=== PATIENT | female | born 1995 | race Caucasian/White ===

== ENCOUNTER 2022-07-20 08:03 | Emergency (ER) | payer BC, SELFPAY ==
--- NOTE | 2022-07-20 08:17 | ED.URI ---
HPI - URI/Sore Throat General Chief Complaint: Upper Respiratory Infection Stated Complaint: Sore Throat Time Seen by Provider: 07/20/22 08:22 Source: patient Mode of arrival: ambulatory Limitations: no limitations History of Present Illness HPI Narrative: 27-year-old female who presents to [facility] with complaint sore throat since yesterday some swollen lymph nodes in her neck some headache rare cough and nasal stuffiness. Patient does report son had strep last week so known exposure. Patient denies any body aches chills or sweats or any known fever. Patient has taken DayQuil and NyQuil for her symptoms. Patient has been COVID vaccinated and has had flu shot. MD elicited complaint: cough and sore throat Pertinent past history: other (Strep throat) Onset (ago): day(s) (1) Pain scale (0-10): 5 Able to tolerate fluids by mouth: Yes Treatments prior to arrival: other (DayQuil and NyQuil) Related Data Home Medications Medication Instructions Recorded Confirmed desogestrel-e.estradiol 0.15 tablet 07/20/22 mg-0.02 mg(21)/e.estrad 0.01 mg(5) tablet ([place] (28)) Allergies Allergy/AdvReac Type Severity Reaction Status Date / Time No Known Allergies Allergy Verified 07/20/22 08:24 Review of Systems Review of Systems: CONSTITUTIONAL: Denies malaise, chills, sweats, or fever. EYES: Denies visual changes, redness, or discharge. ENT: Reports rhinorrhea, congestion, sinus pain, no otalgia positive sore throat. CARDIOVASCULAR: Denies chest pain, palpitations, or edema. RESPIRATORY: Reports rare cough.? Denies dyspnea. GASTROINTESTINAL: Denies abdominal pain, nausea, vomiting, diarrhea SKIN: Denies rash or itching. MUSCULOSKELETAL: Denies myalgia. NEUROLOGIC: Reports headache. All systems reviewed & are unremarkable except as noted in HPI and below PMFSH Past Medical History Medical History (Updated 07/20/22 @ 08:34 by Swati Cruz NP) Strep pharyngitis Social History Social History (Updated 07/20/22 @ 08:30 by Swati Cruz NP) Smoking status: Never smoker Alcohol intake: current Alcohol use details: Social Substance use type: does not use Gender identity (if verbalized by the patient): Female Comments At time of signature, agree with nursing past medical, surgical, social and family history. There is no relevant family history pertinent to the presenting complaint Exam Narrative: GENERAL: Well-appearing, well-nourished, and in no acute distress. HEAD: Normocephalic EYES: PERRLA, conjunctivae clear ENT: Nares clear, turbinates edematous and erythematous, clear discharge. Mucous membranes moist. TM pearly ayon with dull light reflex bilaterally; no tragal tenderness. Oropharynx erythematous with white lesions. Tonsils enlarged and without exudate, no drooling, no hoarseness, no trismus, uvula midline. NECK: Supple. lymphadenopathy CHEST: Clear to auscultation, breath sounds equal. No wheezing, rhonchi, rales, or stridor. No respiratory distress, speaks in full sentences. Rare cough SaO2 98% on room air HEART: Regular rate and rhythm. No murmur heard. SKIN: Warm, dry, no rash. NEURO: Alert and oriented x3. PSYCH: Normal mood and affect Course Course Emergency Course: Patient is aware of diagnosis, understands and agrees to treatment plan.? Anticipatory guidance given.? Patient agrees to follow-up as directed and is aware of reasons to seek care at the emergency department. Portions of this record may have been created with voice recognition software Level of Care: Express Care Visit Vital Signs Vital signs: Reviewed MDM - URI/Sore Throat MDM Narrative Medical decision making narrative: Differential diagnosis considered: Lopez virus, strep pharyngitis, allergic rhinitis, upper respiratory tract infection, sinusitis, rhinosinusitis, nasopharyngitis. viral pharyngitis, otitis media, otitis externa, pneumonia, bronchitis, viral cough syndrom
[2022-07-20 08:18] VITALS: BP 142/66; PULSE 85; RESP 16; TEMP 36.7; O2SAT 98
== END 2022-07-20 08:40 | disposition home or self-care (01) ==
PROVIDERS: Emergency Provider Registered Nurse
DX: J02.0 Streptococcal pharyngitis (principal)
CPT/HCPCS: 99213; G0463

== ENCOUNTER 2023-03-27 12:48 | Emergency (ER) | payer BC, SELFPAY ==
[2023-03-27] VITALS (8 sets, daily range): BP systolic 101–134; BP diastolic 67–90; PULSE 62–91; RESP 16–20; TEMP 36.9; O2SAT 99–100
--- NOTE | ~2023-03-27 | XR_ITS ---
EXAMINATION: XR chest 2V DATE: 03/27/2023 13:46 INDICATION: Shortness of breath and palpitations TECHNIQUE: Frontal and lateral views of the chest are obtained COMPARISON: None available FINDINGS: The lungs are free of acute opacities. No pleural effusion or pneumothorax. The cardiomedia stinal silhouette is normal. The visualized bones and soft tissues are unremarkable. IMPRESSION: 1. No acute cardiopulmonary abnormality. Reviewed, dictated and finalized at location A.
--- NOTE | 2023-03-27 12:54 | ECG_ITS ---
Measurements Intervals [place] Rate: 61 P: 70 OK: 175 QRS: 57 QRSD: 78 T: 13 QT: 391 QTc: 397 Interpretive Statements SINUS RHYTHM POSSIBLE RIGHT VENTRICULAR CONDUCTION DELAY [RSR (QR) IN V1/V2] NONSPECIFIC ST AND T-WAVE ABNORMALITY NO PREVIOUS ECG AVAILABLE FOR COMPARISON Electronically Signed On 03-28-2023 11:28:22 CDT by Ameya Machado M.D.
[2023-03-27 13:28] LABS: Basophils Absolute Auto 0.1 K/mm3 (0.0-0.1); Basophils Percent Auto 1.2 % (0.2-1.2); Eosinophils Absolute Auto 0.3 K/mm3 (0-0.3); Eosinophils Percent Auto 4.4 % (0-4.4); Hematocrit 45.4 % (37.0-47.0); Immature Granulocyte Absolute 0.02 K/mm3 (0.00-0.031); Immature Granulocyte Percent A 0.3 % (0-0.5); Lymphocytes Absolute Auto 1.52 K/mm3 (0.9-3.2); Mean Corpuscular Hemoglobin 29.1 pg (26-34); Mean Platelet Volume 11.1 fl (7.4-10.4); Monocytes Absolute Auto 0.5 K/mm3 (0.1-0.6); Monocytes Percent Auto 6.9 % (2.6-8.5); Neutrophils Absolute Auto 4.3 K/mm3 (1.3-6.7); Neutrophils Percent Auto 64.2 % (45.5-73.1); Platelet Count Result 205 k/mm3 (150-375); Red Blood Count 5.16 M/mm3 (4.2-5.4); Red Cell Distribution Width 12.8 % (11.5-14.5); White Blood Count 6.6 K/mm3 (4.5-10.0)
[2023-03-27 13:38] LABS: Alanine Aminotransferase 26 U/L (6-35); Albumin Level 4.9 g/dL (3.5-5.1); Alkaline Phosphatase 45 U/L (38-126); Anion Gap 8 mmol/L (8-16); Aspartate Amino Transferase 30 U/L (14-36); Bilirubin,Total 0.4 mg/dL (0.2-1.3); Blood Urea Nitrogen 17 mg/dL (7-17); Calcium 9.5 mg/dL (8.4-10.2); Carbon Dioxide 29 mmol/L (22-30); Chloride 100 mmol/L (98-107); Estimated CRCL calculation 68 ml/min; Estimated Glomerular Filt Rate > 60; Glucose 98 mg/dL (65-110); Potassium 4.3 mmol/L (3.4-5.0); Sodium 137 mmol/L (137-145)
--- NOTE | 2023-03-27 18:55 | ED.GENADULT ---
HPI - General Adult General Chief complaint: Shortness of Breath/Dyspnea Stated complaint: sob/palpitations Time Seen by Provider: 03/27/23 16:43 History of Present Illness HPI narrative: 27-year-old female present emergency department for evaluation of intermittent dizziness. Patient reports she started taking spironolactone for her acne. Patient reports that she normally has low blood pressure. Patient states since starting the medication she has had intermittent times when she stands up and her heart rate increases to 110 and she has some intermittent lightheaded dizziness. Patient reports that the dizziness was worsened with standing. Related Data Home Medications Medication Instructions Recorded Confirmed desogestrel-e.estradiol 0.15 tablet 07/20/22 mg-0.02 mg(21)/e.estrad 0.01 mg(5) tablet (Viorele (28)) Allergies Allergy/AdvReac Type Severity Reaction Status Date / Time No Known Allergies Allergy Verified 03/27/23 16:34 Review of Systems Review of Systems: All systems reviewed & are unremarkable except as noted in HPI and below PMFSH Past Medical History Medical History (Updated 03/28/23 @ 00:00 by Alejandro Branham) Strep pharyngitis Social History Social History (Updated 07/20/22 @ 08:30 by Swati Cruz NP) Smoking status: Never smoker Alcohol intake: current Alcohol use details: Social Substance use type: does not use Living arrangements: with family Gender identity (if verbalized by the patient): Female Exam Narrative: APPEARANCE: Well appearing, no pain, no distress, well-nourished. HEAD: normocephalic, atraumatic. EYES: PERRLA/EOMI, conjunctivae clear. NOSE: Normal no drainage EARS:TMS clear with good light reflex. THROAT: Pharynx clear, no exudate. NECK: Supple. No adenopathy, no masses. RESPIRATORY: Airway patent, respirations nonlabored. Clear to auscultation bilaterally, no rales, rhonchi, wheezing. CARDIOVASCULAR: Regular rate and rhythm without murmurs rubs or gallops. ABDOMINAL: Soft, nontender, nondistended, normal bowel sounds MUSCULOSKELETAL: Moves all extremities. Strength/ROM intact, No edema, No calf tenderness. NEURO: Alert. Cranial nerves II through XII intact. Grossly intact SKIN: Warm, dry. Normal Color PSYCHIATRIC: Normal affect/mood. Course Course Emergency Course: 27-year-old female presented ED for evaluation of lightheaded dizziness. Patient was mildly orthostatic but declined the IV. Patient was encouraged to drink more water. Patient states she will have close follow-up with her tawer regarding her spironolactone dosing. Patient's chest x-ray showed no acute cardial pulm abnormality. Patient's EKG showed normal sinus rhythm. Patient was comfortable plan with discharge and close follow-up. X-ray showed no acute cardiopulmonary malady. Vital Signs Vital signs: Vital Signs Temperature 98.5 F 03/27/23 12:51 Pulse Rate 79 03/27/23 12:51 Respiratory Rate 20 03/27/23 12:51 Blood Pressure 134/84 03/27/23 12:51 Pulse Oximetry 100 03/27/23 12:51 Oxygen Delivery Room Air 03/27/23 12:51 Temperature 98.5 F 03/27/23 12:51 Pulse Rate 75 03/27/23 18:16 Respiratory Rate 17 03/27/23 18:16 Blood Pressure 111/73 03/27/23 18:16 Pulse Oximetry 99 03/27/23 16:36 Oxygen Delivery Room Air 03/27/23 16:36 Medical Decision Making Differential Diagnosis Differential Diagnosis: Adverse drug reaction, dehydration, vasovagal, orthostatic hypotension Vital Signs Vital Signs: Vital Signs Temperature 98.5 F 03/27/23 12:51 Pulse Rate 79 03/27/23 12:51 Respiratory Rate 20 03/27/23 12:51 Blood Pressure 134/84 03/27/23 12:51 Pulse Oximetry 100 03/27/23 12:51 Oxygen Delivery Room Air 03/27/23 12:51 Temperature 98.5 F 03/27/23 12:51 Pulse Rate 75 03/27/23 18:16 Respiratory Rate 17 03/27/23 18:16 Blood Pressure 111/73 03/27/23 18:16 Pulse Oximetry 99
== END 2023-03-27 19:03 | disposition home or self-care (01) ==
PROVIDERS: Emergency Provider Emergency Medicine
DX: I95.1 Orthostatic hypotension (principal); L70.9 Acne, unspecified; R94.31 Abnormal electrocardiogram [ECG] [EKG]
CPT/HCPCS: 36415; 71046; 80053; 85025; 93005; 99284

== ENCOUNTER 2024-08-02 09:35 | Emergency (ER) | payer BC, SELFPAY ==
[2024-08-02 09:59] VITALS: BP 113/79; PULSE 70; RESP 20; TEMP 37.1; O2SAT 100
--- NOTE | 2024-08-02 10:09 | ED.URI ---
HPI - URI/Sore Throat General Chief Complaint: Upper Respiratory Infection Stated Complaint: Sore Throat Time Seen by Provider: 08/02/24 10:10 Source: patient Mode of arrival: ambulatory Limitations: no limitations History of Present Illness HPI Narrative: 29-year-old female presents with complaint of sore throat, fatigue, low-grade fever for 2 days. Patient approximately 8 weeks . Has seen her OBGYN. No complaints today. , is taking her vitamin. All systems reviewed and negative except as noted above. Related Data Allergies Allergy/AdvReac Type Severity Reaction Status Date / Time No Known Allergies Allergy Verified 08/02/24 10:01 Review of Systems Review of Systems: CONSTITUTIONAL: Denies fever, chills, or sweats. EYES: Denies visual changes, redness, or discharge. ENT: Denies rhinorrhea, congestion . Reports sore throat. Denies otalgia. CARDIOVASCULAR: Denies chest pain, palpitations, or edema. RESPIRATORY: Denies cough or dyspnea. GASTROINTESTINAL: Denies abdominal pain, nausea, vomiting, or diarrhea. GENITOURINARY: Denies dysuria or hematuria. SKIN: Denies rash or itching. MUSCULOSKELETAL: Denies back pain, joint pain, or myalgia. NEUROLOGIC: Denies headache, numbness, or weakness. PSYCHIATRIC: Denies anxiety or depression. All other systems reviewed are negative, except as documented in HPI. [facility] Past Medical History Medical History (Updated 08/02/24 @ 10:14 by Shy Frederick NP) Strep pharyngitis Social History Social History (Updated 07/20/22 @ 08:30 by Swati Cruz NP) Smoking status: Never smoker Alcohol intake: current Alcohol use details: Social Substance use type: does not use Living arrangements: with family Gender identity (if verbalized by the patient): Female Comments At time of signature, agree with nursing past medical, surgical, social and family history. There is no relevant family history pertinent to the presenting complaint. Exam Narrative: GENERAL: This is a well-nourished, well-developed patient, in no apparent distress. HEAD: normocephalic, atraumatic. EYES: PERRL. Sclera clear/white. Vision is grossly intact. EARS: External ears normal, auditory canals clear and without drainage, TMs normal without perforation. Hearing grossly intact. NOSE: External nose normal with no obvious nasal discharge, nares without redness, no rhinorrhea. THROAT: Mucous membranes moist, posterior pharynx erythematous, tonsils 1+ bilaterally without exudates NECK: Neck supple, non-tender without lymphadenopathy, masses or thyromegaly. CARDIOVASCULAR: Regular rate and rhythm without murmurs, gallops, or rubs. RESPIRATORY: Clear to auscultation. Breath sounds equal bilaterally. No wheezes, rales, or rhonchi. SKIN: warm, Dry, intact with no suspicious lesions or rash, good texture and turgor. NEURO: awake, alert, and oriented to person, place and time. There were no obvious focal neurologic abnormalities. EXTREMITIES: No joint tenderness, effusion, or edema noted. Course Course Level of Care: Express Care Visit Vital Signs Vital signs: Vital Signs Temperature 37.1 C 08/02/24 09:59 Pulse Rate 70 08/02/24 09:59 Respiratory Rate 20 08/02/24 09:59 Blood Pressure 113/79 08/02/24 09:59 Pulse Oximetry 100 08/02/24 09:59 Oxygen Delivery Room Air 08/02/24 09:59 Temperature 37.1 C 08/02/24 09:59 Pulse Rate 70 08/02/24 09:59 Respiratory Rate 20 08/02/24 09:59 Blood Pressure 113/79 08/02/24 09:59 Pulse Oximetry 100 08/02/24 09:59 Oxygen Delivery Room Air 08/02/24 09:59 reviewed MDM - URI/Sore Throat MDM Narrative Medical decision making narrative: Patient is aware of diagnosis, understands and agrees to treatment plan. Anticipatory guidance given. Patient agrees to follow-up as directed and is aware of reasons to seek care at the emergency department. Portions of this record may have been created with voice recognition software positive strep. will treat with amoxicillin. Differential Diagnosis Differential diagnosis: Likely upper respiratory infection, viral infection, influenza and pharyngitis Discharge Plan Discharge Clinical Impression: Strep throat Patient Disposition: Home, Self-Care Condition: Stable Instructions: Antibiotic Form, Strep Throat (ED) Additional Instructions: Your strep test was positive. Take antibiotic as prescribed until gone. Change toothbrush after taking antibiotic for 24 hours. take Tylenol every 6-8 hours as needed for pain and fever. Drink at least 64 oz water a day. Follow-up with your primary care physician if symptoms are not improving. Patient Language: [place] Prescriptions: New amoxicillin 500 mg capsule 500 mg PO Q12H 10 Days Qty: 20 0RF Follow-up/Referrals: PHYSICIAN,INFORMATION SERVICES MANAGER [Primary Care Provider] - Time of Disposition: 10:16
[2024-08-02 10:10] LABS: EDSTREPNEGPOS1 Positive (Negative)
--- OUTSIDE RECORDS SUMMARY | 2024-08-09 10:43 | XMS_ITS ---
Author Organization [facility] Address [address] [place] [address] Phone Care Team Providers [employer] Sales Associate Name Role Phone MANJULA LYLES, MELODY Banks Unavailable [phone] Problems Includes: Active, inactive, and resolved Problems No Active Problems Plan of Treatment Findings Encounter Date Ordered Clinical summary pro vided to patient WELL WOMAN - ESTABLISHED PT with NAHUM JAIMES WHNP-BC 05/18/2022 Last Documented On 2 9:18AM ; [facility] Ordered Clinical summary pro vided to patient WELL WOMAN EXAM with NAHUM JAIMES WHNP-BC 04/09/2020 Last Documented On 0 8:24AM ; [facility] Ordered Clinical summary pro vided to patient METAL BUFFER EXAM with NAHUM JAIMES WHNP-BC 10/04/2017 Last Documented On 8 4:01PM ; [facility] Ordered Clinical summary pro vided to patient METAL BUFFER EXAM with NAHUMANITA JAIMES WHNP-BC 09/28/2016 Last Documented On 7 8:27AM ; [facility] Ordered Clinical summary pro vided to patient METAL BUFFER EXAM with NAHUMANITA JAIMES WHNP-BC 09/27/2015 Last Documented On 6 10:46AM ; [facility] Ordered Clinical summary pro vided to patient METAL BUFFER EXAM with NAHUMANITA JAIMES WHNP-BC 09/02/2014 Last Documented On 5 3:27PM ; [facility] Ordered Clinical summary pro vided to patient METAL BUFFER EXAM with NAHUMANITA JAIMES WHNP-BC 07/21/2013 Last Documented On 3 11:22AM ; [facility] Ordered follow-up visit 1 ye ar or as needed NEW METAL BUFFER EXAM with NAHUM JAIMES [facility] 02/14/2011 Last Documented On 1 2:27PM ; [facility] Instructions to patient Instructions for patient : B reast Self Exam discussed Last Documented On 2 8:56AM ; [facility] Gardasil information given a nd series encouraged Series completed! Last Documented On 2 8:57AM ; [facility] Safe sex counseling Last Documented On 2 8:57AM ; [facility] Instructions for patient : K eep the area around the vulva dry. Allow the area to have exposure to air. Avoid irritants such as fabric softeners and perfumed soaps.~ Last Documented On 0 8:11AM ; [facility] Instructions for patient : B reast Self Exam discussed Last Documented On 0 8:06AM ; [facility] Advised d/c scented bath pro ducts Last Documented On 0 8:11AM ; [facility] Gardasil information given a nd series encouraged Series completed! Last Documented On 0 8:11AM ; [facility] Safe sex counseling Last Documented On 0 8:07AM ; [facility] Instructions for patient : B reast Self Exam discussed Last Documented On 8 3:48PM ; [facility] Gardasil information given a nd series encouraged Series completed! Last Documented On 8 3:48PM ; [facility] Safe sex counseling Last Documented On 8 3:48PM ; [facility] Instructions for patient : B reast Self Exam discussed Last Documented On 7 8:11AM ; [facility] Gardasil information given a nd series encouraged Series completed!! Last Documented On 7 8:11AM ; [facility] Safe sex counseling Last Documented On 7 8:11AM ; [facility] Instructions for patient : B reast Self Exam discussed Last Documented On 6 10:32AM ; [facility] Gardasil information given a nd series encouraged Series completed! Last Documented On 6 10:33AM ; [facility] Safe sex counseling Last Documented On 6 10:33AM ; [facility] Instructions for patient : B reast Self Exam discussed Last Documented On 5 3:03PM ; [facility] Gardasil information given a nd series encouraged Only needs one more dose - had first two doses per Dr. Jimena Sage Last Documented On 5 3:27PM ; [facility] Safe sex counseling Last Documented On 5 3:03PM ; [facility] Instructions for patient : B reast Self Exam discussed Last Documented On 3 11:04AM ; [facility] Gardasil information given a nd series encouraged Last Documented On 3 11:05AM ; [facility] Safe sex counseling Last Documented On 3 11:05AM ; [facility] Instructions for patient : B reast Self Exam discussed Last Documented On 1 1:37PM ; [facility] Gardasil information given a nd series encouraged Last Documented On 1 1:38PM ; [facility] Safe sex counseling Last Documented On 1 1:38PM ; [facility] Education and Decision Aids were provided during visit for: Patient Education: Daily fiordaliza cium and vitamin D Last Documented On 2 8:56AM ; [facility] Patient Education: weight be aring exercise Last Documented On 2 8:56AM ; [facility] Patient Education: Daily fiordaliza cium and vitamin D Last Documented On 0 8:06AM ; [facility] Patient Education: weight be aring exercise Last Documented On 0 8:06AM ; [facility] Candidiasis Vulvovaginitis I nformation Sheet Given Last Documented On 0 8:11AM ; [facility] Patient Education: Daily fiordaliza cium and vitamin D Last Documented On 8 3:48PM ; [facility] Patient Education: weight be aring exercise Last Documented On 8 3:48PM ; [facility] Patient Education: Daily fiordaliza cium and vitamin D Last Documented On 7 8:11AM ; [facility] Patient Education: weight be aring exercise Last Documented On 7 8:11AM ; [facility] Patient Education: Daily fiordaliza cium and vitamin D Last Documented On 6 10:32AM ; [facility] Patient Education: weight be aring exercise Last Documented On 6 10:32AM ; [facility] Patient Education: Daily fiordaliza cium and vitamin D Last Documented On 5 3:03PM ; [facility] Patient Education: weight be aring exercise Last Documented On 5 3:03PM ; [facility] control consent review ed and signed Last Documented On 4 4:09PM ; [facility] Patient Education: Daily fiordaliza cium and vitamin D Last Documented On 3 11:04AM ; [facility] Patient Education: weight be aring exercise Last Documented On 3 11:04AM ; [facility] Patient Education: Daily fiordaliza cium and vitamin D Last Documented On 1 1:38PM ; [facility] Patient Education: weight be aring exercise Last Documented On 1 1:38PM ; [facility] Assessments Includes: Assessments for all patient encounters Findings Encounter Date NORMAL FEMALE EXAM WELL WOMAN - ESTABLISHED PT w ith NAHUM JAIMES [facility]- 05/18/2022 Last Documented On 2 9:18AM ; [facility] NORMAL FEMALE EXAM WELL WOMAN EXAM with NAHUM JAIMES [facility] 04/09/2020 Last Documented On 0 8:24AM ; [facility] NORMAL FEMALE EXAM METAL BUFFER EXAM with NAHUM Lynch P-BC 10/04/2017 Last Documented On 8 4:01PM ; [facility] NORMAL FEMALE EXAM METAL BUFFER EXAM with NAHUM Lynch HNP-BC 09/28/2016 Last Documented On 7 8:27AM ; [facility] NORMAL FEMALE EXAM METAL BUFFER EXAM with NAHUM Lynch HNP-BC 09/27/2015 Last Documented On 6 10:46AM ; [facility] NORMAL FEMALE EXAM METAL BUFFER EXAM with NAHUM Lynch HNP-BC 09/02/2014 Last Documented On 5 3:27PM ; [facility] Contraceptive management PROCEDURE OFFICE with Darren JAIMES [facility] 04/16/2014 Last Documented On 4 4:10PM ; [facility] NORMAL FEMALE EXAM METAL BUFFER EXAM with NAHUM JAIMES [facility] 07/21/2013 Last Documented On 3 11:22AM ; [facility] Contraceptive surveillance IMPLANON with NAHUM JAIMES [facility] 04/17/2011 Last Documented On 1 4:18PM ; [facility] Normal routine history and physical NEW METAL BUFFER EXAM with NAHUM JAIMES [facility] 02/14/2011 Last Documented On 1 2:27PM ; [facility] Routine pelvic exam NEW METAL BUFFER EXAM with NAHUM TEJEDA [facility] 02/14/2011 Last Documented On 1 2:27PM ; [facility] Instructions Includes: Instructions for all patient encounters Instructions to patient Instructions for patient : B reast Self Exam discussed Last Documented On 2 8:56AM ; [facility] Gardasil information given a nd series encouraged Series completed! Last Documented On 2 8:57AM ; [facility] Safe sex counseling Last Documented On 2 8:57AM ; [facility] Instructions for patient : K eep the area around the vulva dry. Allow the area to have exposure to air. Avoid irritants such as fabric softeners and perfumed soaps.~ Last Documented On 0 8:11AM ; [facility] Instructions for patient : B reast Self Exam discussed Last Documented On 0 8:06AM ; [facility] Advised d/c scented bath pro ducts Last Documented On 0 8:11AM ; [facility] Gardasil information given a nd series encouraged Series completed! Last Documented On 0 8:11AM ; [facility] Safe sex counseling Last Documented On 0 8:07AM ; [facility] Instructions for patient : B reast Self Exam discussed Last Documented On 8 3:48PM ; [facility] Gardasil information given a nd series encouraged Series completed! Last Documented On 8 3:48PM ; [facility] Safe sex counseling Last Documented On 8 3:48PM ; [facility] Instructions for patient : B reast Self Exam discussed Last Documented On 7 8:11AM ; [facility] Gardasil information given a nd series encouraged Series completed!! Last Documented On 7 8:11AM ; [facility] Safe sex counseling Last Documented On 7 8:11AM ; [facility] Instructions for patient : B reast Self Exam discussed Last Documented On 6 10:32AM ; [facility] Gardasil information given a nd series encouraged Series completed! Last Documented On 6 10:33AM ; [facility] Safe sex counseling Last Documented On 6 10:33AM ; [facility] Instructions for patient : B reast Self Exam discussed Last Documented On 5 3:03PM ; [facility] Gardasil information given a nd series encouraged Only needs one more dose - had first two doses per Dr. Jimena Sage Last Documented On 5 3:27PM ; [facility] Safe sex counseling Last Documented On 5 3:03PM ; [facility] Instructions for patient : B reast Self Exam discussed Last Documented On 3 11:04AM ; [facility] Gardasil information given a nd series encouraged Last Documented On 3 11:05AM ; [facility] Safe sex counseling Last Documented On 3 11:05AM ; [facility] Instructions for patient : B reast Self Exam discussed Last Documented On 1 1:37PM ; [facility] Gardasil information given a nd series encouraged Last Documented On 1 1:38PM ; [facility] Safe sex counseling Last Documented On 1 1:38PM ; [facility] Education and Decision Aids were provided during visit for: Patient Education: Daily fiordaliza cium and vitamin D Last Documented On 2 8:56AM ; [facility] Patient Education: weight be aring exercise Last Documented On 2 8:56AM ; [facility] Patient Education: Daily fiordaliza cium and vitamin D Last Documented On 0 8:06AM ; [facility] Patient Education: weight be aring exercise Last Documented On 0 8:06AM ; [facility] Candidiasis Vulvovaginitis I nformation Sheet Given Last Documented On 0 8:11AM ; [facility] Patient Education: Daily fiordaliza cium and vitamin D Last Documented On 8 3:48PM ; [facility] Patient Education: weight be aring exercise Last Documented On 8 3:48PM ; [facility] Patient Education: Daily fiordaliza cium and vitamin D Last Documented On 7 8:11AM ; [facility] Patient Education: weight be aring exercise Last Documented On 7 8:11AM ; [facility] Patient Education: Daily fiordaliza cium and vitamin D Last Documented On 6 10:32AM ; [facility] Patient Education: weight be aring exercise Last Documented On 6 10:32AM ; [facility] Patient Education: Daily fiordaliza cium and vitamin D Last Documented On 5 3:03PM ; [facility] Patient Education: weight be aring exercise Last Documented On 5 3:03PM ; [facility] control consent review ed and signed Last Documented On 4 4:09PM ; [facility] Patient Education: Daily fiordaliza cium and vitamin D Last Documented On 3 11:04AM ; [facility] Patient Education: weight be aring exercise Last Documented On 3 11:04AM ; [facility] Patient Education: Daily fiordaliza cium and vitamin D Last Documented On 1 1:38PM ; [facility] Patient Education: weight be aring exercise Last Documented On 1 1:38PM ; [facility] Medical Equipment - Implanted Devices Includes: Current and historical Devices No Medical Equipment Recorded Medications Includes: Current and historical Medications Current Medications (continue as prescribed) Azurette 0.15-0.02/0.01 MG ( /) Oral Tablet 05/18/2022 Provider: NAHUM A JAIMES WHNP-B C Diagnosis: One tablet daily Last Documented On 2 9:27AM By NAHUM JAIMES WILBC ; [facility] Past Medications on file Diflucan 150 MG Oral Tablet 04/09/2020 - 05/18/2022 Pr ovider: NAHUM Barriga THEODORE WHNP-BC Diagnosis: as directed - one po x 1 dos e - december rpt. in 3 days if needed Last Documented On 05/18/2022 8:59AM By Ada Zuluaga MA ; [facility] Azurette 0.15-0.02/0.01 MG (21/5) Oral Tablet 04/09/2020 - 05/18/2022 Provider: NAHUM ARMSTRONG-BC Diagnosis: Encounter for contraceptive management, unspecified One tablet daily Last Documented On 05/18/2022 8:58AM By Ada Zuluaga MA ; [facility] Azurette 0.15-0.02/0.01 MG (21/5) Oral Tablet 04/09/2020 - 04/09/2020 Provider: NAHUM ARMSTRONG-BC Diagnosis: Encounter for contraceptive management, unspecified One tablet daily Last Documented On 0 8:16AM By NAHUM ARMSTRONG-MOISES ; [facility] Azurette 0.15-0.02/0.01MG (21/5) Oral Tablet 10/04/2017 - 04/09/2020 Provider: NAHUM ARMSTRONG-BC Diagnosis: Encounter for contraceptive management, unspecified One tablet daily Last Documented On 0 8:14AM By NAHUM MOMIN ; [facility] Azurette 0.15-0.02/0.01MG (21/5) Oral Tablet 09/28/2016 - 10/04/2017 Provider: NAHUM JAIMES WHNP-BC Diagnosis: Encounter for contraceptive management, unspecified One tablet daily Last Documented On 8 3:50PM By NAHUM MOMIN ; [facility] Azurette 0.15-0.02/0.01 MG (21/5) Tablet 09/27/2015 - 09/28/2016 Provider: NAHUM ARMSTRONG-BC Diagnosis: Encounter for contraceptive management, unspecified One tablet daily Last Documented On 7 8:27AM By NAHUM MOMIN ; [facility] Azurette 0.15-0.02/0.01 MG (24/12) Tablet 08/09/2015 - 09/27/2015 Provider: NAHUM MOMIN Diagnosis: Encounter for contraceptive management, unspecified One tablet daily Last Documented On 6 10:42AM By NAHUM MOMIN ; [facility] Azurette 0.15-0.02/0.01 MG (24/12) OR TABS 09/02/2014 - 08/09/2015 Provider: NAHUM MOMIN Diagnosis: Contraceptive Ma ngmt NOS Last Documented On 6 8:41AM By NAHUM MOMIN ; [facility] Azurette 0.15-0.02/0.01 MG (24/12) OR TABS 04/16/2014 - 09/02/2014 Provider: NAHUM MOMIN Diagnosis: Contraceptive Ma ngmt NOS Last Documented On 5 3:25PM By NAHUM MOMIN ; [facility] Azurette 0.15-0.02/0.01 MG (24/12) OR TABS 04/16/2014 - 04/16/2014 Provider: NAHUM MOMIN Diagnosis: Contraceptive Ma ngmt NOS Last Documented On 4 4:09PM By NAHUM MOMIN ; [facility] Implanon 68 MG SC IMPL 04/17/2011 - 04/16/2014 Provide r: Diagnosis: Last Documented On 4 3:44PM By NAHUM JAIMES ERNESTO ; [facility] Medications Administered Includes: Administered Medications in patient's chart Medications Administered Diagnosis Date Pro vider Gardasil IM SUSP 09/14/2014 NAHUM DONG WIL Administered without difficulty. Last Documented On 5 2:42PM By OSMAR CASH LPN ; [facility] Results Includes: Results from 08/09/2023 through 08/09/2024 No Results Recorded For Specified Dates History of Present Illness History of Present Illness not supported for this document type No History of Present Illness Recorded Social History Description Last Updated Tobacco non-user 05/18/2022 Last Documented On 2 9:18AM ; [facility] Alcohol use rarely 04/09/2020 Last Documented On 0 8:24AM ; [facility] Non-smoker 04/09/2020 Last Documented On 0 8:24AM ; [facility] Not using drugs 04/09/2020 Last Documented On 0 8:24AM ; [facility] Sexually active with 1 partners in the l ast year 04/09/2020 Last Documented On 0 8:24AM ; [facility] Social history unchanged 04/09/2020 Last Documented On 0 8:24AM ; [facility] Smoking status : Never smoker 04/09/2020 Last Documented On 0 8:24AM ; [facility] Procedures and Surgical History Surgical History Last Updated Surgical / procedural history wisdom too th removed 10/04/2017 Last Documented On 8 4:01PM ; [facility] Medical History Includes: Medical History in patient's chart Description Last Updated 2 05/18/2022 Last Documented On 2 9:18AM ; [facility] Last pap smear date 201905/18/2022 Last Documented On 2 9:18AM ; [facility] Not using contraception 05/18/2022 Last Documented On 2 9:18AM ; [facility] Para 2 05/18/2022 Last Documented On 2 9:18AM ; [facility] LMP: 05/11/2022 05/18/2022 Last Documented On 2 9:18AM ; [facility] Vaginal delivery 04/09/2020 Last Documented On 0 8:24AM ; [facility] No recent change in medical history 11/2019 Last Documented On 0 8:24AM ; [facility] Sexually active 04/09/2020 Last Documented On 0 8:24AM ; [facility] History of Pap smear done 09/28/201611/2019 Last Documented On 0 8:24AM ; [facility] Result: normal 04/09/2020 Last Documented On 0 8:24AM ; [facility] History of Gardasil 09/27/2015 Last Documented On 6 10:46AM ; [facility] Family History Includes: Family History in patient's chart Description Last Updated Family history unchanged 04/09/2020 Last Documented On 0 8:24AM ; [facility] Family history of diabetes mellitus moth ers side-mggf 09/27/2015 Last Documented On 6 10:46AM ; [facility] Family history of Diabetes 04/17/2011 Last Documented On 1 4:18PM ; [facility] Family medical history of high blood pre ssure 04/17/2011 Last Documented On 1 4:18PM ; [facility] Review of Systems Review of Systems not supported for this document type No Review of Systems Recorded Mental Status No Mental Status Recorded Functional Status No Functional Status Recorded Physical Exam Physical Exam not supported for this document type No Physical Exam Recorded Allergies Includes: Active, inactive, and resolved Allergies No Known Allergies Insurance Includes: Active Insurance Policies Plan Name Member ID Group # Subscriber Relationship Effect el Dates 1 - [facility] [id number] MIKAELA LEONARD Self Clinical Notes Includes: Signed Clinical Notes starting from 08/25/2022 No Clinical Notes Recorded
--- OUTSIDE RECORDS SUMMARY | 2024-08-09 10:43 | XMS_ITS | Clinical Summary ---
Author Organization [facility] Address [address] [place] [address] Phone Care Team Providers Care Outcomes Manager Name Role Phone MANJULA LYLES, MELODY Banks Unavailable [phone] Reason for Visit and Chief Complaint The Chief Complaint is: WWE, she has not been taking any medication, but she states since she has had her last child, her cycles have been normal, but the cramps are awful and headaches, lasting for a couple of days. No new partners. FTVD at [employer] 05-20-21 - female - no complications. Chose [facility] because it was closer to her employer. Did not have post visit d/t + covid at the time itwas due Problems Includes: Problems addressed during this encounter and other active Problems No Active Problems Plan of Treatment - Clinical summary provided to patient - Last Documented On 05/18/2022 9:18AM ; [facility] Start ocp's day 1 of menses and take q day at same time - DO NOT SKIP A DAY! BUM x 1 month. Reviewed risks/benefits/ methods for use/ and possible side effects/ warning signs. - Last Documented On 05/18/2022 9:18AM ; [facility] Instructions to patient Instructions for patient : B reast Self Exam discussed Last Documented On 2 8:56AM ; [facility] Gardasil information given a nd series encouraged Series completed! Last Documented On 2 8:57AM ; [facility] Safe sex counseling Last Documented On 2 8:57AM ; [facility] Education and Decision Aids were provided during visit for: Patient Education: Daily fiordaliza cium and vitamin D Last Documented On 2 8:56AM ; [facility] Patient Education: weight be aring exercise Last Documented On 2 8:56AM ; [facility] Assessments Includes: Assessments from this encounter Findings - NORMAL FEMALE EXAM - Last Documented On 05/18/2022 9:18AM ; [facility] Instructions Includes: Instructions from this encounter Instructions to patient Instructions for patient : B reast Self Exam discussed Last Documented On 2 8:56AM ; [facility] Gardasil information given a nd series encouraged Series completed! Last Documented On 2 8:57AM ; [facility] Safe sex counseling Last Documented On 2 8:57AM ; [facility] Education and Decision Aids were provided during visit for: Patient Education: Daily fiordaliza cium and vitamin D Last Documented On 2 8:56AM ; [facility] Patient Education: weight be aring exercise Last Documented On 2 8:56AM ; [facility] Medical Equipment - Implanted Devices Includes: Current Devices No Medical Equipment Recorded Medications Includes: Medications discussed during this encounter and other current Medications Discontinued / Stopped on this date NAHUM JAIMES WHNP-BC on 04/09/2020 Diflucan 150 MG Oral Tablet Provider: NAHUM LANDANP-BC Diagnosis: Last Documented On 05/18/2022 8:59AM By Ada Zuluaga MA ; [facility] Azurette 0.15-0.02/0.01 MG (24/12) Oral Tablet Provider: NAHUM JAIMES WHNP-BC Diagnosis: Encounter for contraceptive management, unspecified Last Documented On 05/18/2022 8:58AM By Ada Zuluaga MA ; [facility] New / Renewed during this visit NAHUM JAIMES WHNP-BC on 05/18/2022 Azurette 0.15-0.02/0.01 MG (24/12) Oral Tablet Provider: NAHUM Banks 30 day supply: 30 tablet, 11 refills Diagnosis: One tablet daily Pharmacy: [facility] ([facility] - [address] [facility], [id number] - Last Documented On 2 9:27AM [facility] ; [facility] Medications Administered Includes: Administered Medications from this encounter No Administered Medications Recorded Vital Signs Includes: Vital Signs from this encounter Vital Name 05/18/2022 08:57A Blood Pressure Sitting L 110/70 BP Cuff Size Regular Temp-Oral (F) 97.7 Height (in) 63 Weight (lb) 149 Body Mass Index (kg/m2) 26.4 Body Surface Area (m2) 1.7 Last Documented: On 05/18/2022 9:01AM ; [facility] Results Includes: Results discussed during this encounter No Results Recorded For Specified Dates History of Present Illness Includes: History of Present Illness from this encounter ASHIA LEONARD is a 26 year old female. - Allergy list reviewed - Medication list reviewed - Primary Care Provider: None Social History Description Last Updated Tobacco non-user 05/18/2022 Last Documented On 2 9:18AM ; [facility] Alcohol use rarely 04/09/2020 Last Documented On 2 8:56AM ; [facility] Non-smoker 04/09/2020 Last Documented On 2 8:56AM ; [facility] Not using drugs 04/09/2020 Last Documented On 2 8:56AM ; [facility] Sexually active with 1 partners in the l ast year 04/09/2020 Last Documented On 2 8:56AM ; [facility] Social history unchanged 04/09/2020 Last Documented On 2 8:56AM ; [facility] Smoking status : Never smoker 04/09/2020 Last Documented On 2 8:56AM ; [facility] Procedures and Surgical History Includes: Procedures from this encounter Procedures Code Diagnosis Performing Provider Service L ocation Service Date low fat diet Last Documented On 2 8:57AM ; [facility] use of tobacco assessment performed 1000F Last Documented On 2 9:02AM ; [facility] review of medications documented 1160F Last Documented On 2 9:02AM ; [facility] history of cervical Pap smear 2019 66146 Last Documented On 2 9:02AM ; [facility] Chlamydia trachomatis culture was perfor med Last Documented On 2 8:57AM ; [facility] Neisseria gonorrhea culture was performe d Last Documented On 2 8:57AM ; [facility] Cervical Pap Smear performed Q0091 Last Documented On 2 8:57AM ; [facility] Surgical History Last Updated Surgical / procedural history randy too th removed 10/04/2017 Last Documented On 2 8:56AM ; [facility] Medical History Includes: Medical History addressed during this encounter Description Last Updated 2 05/18/2022 Last Documented On 2 9:18AM ; [facility] Last pap smear date 201905/18/2022 Last Documented On 2 9:18AM ; [facility] Not using contraception 05/18/2022 Last Documented On 2 9:18AM ; [facility] Para 2 05/18/2022 Last Documented On 2 9:18AM ; [facility] LMP: 05/11/2022 05/18/2022 Last Documented On 2 9:18AM ; [facility] Contraception: 05/18/2022 Last Documented On 2 9:18AM ; [facility] Vaginal delivery 04/09/2020 Last Documented On 2 8:56AM ; [facility] No recent change in medical history 11/2019 Last Documented On 2 8:56AM ; [facility] Sexually active 04/09/2020 Last Documented On 2 8:56AM ; [facility] History of Pap smear done 09/28/201611/2019 Last Documented On 2 8:56AM ; [facility] Result: normal 04/09/2020 Last Documented On 2 8:56AM ; [facility] History of Gardasil 09/27/2015 Last Documented On 2 8:56AM ; [facility] Family History Includes: Family History addressed during this encounter Description Last Updated Family history unchanged 04/09/2020 Last Documented On 2 8:56AM ; [facility] Family history of diabetes mellitus moth ers side-mggf 09/27/2015 Last Documented On 2 8:56AM ; [facility] Family history of Diabetes 04/17/2011 Last Documented On 2 8:56AM ; [facility] Family medical history of high blood pre ssure 04/17/2011 Last Documented On 2 8:56AM ; [facility] Review of Systems Includes: Review of Systems from this encounter Gastrointestinal: No pelvic pain. Genitourinary: No menorrhagia. No dysmenorrhea and no bleeding between periods. No vaginal discharge. Mental Status Includes: Mental Status from this encounter No Mental Status Recorded Functional Status Includes: Functional Status from this encounter No Functional Status Recorded Physical Exam Includes: Physical Exam from this encounter Allergies Includes: Active Allergies No Known Allergies Encounters Encounter Provider Location Date Check-In Time Check-Out Time Diagnosis WELL WOMAN - ESTABLISHED PT NAHUM JAIMES [facility] 05/18/20 22 8:53AM 9:17AM Normal Female Exam Insurance Includes: Active Insurance Policies Plan Name Member ID Group # Subscriber Relationship Effect el Dates 1 - [facility] [id number] MIKAELA LEONARD Self Clinical Notes Includes: Clinical Notes from this encounter No Clinical Notes Recorded
--- OUTSIDE RECORDS SUMMARY | 2024-08-09 10:43 | XMS_ITS ---
Care Plan - [facility] Created on: August 09, 2024 MIKAELA LEONARD : 1995 Sex: Female Author Organization [facility] Address [address] [place] [address] Phone Care Team Providers Care Outpatient Services Director Name Role Phone MANJULA LYLES, MELODY C Unavailable [phone]
--- OUTSIDE RECORDS SUMMARY | 2024-08-09 10:43 | XMS_ITS | Clinical Summary ---
Author Organization [facility] Address [address] [place] [address] Phone Care Team Providers Care Cutting Supervisor Name Role Phone MELODY FAIR MD Unavailable [phone] Reason for Visit and Chief Complaint NO SHOW Problems Includes: Problems addressed during this encounter and other active Problems No Active Problems Plan of Treatment No Plan of Treatment Recorded Assessments Includes: Assessments from this encounter No Assessments Recorded Medical Equipment - Implanted Devices Includes: Current Devices No Medical Equipment Recorded Medications Includes: Medications discussed during this encounter and other current Medications Current Medications (continue as prescribed) Azurette 0.15-0.02/0.01 MG ( 24/12) Oral Tablet 05/18/2022 Provider: NAHUM Banks Diagnosis: One tablet daily Last Documented On 9:27AM By NAHUM MOMIN ; [facility] Medications Administered Includes: Administered Medications from this encounter No Administered Medications Recorded Results Includes: Results discussed during this encounter No Results Recorded For Specified Dates History of Present Illness Includes: History of Present Illness from this encounter No History of Present Illness Recorded Social History No Social History Recorded - Smoking Status Unknown Medical History Includes: Medical History addressed during this encounter No Medical History Recorded Family History Includes: Family History addressed during this encounter No Family History Recorded Review of Systems Includes: Review of Systems from this encounter No Review of Systems Recorded Mental Status Includes: Mental Status from this encounter No Mental Status Recorded Functional Status Includes: Functional Status from this encounter No Functional Status Recorded Physical Exam Includes: Physical Exam from this encounter No Physical Exam Recorded Allergies Includes: Active Allergies No Known Allergies Encounters Encounter Provider Location Date Check-In Time Check-Out Time Diagnosis NO SHOW NAHUM MOMIN [facility] 04/15/2021 9:47AM 11:59PM Insurance Includes: Active Insurance Policies Plan Name Member ID Group # Subscriber Relationship Effect el Dates 1 - [facility] [id number] MIKAELA LEONARD Self Clinical Notes Includes: Clinical Notes from this encounter No Clinical Notes Recorded
--- OUTSIDE RECORDS SUMMARY | 2024-08-09 10:43 | XMS_ITS | Clinical Summary ---
Author Organization [facility] Address [address] [place] [address] Phone Care Team Providers Care Tobacco Prizer Name Role Phone MELODY FAIR MD Unavailable [phone] Reason for Visit and Chief Complaint * PHONE CALL Problems Includes: Problems addressed during this encounter [...] Last Documented On 2 9:27AM By NAHUM MOMIN ; [facility] Medications Administered Includes: Administered Medications [...] Location Date Check-In Time Check-Out Time Diagnosis * PHONE CALL NAHUM MOMIN [facility] 3 2:55PM 11:59PM Insurance Includes: Active Insurance Policies Plan Name Member ID Group # Subscriber Relationship Effect el Dates 1 - [facility] [id number] MIKAELA LEONARD Self Clinical Notes Includes: Clinical Notes from this encounter No Clinical Notes Recorded
--- OUTSIDE RECORDS SUMMARY | 2024-08-09 10:43 | XMS_ITS | Clinical Summary ---
Author Organization [facility] Address [address] [place] [address] Phone Care Team Providers Care Hydro Sprayer Operator Name Role Phone MANJULA LYLES, MELODY Banks Unavailable [phone] Reason for Visit and Chief Complaint gynecologic annual exam - The Chief Complaint is: Annual-pt thinks she has a yeast infection she started a pill otc and say it seems to be helping. Pt last year had a baby at [place]. Pt is no longer breast feeding and would like to go back on the pill that you prescribed her Problems Includes: Problems addressed during this encounter and other active Problems No Active Problems Plan of Treatment - Clinical summary provided to patient - Last Documented On 04/09/2020 8:24AM ; [facility] Start ocp's day 1 of menses and take q day at same time - DO NOT SKIP A DAY! BUM x 1 month. Reviewed risks/benefits/ methods for use/ and possible side effects/ warning signs. Has been using pop from [facility] but would like to go back to [facility]. - Last Documented On 04/09/2020 8:24AM ; [facility] Instructions to patient Instructions for patient : K eep the area around the vulva dry. Allow the area to have exposure to air. Avoid irritants such as fabric softeners and perfumed soaps.~ Last Documented On 0 8:11AM ; [facility] Instructions for patient : B reast Self Exam discussed Last Documented On 0 8:06AM ; [facility] Advised d/c scented bath pro ducts Last Documented On 0 8:11AM ; [facility] Gardasil information given a nd series encouraged Series completed! Last Documented On 0 8:11AM ; [facility] Safe sex counseling Last Documented On 0 8:07AM ; [facility] Education and Decision Aids were provided during visit for: Patient Education: Daily fiordaliza cium and vitamin D Last Documented On 0 8:06AM ; [facility] Patient Education: weight be aring exercise Last Documented On 0 8:06AM ; [facility] Candidiasis Vulvovaginitis I nformation Sheet Given Last Documented On 0 8:11AM ; [facility] Assessments Includes: Assessments from this encounter Findings - NORMAL FEMALE EXAM [Z01.419 - Encounter for gynecological examination (general) (routine) without abnormal findings] - Last Documented On 04/09/2020 8:24AM ; [facility] Instructions Includes: Instructions from this encounter Instructions to patient Instructions for patient : K eep the area around the vulva dry. Allow the area to have exposure to air. Avoid irritants such as fabric softeners and perfumed soaps.~ Last Documented On 0 8:11AM ; [facility] Instructions for patient : B reast Self Exam discussed Last Documented On 0 8:06AM ; [facility] Advised d/c scented bath pro ducts Last Documented On 0 8:11AM ; [facility] Gardasil information given a nd series encouraged Series completed! Last Documented On 0 8:11AM ; [facility] Safe sex counseling Last Documented On 0 8:07AM ; [facility] Education and Decision Aids were provided during visit for: Patient Education: Daily fiordaliza cium and vitamin D Last Documented On 0 8:06AM ; [facility] Patient Education: weight be aring exercise Last Documented On 0 8:06AM ; [facility] Candidiasis Vulvovaginitis I nformation Sheet Given Last Documented On 0 8:11AM ; [facility] Medical Equipment - Implanted Devices Includes: Current Devices No Medical Equipment Recorded Medications Includes: Medications discussed during this encounter and other current Medications New / Renewed during this visit NAHUM JAIMES ADIS- on 04/09/2020 Diflucan 150 MG Oral Tablet Provider: NAHUM Banks 30 day supply: 2 tablet, 0 refills Diagnosis: as directed - one po x 1 dos e - december rpt. in 3 days if needed Pharmacy: [facility] [address] ([facility], [id number] - Last Documented On 05/18/2022 8:59AM By Ada Zuluaga MA ; [facility] Azurette 0.15-0.02/0.01 MG (215) Oral Tablet Provider: NAHUM MOMIN 90 day supply: 90 tablet, 3 refills Diagnosis: Encounter for contraceptive management, unspecified One tablet daily Pharmacy: [facility] ([facility], [id number] - Last Documented On 05/18/2022 8:58AM By Ada Zuluaga MA ; [facility] Current Medications (continue as prescribed) Azurette 0.15-0.02/0.01 MG ( 24/12) Oral Tablet 05/18/2022 Provider: NAHUM Banks Diagnosis: One tablet daily Last Documented On 9:27AM By NAHUM MOMIN ; [facility] Medications Administered Includes: Administered Medications from this encounter No Administered Medications Recorded Vital Signs Includes: Vital Signs from this encounter Vital Name 04/09/2020 08:06A Blood Pressure Sitting L 100/62 BP Cuff Size Regular Temp-Oral (F) 97.2 Height (in) 63 Weight (lb) 144 Body Mass Index (kg/m2) 25.5 Body Surface Area (m2) 1.7 Last Documented: On 04/09/2020 8:09AM ; [facility] Results Includes: Results discussed during this encounter No Results Recorded For Specified Dates History of Present Illness Includes: History of Present Illness from this encounter HPI MIKAELA BRANCH is a 24 year old female. - Medication list reviewed. Social History Description Last Updated Alcohol use rarely 04/09/2020 Last Documented On 0 8:24AM ; [facility] Non-smoker 04/09/2020 Last Documented On 0 8:24AM ; [facility] Not using drugs 04/09/2020 Last Documented On 0 8:24AM ; [facility] Sexually active with 1 partners in the l ast year 04/09/2020 Last Documented On 0 8:24AM ; [facility] Social history unchanged 04/09/2020 Last Documented On 0 8:24AM ; [facility] Smoking status : Never smoker 04/09/2020 Last Documented On 0 8:24AM ; [facility] Procedures and Surgical History Includes: Procedures from this encounter Procedures Code Diagnosis Performing Provider Service L ocation Service Date low fat diet Last Documented On 0 8:07AM ; [facility] Chlamydia trachomatis culture was perfor med Last Documented On 0 8:07AM ; [facility] Neisseria gonorrhea culture was performe d Last Documented On 0 8:07AM ; [facility] Cervical Pap Smear performed Q0091 Last Documented On 0 8:07AM ; [facility] Surgical History Last Updated Surgical / procedural history wisdom too th removed 10/04/2017 Last Documented On 0 8:05AM ; [facility] Medical History Includes: Medical History addressed during this encounter Description Last Updated Vaginal delivery 04/09/2020 Last Documented On 0 8:24AM ; [facility] No recent change in medical history 11/2019 Last Documented On 0 8:24AM ; [facility] Contraception: azzurette 04/09/2020 Last Documented On 0 8:24AM ; [facility] 1 04/09/2020 Last Documented On 0 8:24AM ; [facility] LMP: 04/08/2020 04/09/2020 Last Documented On 0 8:24AM ; [facility] Para 1 04/09/2020 Last Documented On 0 8:24AM ; [facility] Sexually active 04/09/2020 Last Documented On 0 8:24AM ; [facility] History of Pap smear done 09/28/201611/2019 Last Documented On 0 8:24AM ; [facility] Result: normal 04/09/2020 Last Documented On 0 8:24AM ; [facility] History of Gardasil 09/27/2015 Last Documented On 0 8:05AM ; [facility] Family History Includes: Family History addressed during this encounter Description Last Updated Family history unchanged 04/09/2020 Last Documented On 0 8:24AM ; [facility] Family history of diabetes mellitus moth ers side-mggf 09/27/2015 Last Documented On 0 8:05AM ; [facility] Family history of Diabetes 04/17/2011 Last Documented On 0 8:05AM ; [facility] Family medical history of high blood pre ssure 04/17/2011 Last Documented On 0 8:05AM ; [facility] Review of Systems Includes: Review of Systems [...] Check-In Time Check-Out Time Diagnosis WELL WOMAN EXAM [facility] 04/09/20 20 8:00AM 8:24AM Normal Female Exam Insurance Includes: Active Insurance Policies Plan Name Member ID Group # Subscriber Relationship Effect el Dates 1 - [facility] [id number] MIKAELA LEONARD Self Clinical Notes Includes: Clinical Notes from this encounter No Clinical Notes Recorded
--- OUTSIDE RECORDS SUMMARY | 2024-08-09 10:43 | XMS_ITS | Encounter Summary ---
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 threatened to shut off services in your home? No 01/02/2024 Humiliation, Afraid, Rape, and Kick questionnair e Answer Date Recorded Within the last year, have y ou been afraid of your partner or ex-partner? No 01/02/2024 Within the last year, have y ou been humiliated or emotionally abused in other ways by your partner or ex-partner? No Within the last year, have y ou been kicked, hit, slapped, or otherwise physically hurt by your partner or ex-partner? No 01/02/2024 Within the last year, have y ou been raped or forced to have any kind of sexual activity by your partner or ex-partner? No 01/02/2024 Social Connection and Isolat ion Panel [NHANES] Answer Date Recorded In a typical week, how many times do you talk on the phone with family, friends, or neighbors? More than three times a week 01/02/2024 How often do you get togethe r with friends or relatives? More than three times a week 01/02/2024 How often do you attend chur ch or sabianism services? Never 01/02/2024 Do you belong to any clubs o r organizations such as episcopalian groups, unions, fraternal or athletic groups, or school groups? No 01/02/2024 How often do you attend meet ings of the clubs or organizations you belong to? Never 01/02/2024 Are you , , di vorced, , never , or living with a partner? 01/02/2024 AUDIT-C Answer Date Recorded Q1: How often do you have a drink containing alcohol? Never 07/24/2024 Q2: How many drinks containi ng alcohol do you have on a typical day when you are drinking? Patient does not drink Q3: How often do you have si x or more drinks on one occasion? Never 07/24/2024 Overall Financial Resource Strain (CARDIA) Answe r Date Recorded How hard is it for you to pa y for the very basics like food, housing, medical care, and heating? Not hard at all 01/02/2024 PHQ-2 Answer Date Recorded PHQ-2 Total Score (If total score is 3 or more points, staff should administer the PHQ-9) 0 01/02/2024 [facility] Answer Date Recorded Do you feel stress - tense, restless, nervous, or anxious, or unable to sleep at night because your mind is troubled all the time - these days? Rather much 01/02/2024 Exercise Vital Sign Answer Date Recorde d On average, how many days pe r week do you engage in moderate to strenuous exercise (like a brisk walk)? 3 days 07/24/2024 On average, how many minutes do you engage in exercise at this level? 30 min 07/24/2024 Hunger Vital Sign Answer Date Recorded Within the past 12 months, y ou worried that your food would run out before you got the money to buy more. Never true 01/02/20 24 Within the past 12 months, t he food you bought just didn't last and you didn't have money to get more. Never true 01/02/2024 PRAPARE - Transportation Answer Date Re corded In the past 12 months, has l ack of transportation kept you from medical appointments or from getting medications? No 12/05 In the past 12 months, has l ack of transportation kept you from meetings, work, or from getting things needed for daily living? No 01/02/2024 Housing Stability Vital Sign Answer Sesar e Recorded In the last 12 months, was t here a time when you were not able to pay the mortgage or rent on time? No 01/02/2024 In the past 12 months, how m any times have you moved where you were living? 1 01/02/2024 At any time in the past 12 m [facility], were you homeless or living in a long-term (including now)? No 01/02/2024 Personal Safety Answer Date Recorded Have you ever been in or are you currently in a harmful physical or emotional relationship or is someone making you feel afraid or unsafe? Denies 09/01/2023 Education Answer Date Recorded What is the highest level of school you have completed or the highest degree you have received? Bachelor's degree (e.g., BA, AB, BS) 07/24/2024 Estimated Date of Delivery Comme nts Yes 03/09/2025 Based on Ultraso und, Entered from OB Ultrasound Reporting. 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 [employer] Not on file Not on file Not on file documented as of this encounter Medications at Time of Discharge azelastine (ASTELIN) 137 mcg (0.1 %) nasal spray Administer 1 spray into each nostril 2 (two) times a day Use in each nostril as directed 30 mL 2 01/29/2024 drospirenone-eth inyl estradioL (KASSANDRA FRIEND) 3-0.02 mg per tablet TAKE 1 TABLET BY MOUTH EVERY DAY FOR 90 DAYS 09/28/2023 fluticasone propionate (FLONASE) 50 mcg/actuation nasal spray Administer 2 sprays into each nostril daily 3 each 4 01/02/2024 vit [id number]-[id number]-dh a 27mg iron- 800 mcg-250 mg capsule Take by mouth documented as of this encounter Discharge Disposition Disposition Code Departure Means Destination Discharge to home or self care documented in this encounter Plan of Treatment Scheduled Orders Name Type Priority Associated Diagnoses Order Schedule Pap with reflex to High Risk HPV and Genotyping (Cytology Component) Pathology and Cytology Routine Supervision of other normal , antepartum Once for 1 Occurrences starting 07/24/2024 until 07/24/2024 documented as of this encounter Procedures Procedure Name Priority Date/Time Associated Diagnosis Comments THINPREP PROCESSING (MOLECULAR COMPONENT) Routine 07/24/2024 9:34 AM MENTALLY IMPAIRED TEACHER PAP WITH REFLEX TO HIGH RISK HPV Routine 07/24/2024 9:34 AM MENTALLY IMPAIRED TEACHER documented in this encounter Results * Pap with reflex to High Risk HPV and Genotyping (Cytology Component) (07/24/2024 9:34 AM MENTALLY IMPAIRED TEACHER) Pap test 07/24/2024 9:34 AM MENTALLY IMPAIRED TEACHER 07/24/2024 2:08 PM MENTALLY IMPAIRED TEACHER Narrative 08/05/2024 8:46 AM MENTALLY IMPAIRED TEACHER EPIC results best viewed via link to PDF [facility] [place] [address] Note to Patients: This report may contain a detailed description of human tissue sent by a health care provider to the laboratory for pathologic evaluation. The content of this report is essential for diagnosis and may provide important critical findings. This information may be unfamiliar to patients to review without a medical professional present. It is advised that the patient review this report in the presence of a health care provider who can answer questions and explain the details. CYTOPATHOLOGY REPORT FINAL Patient Name: ??MIKAELA PERSAUDShea Gender: ??F : ??1995 (Age: 29) Address: ??[address] [place] [address] ??[id number] Hospital #: ??[id number] Service: ??UNKNOWN Location: ?? Patient Type: ??[facility] SPECIMEN Taken: ??07/24/2024 Received: ??07/24/2024 Accessioned: ??07/24/2024 Reported: ??08/05/2024 Physician(s): ??Tank Babcock MD ?? FINAL INTERPRETATION SOURCE OF SPECIMEN ?Liquid based Thin Prep pap with Reflex HPV: STATEMENT OF ADEQUACY ?- Satisfactory for evaluation ?- Endocervical cells/transformation zone sample present ? GENERAL CATEGORIZATION: ?- Negative for squamous intraepithelial lesion or malignancy ? lwl/08/05/2024 08:46 DAVE Mora MS(ASCP)GOPI Report Electronically Reviewed and Signed Out By DAVE Mora MS(ASCP)GOPI 08/05/2024 08:46:23 Cervicovaginal Cytology (Pap Test) Disclaimer: The Pap test is a screening test used to detect cervical cancer and its precursors; it is not a diagnostic procedure. False negative and false positive results do occur. Pap test results should be interpreted in the context of pertinent clinical information and biopsy results as indicated. CMS Clinical Laboratory Improvement Amendments (CLIA) mandate that cytologic and histologic results be correlated for laboratory water quality assistant & improvement standards. ??FOR ALL HIGH-GRADE CASES we request submission of follow-up histological material and/or reports that have not been previously provided so that we may fulfill said required standards. ?? Gross Description A. ??Liquid based Thin Prep pap with Reflex HPV: Cervical/vaginal - Screening ThinPrep Clinical Diagnosis and History Last Menstrual Period: 05/30/24 Menstrual History: The patient is a 29 year old female with antepartum normal supervision, screen, no Hx of abnormal. Report Images and scanned documents, if included only viewable in PDF version The performance characteristics of some immunohistochemical stains, in-situ hybridization and fluorescence in-situ hybridization tests and immunophenotyping by flow cytometry cited in this report (if any) were determined by the Surgical Pathology Department at [facility] as part of an ongoing clinical quality manager program and in compliance with federally mandated regulations drawn from the Clinical Laboratory Improvement Act of 1988 (CLIA '88). ??Some of these tests rely on the use of analyte specific reagents and are subject to specific labeling requirements by the US Food and Drug Administration. ??Such diagnostic tests may only be performed in a facility that is certified by the Department of Health and Human Services as a high complexity laboratory under CLIA '88. ??The FDA has determined that such clearance or approval is not necessary. ??This test is used for clinical purposes. ??It should not be regarded as investigational or for research. ??Nevertheless, federal rules concerning the medical use of analyte specific reagents require that the following disclaimer be attached to the report: This test was developed and its performance characteristics determined by the Surgical Pathology Department of [facility]. ??It has not been cleared or approved by the U. S. Food and Drug Administration. Tank Babcock MD LAB CYTOLOGY ORDERABLES F inal Result * ThinPrep processing (Molecular component) (07/24/2024 9:34 AM MENTALLY IMPAIRED TEACHER) ThinPrep processing (Molecular component) Specimen received for processing. [facility] Endocervical 07/24/2024 9:34 AM MENTALLY IMPAIRED TEACHER 07/28/2024 9:10 PM MENTALLY IMPAIRED TEACHER Tank Babcock MD LAB BODY FLUIDS AND STOOL S ORDERABLES Final Result [facility] [place] [address] [facility] documented in this encounter Visit Diagnoses Diagnosis Supervision of other normal , antepartum documented in this encounter Care Teams Duralumin Mechanic Relationship Specialty Start Date End Date Bonilla [place] [id number] PCP - General Family Medicine 01/02/24 documented as of this encounter
--- OUTSIDE RECORDS SUMMARY | 2024-08-09 10:43 | XMS_ITS | Referral Summary ---
Author Organization [facility] Address [address] [place] [id number] Care Team Providers Care Machine Accountant Name Role Phone Bonilla Byrd MD Primary Care Provider [phone] Encounters Date Type Department Care Team Description 07/24/2024 10:04 AM FINANCIAL AGENT - 07/24/2024 11:59 PM FINANCIAL AGENT Hospital Encounter [address] [id number] Supervision of other normal , antepartum Discharge Disposition: Discharge to home or self care 07/24/2024 9:40 AM FINANCIAL AGENT Ancillary Procedure [facility] Obstetrics [facility] Gynecology [address] [place] [address] Floor [address] [place] [phone] 07/24/2024 8:45 AM FINANCIAL AGENT Office Visit [facility] Obstetrics and Gynecology [address] [place] [address] Floor [address] [place] [phone] Supervision of other normal , antepartum (Primary Dx); 7 weeks gestation of 06/06/2024 Telephone [facility] at [address] [place] [address] Zita Penaloza MA 06/05/2024 8:54 AM CDT - 06/05/2024 11:59 PM CDT Hospital Encounter [address] [address] Sore throat Discharge Disposition: Discharge to home or self care 06/05/2024 8:30 AM CDT Office Visit [facility] [place] [address] [place] [address] Shavon Silva, ADIS Sore throat (Primary Dx); Viral URI with cough from Last 3 Months Allergies No known active allergies Medications drospirenone-et hinyl estradioL (RONNA,GIANVI) 3-0.02 mg per tablet TAKE 1 TABLET BY MOUTH EVERY DAY FOR 90 DAYS 4 Active fluticasone propionate (FLONASE) 50 mcg/actuation nasal spray Administer 2 sprays into each nostril daily 3 each 4 4 Active Additional Information Patient not taking.Reported on 07/24/2024 azelastine (ASTELIN) 137 mcg (0.1 %) nasal spray Administer 1 spray into each nostril 2 (two) times a day Use in each nostril as directed 30 mL 2 4 Active Additional Information Patient not taking.Reported on 07/24/2024 vit 24-[id number]-euzxq-d godinez 27mg iron- 800 mcg-250 mg capsule Take by mouth Active Active Problems Problem Noted Date Diagnosed Date Supervision of other normal , antepartu m 07/08/2024 Overview (07/24/2024): [x] Initial BMI: 27.99 [x] Labs: Pending [x] Genetic Screening: cfDNA only [x] Baby ASA: N/A [] 1hr GCT at 24-28wks: [] Tdap (27-36wks): [x] Flu Shot: rcvd [] RSV Vaccine in season (32.0-36.6): [x] COVID vaccine: Vaccinated, declines updated vaccine [] Rhogam (if Rh neg): n/a A+ [] GBS at 36 wks: [] [] control method: [] 39 weeks discussion of IOL vs. Expectant management: [] Mode of delivery: [] For C/S bottle of CHG 4% and hand out provided @ 36wks Teaching: [x] 1st visit [] 28-30 week [] 36 week Assessment & Plan (07/24/2024 9:36 AM FINANCIAL AGENT): - TVUS for dating and viability completed today. SURYA 03/09/2025 based on 7w3d US - labs ordered - Pap NILM 04/2019, no history of abnormal, due today and collected. HPV vaccine series not completed, will offer . - GC/CT/Trich swabs collected - Reviewed criteria for ASA 81mg: Does not meet Criteria - Flu and Covid vaccination recommendations reviewed, received flu shoot, declines updated covid vaccine - Genetic testing options reviewed, desires Panorama, declines Horizon - Anatomy US ordered - First visit education today Estimated Date of Delivery Comme nts Yes 03/09/2025 Based on Ultraso und, Entered from OB Ultrasound Reporting. Resolved Problems Problem Noted Date Diagnosed Date Resolved Date Postnasal drip 01/08/2024 07/08/2024 Assessment & Plan (01/08/2024 3:39 PM CDT): Not well controlled; thick mucus in back of throat, symptoms worse at night, causing issues such as waking up and coughing, pain in the back of the head and frontal sinuses No relief with OTC antihistamine Will start Flonase 2 sprays each nostril 1-2 times daily for symptom relief Tension headache 09/01/2023 07/08/2024 care following vaginal delivery 05/19/2021 07/08/2024 Overview (05/21/2021): # ID: Afebrile. No signs/symptoms of infection. #COVID-19: Negative # Heme: EBL 200 mL. No symptoms acute blood loss anemia. # CV/Pulm: Vital signs stable, within normal limits. # GI/: Tolerating PO. Voiding spontaneously. # Pain: Controlled with above regimen. # Post DVT prophylaxis: The patient has the following MAJOR risk factors none and the following MINOR risk factors BMI 30-39. SCDs ordered for VTE prophylaxis. # MOC: Progestin-only pills # MOF: # COVID Vaccination Status: Previously received # Disposition: Follow up to be scheduled with primary OB. Continue routine care. Supervision of other normal , antepartum 09/14/2020 07/08/2024 Overview (05/16/2021): Prior - no complications -Bilateral Choroid plexus cysts on anatomy- no other structural abnormalities noted. Reassurance given to family. Will repeat scan around 28-30 wks--resolved 02/23/21. -IOL sched 05/19/2021 @ 0800, pt aware , covid testing ordered [x] Labs: @ [facility] Needs a VZV with 3T labs ( was VZV neg last ) [x] Genetic Screening: declines [x] Baby ASA: n/s [x] 1hr GCT at 24-28wks: nml 81 [x] Tdap (27-36wks):02/23/21 Luzma [x] Flu Shot: 05/16/2021 MS [] Rhogam (if Rh neg):n/a, A+ [x] GBS at 36 wks:Positive [x] [x] control method: POP's [x] 39 weeks discussion of IOL vs. Expectant management: 40wk IOL [x] Mode of delivery: [] For C/S bottle of CHG 4% and hand out provided @ 36wks Girl, , peds in [place], [place] Teaching: [x] 1st visit [x] 28-30 week [x] 36 week No leakage of amniotic fluid into vagina 03/10/2019 04/28/2019 Overview (03/10/2019): 03/10/19 [facility] visit: No evidence of SROM. No pooling, negative valslava, negative fern, negative nitrazine, ARUN 17.0 DVP 6.28. Precautions given. Vaginal Delivery 07/23/2018 04/28/2019 Overview (03/17/2019): # ID: Afebrile. No signs/symptoms of infection. VZV non-imm, varivax ordered. Cord avulsion requiring manual extraction. # Heme: EBL 200 mL. No symptoms acute blood loss anemia. # CV/Pulm: Vital signs stable, within normal limits. # GI/: Tolerating PO. Voiding spontaneously. # Pain: Controlled with above regimen. # Post DVT prophylaxis: Patient has the following moderate risk factors: None. Her post prophylaxis plan is SCDs and early ambulation # MOC: Progestin-only pills # MOF: # Disposition: Continue routine care Immunizations Name Administration Dates Next Due Influenza, Quadrivalent, Rosi l Culture-based MDCK, Antibiotic Free, Intramuscular 04/28/2019 Influenza, Quadrivalent, Rosi l Culture-based MDCK, Preservative Free, Antibiotic Free, Intramuscular 05/16/2021 Moderna SARS-CoV-2 Monovalen t Vaccination (12+ YRS) 10/26/2020,09/28/2020 Tdap 02/23/2021,12/31/2018 Varicella 03/16/2019(Deferred: Other - Due to be given to patient on day of discharge to home.) Social History Tobacco Use Types Packs/Day Years Used Date Smoking Tobacco: Never Smokeless Tobacco: Never Tobacco Cessation:Counseling Given: Not Answered Alcohol Use Standard Drinks/Week Comments Yes 0 (1 standard drink = 0.6 oz pur e alcohol) [facility] [employer] Answer Date Recorded In the past 12 months has e [employer], [employer], oil, or water [employer] threatened to shut off services in your [...] week 01/02/2024 How often do you attend [facility] or nondenominational services? Never 01/02/2024 Do you belong to any clubs o r organizations such as mu-ism groups, unions, fraternal or athletic groups, or [...] staff should administer the PHQ-9) 0 01/02/2024 [facility] - Occupational Stress Questionnaire Answer Date [...] time in the past 12 m [facility], were you homeless or living in a senior living (including now)? 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 [employer] Not on file Not on file Not on file Last Filed Vital Signs Vital Sign Reading Time Taken Comments Blood Pressure 111/72 07/24/2024 8:54 AM FINANCIAL AGENT Pulse 66 06/05/2024 8:30 AM CDT Temperature 36.7 ??C (98.1 ??F) 06/05/2024 8:30 AM CD T Respiratory Rate 19 06/05/2024 8:30 AM CDT Oxygen Saturation 98% 06/05/2024 8:30 AM CDT Inhaled Oxygen Concentration - - Weight 71.7 kg (158 lb) 07/24/2024 8:54 AM FINANCIAL AGENT Height 160 cm (5' 3 ) 07/24/2024 8:54 AM FINANCIAL AGENT Body Mass Index 27.99 07/24/2024 8:54 AM FINANCIAL AGENT Plan of Treatment Not on file Procedures Procedure Name Priority Date/Time Associated Diagnosis Comments POCT URINALYSIS DIPSTICK Routine 07/24/2024 10:16 AM FINANCIAL AGENT Supervision of other normal , antepartum URINALYSIS AND REFLEX TO MICROSCOPIC Routine 07/24/2024 10:04 AM FINANCIAL AGENT Supervision of other normal , antepartum SURESWAB(R), CT/NG, T VAGINALIS Routine 07/24/2024 10:04 AM FINANCIAL AGENT Supervision of other normal , antepartum URINE CULTURE Routine 07/24/2024 10:04 AM FINANCIAL AGENT Supervision of other normal , antepartum US OB UNDER 14 WEEKS W ENDOVAGINAL Schedule Routine, Read Routine (OP Routine) 07/24/2024 9:38 AM FINANCIAL AGENT Supervision of other normal , antepartum PAP WITH REFLEX TO HIGH RISK HPV Routine 07/24/2024 9:34 AM FINANCIAL AGENT THINPREP PROCESSING (MOLECULAR COMPONENT) Routine 07/24/2024 9:34 AM FINANCIAL AGENT THROAT CULTURE Routine 06/05/2024 8:54 AM CDT Sore throat POCT RAPID STREP Routine 06/05/2024 8:48 AM CDT Sore throat POC INFLUENZA A/B, COVID-19 ANTIGEN Routine 06/05/2024 8:47 AM CDT Sore throat from Last 3 Months Results * POCT urinalysis dipstick (07/24/2024 10:16 AM FINANCIAL AGENT) Color, Urine, POC Yellow Clarity, ur, POC Clear Clear Glucose, ur, POC Negative Negative MG/DL Bilirubin, ur, POC Negative Negative, Small, Moderate, Large Ketones, ur, POC Negative Negative Specific [place], POC 1.010 1.003 - 1.030 Blood, ur, POC Negative Negative pH, ur, POC 5.0 5.0 - 8.0 Protein, ur, POC Negative Negative Urobilinogen, urine, POC 0.2 0.2 - 1.0 mg/dL Nitrite, ur, POC Negative Negative Leukocytes, ur, POC Negative Negative Lot Number [id number] Urine 07/24/2024 10:1 6 AM FINANCIAL AGENT Tank Babcock MD POINT OF CARE TEST ORDERA BLES Final Result * SURESWAB(R), CT/NG, T VAGINALIS (07/24/2024 10:04 AM FINANCIAL AGENT) C. trachomatis RNA NOT DETECTED NOT DETECTED [facility] N. gonorrhoeae RNA NOT DETECTED NOT DETECTED [facility] Comment [facility] Comment: The analytical performance characteristics of this assay, when used to test SurePath(TM) specimens have been determined by [facility]. The modifications have not been cleared or approved by the FDA. This assay has been validated pursuant to the CLIA regulations and is used for clinical purposes. For additional information, please refer to https://education.[employer]/faq/TYX752 (This link is being provided for information/ educational purposes only.) Trichomonas vaginalis NOT DETECTED NOT DETECTED [facility] Comment: For additional information, please refer to http://[employer]/ faq/Trichomonastma (This link is being provided for informational/ educational purposes only.) Endocervical/vag inal 07/24/2024 10:04 AM FINANCIAL AGENT 07/25/2024 12:26 AM FINANCIAL AGENT Tank Babcock MD LAB BLOOD ORDERABLES Luisa l Result [facility] [address] [phone] * Urinalysis reflex to microscopic (07/24/2024 10:04 AM FINANCIAL AGENT) Color, ur YELLOW YELLOW [facility] Appearance, ur CLEAR CLEAR [facility] Specific gravity 1.008 1.001 - 1.035 [facility] pH, ur 7.5 5.0 - 8.0 [facility] Glucose, ur NEGATIVE NEGATIVE [facility] Bilirubin, ur NEGATIVE NEGATIVE [facility] Ketones, ur NEGATIVE NEGATIVE [facility] Blood, ur NEGATIVE NEGATIVE [facility] Protein, ur, quant NEGATIVE NEGATIVE [facility] Nitrites, ur NEGATIVE NEGATIVE [facility] Leukocyte esterase, ur NEGATIVE NEGATIVE [facility] Urine 07/24/2024 10:0 4 AM FINANCIAL AGENT 07/25/2024 12:26 AM FINANCIAL AGENT Tank Babcock MD LAB URINE ORDERABLES Luisa l Result Performing Organization Address [facility] de Phone Number [employer] [address] [place] [address] * Urine culture Urine, clean voided (07/24/2024 10:04 AM FINANCIAL AGENT) Urine culture [facility] Comment: ??CULTURE, URINE, ROUTINE ?Micro Number: ?[id number] ??Test Status: ? Final ??Specimen Source: ?? Urine, clean catch ??Specimen Quality: ??Adequate ??Result: ?No Growth Urine, clean voided 07/24/2024 10:04 AM FINANCIAL AGENT 07/25/2024 12:26 AM FINANCIAL AGENT Tank Babcock MD LAB MICROBIOLOGY - GENERA L ORDERABLES Final Result Performing Organization Address [facility] de Phone Number [employer] [address] [place] [address] * US Ob Under 14 Weeks W Endovaginal (07/24/2024 9:38 AM FINANCIAL AGENT) Anatomical Region Laterality Modality Abdomen N/A Ultrasound Study GA Study Date Study SURYA Working SURYA (Source) Feta l Weight (Method) 7w3d 07/24/2024 03/09/2025 03/06/2025 ([place] t Menstrual Period) Result Name Value Comments Heart Rate 153 bpm [place] Rump Length 1.22 cm Narrative 07/24/2024 9:40 AM FINANCIAL AGENT TVUS to confirm viability and dating. Single viable intrauterine visualized measuring 7w3d weeks gestation (SURYA 03/09/2025). Uterus and bilateral adnexa without gross abnormalities. Left ovary with corpus luteum cyst. Right ovary not visualized. Final SURYA 03/09/2025 based on 7w3d US due to approximate LMP. us Tank Babcock MD IMG OB US PROCEDURES Luisa l Result * ThinPrep processing (Molecular component) (07/24/2024 9:34 AM FINANCIAL AGENT) ThinPrep processing (Molecular component) Specimen received for processing. [facility] Endocervical 07/24/2024 9:34 AM FINANCIAL AGENT 07/28/2024 9:10 PM FINANCIAL AGENT us Tank Babcock MD LAB BODY FLUIDS AND STOOL S ORDERABLES Final Result [facility] [place] [address] [facility] * Pap with reflex to High Risk HPV and Genotyping (Cytology Component) (07/24/2024 9:34 AM FINANCIAL AGENT) Pap test 07/24/2024 9:34 AM FINANCIAL AGENT 07/24/2024 2:08 PM FINANCIAL AGENT Narrative 08/05/2024 8:46 AM FINANCIAL AGENT EPIC results best viewed via link to PDF [facility] [place] [address] Note to Patients: This report may contain [...] the details. CYTOPATHOLOGY REPORT FINAL Patient Name: ??SILVIA PERSAUD Gender: ??F : ??1995 (Age: 29) Address: ??[address] [place] [address] ??[phone] Hospital #: ??[id number] Service: ??UNKNOWN Location: ?? Patient Type: ??[facility] SPECIMEN Taken: ??07/24/2024 Received: ??07/24/2024 Accessioned: [...] and histologic results be correlated for laboratory ethanol quality leader & improvement standards. ??FOR ALL HIGH-GRADE CASES [...] determined by the Surgical Pathology Department at [facility] as part of an ongoing quality assurance qa lab analyst program and in compliance with federally mandated [...] determined by the Surgical Pathology Department of [facility]. ??It has not been cleared or approved by the U. S. Food and Drug Administration. Tank Babcock MD LAB CYTOLOGY ORDERABLES F inal Result * Throat culture Throat (06/05/2024 8:54 AM CDT) Report Final Report: No growth of pathogens. Comment:Testing performed by : [facility], [address] [place] [address] Throat 06/05/2024 8:54 AM CDT 06/05/2024 6:03 PM CDT Regis Jacques 06/06/2024 1:47 PM CDT Testing performed by [facility] Microbiology Laboratory ([phone]). Shavon Silva NP LAB MICROBIOLOGY - GENERAL ORDER FIDEL Final Result [facility] [address] [place] [address] * POCT rapid strep A (06/05/2024 8:48 AM CDT) Rapid Strep A, POC Negative Negative Swab 06/05/2024 8:48 AM CDT Shavon Silva [employer] POINT OF CARE TEST ORDERABLES Fi nal Result * POC Influenza A/B, COVID-19 antigen (06/05/2024 8:47 AM CDT) Influenza A Ag, POC Negative Negative [facility] Influenza B Ag, POC Negative Negative [facility] COVID-19 Ag POC Presumptive Negative Presumptive Negative, Invalid [facility] Nasal 06/05/2024 8:47 AM CDT Shavon Silva POINT OF CARE TEST ORDERABLES Fi nal Result [facility] [address] [place] [address], [facility] from Last 3 Months Insurance [facility] [employer] [place] [employer] [place] Advance Directives For more information, please contact: [phone] * Full Code (Latest Code Status on File) Date Activated Date Inactivated Comments 05/20/2021 2:14 AM 05/22/2021 1:16 AM * Full Code Date Activated Date Inactivated Comments 05/19/2021 8:52 AM 05/20/2021 2:14 AM Full CPR i n case of cardiopulmonary arrest * Full Code Date Activated Date Inactivated Comments 03/16/2019 12:18 PM 03/19/2019 1:24 AM * Full Code Date Activated Date Inactivated Comments 03/15/2019 10:43 PM 03/16/2019 12:18 PM Full CPR i n case of cardiopulmonary arrest Care Teams Machine Accountant Relationship Specialty Start Date End Date Bonilla Byrd MD [facility] [place] [address] PCP - General Family Medicine 01/02/24
--- OUTSIDE RECORDS SUMMARY | 2024-08-09 10:43 | XMS_ITS | Data Portability ---
Author Organization [facility] [place] Address [address] [place] [place] [address] Assessment Encounter Date Assessment Date Assessment LastModified by Organization Details LastModified Time 05/22/2023 05/22/2023 Annual gynecological exam performed. Patient will come back in a year unless there are new symptoms. Not available 05/22/2023 11:52:22 Plan of Treatment Reminders Order Date Submit Date Provider Last Modified By Organization Details Last Modified Time Details Appointments None recorded. Lab None recorded. Referral None recorded. Procedures None recorded. Surgeries None recorded. Imaging None recorded. Medication Orders Viorele (28) 0.15 mg-0.02 mg (21)/0.01 mg (5) tablet 023 023 [id number], [address], [place], [place], [id number], 12:08:12 Patient TargetsNo targets recorded. Patient InstructionsNo instructions recorded. Reason for Referral None Reported. Procedures Surgical History Date Name Laterality Status Provider Name and Address Organization Details Recorded Time 08/06/2020 Date of Last Pap Smear completed Laura Portillo [facility] 05/22/2023 11:59:45 Imaging Results None recorded. Procedure Notes None recorded. Medical Equipment None Reported. Allergies No known drug allergies Medications Name Sig Start Date Stop Date Status Note LastModified by Organization Details LastModified Time cyclobenzap rine 10 mg tablet TAKE 1 TABLET BY MOUTH 1 HOUR BEFORE BEDTIME EACH NIGHT TO HELP RELAX MUSCLES AND HELP RELIEVE TENSION HEADACHE active Not Available Not Available No t Available ofloxacin 0.3 % eye drops active Not Available Not Available Not Available spironolact one 100 mg tablet TAKE 1 TABLET BY MOUTH EVERY DAY 05/22 completed Not Available Not Available Not Available spironolact one 25 mg tablet TAKE 4 TABLETS BY MOUTH DAILY active Not Available Not Available No t Available butalbital- acetaminoph en-caffeine 50 mg-325 mg-40 mg tablet TAKE 1 TABLET BY MOUTH EVERY 4 HOURS NEEDED FOR HEADACHES active Not Available Not Available No t Available amoxicillin 875 mg tablet TAKE 1 TABLET BY MOUTH EVERY 12 HOURS active Not Available Not Available No t Available cephalexin 500 mg capsule 05/22 completed Not Available Not Available Not Available azelastine 137 mcg (0.1 %) nasal spray USE 1 SPRAY IN EACH NOSTRIL TWICE DAILY DIRECTED active Not Available Not Available No t Available fluticasone propionate 50 mcg/actuati on nasal spray,suspe nsion SHAKE LIQUID AND USE 2 SPRAYS IN EACH NOSTRIL DAILY active Not Available Not Available No t Available cyclobenzap rine 5 mg tablet active Not Available Not Available Not Available drospirenon e 3 mg-ethinyl estradiol 0.02 mg tablet TAKE 1 TABLET BY MOUTH EVERY DAY active Not Available Not Available No t Available Viorele (28) 0.15 mg-0.02 mg (21)/0.01 mg (5) tablet TAKE 1 TABLET BY MOUTH EVERY DAY WITH MEALS active Not Available Not Available No t Available Vitals Date Recorded Body height Body mass index (BMI) Body weight Systolic blood pressure Diastolic blood pressure Provider Name and Address Organization Details Last Updated DateTime 05/22/2023 160.02 cm 26 kg/m2 24666.08 g 114 mm[Hg] 74 mm[Hg] Laura Portillo [facility] 11:58:46 Social History Question Answer Notes LastModified by Organizat ion Details LastModified Time Tobacco Smoking Status Never Smoker Laura Portillo [facility] 05/22/2023 11:54:59 What Is Your Level Of Alcohol Consumption? Occasional Information not available 05/22/2023 In The 14 Days Before Symptom Onset, Have You Had Close Contact With A Laboratory-confirm ed COVID-19 While That Case Was Ill? No Information n ot available 05/22/2023 In The 14 Days Before Symptom Onset, Have You Had Close Contact With A Person Who Is Under Investigation For COVID-19 While That Person Was Ill? No Information not available 05/22/2023 Have You Been To An Area Known To Be High Risk For COVID-19? No Information not available 05/22/2023 Do You Use Any Illicit Or Recreational Drugs? No Information not available 05/22/2023 Sex: Unknown Functional Status None recorded. Mental Status None recorded. Family History Relationship Description Onset Age of this Age Resolved Age Notes LastModified by Organization Details LastModified Time Mother Hypertensive disorder Not available 2022 11:54:39 Medical History Condition Response Allergies (Food, seasonal, environmental ) N Other N Drug/Latex Allergies/Reactions N Blood Transfusion N Breast Cancer N Dermatologic Disorders N Lung Disease N Defects or Inherited Disease N Breast Problem N Gestational Diabetes N Hematologic disorders N Anesthesia Complications N History of STI N Deep Vein Thrombosis N Polycystic ovary syndrome N Anxiety Disorder N Autoimmune disease N Arthritis N Polyps N Infertility N Acid Reflux (GERD) N History of abnormal pap N Cancer N Varicosities N Stroke N Neurologic/Epilepsy N Endometriosis N High Cholesterol N Fibromyalgia N Headaches N Kidney Disease N Heart Problems N Thyroid Problems N Kidney or Bladder Problems N GI Problems N Eating Disorder N Anemia N Art (IVF or FET) N Psychiatric Illness N Ovarian Cancer N Diabetes N Pulmonary (TB, Asthma) N Hepatitis/Liver Disease N No Past Medical History Y Eczema N Urinary Tract Infection N Abuse/Domestic Violence N Asthma N Trauma/Violence N Depression/ depression N Heart Disease N Pre-Eclampsia N Hypertension N Osteoporosis N Thrombophilias N Gynecological History Statement/Question Response Abnormal Pap N Flow Moderate Date of LMP 05/19/2023 On BCP's at Conception? N Was last menstrual period normal Y STIs/STDs N Duration of Flow (days) 5 Current Control Method None Age at First Child 23 Are cycles usually normal Y Frequency of Cycle (Q days) 28 Sexually Active? Y Menses Monthly Y Age of first menstrual cycle 14 Date of Last Pap Smear 08/06/2020 Sexual Problems? N Desired Control Method BCPs LMP Definite Obstetrics History GPAL:G 2 P 2 0 0 2 Type Value Full Term 2 Living 2 Total 2 Past Encounters Encounter ID Performer Location Encounter Start Date Encounter Closed Date Diagnosis/Indication Diagnosis SNOMED-CT Code Diagnosis ICD10 Code [id number] Anna Espinoza [facility] [address] [address] 05/22/2023 11:28:01 05/22/2023 12:12:10 Gynecologic examination 33246016 Z01.419 Contracept ion care management 447338574 Z30.9 Health Concerns Section Related Observation LastModified by Organization Detai ls LastModified Time None Recorded Concern Status LastModified by Organization Details LastModified Time None Recorded Advance Directives Directive None Recorded Payers Encounter Date Sequence Insurance Name Policy Number Policy Crews Covered Member ID Crews Member ID Guarantor Name 05/22/2023 1 [facility]: (PPO) [id number] Silvia Persaud [id number] Silvia Persaud Notes Date Note Type Note Provider Name and Address Organization Details Recorded Time 05/22/2023 text/html Annual GYNReport ed bypatient.History:no gynecologic complaints Menstrual cycle:Normal menses Urinary symptoms:No hematuria; No incontinence Vulva:No genital lesion Vagina:Normal vaginal discharge Breast:No breast pain; No breast lump; No nipple discharge Current Contraception:Satisf ied with current contraception; Oral contraceptives Sexual complaints:No sexual complaints; No pain during intercourse; Normal libido Menopausal Symptoms:No menopausal symptoms; Normal vaginal lubrication Psychological symptoms:No depression; No anxiety; No PMDD Preventive measures:Encourage self breast examination; Encourage regular exercise; Encourage no tobacco use; Encourage regular mammograms starting age 40; Followed with yearly pap smears Anna Espinoza [facility] [address], [place], [address], [facility] 05/22/2023 12:11:59 OBGyn Episode Ob Episode Information Episode Created Date Number of Fetuses Patient Bloodtype Patient rh Status Prepregnancy Weight lbs Domestic Partner Domestic Partner Phone Father Name Administrative Manager Status 05/22/20 23 1 CLOSED Fetus Data First Name Last Name Admitted to NICU Weight (g) Sex Living Outcome Pediatric Complications Fetus ID Race Codes Race Delivery Type 3770.25 [id number] F Full Term [id number] Vaginal Delivery Surya Calculation SURYA Calculation Method Initial Surya Date Initial Exam Date Initial Exam Provider Initial Ultrasound Date Last Menstrual Period Date Ultra Sound Weeks Gestation Conception by IVF Embryo Age at Transfer Date of Transfer 0 Eighteen To Twenty Week Surya Update Ultra Sound Date Fundal Height At Umbil Quickening Date Ultra Sound Latest Weeks Gestation Final Surya Confirmed By Final Surya Confirmed Date Final Surya Date Ultra Sound Latest Days Gestation 0 0 Menstrual History Last Menstrual Date Menses Monthly On Bcp Conception Prior Menses Frequency Hcg Plus Date Menarche Onset Age Delivery Information Delivery Date Delivery Type Labor Anesthesia Weeks Gestation Incision Type Labor Labor Length Hrs Delivered By Post Complications Tubal Sterilization Discharge Date Comments 1 40 Discharge Information Feeding Method Contraceptive Method Maternal HG B and HCT Levels Ob Episode Information Episode Created Date Number of Fetuses Patient Bloodtype Patient rh Status Prepregnancy Weight lbs Domestic Partner Domestic Partner Phone Father Name Administrative Manager Status 05/22/20 23 1 CLOSED Fetus Data First Name Last Name Admitted to NICU Weight (g) Sex Living Outcome Pediatric Complications Fetus ID Race Codes Race Delivery Type 3628.73 6 M Full Term [id number] Vaginal Delivery Surya Calculation SURYA Calculation Method Initial Surya Date Initial Exam Date Initial Exam Provider Initial Ultrasound Date Last Menstrual Period Date Ultra Sound Weeks Gestation Conception by IVF Embryo Age at Transfer Date of Transfer 0 Eighteen To Twenty Week Surya Update Ultra Sound Date Fundal Height At Umbil Quickening Date Ultra Sound Latest Weeks Gestation Final Surya Confirmed By Final Surya Confirmed Date Final Surya Date Ultra Sound Latest Days Gestation 0 0 Menstrual History Last Menstrual Date Menses Monthly On Bcp Conception Prior Menses Frequency Hcg Plus Date Menarche Onset Age Delivery Information Delivery Date Delivery Type Labor Anesthesia Weeks Gestation Incision Type Labor Labor Length Hrs Delivered By Post Complications Tubal Sterilization Discharge Date Comments 9 40 Discharge Information Feeding Method Contraceptive Method Maternal HG B and HCT Levels
--- OUTSIDE RECORDS SUMMARY | 2024-08-09 10:43 | XMS_ITS | Clinical Summary ---
Author Organization [facility] Address [address] [place] [address] Care Team Providers Care Pump Attendant Name Role Phone Bonilla Byrd MD Primary Care Provider [phone] Allergies No known active allergies Medications drospirenone-et hinyl estradioL (KASSANDRA FRIEND) 3-0.02 mg per tablet [...] Information Patient not taking.Reported on 07/24/2024 vit 15-cird-tzjqf-d godinez 27mg iron- 800 mcg-250 mg capsule [...] week Assessment & Plan (07/24/2024 9:36 AM CLERICAL CLERK): - TVUS for dating and viability completed [...] provided @ 36wks Girl, , peds in [place], [place] Teaching: [x] 1st visit [x] 28-30 week [x] 36 week No leakage of amniotic fluid into vagina 03/10/2019 04/28/2019 Overview (03/10/2019): 03/10/19 [facility] visit: No evidence of SROM. No pooling, [...] # MOF: # Disposition: Continue routine care Encounters Date Type Department Care Team Description 07/24/2024 10:04 AM CLERICAL CLERK - 07/24/2024 11:59 PM CLERICAL CLERK Hospital Encounter [facility] [address], [place] [phone] Supervision of other normal , antepartum Discharge Disposition: Discharge to home or self care 07/24/2024 9:40 AM CLERICAL CLERK Ancillary Procedure [facility]s [facility] Gynecology [address] [facility] Outpatient [facility] 7th Floor [address] [place] [phone] 07/24/2024 8:45 AM CLERICAL CLERK Office Visit [facility] Obstetrics and Gynecology [address] [place] [address] 7th Floor [address] [place] [address] [phone] Supervision of other normal , antepartum (Primary Dx); 7 weeks gestation of 06/06/2024 Telephone [facility] [place] [address] [place] [phone] Zita Penaloza MA 06/05/2024 8:54 AM CDT - 06/05/2024 11:59 PM CDT Hospital Encounter [address] [address] Sore throat Discharge Disposition: Discharge to home or self care 06/05/2024 8:30 AM CDT Office Visit [facility] [place] [address] [phone] Shavon Silva NP Sore throat (Primary Dx); Viral URI with cough from Last 3 Months Immunizations Name Administration Dates Next Due Influenza, Quadrivalent, Rosi l Culture-based MDCK, Antibiotic Free, Intramuscular 04/28/2019 Influenza, Quadrivalent, Rosi l Culture-based MDCK, Preservative Free, Antibiotic Free, Intramuscular 05/16/2021 Moderna SARS-CoV-2 Monovalen t Vaccination (12+ YRS) 10/26/2020,09/28/2020 Tdap 02/23/2021,12/31/2018 Varicella 03/16/2019(Deferred: Other - Due to be given to patient on day of discharge to home.) Surgical History Surgery Date Site/Laterality Comments WISDOM TOOTH EXTRACTION Medical History Medical History Date Comments No pertinent past medical history Family History Medical History Relation Name Comments No Known Problems Father Hypertension Mother Diabetes Other Great-Grandfath er Anesthesia problems Neg Hx Bleeding Disorder Neg Hx Breast cancer Neg Hx Clotting disorder Neg Hx Colon cancer Neg Hx Ovarian cancer Neg Hx Pancreatic cancer Neg Hx Uterine cancer Neg Hx Relation Name Status Comments Father Alive Mother Alive Other Social History Tobacco Use Types Packs/Day Years Used Date Smoking Tobacco: Never Smokeless Tobacco: Never Tobacco Cessation:Counseling Given: Not Answered Alcohol Use Standard Drinks/Week Comments Yes 0 (1 standard drink = 0.6 oz pur e alcohol) [facility] Utilities Answer Date Recorded In the past 12 months has e [employer], gas, oil, or water [employer] threatened to shut off services in your [...] often do you attend chur ch or presybeterian services? Never 01/02/2024 Do you belong to any clubs o r organizations such as adventist groups, unions, fraternal or athletic groups, or [...] staff should administer the PHQ-9) 0 01/02/2024 [facility] - Occupational Stress Questionnaire Answer Date Recorded [...] any time in the past 12 m [facility], were you homeless or living in a prison (including now)? 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 [employer] Not on file Not on file Not on file Obstetrics History Para Term AB IAB SAB Ectopic Multiple Livin g Live Births 3 2 2 0 2 2 Date Outcome GA Total Labor Labor/2nd/3rd Weight Sex Type Anes PTL Rody A1 A5 Name Clin 2018 Term 39w 5d 18h 21m 17h 29m/0h 47m/0h 05m 3.64 kg (8 lb 0.4 oz) Vag-S pont Epidur al N Livin g 8 9 RANDAL PERSAUD Ashley Elizab eth, MD Complications:None Delivery Location:[facility] Main C ampus ([facility] 58LD) 2020 Term 40w 1d 14h 42m 14h 15m/0h 20m/0h 07m 3.77 kg (8 lb 5 oz) F Vag-S pont Epidur al N Livin g 8 9 AISHA ,GIRL SILVIA Santoro , Rios Zhao MD Complications:None Delivery Location:[facility] Main C ampus ([facility] 58LD) Current Comments 2020-ES- Wise --40 wemariano keene presents for IOL. Small 2nd degree lac repaired. Summary Episode Dates Number of Fetuses Estimated Date of Delivery 07/08/2024 - Present (08/09/2024) 1 03/09/2025 (set by Nithya Babcock MD on 07/24/2024 based on Ultrasound on 07/24/2024) Dating Summary Based On SURYA GA Diff Last Menstrual Period on 05/30/2024 03/06/2025 +3d Ultrasound on 07/24/2024 03/09/2025 Working GA:7w3d Comment:Entered from OB Ultr asound Reporting. Vitals Pregravid Weight Height TWG (As of 08/09/2024) Pregrav id BMI 160 cm (5' 3 ) Date GA Fund Present FHR Mvmt BP Weight Edema Alb Glu Ket Dil/ Eff/Sta 07/24/2024 7w3d 111/72 71.7 kg (158 lb) 0/0/ Notes Progress Notes - Office Visi t - 07/24/2024 - GA:7w3d 07/24/2024 - 7w3d - Pérez Ventura RN Met with Silvia Persaud today for initial/first trimester visit teaching. Discussed the practice reviewed that group is comprised of 1 male physician, 6 female physicians, and 3 female nurse practitioners. Reviewed safe medications, appropriate diet, exercise/activity, travel, animals and vaccinations. Pt had specific questions that were answered appropriately. Desires cfDNA ICAL CLERK 07/24/2024 - 7w3d - Tank Babcock MD [facility] Initial Obstetrics Progress Note Subjective: Silvia Persaud is a 29 y.o. female at 7w3d weeks gestation (dated by 7w3d US, Estimated Date of Delivery: 03/09/2024) who is an an established patient presenting for an initial obstetrics visit. She is accompanied by her , Franki. This is a planned and desired . This is uncomplicated. She offers no concerns today. 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 Please see appropriate sections for relevant information. Objective: Please see Vitals & Physical Exam in Episode Tab TVUS to confirm viability and dating performed. Please see imaging report for complete details. Exam & TVUS Chaperoned by: Shruthi James Assessment/Plan: Diagnoses and all orders for this visit: Supervision of other normal , antepartum (Primary) Assessment & Plan: - TVUS for dating and viability completed [...] US ordered - First visit education today Orders: - US Ob 14 Weeks Or Over; Future - ABO/Rh; Future - Antibody screen; Future - CBC without differential; Future - HIV 1/2 Antibody plus p24 Antigen Blood; Future - RPR Blood; Future - Hepatitis B Surface Antigen Blood; Future - Hepatitis C antibody Blood; Future - Rubella IgG antibody Blood; Future - Varicella Zoster IgG antibody Blood; Future - SURESWAB(R), CT/NG, T VAGINALIS; Future - Urinalysis reflex to microscopic; Future - Urine culture Urine, clean voided; Future - Pap with reflex to High Risk HPV and Genotyping (Cytology Component); Future - ThinPrep processing (Molecular component); Future - US Ob Under 14 Weeks W Endovaginal 7 weeks gestation of Results will be communicated via InnoPad[employer]. Return to clinic in 5 weeks. Advised to contact office with any questions or concerns or present to [facility] with any emergent issues. ICAL CLERK Last Filed Vital Signs Vital Sign Reading Time Taken Comments Blood Pressure 111/72 07/24/2024 8:54 AM CLERICAL CLERK Pulse 66 06/05/2024 8:30 AM CDT Temperature 36.7 ??C (98.1 ??F) 06/05/2024 8:30 AM CD T Respiratory Rate 19 06/05/2024 8:30 AM CDT Oxygen Saturation 98% 06/05/2024 8:30 AM CDT Inhaled Oxygen Concentration - - Weight 71.7 kg (158 lb) 07/24/2024 8:54 AM CLERICAL CLERK Height 160 cm (5' 3 ) 07/24/2024 8:54 AM CLERICAL CLERK Body Mass Index 27.99 07/24/2024 8:54 AM CLERICAL CLERK Plan of Treatment Health Maintenance Due Date Last Done Comments Hepatitis C Screening 1995 Hepatitis B Screening 2013 Regular Well Visit/Exam 18-64 2013 Varicella Vaccines (2 of 2 - 13+ 2-dose series) 06/25/2019 05/28/2019 Covid-19 Vaccine (3 - 2023-2 5 season) 2024 10/26/2020, 09/28/2020 Influenza Vaccine (#1) 2024 , 05/21/2020, 04/28/2019 Depression Screening 01/01/2025 01/02/2024, 04/28/2019 Cervical Cancer Screening 07/24/2025 07/24/2024 DTaP/Tdap/Td Vaccine (3 - Td or Tdap) 02/23/2031 02/23/2021, 12/31/2018 HPV Vaccines Aged Out No longer eligi ble based on patient's age to complete this topic Pneumococcal vaccine <65 Aged Out No longer eligible based on patient's age to complete this topic Procedures Procedure Name Priority Date/Time Associated Diagnosis Comments POCT URINALYSIS DIPSTICK Routine 07/24/2024 10:16 AM CLERICAL CLERK Supervision of other normal , antepartum URINALYSIS AND REFLEX TO MICROSCOPIC Routine 07/24/2024 10:04 AM CLERICAL CLERK Supervision of other normal , antepartum SURESWAB(R), CT/NG, T VAGINALIS Routine 07/24/2024 10:04 AM CLERICAL CLERK Supervision of other normal , antepartum URINE CULTURE Routine 07/24/2024 10:04 AM CLERICAL CLERK Supervision of other normal , antepartum US OB UNDER 14 WEEKS W ENDOVAGINAL Schedule Routine, Read Routine (OP Routine) 07/24/2024 9:38 AM CLERICAL CLERK Supervision of other normal , antepartum PAP WITH REFLEX TO HIGH RISK HPV Routine 07/24/2024 9:34 AM CLERICAL CLERK THINPREP PROCESSING (MOLECULAR COMPONENT) Routine 07/24/2024 9:34 AM CLERICAL CLERK THROAT CULTURE Routine 06/05/2024 8:54 AM CDT Sore throat POCT RAPID STREP Routine 06/05/2024 8:48 AM CDT Sore throat POC INFLUENZA A/B, COVID-19 ANTIGEN Routine 06/05/2024 8:47 AM CDT Sore throat from Last 3 Months Results * POCT urinalysis dipstick (07/24/2024 10:16 AM CLERICAL CLERK) Color, Urine, POC Yellow Clarity, ur, POC Clear Clear Glucose, ur, POC Negative Negative MG/DL Bilirubin, ur, POC Negative Negative, Small, Moderate, Large Ketones, ur, POC Negative Negative Specific [place], POC 1.010 1.003 - 1.030 Blood, ur, POC Negative Negative pH, ur, POC 5.0 5.0 - 8.0 Protein, ur, POC Negative Negative Urobilinogen, urine, POC 0.2 0.2 - 1.0 mg/dL Nitrite, ur, POC Negative Negative Leukocytes, ur, POC Negative Negative Lot Number [id number] Urine 07/24/2024 10:1 6 AM CLERICAL CLERK Tank Babcock MD POINT OF CARE TEST ORDERA BLES Final Result * SURESWAB(R), CT/NG, T VAGINALIS (07/24/2024 10:04 AM CLERICAL CLERK) C. trachomatis RNA NOT DETECTED NOT DETECTED [facility] N. gonorrhoeae RNA NOT DETECTED NOT DETECTED [facility] Comment [facility] Comment: The analytical performance characteristics of this assay, when used to test SurePath(TM) specimens have been determined by [facility]. The modifications have not been cleared or approved by the FDA. This assay has been validated pursuant to the CLIA regulations and is used for clinical purposes. For additional information, please refer to https://[employer]faq/JUR386 (This link is being provided for information/ educational purposes only.) Trichomonas vaginalis NOT DETECTED NOT DETECTED [facility] Comment: For additional information, please refer to http://[employer] faq/Trichomonastma (This link is being provided for informational/ educational purposes only.) Endocervical/vag inal 07/24/2024 10:04 AM CLERICAL CLERK 07/25/2024 12:26 AM CLERICAL CLERK Tank Babcock MD LAB BLOOD ORDERABLES Luisa l Result [facility] [address] [place] [address] * Urinalysis reflex to microscopic (07/24/2024 10:04 AM CLERICAL CLERK) Color, ur YELLOW YELLOW [facility] Appearance, ur CLEAR CLEAR [facility] Specific gravity 1.008 1.001 - 1.035 [facility] pH, ur 7.5 5.0 - 8.0 [facility] Glucose, ur NEGATIVE NEGATIVE [facility] Bilirubin, ur NEGATIVE NEGATIVE [facility] Ketones, ur NEGATIVE NEGATIVE [facility] Blood, ur NEGATIVE NEGATIVE [facility] Protein, ur, quant NEGATIVE NEGATIVE [facility] Nitrites, ur NEGATIVE NEGATIVE [facility] Leukocyte esterase, ur NEGATIVE NEGATIVE [facility] Urine 07/24/2024 10:0 4 AM CLERICAL CLERK 07/25/2024 12:26 AM CLERICAL CLERK Tank Babcock MD LAB URINE ORDERABLES Luisa l Result Performing Organization Address [facility] Co de Phone Number [employer] [facility] [address] [place] [address] * Urine culture Urine, clean voided (07/24/2024 10:04 AM CLERICAL CLERK) Urine culture [facility] Comment: ??CULTURE, URINE, ROUTINE ?Micro Number: ?[id number] ??Test Status: ? Final ??Specimen Source: ?? Urine, clean catch ??Specimen Quality: ??Adequate ??Result: ?No Growth Urine, clean voided 07/24/2024 10:04 AM CLERICAL CLERK 07/25/2024 12:26 AM CLERICAL CLERK Tank Babcock MD LAB MICROBIOLOGY - GENERA L ORDERABLES Final Result Performing Organization Address [facility] de Phone Number [employer] [address] [place] [address] * US Ob Under 14 Weeks W Endovaginal (07/24/2024 9:38 AM CLERICAL CLERK) Anatomical Region Laterality Modality Abdomen N/A Ultrasound Study GA Study Date Study SURYA Working SURYA (Source) Feta l Weight (Method) 7w3d 07/24/2024 03/09/2025 03/06/2025 (Las t Menstrual Period) Result Name Value Comments Heart Rate 153 bpm [place] Rump Length 1.22 cm Narrative 07/24/2024 9:40 AM CLERICAL CLERK TVUS to confirm viability and dating. Single viable intrauterine visualized measuring 7w3d weeks gestation (SURYA 03/09/2025). Uterus and bilateral adnexa without gross abnormalities. Left ovary with corpus luteum cyst. Right ovary not visualized. Final SURYA 03/09/2025 based on 7w3d US due to approximate LMP. us Tank Babcock MD IMG OB US PROCEDURES Luisa l Result * ThinPrep processing (Molecular component) (07/24/2024 9:34 AM CLERICAL CLERK) ThinPrep processing (Molecular component) Specimen received for processing. [facility] Endocervical 07/24/2024 9:34 AM CLERICAL CLERK 07/28/2024 9:10 PM CLERICAL CLERK us Tank Babcock MD LAB BODY FLUIDS AND STOOL S ORDERABLES Final Result [facility] Department [place] [address] [facility] * Pap with reflex to High Risk HPV and Genotyping (Cytology Component) (07/24/2024 9:34 AM CLERICAL CLERK) Pap test 07/24/2024 9:34 AM CLERICAL CLERK 07/24/2024 2:08 PM CLERICAL CLERK Narrative 08/05/2024 8:46 AM CLERICAL CLERK EPIC results best viewed via link to PDF [facility] [place] [address] Note to Patients: This report may contain [...] Gender: ??F : ??1995 (Age: 29) Address: ??[address] [place] [address] ??[phone] Hospital #: ??[id number] Service: ??UNKNOWN Location: ?? Patient Type: ??[facility] SPECIMEN Taken: ??07/24/2024 Received: ??07/24/2024 Accessioned: ??07/24/2024 [...] and histologic results be correlated for laboratory senior software quality analyst & improvement standards. ??FOR ALL HIGH-GRADE CASES [...] determined by the Surgical Pathology Department at [facility] as part of an ongoing assistant quality manager program and in compliance with [...] determined by the Surgical Pathology Department of [facility]. ??It has not been cleared or approved by the U. S. Food and Drug Administration. Tank Babcock MD LAB CYTOLOGY ORDERABLES F inal Result * Throat culture Throat (06/05/2024 8:54 AM CDT) Report Final Report: No growth of pathogens. Comment:Testing performed by : [facility], [address] [place]., [address] Throat 06/05/2024 8:54 AM CDT 06/05/2024 6:03 PM CDT Narrative [facility]ON - 06/06/2024 1:47 PM CDT Testing performed by [facility] Microbiology Laboratory ([phone]). Shavon Silva NP LAB MICROBIOLOGY - GENERAL ORDER FIDEL Final Result [facility] [address] Department [place] [address] * POCT rapid strep A (06/05/2024 8:48 AM CDT) Rapid Strep A, POC Negative Negative Swab 06/05/2024 8:48 AM CDT Shavon Silva PARAPROFESSIONAL INTERPRETER POINT OF CARE TEST ORDERABLES Fi nal Result * POC Influenza A/B, COVID-19 antigen (06/05/2024 8:47 AM CDT) Influenza A Ag, POC Negative Negative [facility] Influenza B Ag, POC Negative Negative [facility] COVID-19 Ag POC Presumptive Negative Presumptive Negative, Invalid [facility] CC TRAV Nasal 06/05/2024 8:47 AM CDT Shavon Silva POINT OF CARE TEST ORDERABLES Fi nal Result Performing Organization Address City/State/[facility] Co de Phone Number [facility] [address] [place] [address], [place] from Last 3 Months Insurance Hoods MS Hoods [place] [employer] [place] Advance Directives For more information, please contact: [phone] * Full Code (Latest Code Status on [...] n case of cardiopulmonary arrest Care Teams Pump Attendant Relationship Specialty Start Date End Date Bonilla Byrd MD [facility] [place] [address] PCP - General Family Medicine 01/02/24
--- OUTSIDE RECORDS SUMMARY | 2024-08-09 10:43 | XMS_ITS | Clinical Summary ---
Author Organization [facility] Address [address] [place] [address] Phone Care Team Providers Care Personal Lines Sales Rep Name Role Phone MELODY FAIR MD Unavailable [phone] Reason for Visit and Chief Complaint SENIOR BIOINFORMATICS SPECIALIST EXAM Problems Includes: Problems addressed during this encounter [...] Documented On 9:27AM By NAHUM MOMIN ; [facility] Medications Administered Includes: Administered Medications from this [...] Allergies Includes: Active Allergies No Known Allergies Insurance Includes: Active Insurance Policies Plan Name Member ID Group # Subscriber Relationship Effect el Dates 1 - [facility] [id number] MIKAELA LEONARD Self Clinical Notes Includes: Clinical Notes from this encounter No Clinical Notes Recorded
--- OUTSIDE RECORDS SUMMARY | 2024-08-09 10:44 | XMS_ITS | Encounter Summary ---
Author Organization [facility] Address [address] [place] [address] Phone Care Team Providers Care Tile Layer Name Role Phone Bonilla Byrd MD Primary Care Provider [phone] Reason for Visit * Diagnostic Imaging (Routine) - Pending Review Specialty Diagnoses / Procedures Referred By Contac t Referred To Contact Diagnoses Supervision of other normal , antepartum Procedures US Ob Under 14 [place] [address] [place] [address] Phone: tel: fax: [facility] (All Locations) Referral ID Status Reason Start Date Expiration Date V isits Requested Visits Authorized [id number] Pending Review 07/24/2024 08/23/2025 1 1 Encounter Details Date Type Department Care Team (Late st Contact Info) Description 07/24/2024 9:40 AM DOWEL PIN WORKER Ancillary Procedure [facility] Obstetrics and Gynecology [address] [place] [address] Outpatient Health 7th Floor [address] [place] [address] Social History Tobacco Use Types Packs/Day Years Used Date Smoking Tobacco: Never Smokeless Tobacco: Never Alcohol Use Standard Drinks/Week Comments Yes 0 (1 standard drink = 0.6 oz pur e alcohol) [facility] Utilities Answer Date Recorded In the past 12 months has th e electric, gas, oil, or water company threatened to shut off services in your [...] week 01/02/2024 How often do you attend [facility] or yazidism services? Never 01/02/2024 Do you belong to any clubs o r organizations such as mosque groups, unions, fraternal or athletic groups, or [...] staff should administer the PHQ-9) 0 01/02/2024 [facility] - Occupational Stress Questionnaire Answer Date [...] any time in the past 12 m [facility], were you homeless or living in a retirement (including now)? 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 [employer] Not on file Not on file Not on file documented as of this encounter Plan of Treatment Not on file documented as of this encounter Procedures Procedure Name Priority Date/Time Associated Diagnosis Comments US OB UNDER 14 WEEKS W ENDOVAGINAL Schedule Routine, Read Routine (OP Routine) 07/24/2024 9:38 AM DOWEL PIN WORKER Supervision of other normal , antepartum documented in this encounter Results * US Ob Under 14 Weeks W Endovaginal (07/24/2024 9:38 AM DOWEL PIN WORKER) Anatomical Region Laterality Modality Abdomen N/A Ultrasound Study GA Study Date Study SURYA Working SURYA (Source) Feta l Weight (Method) 7w3d 07/24/2024 03/09/2025 03/06/2025 (Las t Menstrual Period) Result Name Value Comments Heart Rate 153 bpm [place] Rump Length 1.22 cm Narrative 07/24/2024 9:40 AM DOWEL PIN WORKER TVUS to confirm viability and dating. Single viable intrauterine visualized measuring 7w3d weeks gestation (SURYA 03/09/2025). Uterus and bilateral adnexa without gross abnormalities. Left ovary with corpus luteum cyst. Right ovary not visualized. Final SURYA 03/09/2025 based on 7w3d US due to approximate LMP. us Tank Ace Babcock MD IMG OB US PROCEDURES Luisa l Result documented in this encounter Visit Diagnoses Not on filedocumented in this encounter Care Teams Tile Layer Relationship Specialty Start Date End [place] [address] PCP - General Family Medicine 01/02/24 documented as of this encounter
--- OUTSIDE RECORDS SUMMARY | 2024-08-09 10:44 | XMS_ITS | Encounter Summary ---
Author Organization [facility] Address [address] [facility] [address] [place] [id number] Care Team Providers Care Group Burner Machine Name Role Phone No, Physician Primary Care Provider [phone] Reason for Visit * Reason Comments Nasal Congestion RCC- Nasal Congestio n, Sinus pressure, and Headaches. Onset three weeks, Vaccinated, No known exp. OTC Off brand waldryl. Encounter Details Date Type Department Care Team ([facility] st Contact Info) Description 09/25/2022 7:30 PM EQUIPMENT OR MACHINERY CLEANER Office Visit [facility] [address] [place] [id number] Tita Alvarez, CAR RECORD CLERK [address] [place] [place] [address] Acute non-recurrent maxillary sinusitis (Primary Dx) Social History Tobacco Use Types Packs/Day Years Used Date Smoking Tobacco: Never Smokeless Tobacco: Never Alcohol Use Standard Drinks/Week Comments Yes 0 (1 standard drink = 0.6 oz pur e alcohol) AUDIT-C Answer Date Recorded Q1: How often do you have a drink containing alc ohol? Never 04/12/2021 Average Number of Drinks Not on file 021 Q3: How often do you have si x or more drinks on one occasion? Never 04/12/2021 Comments Unknown Sex and Gender Information Value Date Recorded Sex Assigned at Not on file Legal Sex Female 2:33 AM EQUIPMENT OR MACHINERY CLEANER Gender Identity Female 01/27/2021 1:35 PM CDT Sexual Orientation Straight 01/27/2021 1: 35 PM CDT documented as of this encounter Last Filed Vital Signs Vital Sign Reading Time Taken Comments Blood Pressure 112/60 09/25/2022 7:05 PM EQUIPMENT OR MACHINERY CLEANER Pulse 82 09/25/2022 7:05 PM EQUIPMENT OR MACHINERY CLEANER Temperature 36.7 ??C (98.1 ??F) 09/25/2022 7:05 PM CS T Respiratory Rate - - Oxygen Saturation 98% 09/25/2022 7:05 PM EQUIPMENT OR MACHINERY CLEANER Inhaled Oxygen Concentration - - Weight 64.9 kg (143 lb) 09/25/2022 7:05 PM EQUIPMENT OR MACHINERY CLEANER Height 157.5 cm (5' 2 ) 09/25/2022 7:05 PM EQUIPMENT OR MACHINERY CLEANER Body Mass Index 26.16 09/25/2022 7:05 PM EQUIPMENT OR MACHINERY CLEANER documented in this encounter Patient Instructions * Patient Instructions* Tita Alvarez NP - 09/25/2022 7:30 PM EQUIPMENT OR MACHINERY CLEANER Discussed Completing any meds prescribed--Keflex for 10 days Discussed OTC decongestants for congestion- Sudafed or Mucinex Nasal Saline in a metal canister first then Flonase Motrin/Tylenol for pain/fever Antihistamines- Zyrtec, Benadryl can be used for runny nose. Discussed hydration-Drink plenty of water & get plenty of rest A humidifier may also help with congestion May try sinus rinses or steam Follow up with your PCP in 3-5 days if you are not getting better PMENT OR MACHINERY CLEANER documented in this encounter Ordered Prescriptions Prescription Sig Dispense Quantity Refills Last Filled Start Date End Date cephalexin (KEFLEX) 500 mg capsuleIndications :Acute non-recurrent maxillary sinusitis Take 1 capsule (500 mg total) by mouth 2 (two) times a day for 10 days 20 capsule 09/25/2022 3 documented in this encounter Progress Notes * Tita Alvarez NP - 09/25/2022 7:30 PM CST Images from the original note were not included. Subjective/Objective Patient ID: Silvia Persaud is a 27 y.o. female. Chief Complaint Nasal Congestion (RCC- Nasal Congestion, Sinus pressure, and Headaches. Onset three weeks, Vaccinated, No known exp. OTC Off brand waldryl. ) The OTC meds tried are not helping. Excess nasal congestion and sinus pressure worse symptoms. Cough non-productive but feels like mucous is there. Review of Systems Constitutional: Negative for fatigue and fever. HENT: Positive for congestion and sinus pressure. Negative for ear discharge, ear pain, rhinorrhea and sore throat. Respiratory: Positive for cough. Negative for chest tightness and shortness of breath. Cardiovascular: Negative for chest pain. Gastrointestinal: Negative for abdominal pain, diarrhea, nausea and vomiting. Skin: Negative for color change. Neurological: Negative for dizziness. Hematological: Negative for adenopathy. Psychiatric/Behavioral: Negative for confusion. Physical Exam Constitutional: General: She is not in acute distress. HENT: Right Ear: Tympanic membrane normal. Left Ear: Tympanic membrane normal. Nose: No congestion or rhinorrhea. Right Sinus: Maxillary sinus tenderness present. No frontal sinus tenderness. Left Sinus: Maxillary sinus tenderness present. No frontal sinus tenderness. Mouth/Throat: Pharynx: No oropharyngeal exudate or posterior oropharyngeal erythema. Eyes: Conjunctiva/sclera: Conjunctivae normal. Cardiovascular: Rate and Rhythm: Regular rhythm. Heart sounds: Normal heart sounds. Pulmonary: Effort: No respiratory distress. Breath sounds: No wheezing, rhonchi or rales. Abdominal: Palpations: Abdomen is soft. Lymphadenopathy: Cervical: Cervical adenopathy (shotty) present. Skin: Findings: No rash. Neurological: Mental Status: She is alert. Psychiatric: Behavior: Behavior normal. Vitals: 09/25/22 1905 BP: 112/60 Pulse: 82 Temp: 36.7 ??C (98.1 ??F) TempSrc: Temporal SpO2: 98% Weight: 64.9 kg (143 lb) Height: 157.5 cm (5' 2 ) Assessment/Plan Discussed Completing any meds prescribed--Keflex for 10 days Discussed OTC decongestants for congestion- Sudafed or Mucinex Nasal Saline in a metal canister first then Flonase Motrin/Tylenol for pain/fever Antihistamines- Zyrtec, Benadryl can be used for runny nose. Discussed hydration-Drink plenty of water & get plenty of rest A humidifier may also help with congestion May try sinus rinses or steam Follow up with your PCP in 3-5 days if you are not getting better Diagnoses and all orders for this visit: Acute non-recurrent maxillary sinusitis (Primary) - cephalexin (KEFLEX) 500 mg capsule; Take 1 capsule (500 mg total) by mouth 2 (two) times a day for 10 days Disposition- Discussed medications dosages, usage & potential side effects. Risks and interactions reviewed with patient. Indications for testing reviewed. Patient has been instructed to follow up w PCP or go to ER for any signs or symptoms that are of concern or worsening. Patient verbalizes understanding. The patient was given the opportunity to ask all questions and to have all questions answered. Patient is in agreement with the plan of care Tita Alvarez NP PMENT OR MACHINERY CLEANER documented in this encounter Plan of Treatment Not on file documented as of this encounter Visit Diagnoses Diagnosis Acute non-recurrent maxillary sinusitis- Primary documented in this encounter Care Teams Group Burner Machine Relationship Specialty Start Date End Date No, Physician PCP - General 05/14/19 01/01/24 documented as of this encounter
--- OUTSIDE RECORDS SUMMARY | 2024-08-09 10:44 | XMS_ITS | Encounter Summary ---
Author Organization [facility] Healthcare Address [address] [place] [address] Care Team Providers Care Bridge Operator Name Role Phone No, Physician Primary Care Provider [phone] Reason for Visit * Reason Comments Headache Encounter Details Date Type Department Care Team ([facility] st Contact Info) Description 09/01/2023 4:05 PM REMEDIATION PROJECT ENGINEER - 09/01/2023 5:47 PM REMEDIATION PROJECT ENGINEER Emergency [facility] Emergency Department [address] [place] [id number] Tension headache (Primary Dx) Discharge Disposition: Discharge to home or self [...] more drinks on one occasion? Never 04/12/2021 Personal Safety Answer Date Recorded Have you ever been in or are you currently in a harmful physical or emotional relationship or is someone making you feel afraid or unsafe? Denies 09/01/2023 Comments Unknown Sex and Gender Information Value Date Recorded Sex Assigned at Not on file Legal Sex Female 2:33 AM REMEDIATION PROJECT ENGINEER Gender Identity Female 01/27/2021 1:35 PM CDT Sexual Orientation Straight 01/27/2021 1: 35 PM CDT documented as of this encounter Last Filed Vital Signs Vital Sign Reading Time Taken Comments Blood Pressure 132/70 09/01/2023 3:20 PM REMEDIATION PROJECT ENGINEER Pulse 81 09/01/2023 3:20 PM REMEDIATION PROJECT ENGINEER Temperature 37.2 ??C (98.9 ??F) 09/01/2023 3:20 PM CS T Respiratory Rate 18 09/01/2023 3:20 PM REMEDIATION PROJECT ENGINEER Oxygen Saturation 100% 09/01/2023 3:20 PM REMEDIATION PROJECT ENGINEER Inhaled Oxygen Concentration - - Weight 68 kg (150 lb) 09/01/2023 3:20 PM REMEDIATION PROJECT ENGINEER Height 160 cm (5' 3 ) 09/01/2023 3:20 PM REMEDIATION PROJECT ENGINEER Body Mass Index 26.57 09/01/2023 3:20 PM REMEDIATION PROJECT ENGINEER documented in this encounter Discharge Instructions * Attachments The following attachments cannot be sent through Care Everywhere. * Headache, Tension (Arabic) documented in this encounter Medications at Time of Discharge butalbital-acetamin ophen-caffeine (ESGIC) 50-325-40 mg per tabletIndications:T ension-Type Headache Take 1 tablet by mouth every 4 (four) hours as needed for headaches Collaborating physician Steven Treadwell MD 15 tablet 4 01/02/20 24 cyclobenzaprine (FLEXERIL) 10 mg tabletIndications:T ension headache Take 1 tablet (10 mg total) by mouth nightly Take 1 hour before bedtime each night to help relax muscles and help relieve tension headache. Collaborating physician Steven Treadwell MD 20 tablet 4 01/02/20 24 norethindrone (MICRONOR) 0.35 mg tabletIndications:P regnancy Contraception Take 1 tablet (0.35 mg total) by mouth daily 28 tablet 12 1 10/29/19 24 ofloxacin (OCUFLOX) 0.3 % ophthalmic solutionIndications :Bacterial conjunctivitis of both eyes instill 1 or 2 drops in affected eye(s) every 2 to 4 hours for 2 days, then 1 to 2 drops 4 times daily on days 3 through 7 10 mL 3 01/02/20 24 documented as of this encounter Ordered Prescriptions Prescription Sig Dispense Quantity Refills Last Filled Start Date End Date cyclobenzaprine (FLEXERIL) 10 mg tabletIndications :Tension headache Take 1 tablet (10 mg total) by mouth nightly Take 1 hour before bedtime each night to help relax muscles and help relieve tension headache. Collaborating physician Steven Treadwell MD 20 tablet 09/01/2023 01/02/20 24 butalbital-acetam inophen-caffeine (ESGIC) 50-325-40 mg per tabletIndications :Tension-Type Headache Take 1 tablet by mouth every 4 (four) hours as needed for headaches Collaborating physician Steven Treadwell MD 15 tablet 09/01/2023 01/02/20 24 documented in this encounter Discharge Disposition Disposition Code Departure Means Destination Comment s Discharge to home or self care documented in this encounter ED Notes * Reggie Mario PA - 09/01/2023 5:44 PM CST HPI Chief Complaint Patient presents with Headache 28-year-old female with no pertinent past medical history presents with chief complaint of headacheand neck pain. Neck pain started initially approximately a week ago. Denies injury. Last night began developing sensitivity to light and a headache that feels like a tight pressure-like band around her head. Denies numbness/tingling, change in vision, or other change in sensorium. Denies nausea. Denies history of headaches. Denies fever or chills. Denies upper or lower respiratory infection symptoms. Patient states they have a working carbon monoxide detector in their home. History provided by: Patient oven unloader used: No Patient History: Patient Active Problem List Diagnosis Date Noted Tension headache 09/01/2023 care following vaginal delivery 05/19/2021 Supervision of other normal , antepartum 09/14/2020 No past medical history on file. Past Surgical History: Procedure Laterality Date WISDOM TOOTH EXTRACTION Family History Problem Relation Age of Onset No Known Problems Father No Known Problems Mother Diabetes Other Great-Grandfather Social History Tobacco Use Smoking status: Never Smokeless tobacco: Never Vaping Use Vaping Use: Never used Substance and Sexual Activity Alcohol use: Yes Drug use: No Sexual activity: Yes Partners: Male control/protection: None Social History Social History Narrative Not on file Review of Systems Review of Systems All other systems reviewed negative. All available allergies, past medical history, past surgical history, social history, and medications reviewed from the medical record, nursing notes, and with patient Physical Exam ED Triage Vitals [09/01/23 1520] Temp Pulse Resp BP SpO2 37.2 ??C (98.9 ??F) 81 18 132/70 100 % Temp src Heart Rate Source Patient Position BP Location FiO2 (%) Temporal -- -- -- -- Height Height Method Weight Weight Method 1.6 m (5' 3 ) Stated 68 kg (150 lb) Stated Physical Exam Vitals and nursing note reviewed. Constitutional: Appearance: Normal appearance. HENT: Head: Normocephalic and atraumatic. Right Ear: Tympanic membrane, ear canal and external ear normal. Left Ear: Tympanic membrane, ear canal and external ear normal. Nose: Nose normal. Mouth/Throat: Mouth: Mucous membranes are moist. Pharynx: Oropharynx is clear. Eyes: General: No scleral icterus. Right eye: No discharge. Left eye: No discharge. Extraocular Movements: Extraocular movements intact. Conjunctiva/sclera: Conjunctivae normal. Pupils: Pupils are equal, round, and reactive to light. Neck: Vascular: No carotid bruit. Cardiovascular: Rate and Rhythm: Normal rate and regular rhythm. Pulses: Normal pulses. Heart sounds: Normal heart sounds. Pulmonary: Effort: Pulmonary effort is normal. Breath sounds: Normal breath sounds. Musculoskeletal: General: Normal range of motion. Cervical back: Normal range of motion and neck supple. No rigidity or tenderness. Lymphadenopathy: Cervical: No cervical adenopathy. Skin: General: Skin is warm and dry. Neurological: General: No focal deficit present. Mental Status: She is alert and oriented to person, place, and time. Cranial Nerves: No cranial nerve deficit. Sensory: No sensory deficit. Motor: No weakness. Coordination: Coordination normal. Gait: Gait normal. Comments: Negative Romberg's test. Psychiatric: Mood and Affect: Mood normal. Behavior: Behavior normal. Thought Content: Thought content normal. Judgment: Judgment normal. Voice recognition software [employer] Direct was used to dictate and transcribe this document. Window Cutter variances may occur. Despite proofreading, typographical errors may occur. MDM Medical Decision Making Differential diagnosis of what is possibly causing patient's headache (things considered in medicaldecision making from history, physical exam, testing, and treatment): Migraine headache, tension headache, cluster headache, exertional headache, acute posttraumatic headache, headache associated with vascular disorders, headache associated with nonvascular intracranial disorder, headache associated with infection, headache associated with metabolic disorder, headache associated with chemical exposure such as carbon monoxide. In consideration of the above differential diagnosis, the following orders were placed while the patient was in the Emergency Department. Orders Placed This Encounter: CT of head without contrast ordered from triage See ED course for pertinent results and imaging interpretation. The patient received the following medications / treatment/s: Medication ordered Problems Addressed: Tension headache: acute illness or injury Amount and/or Complexity of Data Reviewed Radiology: Decision-making details documented in ED Course. Risk Prescription drug management. Risk Details: Discharge plan: Prescriptions for Fioricet and cyclobenzaprine sent to patient's preferred pharmacy. Given contact information to get established with a PCP. Return to the emergency department for worsening signs/symptoms. ED Course as of 09/01/231747 Time: 09/01 1711 Comment: CT head without contrast: IMPRESSION: No acute intracranial findings. By: Reggie Mario PA Time: 09/01 1725 Comment: The patient remained stable throughout their ED stay. My clinical impression was discussedwith the patient/family. Labs and radiology results were reviewed with them. I gave them the opportunity to ask questions, and addressed them as completely as possible given the information availableat present. The therapeutic plan was discussed, advised to take medications as instructed, instructions were given and the importance of primary care follow up was stressed and encouraged. The patient/family voiced understanding of the plan, indications to return, and the need for follow up. By: Reggie Mario PA Final diagnoses: Tension headache Reggie Mario PA 09/01/231746 Reggie Mario PA 09/01/231747 Cosigned by Norberto Ledesma MD at 09/01/2023 6:46 PM REMEDIATION PROJECT ENGINEER DIATION PROJECT ENGINEER DIATION PROJECT ENGINEER DIATION PROJECT ENGINEER * Zoey Wilcox RN - 09/01/2023 3:18 PM CST Pt to the ED with c/o a frontal headache that started this Am. Pt reports sensitivity to light and movement. Denies nausea or vomiting. Denies hx of migraines DIATION PROJECT ENGINEER documented in this encounter Plan of Treatment Not on file documented as of this encounter Procedures Procedure Name Priority Date/Time Associated Diagnosis Comments CT HEAD WO CONTRAST ED 09/01/2023 4 :34 PM REMEDIATION PROJECT ENGINEER documented in this encounter Results * CT Head WO Contrast (09/01/2023 4:34 PM REMEDIATION PROJECT ENGINEER) Anatomical Region Laterality Modality Head and Neck N/A Computed Tomogra phy 09/01/2023 4:49 PM REMEDIATION PROJECT ENGINEER Narrative 09/01/2023 4:57 PM REMEDIATION PROJECT ENGINEER EXAM DESCRIPTION: CT HEAD WO CONTRAST REASON FOR STUDY: Headache, intracranial hemorrhage suspected ?? Pt to the ED with c/o a frontal headache that started this Am. ?? Pt reports sensitivity to light and movement. ?? Denies nausea or vomiting. ?? Denies hx of migraines ??Pt states she has taken tylenol and Excedrin migraine with no relief ?? No surgery ?? No hx of cancer ?? TECHNIQUE: Axial images acquired through the brain without intravenous contrast. ??Images stored on PACS. ?? Automated exposure control was used as a dose optimization technique for this examination. COMPARISON: No prior. FINDINGS: BRAIN: ?? There are no extra-axial fluid collections. ?No evidence of hemorrhage. ??Garber-white matter differentiation is normal. ??Ventricles and sulci demonstrate a normal size and configuration for age. ??No shift of midline structures or of mass effect. ? EXTRA-AXIAL SPACES: ?? No fluid collections. No masses. CALVARIUM: ?? No fracture. SINUSES/MASTOIDS: ?? No fluid or mucosal thickening. ORBITS: ?? No significant abnormality. OTHER: ?? No other significant abnormality. IMPRESSION: No acute intracranial findings. THIS IS AN ELECTRONICALLY VERIFIED FINAL REPORT 09/01/2023 4:57 PM - Electronically signed by ??Jordan GARCIA: JOSE D: ??09/01/2023 4:57 PM T: ??09/01/2023 4:57 PM Report ID: [id number] Reading Location: ??[id number] Procedure Note Jordan Poole MD - 09/01/2023 EXAM DESCRIPTION: CT HEAD WO CONTRAST REASON FOR STUDY: Headache, intracranial hemorrhage suspected Pt to the ED with c/o a frontal headache that started this Am. Ptreports sensitivity to light and movement. Denies nausea or vomiting. Denieshx of migraines Pt states she has taken tylenol and Excedrin migraine with no relief No surgery No hx of cancer TECHNIQUE: Axial images acquired through the brain without intravenous contrast. Images stored on PACS. Automated exposure control was used asa dose optimization technique for this examination. COMPARISON: No prior. FINDINGS: BRAIN: There are no extra-axial fluid collections. No evidence of hemorrhage. Garber-white matter differentiation is normal. Ventricles and sulci demonstrate a normal size and configuration for age. No shift of midline structures or of mass effect. EXTRA-AXIAL SPACES: No fluid collections. No masses. CALVARIUM: No fracture. SINUSES/MASTOIDS: No fluid or mucosal thickening. ORBITS: No significant abnormality. OTHER: No other significant abnormality. IMPRESSION: No acute intracranial findings. THIS IS AN ELECTRONICALLY VERIFIED FINAL REPORT 09/01/2023 4:57 PM - Electronically signed by Jordan GARCIA: JOSE Report ID: [id number] Reading Location: [id number] Norberto Ledesma MD IMG CT PROCEDURES Final Result documented in this encounter Visit Diagnoses Diagnosis Tension headache- Primary Tension headache documented in this encounter Care Teams Bridge Operator Relationship Specialty Start Date End Date No, Physician PCP - General 05/14/19 01/01/24 documented as of this encounter
--- OUTSIDE RECORDS SUMMARY | 2024-08-09 10:44 | XMS_ITS | Encounter Summary ---
Author Organization [facility] Healthcare Address [address] [place] [address] Care Team Providers Care Vba Programmer Name Role Phone Bonilla Byrd MD Primary Care Provider [phone] Encounter Details Date Type Department Care Team (Latest Contact Info) Description 06/05/2024 8:54 AM CDT - 06/05/2024 11:59 PM CDT Hospital Encounter [address] [address] Sore throat Discharge Disposition: Discharge to home or self care Social History Tobacco Use Types Packs/Day Years Used Date Smoking Tobacco: Never Smokeless Tobacco: Never Alcohol Use Standard Drinks/Week Comments Yes 0 (1 standard drink = 0.6 oz pur e alcohol) [facility] Utilities Answer Date Recorded In the past 12 months has e [employer], gas, oil, or water [facility] threatened to shut off services in your [...] often do you attend chur ch or jew services? Never 01/02/2024 Do you belong to any clubs o r organizations such as bahai groups, unions, fraternal or athletic groups, or school groups? No 01/02/2024 How often do you attend meet ings of the clubs or organizations you belong to? Never 01/02/2024 Are you , , di vorced, , never , or living with a partner? 01/02/2024 AUDIT-C Answer Date Recorded Q1: How often do you have a drink containing alc ohol? Monthly or less 01/02/2024 Q2: How many drinks containi ng alcohol do you have on a typical day when you are drinking? 3 or 4 01/02/2024 Q3: How often do you have si x or more drinks on one occasion? Never 01/02/2024 Overall Financial Resource Strain (CARDIA) Answe r Date Recorded How hard is it for you to pa y for the very basics like food, housing, medical care, and heating? Not hard at all 01/02/2024 PHQ-2 Answer Date Recorded PHQ-2 Total Score (If total score is 3 or more points, staff should administer the PHQ-9) 0 01/02/2024 [facility] - Occupational Stress Questionnaire Answer Date [...] to strenuous exercise (like a brisk walk)? 7 days 01/02/2024 On average, how many minutes do you engage in exercise at this level? 20 min 01/02/2024 Hunger Vital Sign Answer Date Recorded Within [...] any time in the past 12 m [facility], were you homeless or living in a custodial (including now)? No 01/02/2024 Personal Safety Answer Date Recorded Have you ever been in or are you currently in a harmful physical or emotional relationship or is someone making you feel afraid or unsafe? 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 Gender Identity Female 01/27/2021 1:35 PM CDT Sexual Orientation Straight 01/27/2021 1: 35 PM CDT documented as of this encounter Medications at Time of Discharge azelastine (ASTELIN) 137 mcg (0.1 %) nasal spray Administer 1 spray into each nostril 2 (two) times a day Use in each nostril as directed 30 mL 2 01/29/2024 drospirenone-eth inyl estradioL (RONNA,KASSANDRA) 3-0.02 mg per tablet TAKE 1 TABLET BY MOUTH EVERY DAY FOR 90 DAYS 09/28/2023 fluticasone propionate (FLONASE) 50 mcg/actuation nasal spray Administer 2 sprays into each nostril daily 3 each 4 01/02/2024 documented as of this encounter Discharge Disposition Disposition Code Departure Means Destination Discharge to home or self care documented in this encounter Miscellaneous Notes * Result Encounter Note - Zita Penaloza MA - 06/05/2024 11:59 PM CDT Spoke with the patient regarding results and recommendations. She has no further questions at this time. documented in this encounter Plan of Treatment Not on file documented as of this encounter Procedures Procedure Name Priority Date/Time Associated Diagnosis Comments THROAT CULTURE Routine 06/05/2024 8:54 AM CDT Sore throat documented in this encounter Results * Throat culture Throat (06/05/2024 8:54 AM CDT) Report Final Report: No growth of pathogens. Comment:Testing performed by : [facility], [address] [place]., [address] Throat 06/05/2024 8:54 AM CDT 06/05/2024 6:03 PM CDT Narrative LAURE DUBON - 06/06/2024 1:47 PM CDT Testing performed by [facility] Microbiology Laboratory ([phone]). Shavon iSlva NP LAB MICROBIOLOGY - GENERAL ORDER FIDEL Final Result [facility] [address] Department of Laboratories [place], [place] [id number] documented in this encounter Visit Diagnoses Diagnosis Sore throat Acute pharyngitis documented in this encounter Care Teams Vba Programmer Relationship Specialty Start Date End Date Bonilla Byrd MD [address] [place], [place] [address] PCP - General Family Medicine 01/02/24 documented as of this encounter
--- OUTSIDE RECORDS SUMMARY | 2024-08-09 10:44 | XMS_ITS | Encounter Summary ---
Author Organization [facility] Healthcare Address [address] [place] [address] Care Team Providers Care Manual Training Teacher Name Role Phone No, Physician Primary Care Provider [phone] Reason for Visit * Reason Onset Date Comments Outgoing Call 05/15/2021 IOL instr uctions Encounter Details Date Type Department Care Team (Late st Contact Info) Description 05/15/[address] [address] Trista Gannon RN Outgoing Call (IOL instructions) Social History Tobacco Use Types Packs/Day Years [...] drinks on one occasion? 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 Patient scheduled for an Induction of Labor on 05/19 @ 0800 . COVID screening: Patient has not tested for COVID. Patient denies S&S, exposure to anyone sick or known covid +. States wears mask, practices social distancing, and handwashing. Has self quarantined as much as possible. Please call us if you have been around anyone sick or who has been COVID positive in the last 14 days. Please wear a mask to the hospital. Day before Induction: L&D is located in the [facility]. Our address is [address] [facility] [place] [place] [address]. You may eat and drink regularly. Arrange for children's program coordinator if needed. Day of IOL: You may have light breakfast the morning of your induction. Take any medicine with a sip of water only if your provider has told you to take it. Turn off of [facility] into Entrance D ([facility] [address]). Parking is located under the [facility]. Please use the Women's & Infants elevator located in the lobby. Come directly to L&D on the 5th floor. Your support person can join you at the scheduled time of your induction. If you have an Advance Directive or a Labor Plan, please bring it with you. Please leave your valuables at home. If you wear contact lens, please bring your case and glasses with you. We recommend you bring everything including the car seat in when you arrive. Additional information for you and your visitor: OB patients are allowed 2 visitors per day. Visitor day is defined as 9 am one day until 9 am the next day Visitors are asked to wear a mask and stay in the patient room unless visiting the cafeteria, coffee shop, chapel, or restroom. Children under age 12 are not allowed to visit. This includes siblings. If a visitor stays over night, they need to return to the lobby in the morning to be re-screened. If a visitor leaves the hospital for any reason, they may not return until tomorrow. Visitors will sign in and out at the nurses station when leaving the floor. We are sorry we do not provide meals for visitors. They can go to our cafeteria or coffee shop, order out and have something delivered to our lobby, or a family member may bring them something to eatand they can pick it up in the lobby. They can no longer leave, drive through somewhere, and return(once again due to COVID). Coffee shop and cafeteria are available for visitor snacks and meals. Post unit is on the 6th floor. Patient will receive only one parking validation during your stay at [facility]. It will be given to you on the day you go home. Multi-use parking passes may be purchased for $20.00 in the cafeteria or giftshop daily from 7 am to 7 pm at discounted verma if your visitor is planning on leaving each night and returning in the morning. Patient verbalizes understanding all instructions. No further questions or needs. [facility] phonenumber [phone] provided for patient for any questions or S&S of illness prior to arrival . documented in this encounter Plan of Treatment Not on file documented as of this encounter Visit Diagnoses Not on filedocumented in this encounter Care Teams Manual Training Teacher Relationship Specialty Start Date End Date No, Physician PCP - General 05/14/19 01/01/24 documented as of this encounter
--- OUTSIDE RECORDS SUMMARY | 2024-08-09 10:44 | XMS_ITS | Encounter Summary ---
Author Organization [facility] Healthcare Address [address] [place] [address] Care Team Providers Care Mortarman Name Role Phone Bonilla Byrd MD Primary Care Provider [phone] Reason for Visit * Reason Comments Sore Throat Patient presents tod ay with complaints of a sore throat, fatigue, body aches and headaches. Sx onset Sunday. No known fevers. OTC allergy medication and Tylenol taken yesterday for relief. Encounter Details Date Type Department Care Team (Late st Contact Info) Description 06/05/2024 8:30 AM CDT Office Visit [facility] [address] [place] [phone] Shavon Silva, ADIS [address] [place] [address] Sore throat (Primary Dx); Viral URI with cough Social History Tobacco Use Types Packs/Day Years Used Date Smoking Tobacco: Never Smokeless Tobacco: Never Alcohol Use Standard Drinks/Week Comments Yes 0 (1 standard drink = 0.6 oz pur e alcohol) [facility] Utilities Answer Date Recorded In the past 12 months has e electric, gas, oil, or water company [...] often do you attend chur ch or yazdanism services? Never 01/02/2024 Do you belong to any clubs o r organizations such as synagogue groups, unions, fraternal or athletic groups, or [...] staff should administer the PHQ-9) 0 01/02/2024 [facility] - Occupational Stress [...] any time in the past 12 m [facility], were you homeless or living in a usp (including now)? No 01/02/2024 Personal Safety Answer Date Recorded Have you ever been in or are you currently in a harmful physical or emotional relationship or is someone making you feel afraid or unsafe? 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 Gender Identity Female 01/27/2021 1:35 PM CDT Sexual Orientation Straight 01/27/2021 1: 35 PM CDT documented as of this encounter Last Filed Vital Signs Vital Sign [place] Time Taken Comments Blood Pressure 98/62 06/05/2024 8:30 AM CDT Pulse 66 06/05/2024 8:30 AM CDT Temperature 36.7 ??C (98.1 ??F) 06/05/2024 8:30 AM CD T Respiratory Rate 19 06/05/2024 8:30 AM CDT Oxygen Saturation 98% 06/05/2024 8:30 AM CDT Inhaled Oxygen Concentration - - Weight 69 kg (152 lb 3.2 oz) 06/05/2024 8:30 AM CDT Height 160 cm (5' 3 ) 06/05/2024 8:30 AM CDT Body Mass Index 26.96 06/05/2024 8:30 AM CDT documented in this encounter Patient Instructions * Patient Instructions* Shavon Silva NP - 06/05/2024 8:30 AM CDT Recommendations and Information The main treatment for respiratory infections of any kind is to rest, eat healthy, and drink plentyof fluids. Cold symptoms will likely last anywhere from 7-10 days with symptoms feeling much worse on days 3-5. Antibiotic medications do not cure a cold nor do antibiotic medications help to shortenthe symptoms of viral illness. The following may help you feel better: Over the counter antihistamine such as loratadine (Claritin) or cetirizine (Zyrtec) to reduce secretions. The D formula includes pseudoephedrine and can be helpful as a decongestant but should not be used if you have a history of high blood pressure. Tessalon if prescribed for cough. Albuterol inhaler if prescribed for shortness of breath, cough, or wheezing. Use you albuterol inhaler or nebulizer every 4 hours for the next 48 hours, then every 4-6 hours as needed. Don't smoke and avoid second hand smoke. Suck on cough drops or hard candies to soothe a dry or sore throat. Cough drops won't stop your cough, but they may make your throat feel better. Over the counter loratadine (Claritin) or cetirizine (Zyrtec) to reduce secretions. Mucinex to thin secretions Breathe moist air from a humidifier, a hot shower, or a sink filled with hot water. The heat and moisture can help keep mucus in your airways moist so you can cough it out easily. Use nonprescription medicine, such as acetaminophen, ibuprofen, or aspirin, to relieve fever and body aches. Don't give aspirin to anyone younger than age 20. Rest more than usual. Drink plenty of fluids so that you do not become dehydrated and to keep mucous thin. Use an yvci-vfi-pstsktj cough medicine such as Delsym or Robitussin. (Cough medicines may not be safe for young children or for people who have certain health problems.) Cough suppressants may help you to stop coughing. Expectorants, such as Mucinex, can help you bring up mucus when you cough. Follow up with primary care physician in 1 week, or sooner if symptoms worsen. If you experience worsening shortness of breath or fever that do not improve with Tylenol/Motrin, go to the Emergency Room. documented in this encounter Progress Notes * Shavon Silva NP - 06/05/2024 8:30 AM CDT Images from the original note were not included. Subjective/Objective Patient ID: Silvia Persaud is a 28 y.o. female. Chief Complaint Sore Throat (Patient presents today with complaints of a sore throat, fatigue, body aches and headaches. Sx onset Sunday. No known fevers. OTC allergy medication and Tylenol taken yesterday for relief. ) Patient presents to convenient care for sore throat, fatigue, body aches, postnasal drip, and headaches x3 days. She denies any known exposure to COVID, flu, or strep. She has been taking OTC Tylenol, Zyrtec, and Flonase for her symptoms. She denies any known fevers, chest pain, shortness of breath, or cough. Sore Throat Review of Systems HENT: Positive for sore throat. All systems reviewed and are negative or non contributory for this patient's presentation today other than as stated in the HPI. Physical Exam Vitals reviewed. Constitutional: General: She is not in acute distress. Appearance: Normal appearance. She is well-developed. She is not ill-appearing. HENT: Head: Normocephalic. Right Ear: Tympanic membrane, ear canal and external ear normal. Left Ear: Tympanic membrane, ear canal and external ear normal. Nose: No congestion or rhinorrhea. Right Sinus: No maxillary sinus tenderness or frontal sinus tenderness. Left Sinus: No maxillary sinus tenderness or frontal sinus tenderness. Mouth/Throat: Lips: [place]. Mouth: Mucous membranes are moist. Pharynx: Oropharynx is clear. Posterior oropharyngeal erythema present. Tonsils: 1+ on the right. 1+ on the left. Eyes: General: Right eye: No discharge. Left eye: No discharge. Conjunctiva/sclera: Conjunctivae normal. Cardiovascular: Rate and Rhythm: Normal rate and regular rhythm. Pulmonary: Effort: Pulmonary effort is normal. No respiratory distress. Breath sounds: Normal breath sounds and air entry. Musculoskeletal: General: Normal range of motion. Cervical back: Neck supple. Lymphadenopathy: Head: Right side of head: No tonsillar adenopathy. Left side of head: No tonsillar adenopathy. Cervical: No cervical adenopathy. Skin: General: Skin is warm and dry. Findings: No rash. Neurological: Mental Status: She is alert and oriented to person, place, and time. Mental status is at baseline. Psychiatric: Attention and Perception: Attention normal. Mood and Affect: Mood normal. Behavior: Behavior normal. Behavior is cooperative. Thought Content: Thought content normal. Judgment: Judgment normal. Vitals: 06/05/24 0830 BP: 98/62 BP Location: Left arm Patient Position: Sitting Pulse: 66 Resp: 19 Temp: 36.7 ??C (98.1 ??F) TempSrc: Temporal SpO2: 98% Weight: 69 kg (152 lb 3.2 oz) Height: 160 cm (5' 3 ) Assessment/Plan --Influenza, COVID, and strep negative in office today --Throat culture ordered --Discussed that symptoms are likely viral --Reviewed OTC medications to help with symptoms --Return to clinic or follow up with PCP if symptoms persist or worsen Diagnoses and all orders for this visit: Sore throat (Primary) - POC Influenza A/B, COVID-19 antigen - POCT rapid strep A - Throat culture Throat; Future Viral URI with cough Recent Results (from the past 4 hour(s)) POC Influenza A/B, COVID-19 antigen Collection Time: 06/05/24 8:47 AM Result Value Ref Range Influenza A Ag, POC Negative Negative Influenza B Ag, POC Negative Negative COVID-19 Ag POC Presumptive Negative Presumptive Negative, Invalid POCT rapid strep A Collection Time: 06/05/24 8:48 AM Result Value Ref Range Rapid Strep A, POC Negative Negative Patient Education: Disposition Treatment plan including expectations, follow up, and return precautions discussed with patient/parent, verbalizes understanding. Medication dosage, use, and potential adverse reactions discussed with patient/parent. Advised to follow up with PCP if symptoms do not resolve as expected or sooner if condition worsens. Signs/symptoms warranting ER evaluation reviewed. Patient and/or guardian was given an opportunity to ask questions, questions answered. Shavon Silva NP documented in this encounter Miscellaneous Notes * Addendum Note - Tamiko Parikh CLT - 06/05/2024 8:30 AM CDTAddended by: TAMIKO PARIKH on: 06/05/2024 02:20 PM Modules accepted: Orders documented in this encounter Plan of Treatment Not on file documented as of this encounter Procedures Procedure Name Priority Date/Time Associated Diagnosis Comments POCT RAPID STREP Routine 06/05/2024 8:48 AM CDT Sore throat POC INFLUENZA A/B, COVID-19 ANTIGEN Routine 06/05/2024 8:47 AM CDT Sore throat documented in this encounter Results * Throat culture Throat (06/05/2024 8:54 AM CDT) Report Final Report: No growth of pathogens. Comment:Testing performed by : [facility], [address] [place]., [address] Throat 06/05/2024 8:54 AM CDT 06/05/2024 6:03 PM CDT Narrative [facility] DUBON - 06/06/2024 1:47 PM CDT Testing performed by [facility] Microbiology Laboratory ([phone]). us Shavon Silva NP LAB MICROBIOLOGY - GENERAL ORDER FIDEL Final Result [facility] [address] Department [place] [address] * POCT rapid strep A (06/05/2024 8:48 AM CDT) Rapid Strep A, POC Negative Negative Swab 06/05/2024 8:48 AM CDT Shavon Silva DYE MIXER POINT OF CARE TEST ORDERABLES Fi nal Result * POC Influenza A/B, COVID-19 antigen (06/05/2024 8:47 AM CDT) Influenza A Ag, POC Negative Negative [facility] Influenza B Ag, POC Negative Negative [facility] COVID-19 Ag POC Presumptive Negative Presumptive Negative, Invalid [facility] TRAV Nasal 06/05/2024 8:47 AM CDT Shavon Silva POINT OF CARE TEST ORDERABLES Fi nal Result [facility] [address] [place] [address] documented in this encounter Visit Diagnoses Diagnosis Sore throat- Primary Acute pharyngitis Viral URI with cough Sore throat Acute pharyngitis documented in this encounter Additional Health Concerns Infection Onset Date Last Indicated Resolved Time COVID: Suspected 06/05/2024 06/05/2024 06/05/2024 8:49 AM CDT documented as of this encounter Care Teams Mortarman Relationship Specialty Start Date End Date Bonilla Byrd MD [address] [place] [address] PCP - General Family Medicine 01/02/24 documented as of this encounter
--- OUTSIDE RECORDS SUMMARY | 2024-08-09 10:44 | XMS_ITS | Encounter Summary ---
Author Organization [facility] Address [address] [place] [address] Phone Care Team Providers Care Fabric Worker Fitter Name Role Phone No, Physician Primary Care Provider [phone] Reason for Visit * Reason Comments Routine Visit Encounter Details Date Type Department Care Team (Late st Contact Info) Description 05/16/2021 4:15 PM CDT Office Visit [facility] Obstetrics and Gynecology [address] [facility] [address] [address] [place] [address] Annita Orosco, ADIS [address] [facility] [address] [place] [address] Encounter for supervision of other normal in third trimester (Primary Dx) Social History Tobacco Use Types [...] on file 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 Gender Identity Female 01/27/2021 1:35 PM CDT Sexual Orientation Straight 01/27/2021 1: 35 PM CDT documented as of this encounter Last Filed Vital Signs Vital Sign [place] Time Taken Comments Blood Pressure 120/77 05/16/2021 4:18 PM CDT Pulse - - Temperature - - Respiratory Rate - - Oxygen Saturation - - Inhaled Oxygen Concentration - - Weight 83.8 kg (184 lb 12.8 oz) 05/16/2021 4:18 PM CDT Height 157.5 cm (5' 2 ) 05/16/2021 4:18 PM CDT Body Mass Index 33.8 05/16/2021 4:18 PM CDT documented in this encounter Progress Notes * Annita Orosco NP - 05/16/2021 4:15 PM CDT DENNY - Denies contractions/lof/bleeding and or contractions. - reports +FM - SVE 4, declined membrane stripping -Has IOL set for 05/19/2021 documented in this encounter Plan of Treatment Not on file documented as of this encounter Visit Diagnoses Diagnosis Encounter for supervision of other normal in third trimester- Primary documented in this encounter Orders Immunization/Injection Count Last Ordered Date First Ordered Date FLU VACCINE MDCK QUAD PF 2Y+ IM - FLUCELVAX 1 05/16/2021 documented in this encounter Care Teams Fabric Worker Fitter Relationship Specialty Start Date End Date No, Physician PCP - General 05/14/19 01/01/24 documented as of this encounter
--- OUTSIDE RECORDS SUMMARY | 2024-08-09 10:44 | XMS_ITS | Encounter Summary ---
Author Organization [facility] Healthcare Address [address] [place] [address] Care Team Providers Care [employer] Name Role Phone No, Physician Primary Care Provider [phone] Encounter Details Date Type Department Care Team (Latest Contact Info) Description 05/19/2021 8:10 AM CDT - 05/21/2021 9:11 PM CDT Hospital Encounter [address] [phone] April Mccord MD [address] [facility] [phone] [place] [address] Katia Arce MD [address] [facility] [phone] [place] [address] Rios Santoro MD [address] [id number] Discharge Disposition: Discharge to home or self care Social History Tobacco Use Types Packs/Day Years Used Date Smoking Tobacco: Never Smokeless Tobacco: Never Alcohol Use Standard Drinks/Week Comments Yes 0 (1 standard drink = 0.6 oz pur e alcohol) AUDIT-C Answer Date Recorded Q1: How often do you have a drink containing alc ohol? Never 04/12/2021 Average Number of Drinks Not on file Q3: How often do you have si x or more drinks on one occasion? 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 Gender Identity Female 01/27/2021 1:35 PM CDT Sexual Orientation Straight 01/27/2021 1: 35 PM CDT documented as of this encounter Last Filed Vital Signs Vital Sign Reading Time Taken Comments Blood Pressure 114/68 05/21/2021 4:33 PM CDT Pulse 75 05/21/2021 4:33 PM CDT Temperature 36.8 ??C (98.2 ??F) 05/21/2021 4:33 PM CD T Respiratory Rate 18 05/21/2021 4:33 PM CDT Oxygen Saturation 99% 05/21/2021 4:33 PM CDT Inhaled Oxygen Concentration - - Weight 83.5 kg (184 lb) 05/19/2021 8:15 AM CDT Height 157.5 cm (5' 2 ) 05/19/2021 8:15 AM CDT Body Mass Index 33.65 05/19/2021 8:15 AM CDT documented in this encounter Discharge Diagnoses Diagnosis 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 - STREPTOCOCCUS B CARRIER STATE COMPLICATING CHILDBIRTH Single live - SINGLE LIVE 40 weeks gestation of - 40 WEEKS GESTATION OF Abnormality in heart rate and rhythm complicating labor and delivery - ABNORMALITY IN HEART RATE AND RHYTHM COMPLICATING LABOR AND DELIVERY Second degree perineal laceration during delivery - SECOND DEGREE PERINEAL LACERATION DURING DELIVERY Second-degree perineal laceration, unspecified as to episode of care in Nausea - NAUSEA Nausea alone Maternal hypotension syndrome, third trimester - MATERNAL HYPOTENSION SYNDROME, THIRD TRIMESTER Contact with and (suspected) exposure to covid-19 - CONTACT WITH AND (SUSPECTED) EXPOSURE TO COVID-19 Family history of diabetes mellitus - FAMILY HISTORY OF DIABETES MELLITUS documented in this encounter Discharge Summaries * Rik Colvin MD - 05/21/2021 7:50 AM CDT Inpatient Discharge Summary BRIEF OVERVIEW Admitting Provider: Katia Arce MD Discharge Provider: Rios Santoro MD Primary Care Physician at Discharge: Liliana, Physician [phone] Admission Date: 05/19/2021 Discharge Date: 05/21/2021 Admission Location: [facility] Problems/Diagnoses: Active Problems: care following vaginal delivery Resolved Problems: No resolved hospital problems. DETAILS OF HOSPITAL STAY Presenting Problem/History of Present Illness: Silvia Persaud is a 25 y.o. female at 40w0d gestation, dated by L=1 who presents for elective induction of labor. She is not having any contractions, leakage of fluid, vaginal bleeding. Reports adequate movement. ?? Her is complicated by: #Resolved Bilateral choroid plexus cyst: Noted on anatomy, resolved on 02/23/21 Hospital Course: Silvia Persaud is a 25 y.o. at 40w1d who presented for induction of labor. Her wasuncomplicated. Her induction was started with misoprostol and a cervical ripening balloon catheter . Epidural was placed for anaesthesia. Delivery was uncomplicated. See delivery record for full details. The patient was transferred to . Her course was uncomplicated. Prior to discharge, her pain was well controlled, she was voiding, passing gas, ambulating, tolerating PO, and meeting all post milestones. #Heme: Estimated blood loss 200mL. No symptoms of acute blood loss anemia. # Pain: Well controlled. # Post DVT prophylaxis: The patient has the following MAJOR risk factors none and the following MINOR risk factors BMI 30-39. SCDs ordered for VTE prophylaxis. # MOC: Progestin-only pills # MOF: # Disposition: Routine post care continued. Follow up to be scheduled with primary OB. Active Issues Requiring Follow-up: None Test Results Pending at Discharge: Operative Procedures Performed: Other Procedures: None Pertinent Test Results: None Discharge Details Physical Exam at Discharge: Discharge Condition: good Pulse: 72 Resp: 18 BP: 118/75 Temp: 36.7 ??C (98.1 ??F) Weight: 184 lb (83.5 kg) Pertinent Exam Findings at Discharge: See progress note from day of discharge Discharge Disposition: Code Status at Discharge: Full Code Discharge Instructions: See AVS Discharge Medications: Current Medications TAKE these medications acetaminophen 500 mg capsule Take 2 capsules (1,000 mg total) by mouth every 6 (six) hours For: fever, pain ibuprofen 600 mg tablet Take 1 tablet (600 mg total) by mouth 4 (four) times a day as needed for pain (pain) Commonly known as: ADVIL,MOTRIN polyethylene glycol 17 gram packet Take 1 packet (17 g total) by mouth daily For: constipation Commonly known as: MIRALAX vit,[id number] tablet tablet Take 1 tablet by mouth daily Commonly known as: Prenatabs Rx Outpatient Follow-Up: Future Appointments Date Time Provider Department Center 07/04/2021 2:15 PM OB TEAM 2 [facility] COMPUTER FORENSIC EXAMINER [facility] OB Cosigned by Avril Chavez MD at 05/21/2021 9:30 AM CDT documented in this encounter Discharge Instructions * Discharge Instructions* Melissa Butler MD - 05/21/2021 4:16 PM CDT Images from the original note were not included. Discharge Instructions - Vaginal Delivery In order to minimize social contact during COVID19 precautions, your visit maybe over the phone. Please remember to wash your hands frequently, do not touch your face, and avoid anyone with feversor cough. Stay at home as much as possible and practice social distancing. COVID19 Precautions: * Wash your hands frequently * Do not touch your face * Avoid anyone with fevers or cough * DO NOT come to clinic or the hospital with mild cold or flu-like symptoms, first call our OB communication center at [phone]. * If you have SEVERE illness including persistent shortness of breath, high fever not responsive totylenol, or nausea and vomiting preventing you from adequately orally hydrating, then call your doctor or go to the ER. Call Your Doctor If: * You have a fever of 100.4 degrees or higher. * You have vaginal bleeding more than your normal menstrual period. * You are passing large blood clots (larger than an egg). * You have a strong foul odor coming from your vagina. * You have burning, pain or difficulty urinating. * You have pain or swelling in your vagina or vulva that gets worse or does not get better. * You have nausea, vomiting or increased abdominal pain. * You have redness or pain in your calves, legs or inner thighs. * You have red, swollen painful breasts. * You have other questions or concerns * You have a headache, difficulty breathing, pain in your upper abdomen, or changes in your vision. * You have decreased urine output. * Your level of consciousness changes. * If you have a blood pressure cuff at home, check your blood pressure once a day and write it down. Call your doctor if your blood pressure is greater than 160 (top number) or 110 (bottom number). Diet: * Follow your regular diet. * Maintain liquid intake of 8 -10 glasses per day. * For constipation - drink prune juice or take stool softener medication ordered by your doctor. Eat foods with fiber (examples - raisins, prunes, washed raw vegetables, whole wheat bread, and bran). Activity: * Do not put anything in your vagina for 6 weeks. NO douching, tampons or sexual intercourse. * Weakness and fatigue are common. * Limit activities and visitors and increase as energy levels return. Rest as often as possible. * No driving while taking narcotics. * If you are not , milk will come in between the 3rd and 4th day . Wear tight support bra and use ice packs to relieve breast discomfort. Care Instructions: * You may shower and shampoo hair as desired. * You may take a tub bath 2 weeks after delivery. * For perineal discomfort sit in warm shallow water for 15-20 minutes. Do this 3-4 times a day. Anystitches you have will dissolve in about 2 weeks. Continue to use elise bottle for the next 5-7 days. Contraception: PROGESTIN-ONLY PILLS: Progestin-only pills are safe to use while . You can start taking the pills at any time. You can get within 2 weeks of giving , though we recommend no sexual intercourse for at least 6 weeks. Swallow the pill at the same time every day. Choose a time and take the pill at that time or within 3 hours after that time. Start the next pack the day after the last pack is finished. Do not take any break or days off between packs. Always have your next pack ready before you finish each pack. If you miss taking a pill during the 3-hour window, take it as soon as you remember, even if that means you will take 2 pills in one day. Use a backup method such as condoms or abstain from sex during the next 48 hours. Changes in your menstrual periods (frequency, length, and bleeding between periods) are common in women taking these pills. Very few medications interact with control pills. Ask your pharmacist or doctor if you have questions about other medications you aretaking. COMBINED ORAL CONTRACEPTION PILLS: You can start taking these pills at 4 weeks after delivery. Do not wait for your first period to start taking the pills. You can get within 2 weeks of giving , though we recommend no sexual intercourse for at least 6 weeks. Swallow the pill at the same time every day. Start the next pack the day after the last pack is finished. Do not take any break or days off between packs. Alwayshave your next pack ready before you finish each pack. If you miss taking a pill, take it as soon as you remember, even if that means you will take 2 pills in one day. If you miss more than 2 pills in a row, call your doctor for instructions. Use a backup method such as condoms or abstain from sex.Very few medications interact with control pills. Ask your pharmacist or doctor if you have questions about other medications you are taking. CONTRACEPTIVE RING: You can start using the contraceptive ring (Nuvaring) at 4 weeks after delivery. Do not wait for your first period to start using the ring. You can get within 2 weeks of giving , thoughwe recommend no sexual intercourse for 6 weeks. Insert the ring into your vagina. Use any position you find comfortable: standing with one leg up, squatting, or lying down. Squeeze the ring and put the edge into the opening of the vagina. If you feel the ring, just slide it farther into your vaginauntil it is comfortable. The exact position is not critical. Leave the ring in place for 3 weeks. You do not need to remove the ring for intercourse. If you do, do not leave it out of the vagina for more than 3 hours. After 3 weeks of use, remove the ring for 7 days. You will have your menstrual period this week. Then, insert a new ring after 7 days, even if you have not finished your menstrual period. You can also use the ring for 4 weeks in a row. Insert a new ring immediately after 4 weeks without any break. You will not have a menstrual period with this method. CONTRACEPTIVE PATCH: You can start using the patch (Ortho Evra) at 4 weeks after delivery. Do not wait for your first period to start using the patch. You can get within 2 weeks of giving , though we recommend no sexual intercourse for at least 6 weeks. Use one patch for 7 days. Apply a new patch once a week on the same day for 3 weeks in a row. During the fourth week, do not wear a patch for 7 days. You will have your menstrual period this week. Then start another cycle of patches. Do not take more than 7 days off between patches, even if you have not finished your menstrual period. You can apply the patch to your buttocks, abdomen, back, or the outside of your upper arm. Do not apply to your breasts. Make sure the skin is clean and dry to help the patch stick well. INJECTABLE CONTRACEPTIVE: You received your first dose of Depo-Provera in the hospital. It works right away to prevent . Get a new Depo-Provera shot every 12 weeks. Call your doctor to make an appointment. Depo-Provera works best if you return on time. It is common to have changes in your menstrual periods with Depo-Provera, such as no periods, frequent bleeding, or unpredictable bleeding. DESIRES IUD: The intrauterine device (IUD) can be placed 4 to 6 weeks after delivery. Make an appointment to have it placed with your doctor. You can get within 2 weeks of giving , though we recommend no sexual intercourse for at least 6 weeks. Consider using a different method of control while you are waiting for your IUD. DESIRES IMPLANT: The contraceptive implant (Nexplanon) can be placed at any time after delivery. Make an appointmentto have it placed with your doctor. You do not need to wait until your 6 week check-up. You can get within 2 weeks of giving , though we recommend no sexual intercourse for at least 6 weeks. Consider using a different method of control while you are waiting for your Nexplanon. IMPLANT PLACED IN-HOSPITAL: Your contraceptive implant (Nexplanon) was placed while you were in the hospital. It works right away to prevent . Nexplanon is designed to last 3 years. It is common to have changes in yourmenstrual periods with Nexplanon, such as no periods, frequent bleeding, or unpredictable bleeding. IUD PLACED IN-HOSPITAL: Your intrauterine device (IUD) was placed while you were in the hospital. It works right away to prevent . Your IUD is designed to last years. An IUD placed afterpregnancy is more likely to fall out on its own. Your doctor will check that it is in place at your6 week visit. If you see the IUD fall out, or have unexpected heavy bleeding and cramping, call your doctor. Use a backup method like condoms or abstain from sex if this happens. LACTATIONAL AMENORRHEA can be an effective method to prevent if ALL of the following are true: 1) you are on demand, with at least 80% of feeds at the breast (not pumped breast milk orformula), 2) you have not gotten your first menstrual period after delivery, and 3) your baby is less than 6 months old. Ask your doctor about other methods of control if any of those things are no longer true. DESIRES CONDOMS / DECLINES CONTRACEPTION: You can get within 2 weeks of giving , though we recommend no sexual intercourse for at least 6 weeks. Condoms can be an effective method of control. However, other methods of control are better at preventing . Use a new condom every time you have sex. If you do not use a condom, or the condom breaks, you can use emergency contraceptive pills (Plan B) to preventpregnancy. You can get them at a pharmacy without a prescription. You can also get a prescription by calling your doctor. Emergency contraception works best if used right away. However, you can stilluse it within 5 days after unprotected sex. POST BILATERAL TUBAL LIGATION / STERILIZATION: Your tubal ligation procedure was performed while you were in the hospital. It works right away to prevent . Feeding: : Follow unrestricted . Feed your baby based on baby's hunger cues (or atleast 8-12 feedings per 24 hours). Do NOT supplement unless instructed by Home Performance Consultant. Call your Home Performance Consultant if your baby has poor eating habits (examples: feedings decrease, no feedings in 6 hours, or spits up more than ?? of their feeding for 2 consecutive feedings). Once your baby is 5-6 days old, you should expect at least 5 wet diapers and 3 soiled diapers per day. Formula Feeding: Feed your baby based on baby's hunger cues. Your baby will eat about every three to four hours during the day. Babies usually eat on demand (when they wake up at night). Your baby will take1-3 ounces at each feeding, and this will increase as the baby grows. Formula contains all the water and nutrition your baby needs. Do NOT supplement (water, juice, cereal) unless instructed byPediatrician. Call your Home Performance Consultant if your baby has poor eating habits (examples: feedings decrease, no feedings in 6 hours, or spits up more than ?? of their feeding for 2 consecutive feedings). Once your baby is 5-6 days old you should expect at least 5 wet diapers and 3 soiled diapers per day. Outpatient Follow Up: Every patient needs a visit. We are currently scheduling some in person and some telemedicine visits for your visits. We are trying to keep you safe and minimize social contact due to COVID19 precautions. If you do not hear from your primary OB to set up your telephone or in person visit, please call your primary OB to set up a telephone or in person visit. A member of our team will reach out by phone to check in with you in the next 2-6 weeks.If you do not hear from our office please call your primary provider to set up either an in person or phone appointment.Thank you for understanding and remember to wash your hands and avoid anyone with fevers or cough. Stay at home as much as possible and practice social distancing. If you yourselfdevelop fever >100.4F, a new cough, or shortness of breath please call our centralized OB communication center at [phone]. Do not come to the hospital or clinic until you speak with a provider. {Blank multiple:[id number]:: Blood Pressure Monitoring: If you are enrolled in home blood pressure monitoring please text your blood pressures when prompted upon hospital discharge.How to use a home bloodpressure monitor: Be still. Don't smoke, drink caffeinated beverages or exercise within 30 minutes before measuring your blood pressure. Sit for at least 5 minutes before taking your blood pressure.Sit correctly. Sit with your back straight and supported (on a dining chair, rather than a sofa). Your feet should be flat on the floor and your legs should not be crossed. Your arm should be supportedon a flat surface (such as a table) with the upper arm at heart level. Make sure the middle of the cuff is placed directly above the bend of the elbow. Check your monitor's instructions for an illustration or have your healthcare provider show you how. *If at ANY time you have symptoms of chest pain, shortness of breath, vision changes, numbness/weakness, difficulty speaking, headache, or if something just doesn't feel right, call our OB communication center at [phone]. , } High blood pressure problems during & after Preeclampsia or induced hypertension is a high blood pressure disease that can happen in and shortly after delivery (up to 6 weeks after having your baby). Most women will developblood pressure problems towards the end of their , but others will have it for the first time after their delivery. High blood pressure can be dangerous and needs to be monitored closely. Blood pressures can get so high that it can put you at risk for brain injury, stroke, and seizures. Preeclampsia can also hurt your kidneys and liver or cause buildup of fluid in your lungs. If it is very severe and not treatedpreeclampsia can cause . Preeclampsia affects 8-10 out of 100 women and although we don???t know exactly what causes it we do know that some women are at higher risk: - First - If you are under 18 years old or over 40 years old - If you have diabetes, kidney problems, or Lupus - If you are obese - If you have had preeclampsia before - If you had high blood pressure before - If you are with twins or triplets The best way to treat preeclampsia is to have the baby and most of the time your blood pressure will return to normal after delivery, but some people still have high blood pressure after the baby is born. Some people need medication when leaving the hospital to help keep you blood pressure in a normal range. You may only need to take medication for a short time after the baby is born others need it for longer periods of time. It is very important that you get this prescription filled and take the medicine as instructed in order to help control your blood pressure. If you have preeclampsia or another hypertensive disorder of after you go home from the hospital, you should call the doctor if you experience: remote computer terminal operator risks of preeclampsia If you had preeclampsia or high blood pressure in you have a higher chance of having highblood pressure sometime later in life. It can also increase your chance of heart disease, heart attack, or stroke in future . May women who get preeclampsia will not have it again in the future but women with preeclampsia have a higher chance of getting it again compared to women who did not have it. If you had a baby before 34 weeks because of preeclampsia, you have the highest chance of getting it again. It is very important you see a primary care doctor for regular checkups to have your blood pressurechecked. Discharge Medications: Take the following medications. Your medication list ASK your doctor about these medications vit,imng13-holr-wixax tablet tablet Take 1 tablet by mouth daily Commonly known as: Prenatabs Rx documented in this encounter Medications at Time of Discharge ibuprofen (ADVIL,MOTRIN) 600 mg tablet Take 1 tablet (600 mg total) by mouth 4 (four) times a day as needed for pain (pain) 30 tablet 05/21/2021 2 acetaminophen 500 mg capsuleIndications: Fever,Pain Take 2 capsules (1,000 mg total) by mouth every 6 (six) hours 30 tablet 05/21/2021 3 norethindrone (MICRONOR) 0.35 mg tabletIndications:P regnancy Contraception Take 1 tablet (0.35 mg total) by mouth daily 28 tablet 12 05/21/2021 4 polyethylene glycol (MIRALAX) 17 gram packetIndications:c onstipation Take 1 packet (17 g total) by mouth daily 30 packet 05/21/2021 3 vit,apvm60-gblw-nol ic (PRENATABS RX) 29 mg iron- 1 mg tablet Take 1 tablet by mouth daily 90 tablet 3 02/10/2019 3 documented as of this encounter Ordered Prescriptions Prescription Sig Dispense Quantity Refills Last Filled Start Date End Date norethindrone (MICRONOR) 0.35 mg tabletIndications:P regnancy Contraception Take 1 tablet (0.35 mg total) by mouth daily 28 tablet 12 05/21/2021 4 polyethylene glycol (MIRALAX) 17 gram packetIndications:c onstipation Take 1 packet (17 g total) by mouth daily 30 packet 05/21/2021 3 ibuprofen (ADVIL,MOTRIN) 600 mg tablet Take 1 tablet (600 mg total) by mouth 4 (four) times a day as needed for pain (pain) 30 tablet 05/21/2021 2 acetaminophen 500 mg capsuleIndications: Fever,Pain Take 2 capsules (1,000 mg total) by mouth every 6 (six) hours 30 tablet 05/21/2021 3 documented in this encounter Discharge Disposition Disposition Code Departure Means Destination Discharge to home or self care documented in this encounter Progress Notes * Rik Colvin MD - 05/21/2021 5:33 AM CDT Post Progress Note Delivery Date/Time: 05/20/2021 at 1:35 AM Delivery method: Vaginal, Spontaneous [250] Obstetrical/Medical Problems: Medical Conditions Diagnosis ??? Supervision of other normal , antepartum ??? care following vaginal delivery Subjective Flatus: Yes Pain: Well controlled, c/o mild cramps intermittently that have spaced out since passing quarter-sized clot last night. Diet: Tolerating regular diet. Ambulating independently Voiding spontaneously Lochia less than menses Scheduled Medications acetaminophen, 1,000 mg, oral, Q6H docusate sodium, 100 mg, oral, BID ibuprofen, 600 mg, oral, Q6H viatmin, 1 tablet, oral, Daily polyethylene glycol, 17 g, oral, Daily PRN Medications benzocaine-menthoL ??? hydrocortisone ??? simethicone Vitals: Temp: [36.7 ??C (98.1 ??F)-36.9 ??C (98.4 ??F)] 36.7 ??C (98.1 ??F) Pulse: [69-91] 72 BP: (112-123)/(72-75) 118/75 Resp: [18] 18 SpO2: [96 %-98 %] 96 % No intake or output data in the 24 hours ending 05/21/21 0534 Physical Exam General: No acute distress. Cardiovascular: Regular rate and rhythm. Lungs: Non-labored. Clear to auscultation bilaterally. Abdomen: Soft, non-distended, non-tender to palpation. Fundus below umbilicus. Extremities: Warm and well-perfused. Neuro: Globally intact Recent Labs Lab Units 05/19/21 0900 WBC K/cumm 9.8 HEMOGLOBIN g/dL 13.0 HEMATOCRIT % 38.7 PLATELETS K/cumm 162 Assessment and Plan 25 y.o. PPD#1 s/p Problem Care Following Vaginal Delivery # ID: Afebrile. No signs/symptoms of infection. [...] scheduled with primary OB. Continue routine care. Rik Colvin MD 05/21/21 Agree with the above documentation. Consider discharge today. POPs on discharge. Hina Rodriguez MD, PGY-4 Cosigned by Avril Chavez MD at 05/21/2021 9:30 AM CDT Associated attestation - Avril Chavez MD - 05/21/2021 9:30 AM CDT I have seen and examined the patient on 05/21/21. I agree with the findings and plan of care as documented in the resident's/fellow's note. Would like to go home today, plans POPs. * Shantal Stewart MD - 05/20/2021 12:55 AM CDT FHR 105/mod nitin/+ accels/no decels Ctx Q3-5 minutes with IUPC in place SVE 9.5/95/0 Thin rim palpated anteriorly and on maternal right head palpates somewhat asynclitic Reposition to maternal right side Recheck in [address] Santoro updated. Shantal Stewart MD, MPHS PGY-4, Obstetrics & Gynecology * Rik Colvin MD - 05/19/2021 9:34 PM CDT Labor Update Note S: Patient s/p epidural and Comfortable O: BP 102/58 Pulse 64 Temp 36.7 ??C (98.1 ??F) (Oral) Resp 16 Ht 157.5 cm (5' 2 ) Wt 184 lb (83.5 kg) LMP 08/12/2020 (Exact Date) SpO2 95% BMI 33.65 kg/m?? SVE: /-3 Monitoring: Baseline: 135 bpm, Variability: Moderate, Accelerations: Present and Decelerations: None Uterine Activity: Contractions present, q2-4 minutes A/P: 25 y.o. at 40w0d Category 1 tracing Vitals Reviewed and normal - AROM@2130, will small volume of clear fluid - Continue OT, presently at 6 uM/min Rik Colvin MD * Naveen Woods MD - 05/19/2021 6:46 PM CDT Labor Progress Note 25 y.o. at 40w0d by L=1 who was admitted for elective IOL. Comfortable and s/p epidural. Not feeling any contractions. BP 99/62 Pulse 67 Temp 37 ??C (98.6 ??F) (Oral) Resp 18 Ht 157.5 cm (5' 2 ) Wt 184 lb (83.5 kg) LMP 08/12/2020 (Exact Date) SpO2 97% BMI 33.65 kg/m?? Pulse: [62-94] Resp: [16-18] BP: (98-112)/(52-62) Monitoring: Baseline: 130 bpm, Variability: Moderate, Accelerations: Present and Decelerations: None Uterine Activity: Contractions present, q2-3 minutes Physical Exam General: NAD, mood appropriate Cardiovascular: Regular rate and rhythm Pulmonary: non-labored Abdomen: Gravid, non-tender Extremities: Warm and well perfused. Cervix: 3 /50 /Ballotable Assessment and Plan 25 y.o. at 40w0d Problem Encounter for Induction of Labor 1. Elective Induction of Labor: Zheng balloon in vagina on last check - SVE as above. head still ballotable, not yet safe for AROM. Will plan to continue pitocin titrated per protocol. AROM when able. 2. FWB: Continuous monitoring. tracing category I #Resolved Bilateral choroid plexus cyst: Noted on anatomy, resolved on 02/23/21 3. ID: HIV negative. GBS positive, will start PCN. Membrane Status: intact. 4. Indications for UDS: none. Verbal consent obtained for UDS: Not indicated 5. MOF: Plans to breastfeed. 6. MOC: Plans to use POPs for contraception. 7. Pain management: Desires epidural to be placed prior to CC placement.. 8. Post DVT prophylaxis: The patient has the following MAJOR risk factors none and the following MINOR risk factors BMI 30-39. SCDs will be ordered for VTE prophylaxis . 9. COVID Vaccine Status: Previously received 10. COVID Test Status: Test sent on admission Naveen Woods MD 216:52 PM * Naveen Woods MD - 05/19/2021 3:33 PM CDT Mechanical Cervical Ripening Device Insertion Note A Zheng Balloon was placed and filled with 60 cc of fluid in the uterine balloon and placed on tension at 1530. Procedure was done in dorsal lithotomy position with speculum and ringed forceps. Pt tolerated well without complications. Will plan to start pitocin now that miso has been in place for >4 hrs. Category I tracing. D/w Dr. Claude Woods MD * Naveen Woods MD - 05/19/2021 11:02 AM CDT R1 Update Note: Pt s/p epidural. Attempted to place CC, but pt did not tolerate well and became very nauseous with placement. Nausea resolved with zofran and position changes. Miso was placed. CC not placed due to pt intolerance. Will re-attempt shortly pending pt preference. documented in this encounter H&P Notes * Naveen Woods MD - 05/19/2021 9:04 AM CDT Obstetrics H&P Chief Complaint: Elective IOL Estimated Date of Delivery: 05/19/21 Provider: [facility] O[facility] HPI: Silvia Persaud is a 25 y.o. female at 40w0d gestation, dated by L=1 who presents for elective induction of labor. She is not having any contractions, leakage of fluid, vaginal bleeding. Reports adequate movement. 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 History of Abnormal Pap: None STD History: none No past medical history on file. Chronic hypertension: No Diabetes: No Asthma: No Past Surgical History: Procedure Laterality Date ??? WISDOM TOOTH EXTRACTION Social History Socioeconomic History ??? Marital status: Spouse name: Franki Persaud ??? Number of children: 1 ??? Years of education: Not on file ??? Highest education level: Not on file Tobacco Use ??? Smoking status: Never Smoker ??? Smokeless tobacco: Never Used Substance and Sexual Activity ??? Alcohol use: Yes ??? Drug use: No ??? Sexual activity: Yes Partners: Male control/protection: None Support System: Supported by partner and family Safe at home: Yes family history includes Diabetes in an other family member; No Known Problems in her father and mother. Family history of bleeding or clotting disorders: No Family history of defects, genetic disorders, or developmental delay: No No Known Allergies HOME MEDICATIONS : [id number] (PRENATABS RX) 29 mg iron- 1 mg tablet Review of Sys: Negative except per HPI Vitals: Temp: [37 ??C (98.6 ??F)] 37 ??C (98.6 ??F) Pulse: [96] 96 Resp: [17] 17 BP: (127)/(74) 127/74 Physical Exam: General: NAD, mood appropriate Cardiovascular: Regular rate and rhythm Pulmonary: Clear to ausculation bilaterally Abdomen: Gravid, non-tender Extremities: Warm and well perfused Speculum Exam: deferred Cervix: 0.5 / 25 / high Monitoring: Baseline: 130 bpm, Variability: Moderate, Accelerations: Present and Decelerations: None Uterine Activity: Irregular contractions Interpretation: Reactive Ultrasound: Vertex presentation Posterior placenta Previa: No Estimated Weight: 3000g by Saad Labs: Lab Results Component Value Date ABORH A Positive 03/15/2019 IDCOOMB Negative 03/15/2019 SCRINDANTIGL negative 10/23/2020 [id number] Nonreactive 02/19/2019 [id number] NON-REACTIVE 05/02/2021 [id number] Negative 05/02/2021 LABRPR NON-REACTIVE 02/02/2021 RUBELIGG 5.38 10/23/2020 HEPBSAG NON-REACTIVE 10/23/2020 VZVIGG Negative 08/07/2018 Rh pos/Ab neg/HIV neg/Rub immune/RPR NR/HepB neg/HepC neg/VZV neg/GC/CT neg GBS pos Assessment and Plan Silvia Persaud is a 25 y.o. female at 40w0d who is being admitted for elective IOL Problem Encounter for Induction of Labor 1. Elective Induction of Labor: Admit to L&D. Consents signed and placed in chart. Send CBC/T&S. Induction of labor with CC/M. Will check CC in 4 hours once miso up. Consider starting pitocinand AROM once CC out. 2. FWB: Continuous monitoring. tracing category I #Resolved Bilateral choroid plexus cyst: Noted on anatomy, resolved on 02/23/21 3. ID: HIV negative. GBS positive, will start PCN. Membrane Status: intact. 4. Indications for UDS: none. Verbal consent obtained for UDS: Not indicated 5. MOF: Plans to breastfeed. 6. MOC: Plans to use POPs for contraception. 7. Pain management: Desires epidural to be placed prior to CC placement.. 8. Post DVT prophylaxis: The patient has the following MAJOR risk factors none and the following MINOR risk factors BMI 30-39. SCDs will be ordered for VTE prophylaxis . 9. COVID Vaccine Status: Previously received 10. COVID Test Status: Test sent on admission Plan discussed with Dr. Arce. Naveen Woods MD 05/19/21 Cosigned by Katia Arce MD at 05/19/2021 10:16 AM CDT Associated attestation - Katia Arce MD - 05/19/2021 10:16 AM CDT The resident/fellow saw and examined the patient, we discussed their findings, and I am in agreement with the plan based on the discussion with the resident/fellow. I did not personally examine the patient. documented in this encounter Miscellaneous Notes * Plan of Care - Dari Lyn RN - 05/21/2021 9:07 AM CDT Problem: Activity: Goal: Will verbalize the importance of balancing activity with adequate rest periods Outcome: Adequate for Discharge Problem: Lack of Knowledge: Goal: Will have increased knowledge of Care Outcome: Adequate for Discharge Problem: Coping: Goal: Ability to cope will improve Outcome: Adequate for Discharge Goal: Ability to identify and utilize available resources and services will improve Outcome: Adequate for Discharge Problem: Life Cycle: Goal: Risk for hemorrhage will decrease Outcome: Adequate for Discharge Goal: Chance of risk for complications during the period will decrease Outcome: Adequate for Discharge Problem: Nutritional: Goal: Dietary intake will improve Outcome: Adequate for Discharge Goal: Mother's verbalization of comfort with process will improve Outcome: Adequate for Discharge Problem: Role Relationship: Goal: Ability to interact appropriately with will improve Outcome: Adequate for Discharge Problem: Sensory: Goal: General experience of comfort will improve Outcome: Adequate for Discharge Goals: Clinical Goals for the Shift: VSS, Pain control, Bonding with baby Summary: patient progressing towards goals. * Plan of Care - Génesis Rivera RN - 05/20/2021 11:08 PM CDT Goals: Clinical Goals for the Shift: Pain will be well controlled Summary: Problem: Activity: Goal: Will verbalize the importance of balancing activity with adequate rest periods Outcome: Progressing Problem: Lack of Knowledge: Goal: Will have increased knowledge of Care Outcome: Progressing Problem: Coping: Goal: Ability to cope will improve Outcome: Progressing Goal: Ability to identify and utilize available resources and services will improve Outcome: Progressing Problem: Life Cycle: Goal: Risk for hemorrhage will decrease Outcome: Progressing Goal: Chance of risk for complications during the period will decrease Outcome: Progressing Problem: Nutritional: Goal: Dietary intake will improve Outcome: Progressing Goal: Mother's verbalization of comfort with process will improve Outcome: Progressing Problem: Role Relationship: Goal: Ability to interact appropriately with will improve Outcome: Progressing Problem: Sensory: Goal: General experience of comfort will improve Outcome: Progressing * Plan of Care - Dari Lyn RN - 05/20/2021 10:19 AM CDT Problem: Activity: Goal: Will verbalize the importance of balancing activity with adequate rest periods Outcome: Progressing Problem: Lack of Knowledge: Goal: Will have increased knowledge of Care Outcome: Progressing Problem: Coping: Goal: Ability to cope will improve Outcome: Progressing Goal: Ability to identify and utilize available resources and services will improve Outcome: Progressing Problem: Life Cycle: Goal: Risk for hemorrhage will decrease Outcome: Progressing Goal: Chance of risk for complications during the period will decrease Outcome: Progressing Problem: Nutritional: Goal: Dietary intake will improve Outcome: Progressing Goal: Mother's verbalization of comfort with process will improve Outcome: Progressing Problem: Role Relationship: Goal: Ability to interact appropriately with will improve Outcome: Progressing Problem: Sensory: Goal: General experience of comfort will improve Outcome: Progressing Goals: Clinical Goals for the Shift: Pain control, VSS, Bonding with baby Summary: Patient progressing towards goals. * Note - Ann Marie Espinoza RN - 05/20/2021 10:01 AM CDT Discussed hunger cues, cluster feedings and normal behavior. Mother shown correct positioning and latch. Infant awake, opens wide with a sustain suck noted. At first had pacifier; discussed with mother to avoid artificial nipples for first 3-4 weeks to avoid nipple confusion, low milk supply and wait to is established. Mother shown hand expression and infant was givendrops of colostrum during attempt at . Encouraged mother to attempt every 2-3 hours and watch for hunger cues * Hospital Course - Kirill Riggs B.A. - 05/20/2021 6:57 AM CDT Silvia Persaud is a 25 y.o. at 40w1d who presented for induction of labor. Her wasuncomplicated. Her induction was started with misoprostol and a cervical ripening balloon catheter . Epidural was placed for anaesthesia. Delivery was uncomplicated. See delivery record for full details. The patient was transferred to . Her course was uncomplicated. Prior to discharge, her pain was well controlled, she was voiding, passing gas, ambulating, tolerating PO, and meeting all post milestones. #Heme: Estimated blood loss 200mL. No symptoms of acute blood loss anemia. # Pain: Well controlled. # Post DVT prophylaxis: The patient has the following MAJOR risk factors none and the following MINOR risk factors BMI 30-39. SCDs ordered for VTE prophylaxis. # MOC: Progestin-only pills # MOF: # Disposition: Routine post care continued. Follow up to be scheduled with primary OB. * L&D Delivery Note - Rik Colvin MD - 05/20/2021 2:[address] [facility] Vaginal Delivery Note Patient's Name: Silvia Persaud : 1995 Attending: Rios Santoro Assisting: Rik Colvin MD Clinic: [facility] OBGYN Primary Diagnosis: Intrauterine at 40w1d, delivered Obstetrical Medical Risk Factors: Medical Conditions Diagnosis ??? Supervision of other normal , antepartum ??? care following vaginal delivery Delivery method: Vaginal, Spontaneous [250] Anesthesia: Epidural [254] Membranes: Artificial rupture, clear fluid. Time ruptured prior to delivery: 4h 00m Antibiotics: none Infant Delivery Date: 05/20/2021 Infant Delivery Time: 1:35 AM Placenta Delivery Date & Time: 05/20/2021 1:42 AM Cord: 3 vessels [3] Delayed cord clamping: Yes, 60 seconds. Episiotomy: No Laceration: second degree EBL: 200 mL Infant: living No weight on file. female APGARs: 8 / 9 Disposition: Nursery Labor Summary: Silvia Persaud is a 25 y.o. female at 40w1d weeks gestation, dated by L=1 with Estimated Date of Delivery: 05/19/21. Her was uncomplicated. Vertex presentation and GBS positive confirmed on admission. She presented for induction of labor. Her induction was started with misoprostol and a cervical ripening balloon catheter. Epidural was placed for anesthesia. Patient progressed to complete and delivered a viable female infant. The cord was clamped and cut and the baby was handed to mother for skin to skin. The third stage was actively managed with external uterine massage, gentle cord traction and pitocin. The placenta was delivered spontaneously and intact. A 2nd degree laceration was repaired in the usual fashion. Excellent hemostasis was noted. All counts were correct before and after the delivery. Additional Procedures Performed: None Description of Additional Procedure Performed: N/A Complications: None Description of Complications: N/A Dr. Rios Santoro was present for the delivery. Rik Colvin MD 05/20/21 Cosigned by Rios Santoro MD at 05/20/2021 2:10 AM CDT Associated attestation - Rios Santoro MD - 05/20/2021 2:10 AM CDT I was present for the entire procedure. of baby girl named Billie. * Significant Event - Rik Colvin MD - 05/19/2021 11:09 PM CDT DECEL NOTE To room for decel. FHTs down to 80s. Team decel called. Pt repositioned to hands and knees without improvement. SVE 5.5/75/-2. OT paused and IUPC placed. Terbutaline given at 2300. FHT improved to 110s. Decel lasted intermittently for [address] Santoro updated. Plan: - 1L LR bolus started mild hypotension (90s/70s, close to baseline prior to epidural placement) - Pause OT, recurrent late decelerations likely due to tachysystole following AROM - Repeat SVE in 1 hour, anticipating quick cervical change Rik Colvin MD * Plan of Care - Bambi Pepper RN - 05/19/2021 7:26 PM CDT Problem: Lack of Knowledge: Goal: Knowledge of disease or condition and prescribed therapeutic regimen will improve Outcome: Progressing Problem: Coping: Goal: Level of anxiety will decrease Outcome: Progressing Problem: Life Cycle: Goal: Will achieve delivery and avoid or minimize maternal and complications Outcome: Progressing Problem: Sensory: Goal: Pain level will decrease Outcome: Progressing Problem: Lack of Knowledge: Goal: Verbalization of understanding the information provided will improve Outcome: Progressing Problem: Coping: Goal: Ability to identify appropriate support needs for the childbearing process will improve Outcome: Progressing Goal: Ability to verbilize concerns and feelings about labor and delivery improve Outcome: Progressing Problem: Life Cycle: Goal: Ability to maintain clinical measurements within normal limits will improve Outcome: Progressing Goal: Ability to make normal progression through stages of labor will improve Outcome: Progressing Goal: Ability to effectively push during vaginal delivery will improve Outcome: Progressing Problem: Role Relationship: Goal: Ability to demonstrate positive interaction with the child will improve Outcome: Progressing Problem: Safety: Goal: Chance of risk for complications during labor and delivery will decrease Outcome: Progressing Problem: Sensory: Goal: Relief or control of pain from uterine contractions will improve Outcome: Progressing Goals: Clinical Goals for the Shift: adequate pain control, VSS, healthy delivery baby girl * Plan of Care - Clem Clemente RN - 05/19/2021 8:16 AM CDT Goals: Summary: documented in this encounter Plan of Treatment Not on file documented as of this encounter Procedures Procedure Name Priority Date/Time Associated Diagnosis Comments RPR STAT 05/19/2021 9:00 AM CDT CBC WITHOUT DIFFERENTIAL STAT 05/19/2021 9:00 AM CDT TYPE AND SCREEN STAT 05/19/2021 9:00 AM CDT GROUP B STREPTOCOCCUS CULTURE Routine 04/25/2021 documented in this encounter Results * RPR (05/19/2021 9:00 AM CDT) Pathologist [facility] RPR Nonreactive Nonreactive [facility] Blood 05/19/2021 9:00 AM CDT 05/19/2021 9:21 AM CDT April Mccord MD LAB MICROBIOLOGY - [facility] ORDERABLES Final Result [facility] [place] [address] * (ABNORMAL) CBC without differential (05/19/2021 9:00 AM CDT) [facility] WBC 9.8 3.8 - 9.9 K/cumm [facility] Hgb 13.0 11.9 - 15.5 g/dL [facility] Hct 38.7 35.6 - 45.5 % [facility] Plt 162 150 - 400 K/cumm [facility] MPV 12.8(H) 9.1 - 12.3 fL [facility] RBC 4.49 3.90 - 5.20 M/cumm [facility] MCV 86.2 81.3 - 96.4 fL [facility] MCH 29.0 27.1 - 33.3 pg [facility] MCHC 33.6 32.3 - 35.7 g/dL [facility] RDW CV 12.8 11.1 - 14.9 % [facility] RDW SD 39.9 35.7 - 48.1 fL [facility] NRBC abs 0.00 0.00 - 0.01 K/cumm [facility] Blood 05/19/2021 9:00 AM CDT 05/19/2021 9:21 AM CDT April Mccord MD LAB BLOOD ORDERABLES Final Result Performing Organization Address City/[facility] [place] [address] * Type and screen (05/19/2021 9:00 AM CDT) ABO Rh A Positive [facility] Elisa, indirect Negative [facility] Blood 05/19/2021 9:00 AM CDT 05/19/2021 9:22 AM CDT Narrative [facility] - 05/19/2021 10:11 AM CDT Has the patient had Daratumumab or Isatuximab in the past 6 months?->Unknown April Mccord MD LAB BLOOD BANK TEST ORDERABLES Final Result Performing Organization Address [facility] [place] [address] * Group B streptococcal culture (04/25/2021) SCRIBED Group B Strep pos Shantal Stewart MD LAB MICROBIOLOGY - GENERAL ORDER FIDEL Final Result documented in this encounter Visit Diagnoses Diagnosis care following vaginal delivery documented in this encounter Administered Medications Inactive Administered Medications - up to 3 most recent administrations Medication Order MAR Action Action Date Dose Rate Site acetaminophen (TYLENOL) tablet 1,000 mg 1,000 mg, oral, Every 6 hours, First dose on Sun05/20/21 at 0245, Alternate administration with ibuprofen so that patient receives one or the other every 3 hours, Indications: Fever, PainIndications:Fever,Pain Given 05/21/2021 2:08 PM CDT 1,000 mg Given 05/21/2021 8:05 AM CDT 1,000 mg Given 05/21/2021 2:38 AM CDT 1,000 mg benzocaine-menthoL (DERMOPLAST) 20-0.5 % topical spray 1 spray 1 spray, topical, As needed, other, perianal area for pain, Starting on Sun05/20/21 at 0214, Up to 6 times a day., Apply to affected area: perineum, Indications: Minor Skin Wound PainIndications:Minor Skin Wound Pain Given 05/20/2021 8:47 PM CDT 1 spray dextrose 5% and Lactated Ringer's infusion 125 mL/hr, intravenous, Continuous, Starting on Mayuri 05/19/21 at 0930, L&D Pre-Delivery New Bag 05/19/2021 7:12 PM CDT 125 mL/hr 125 mL/hr New Bag 05/19/2021 10:58 AM CDT 125 mL/hr 125 mL/hr docusate sodium (COLACE) capsule 100 mg 100 mg, oral, 2 times daily, First dose on Sun05/20/21 at 0245, Hold if diarrhea., Indications: constipation, Stool SoftenerIndications:constipation,Stool Softener Given 05/21/2021 8:05 AM CDT 100 mg Given 05/20/2021 8:46 PM CDT 100 mg Given 05/20/2021 8:47 AM CDT 100 mg fentaNYL-bupivacaine preservative free in 0.9% sodium chloride 2 mcg/mL- 0.1 % cassette (premix) Continuous Rate: 10 mL/hr, Patient Bolus Dose: 8 mL, Lockout Interval: 15 Minutes, epidural, Continuous, Starting on Mayuri 05/19/21 at 1115, Until Sun05/20/21 at 0214, 100 mL, Indications: Pain, Stop epidural infusion after placental delivery and any indicated repair is complete., RoutineIndications:Pain New Syringe/Cartridge 05/20/2021 1:30 AM CDT 100 mL New Syringe/Cartridge 05/19/2021 6:32 PM CDT 100 mL New Bag 05/19/2021 10:14 AM CDT 10 mL/hr 10 mL/hr ibuprofen (ADVIL,MOTRIN) tablet 600 mg 600 mg, oral, Every 6 hours, First dose on Sun05/20/21 at 0245, Alternate administration with tylenol so that patient receives one or the other every 3 hours., Indications: CrampsIndications:Cramps Given 05/21/2021 2:08 PM CDT 600 mg Given 05/21/2021 8:05 AM CDT 600 mg Given 05/21/2021 2:39 AM CDT 600 mg Lactated Ringer's (LR) bolus 1,000 mL 1,000 mL, intravenous, Once, On Mayuri 05/19/21 at 1115, For 1 dose, 15 to 30 minutes before epidural placement. New Bag 05/19/2021 10:53 PM CDT 1,000 mL New Bag 05/19/2021 10:00 AM CDT 1,000 mL Lactated Ringer's (LR) bolus 500 mL 500 mL, intravenous, 3 times daily PRN, for nonreassuring heart rate, variable decelerations, or late deceleration., Starting on Mayuri 05/19/21 at 0852, For 1 dose, L&D Pre-Delivery New Bag 05/20/2021 12:12 AM CDT 500 mL Lactated Ringer's (LR) infusion - ADS Override Pull Starting on Mayuri 05/19/21 at 2252, For 1 dose, Created by dedrick override miSOPROStol (CYTOTEC) split tablet 25 mcg 25 mcg, vaginal, Once, On Mayuri 05/19/21 at 1115, For 1 dose Given 05/19/2021 10:57 AM CDT 25 mcg ondansetron (ZOFRAN) injection 4 mg 4 mg, intravenous, Administer over 2 Minutes, Every 6 hours PRN, nausea, vomiting, if not tolerating PO, Starting on Mayuri 05/19/21 at 0852, L&D Pre-Delivery, Indications: Nausea and VomitingIndications:Nausea and Vomiting Given 05/19/2021 10:56 AM CDT 4 mg oxytocin 30 unit/500 mL (0.06 unit/mL) in sodium chloride 0.9% (premix) solution 95-334 milliunits/min (95-334 mL/hr), 0.06 units/mL, intravenous, Continuous, Starting on Sun05/20/21 at 0245, Until Sun05/20/21 at 0535, Indications: Hemorrhage Prevention, 334 shelly-units/minutes for 30 minutes then decrease infusion to 95 shelly-units/min for 3.5 hours., RoutineIndications:Postpar christiano Hemorrhage Prevention Rate/Dose Change 05/20/2021 2:06 AM CDT 95 milliunits/min 95 mL/hr New Bag 05/20/2021 1:36 AM CDT 334 milliunits/min 334 m L/hr oxytocin 30 unit/500 mL (0.06 unit/mL) in sodium chloride 0.9% (premix) solution 0.5-40 milliunits/min (0.5-40 mL/hr), 0.06 units/mL, intravenous, Titrated, Starting on Mayuri 05/19/21 at 1615, Until Sun05/20/21 at 0214, Indications: Induction of Labor, Start at 2 shelly-units/min and increase by 2 shelly-units/minutes every 30 minutes until contraction frequency is every 2-3 minutes. - - 20 milliunits/minutes maximum - All other patients 40 milliunits/minute maximum Discontinue for distress or uterine hyperstimulation., RoutineIndications:Inducti on of Labor Rate/Dose Change 05/19/2021 10:45 PM CDT 4 milliunits/min 4 mL/hr Rate/Dose Change 05/19/2021 5:52 PM CDT 6 milliunits/min 6 mL/hr Rate/Dose Change 05/19/2021 5:00 PM CDT 4 milliunits/min 4 mL/hr penicillin G potassium 3 million units/50 mL in dextrose (premix) 3 Million Units 3 Million Units, intravenous, Administer over 30 Minutes, Every 4 hours, First dose on Mayuri 05/19/21 at 1400, L&D Pre-Delivery, Until delivery, Indications: Prevention of Group B Streptococcal InfectionIndications:Prevention of Group B Streptococcal Infection New Bag 05/19/2021 10:00 PM CDT 3 Million Units New Bag 05/19/2021 6:35 PM CDT 3 Million Units New Bag 05/19/2021 2:00 PM CDT 3 Million Units penicillin G potassium 5 million units/50 mL in sterile water (premix) 5 Million Units 5 Million Units, intravenous, Administer over 30 Minutes, Once, On Mayuri 05/19/21 at 0930, For 1 dose, L&D Pre-Delivery, Indications: Prevention of Group B Streptococcal InfectionIndications:Prevention of Group B Streptococcal Infection New Bag 05/19/2021 10:00 AM CDT 5 Million Units PNV with xtmrcth-hloi-PM tablet 1 tablet 1 tablet, oral, Daily, First dose on Sun05/20/21 at 0900, Begin when normal bowel activity resumes., Indications: Vitamin Deficiency PreventionIndications:Vitamin Deficiency Prevention Given 05/21/2021 8:05 AM CDT 1 tablet Given 05/20/2021 8:47 AM CDT 1 tablet polyethylene glycol (MIRALAX) packet 17 g 17 g, oral, Daily, First dose on Sun05/20/21 at 0900, Hold if diarrhea., Indications: constipationIndications:constipation Given 05/21/2021 8:05 AM CDT 17 g Given 05/20/2021 8:47 AM CDT 17 g terbutaline (BRETHINE) injection 0.125 mg 0.125 mg, intravenous, Once as needed, distress and uterine tachysystole, Starting on Mayuri 05/19/21 at 0852, For 1 dose, L&D Pre-Delivery, Notify physician immediately if administration is required., Indications: distress and uterine tachysystoleIndications: distress and uterine tachysystole Given 05/19/2021 11:00 PM CDT 0.125 mg documented in this encounter Active and Recently Administered Medications Times are shown in CDT. Scheduled Medication Order 05/19/2021 05/20/2021 05/21/2021 acetaminophen (TYLENOL) tablet 1,000 mg 1,000 mg, oral, Every 6 hours, First dose on Sun05/20/21 at 0245, Alternate administration with ibuprofen so that patient receives one or the other every 3 hours, Indications: Fever, Pain 0313 (Given - Provider: Bambi Pepper RN)0847 (Given - Provider: Dari Lyn, IRVIN)1446 (Given - Provider: Dari Lyn, IRVIN)2047 (Given - Provider: Génesis Rivera, IRVIN) 0238 (Given - Provider: Génesis Rivera, IRVIN)0805 (Given - Provider: Dari Lyn, IRVIN)1408 (Given - Provider: Dari Lyn RN)2045 (Due) docusate sodium (COLACE) capsule 100 mg 100 mg, oral, 2 times daily, First dose on Sun05/20/21 at 0245, Hold if diarrhea., Indications: constipation, Stool Softener 0242 (Not Given - Provider: Bambi Pepper RN - Reason: Patient/family refused)0847 (Given - Provider: Dari Lyn RN)2046 (Given - Provider: Génesis Rivera RN) 0805 (Given - Provider: Dari Lyn RN)2100 (Due) ibuprofen (ADVIL,MOTRIN) tablet 600 mg 600 mg, oral, Every 6 hours, First dose on Sun05/20/21 at 0245, Alternate administration with tylenol so that patient receives one or the other every 3 hours., Indications: Cramps 0313 (Given - Provider: Bambi Pepper RN)0847 (Given - Provider: Dari Lyn RN)1446 (Given - Provider: Dari Lyn RN)2046 (Given - Provider: Génesis Rivera RN) 0239 (Given - Provider: Génesis Rivera RN)0805 (Given - Provider: Dari Lyn RN)1408 (Given - Provider: Dari Lyn RN)2045 (Due) Lactated Ringer's (LR) bolus 1,000 mL (COMPLETED) 1,000 mL, intravenous, Once, On Mayuri 05/19/21 at 1115, For 1 dose, 15 to 30 minutes before epidural placement. 1000 (New Bag - Provider: Clem Clemente RN)2253 (New Bag - Provider: Nilsa Mayer RN - Comment: saba Stewart MD for decel) miSOPROStol (CYTOTEC) split tablet 25 mcg (COMPLETED) 25 mcg, vaginal, Once, On Mayuri 05/19/21 at 1115, For 1 dose 1057 (Given - Provider: Clem Clemente RN) penicillin G potassium 3 million units/50 mL in dextrose (premix) 3 Million Units (CANCELED)(Linked Group 1) 3 Million Units, intravenous, Administer over 30 Minutes, Every 4 hours, First dose on Mayuri 05/19/21 at 1400, L&D Pre-Delivery, Until delivery, Indications: Prevention of Group B Streptococcal Infection 1400 (New Bag - Provider: Clem Clemente RN)1835 (New Bag - Provider: Lashay Ortega RN)2200 (New Bag - Provider: Bambi Pepper, RN) 0219 (Not Given - Provider: Bambi Pepper, RN - Reason: Order parameters not met) penicillin G potassium 5 million units/50 mL in sterile water (premix) 5 Million Units (COMPLETED)(Linked Group 1) 5 Million Units, intravenous, Administer over 30 Minutes, Once, On Mayuri 05/19/21 at 0930, For 1 dose, L&D Pre-Delivery, Indications: Prevention of Group B Streptococcal Infection 1000 (New Bag - Provider: Clem Clemente RN) PNV with gxvnyln-pxpg-RO tablet 1 tablet 1 tablet, oral, Daily, First dose on Sun05/20/21 at 0900, Begin when normal bowel activity resumes., Indications: Vitamin Deficiency Prevention 0847 (Given - Provider: Dari Lyn RN) 0805 (Given - Provider: Dari Lyn, IRVIN) polyethylene glycol (MIRALAX) packet 17 g 17 g, oral, Daily, First dose on Sun05/20/21 at 0900, Hold if diarrhea., Indications: constipation 0847 (Given - Provider: Dari Lyn, IRVIN) 0805 (Given - Provider: Dari Lyn, RN) Continuous Medication Order 05/19/2021 05/20/2021 05/21/2021 dextrose 5% and Lactated Ringer's infusion (CANCELED) 125 mL/hr, intravenous, Continuous, Starting on Mayuri 05/19/21 at 0930, L&D Pre-Delivery 1058 (New Bag - Provider: Clem Clemente RN)1912 (New Bag - Provider: Bambi Pepper, IRVIN) fentaNYL-bupivacaine preservative free in 0.9% sodium chloride 2 mcg/mL- 0.1 % cassette (premix) (CANCELED) Continuous Rate: 10 mL/hr, Patient Bolus Dose: 8 mL, Lockout Interval: 15 Minutes, epidural, Continuous, Starting on Mayuri 05/19/21 at 1115, Until Sun05/20/21 at 0214, 100 mL, Indications: Pain, Stop epidural infusion after placental delivery and any indicated repair is complete., Routine 1012 (Given - Provider: Laverne Lageurre MD)1014 (New Bag - Provider: Laverne Laguerre MD)1832 (New Syringe/Cartridge - Provider: Lashay Ortega RN) 0130 (New Syringe/Cartridge - Provider: Bambi Pepper RN)0132 (Stopped (Dual Sign) - Provider: Rosi Martínez RN) oxytocin 30 unit/500 mL (0.06 unit/mL) in sodium chloride 0.9% (premix) solution () 95-334 milliunits/min (95-334 mL/hr), 0.06 units/mL, intravenous, Continuous, Starting on Sun05/20/21 at 0245, Until Sun05/20/21 at 0535, Indications: Hemorrhage Prevention, 334 shelly-units/minutes for 30 minutes then decrease infusion to 95 shelly-units/min for 3.5 hours., Routine 0136 (New Bag - Provider: Bambi Pepper RN)0206 (Rate/Dose Change - Provider: Bambi Pepper RN) oxytocin 30 unit/500 mL (0.06 unit/mL) in sodium chloride 0.9% (premix) solution (CANCELED) 0.5-40 milliunits/min (0.5-40 mL/hr), 0.06 units/mL, intravenous, Titrated, Starting on Mayuri 05/19/21 at 1615, Until Sun05/20/21 at 0214, Indications: Induction of Labor, Start at 2 shelly-units/min and increase by 2 shelly-units/minutes every 30 minutes until contraction frequency is every 2-3 minutes. - - 20 milliunits/minutes maximum - All other patients 40 milliunits/minute maximum Discontinue for distress or uterine hyperstimulation., Routine 1542 (New Bag - Provider: Lashay Ortega RN - Comment: witnessed by IRVIN Samano)1551 (Not Given - Provider: Lashay Abbie Lenhard, RN - Reason: Other - Comment: Already scanned and infusing)1700 (Rate/Dose Change - Provider: Lashay Ortega RN)1752 (Rate/Dose Change - Provider: Lashay Ortega RN)2245 (Rate/Dose Change - Provider: Nilsa Mayer, IRVIN - Comment: Saba Colvin MD for intolerance)2250 (Stopped - Provider: Nilsa Mayer, IRVIN - Comment: Saba Stewart MD for intolerance) PRN Medication Order 05/19/2021 05/20/2021 05/21/2021 benzocaine-menthoL (DERMOPLAST) 20-0.5 % topical spray 1 spray 1 spray, topical, As needed, other, perianal area for pain, Starting on Sun05/20/21 at 0214, Up to 6 times a day., Apply to affected area: perineum, Indications: Minor Skin Wound Pain 2046 (Given - Provider: Génesis Rivera RN) hydrocortisone (ANUSOL-HC) 2.5 % rectal cream rectal, 3 times daily PRN, hemorrhoids, Starting on Sun05/20/21 at 0214, Indications: Hemorrhoids Lactated Ringer's (LR) bolus 500 mL (COMPLETED) 500 mL, intravenous, 3 times daily PRN, for nonreassuring heart rate, variable decelerations, or late deceleration., Starting on Mayuri 05/19/21 at 0852, For 1 dose, L&D Pre-Delivery 0012 (New Bag - Provider: Bambi Pepper RN) ondansetron (ZOFRAN) injection 4 mg (CANCELED)(Linked Group 2) 4 mg, intravenous, Administer over 2 Minutes, Every 6 hours PRN, nausea, vomiting, if not tolerating PO, Starting on Mayuri 05/19/21 at 0852, L&D Pre-Delivery, Indications: Nausea and Vomiting 1056 (Given - Provider: Clem Clemente, IRVIN) simethicone (MYLICON) chewable tablet 80 mg 80 mg, oral, 4 times daily PRN (after meals, bedtime), flatulence, Starting on Sun05/20/21 at 0214, Indications: Flatulence terbutaline (BRETHINE) injection 0.125 mg (COMPLETED)(Linked Group 3) 0.125 mg, intravenous, Once as needed, distress and uterine tachysystole, Starting on Mayuri 05/19/21 at 0852, For 1 dose, L&D Pre-Delivery, Notify physician immediately if administration is required., Indications: distress and uterine tachysystole 2300 (Given - Provider: Nilsa Mayer RN) 0031 (Not Given - Provider: Bambi Pepper RN - Reason: Order parameters not met) Linked Groups Order Group 1: penicillin G potassium 5 million units/50 mL in sterile water (premix) 5 Million Units (COMPLETED)Jump to med 5 Million Units, intravenous, Administer over 30 Minutes, Once, On Mayuri 05/19/21 at 0930, For 1 dose, L&D Pre-Delivery, Indications: Prevention of Group B Streptococcal Infection Followed by penicillin G potassium 3 million units/50 mL in dextrose (premix) 3 Million Units (CANCELED)Jump to med 3 Million Units, intravenous, Administer over 30 Minutes, Every 4 hours, First dose on Mayuri 05/19/21 at 1400, L&D Pre-Delivery, Until delivery, Indications: Prevention of Group B Streptococcal Infection Group 2: ondansetron ODT (ZOFRAN-ODT) disintegrating tablet 4 mg (CANCELED) 4 mg, oral, Every 6 hours PRN, nausea, vomiting, Starting on Mayuri 05/19/21 at 0852, L&D Pre-Delivery, Indications: Nausea and Vomiting Or ondansetron (ZOFRAN) injection 4 mg (CANCELED)Jump to med 4 mg, intravenous, Administer over 2 Minutes, Every 6 hours PRN, nausea, vomiting, if not tolerating PO, Starting on Mayuri 05/19/21 at 0852, L&D Pre-Delivery, Indications: Nausea and Vomiting Group 3: terbutaline (BRETHINE) injection 0.125 mg (COMPLETED)Jump to med 0.125 mg, intravenous, Once as needed, distress and uterine tachysystole, Starting on Mayuri 05/19/21 at 0852, For 1 dose, L&D Pre-Delivery, Notify physician immediately if administration is required., Indications: distress and uterine tachysystole Or terbutaline (BRETHINE) injection 0.25 mg (COMPLETED) 0.25 mg, subcutaneous, Once as needed, distress and uterine tachysystole if no IV access, Starting on Mayuri 05/19/21 at 0852, For 1 dose, L&D Pre-Delivery, Notify physician immediately if administration is required., Indications: distress and uterine tachysystole documented in this encounter Orders Medications Ordered That Roland ht Not Have Been Administered Count Last Ordered Date First Ordered Date hydrocortisone (ANUSOL-HC) 2 .5 % rectal cream 1 05/20/2021 simethicone (MYLICON) chewab le tablet 80 mg 1 05/20/2021 carboprost (HEMABATE) injection 250 mcg 1 1 diphenhydrAMINE (BENADRYL) injection 25 mg 1 05/19/2021 lidocaine PF (XYLOCAINE) 10 mg/mL (1 %) preservative free injection 100 mg 1 05/19/2021 loperamide (IMODIUM) capsule 2 mg 1 methylergonovine (METHERGINE ) injection 0.2 mg 1 05/19/2021 miSOPROStoL (CYTOTEC) tablet 800 mcg 1 05/06 nalbuphine (NUBAIN) injection 5 mg 1 2020 naloxone (NARCAN) 0.4 mg/mL injection 0.04-0.4 mg 1 05/19/2021 ondansetron ODT (ZOFRAN-ODT) disintegrating tablet 4 mg 1 05/19/2021 oxytocin (PITOCIN) injection 10 Units 1 sodium chloride 0.9% flush 0.5-20 mL 4 05/06 terbutaline (BRETHINE) injection 0.25 mg 1 05/19/2021 tranexamic acid (CYKLOKAPRON ) 1,000 mg/100 mL (10 mg/mL) in sodium chloride (premix) 1,000 mg 1 05/19/2021 Transfer Count Last Ordered Date First Orde red Date TRANSFER PATIENT 1 05/20/2021 CORE MEASURES Count Last Ordered Date First Ord ered Date REASON FOR NO VTE PROPHYLAXI S - HOSPITAL ADMISSION - MEDICATIONS 2 05/20/2021 05/19/2021 documented in this encounter Care Teams [employer] Relationship Specialty Start Date End Date No, Physician PCP - General 05/14/19 01/01/24 documented as of this encounter
--- OUTSIDE RECORDS SUMMARY | 2024-08-09 10:44 | XMS_ITS | Encounter Summary ---
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 Role Phone No, Physician Primary Care Provider [phone] Reason for Visit * Reason Comments Ear Problem Lymph node swollen o n left side Onset 10/19, lot of jaw pain for several months Encounter Details Date Type Department Care Team ([facility] Contact Info) Description 10/29/2023 5:30 PM CDT Office Visit [facility] [place] [address] [place] [id number] Shavon Silva NP [address] [facility] [place] [address] Jaw pain (Primary Dx); Jaw swelling Social History Tobacco Use Types Packs/Day Years [...] on file 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 Gender Identity Female 01/27/2021 1:35 PM CDT Sexual Orientation Straight 01/27/2021 1: 35 PM CDT documented as of this encounter Last Filed Vital Signs Vital Sign Reading Time Taken Comments Blood Pressure 100/64 10/29/2023 5:22 PM CDT Pulse 66 10/29/2023 5:22 PM CDT Temperature 36.8 ??C (98.2 ??F) 10/29/2023 5:22 PM CD T Respiratory Rate 17 10/29/2023 5:22 PM CDT Oxygen Saturation 98% 10/29/2023 5:22 PM CDT Inhaled Oxygen Concentration - - Weight 68 kg (150 lb) 10/29/2023 5:22 PM CDT Height 160 cm (5' 3 ) 10/29/2023 5:22 PM CDT Body Mass Index 26.57 10/29/2023 5:22 PM CDT documented in this encounter Patient Instructions * Patient Instructions* Shavon Silva NP - 10/29/2023 5:30 PM CDT Watch lymph node-- do not touch it. Follow up with PCP if not improving in 1 month Jaw pain--- follow up with your dentist Tylenol and motrin as needed for pain * Attachments The following attachments cannot be sent through Care Everywhere. * Temporomandibular Disorder (General Information) (Pashto) documented in this encounter Ordered Prescriptions Prescription Sig Dispense Quantity Refills Last Filled Start Date End Date cyclobenzaprine (FLEXERIL) 5 mg tabletIndications: Jaw pain Take 1 tablet (5 mg total) by mouth 3 (three) times a day as needed for muscle spasms 30 tablet 10/29/2023 01/02/2024 documented in this encounter Progress Notes * Shavon Silva NP - 10/29/2023 5:30 PM CDT Images from the original note were not included. Subjective/Objective Patient ID: Silvia Persaud is a 28 y.o. female. Chief Complaint Ear Problem (Lymph node swollen on left side Onset 10/19, lot of jaw pain for several months ) Patient presents to convenient care for swollen lymph node by left ear x9 days. The lymph node is painless. She states that today lymph node appears smaller. Patient states that prior to lymph node developing, she felt a pop on left side of face. Patient denies any ear pain. Patient states that shehas a history of jaw pain and headaches. She states that over the past week her jaw has been hurting and feels tight. She does not grind her teeth but does note that she clenches teeth often. She hasnot taken any OTC medications for her symptoms. She denies any fevers or chills. Review of Systems All systems reviewed and are negative or non contributory for this patient's presentation today other than as stated in the HPI. Physical Exam Vitals reviewed. Constitutional: General: She is not in acute distress. Appearance: Normal appearance. She is well-developed. She is not ill-appearing. HENT: Head: Normocephalic. Jaw: Tenderness and pain on movement present. Right Ear: Tympanic membrane, ear canal and external ear normal. Left Ear: Tympanic membrane, ear canal and external ear normal. Nose: No congestion or rhinorrhea. Right Sinus: No maxillary sinus tenderness or frontal sinus tenderness. Left Sinus: No maxillary sinus tenderness or frontal sinus tenderness. Mouth/Throat: Lips: [place]. Mouth: Mucous membranes are moist. Pharynx: Oropharynx is clear. Eyes: General: Right eye: No discharge. Left eye: No discharge. Conjunctiva/sclera: Conjunctivae normal. Cardiovascular: Rate and Rhythm: Normal rate and regular rhythm. Pulmonary: Effort: Pulmonary effort is normal. No respiratory distress. Breath sounds: Normal breath sounds and air entry. Musculoskeletal: General: Normal range of motion. Cervical back: Neck supple. Lymphadenopathy: Cervical: No cervical adenopathy. Skin: General: Skin is warm and dry. Findings: No rash. Neurological: Mental Status: She is alert and oriented to person, place, and time. Mental status is at baseline. Psychiatric: Attention and Perception: Attention normal. Mood and Affect: Mood normal. Behavior: Behavior normal. Behavior is cooperative. Thought Content: Thought content normal. Judgment: Judgment normal. Vitals: 10/29/23 1722 BP: 100/64 BP Location: Left arm Patient Position: Sitting Pulse: 66 Resp: 17 Temp: 36.8 ??C (98.2 ??F) TempSrc: Oral SpO2: 98% Weight: 68 kg (150 lb) Height: 160 cm (5' 3 ) Assessment/Plan Discussed with patient that pain/swelling likely due to TMJ Flexeril as needed Tylenol/Motrin as needed for pain Advised patient to contact dentist regarding TMJ Patient is scheduled to see PCP on 12/26/2023. Advised patient to contact PCP office or sooner availability if symptoms are not improving within 4 weeks or sooner if symptoms worsen Go to the ER if you develop severe swelling, pain, or fevers that do not improve with antipyretics Diagnoses and all orders for this visit: Jaw pain (Primary) - cyclobenzaprine (FLEXERIL) 5 mg tablet; Take 1 tablet (5 mg total) by mouth 3 (three) times a dayas needed for muscle spasms Jaw swelling No results found for this or any previous visit (from the past 4 hour(s)). Patient Education: Disposition Treatment plan including expectations, [...] Shavon Silva NP documented in this encounter Plan of Treatment Not on file documented as of this encounter Visit Diagnoses Diagnosis Jaw pain- Primary Jaw swelling Unspecified temporomandibular joint disorders documented in this encounter Discontinued Medications Medication Sig Discontinue Reason Start Date End Da te norethindrone (MICRONOR) 0.35 mg tabletIndications:Pregnanc y Contraception Take 1 tablet (0.35 mg total) by mouth daily 05/21/2021 10/29/2023 documented as of this encounter Historical Medications * This list may reflect changes made after this encounter. drospirenone-ethi nyl estradioL (RONNA,GIANVI) 3-0.02 mg per tablet TAKE 1 TABLET BY MOUTH EVERY DAY FOR 90 DAYS 09/28/2023 spironolactone (ALDACTONE) 25 mg tablet Take 4 tablets (100 mg total) by mouth daily 09/29/2023 01/02/2024 added in this encounter Care Teams Artificial Pearl Maker Relationship Specialty Start Date End Date No, Physician PCP - General 05/14/19 01/01/24 documented as of this encounter
--- OUTSIDE RECORDS SUMMARY | 2024-08-09 10:44 | XMS_ITS | Encounter Summary ---
Author Organization [facility] Healthcare Address [address] [place] [address] Care Team Providers Care Staffing Assistant Name Role Phone No, Physician Primary Care Provider [phone] Encounter Details Date Type Department Care Team (Late st Contact Info) Description 05/19/2021 10:02 AM CDT Anesthesia Event [address] [address] Steven Coronel MD [address] [place] [address] Laverne Laguerre MD [address] [place] [address] Anesthesia Record Procedure Summary Procedure Name Responsible Anesthesiologist Anesthesia Start Time Anesthesia Stop Time Labor Analgesia Steven Coronel MD 05/19/21 1002 05/06 12/24 0135 Events Date Time Event Comment 05/19/2021 1002 An Start 1002 Time out - Regional 1002 Face Time 1002 An Block Induction The patie nt was reevaluated immediately before moderate or deep sedation and before anesthesia induction. 1012 Epidural Placed 05/20/2021 0135 An Stop Meds Name Total epinePHRINE 1:200,000-lidocaine 1.5 % 3 mL fentaNYL-bupivacaine preserv ative free in 0.9% sodium chloride 2 mcg/mL- 0.1 % cassette (premix) 163.5 mL bupivacaine (MARCAINE) 10 mL in sodium c hloride 0.9% 20 mL epidural 10 mL * Agents No agents on file. * Blood No blood administrations on file. Lines, Drains, and Airways Type Details Placement Removal Peripheral IV Placement Date: 05/19/21; Placement Time: 0830; Catheter Size: 20 G; Orientation: Right, Posterior; Location: Forearm; Site Prep: Chlorhexidine; Technique: Anatomical landmarks; Inserted by: Bryn BRYAN; Insertion Attempts: 1; Removal Date: 05/20/21; Removal Time: 1451; Removal Reason: Per order 05/19/21 0830 by Clem Arndt RN 05/20/21 1451 by Dari Lyn RN Epidural Placement Date: 05/19/21; Placement Time: 1041 (created via procedure documentation); 05/20/21; 0400 05/19/21 1041 by Laverne Laguerre MD 05/20/21 0400 by Bambi Cole RN Urethral Catheter Placement Date: 05/19/21; Placement Time: 1304; Inserted by: Bryn BRYAN; Type: Non-latex; Balloon Size: 10 mL; Urine Returned: Yes; Removal Date: 05/20/21; Removal Time: 0116; Removal Reason: Per protocol 05/19/21 1304 by Clem Arndt RN 05/20/21 0116 by Bambi Cole RN Intrauterine Pressure Catheter Placement Date: 05/19/21; Placement Time: 2255; Inserted by: MD Marii; Removal Date: 05/20/21; Removal Time: 0130; Removal Reason: Per protocol 05/19/21 2255 by Bambi Cole RN 05/20/21 0130 by Bambi Cole RN documented in this encounter Social History Tobacco Use Types Packs/Day Years [...] on file 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 Last vitals BP 123/74 Pulse 86 Temp 36.6 ??C (97.9 ??F) (Oral) Resp 18 SpO2 97% Anesthesia Post Evaluation Patient location during evaluation: floor Patient participation: complete - patient participated Level of consciousness: fully awake Pain management: adequate Airway patency: adequate Cardiovascular status: acceptable and hemodynamically stable Respiratory status: acceptable Hydration status: acceptable Pt is: normothermic Nausea/Vomiting status: none Comments: Patient denies headache, fevers, chills, rigors, nausea/vomiting, tingling/weakness/numbness, excessive pain/edema/drainage/erythema at needle puncture site. Patient taking PO, ambulating, urinating without Zheng catheter. Puncture site examined - no appreciable induration, erythema, swelling, drainage. Patient counseled on signs/symptoms of epidural abscess/hematoma and post dural puncture headache. Patient advised to seek immediate medical attention should she appreciate any of these. Patient voices understanding. No complications documented. Cosigned by Tin Aguillon MD at 05/21/2021 7:19 PM CDT * Anesthesia Procedure Notes - Laverne Laguerre MD - 05/19/2021 10:41 AM CDTAssociated Order(s): Epidural Block Epidural Block Patient location: L&D Reason for block: labor analgesia Staff: Supervising provider: Chris Katz MD Placed by: Resident: Laverne Laguerre MD Procedure prep: Preprocedure checklist: patient identified, procedure contraindications assessed, procedure consentobtained, surgical consent, IV checked, risks, benefits and alternatives discussed, monitors and equipment checked and timeout performed Patient Position: sitting Procedure performed while patient: awake Monitoring: ECG, blood pressure and oximetry Prep solution: chlorhexadine/alcohol PPE: sterile gloves, sterile drape and provider hat/mask Skin infiltrated with lidocaine 1%: yes Epidural: Approach: midline Imaging guidance used: no Location: L4-5 Number of attempts:1 Epidural needle: Injection technique: CASSIUS saline Needle type: Tuohy Needle gauge: 17 G Needle length: 9 cm Loss of resistance: 5 cm Catheter: Catheter type: multi-orifice. Catheter at skin depth: 10 cm Negative aspiration of blood: no Negative aspiration of CSF: no Test dose: negative Assessment: Sensory level - left: full eval pending Sensory level - right: full eval pending Events: patient tolerated procedure well with no complications * Anesthesia Preprocedure Evaluation - Chris Katz MD - 05/19/2021 9:45 AM CDT Images from the original note were not included. Anesthesia Evaluation Silvia Persaud is a 25 y.o. female * No procedures listed * * No Diagnosis Codes entered * HISTORY HPI David Persaud is a 25 y.o. female at 40 wks presenting for IOL Past Medical History Neurological Pertinent negatives: seizures and CVA/stroke Cardiovascular Pertinent negatives: hypertension ; AR ; arrhythmia and negative for CHF Respiratory Pertinent negatives: COPD; asthma and non-smoker Gastrointestinal Pertinent negatives: GERD Renal / Renal/ system: negative Musculoskeletal/Pain Musculoskeletal/Pain system: negative Endocrine / Other Endocrine/Other system: negative Review of Systems Pertinent negatives: SOB; heartburn and chipped/loose teeth Patient Active Problem List Diagnosis ??? Supervision of other normal , antepartum ??? Encounter for induction of labor No past medical history on file. Past Surgical History: Procedure Laterality Date ??? WISDOM TOOTH EXTRACTION OB History 2 Para 1 Term 1 AB Living 1 SAB TAB Ectopic Multiple 0 Live Births 1 No Known Allergies Taking? Last Dose Start Date End Date Provider vit,[id number] (PRENATABS RX) 29 mg iron- 1 mg tablet 02/10/19 -- Kenna Baxter MD Take 1 tablet by mouth daily Current Facility-Administered Medications: ??? carboprost (HEMABATE) injection 250 mcg, 250 mcg, intramuscular, Once PRN ??? dextrose 5% and Lactated Ringer's infusion, 125 mL/hr, intravenous, Continuous ??? Lactated Ringer's (LR) bolus 500 mL, 500 mL, intravenous, TID PRN ??? lidocaine PF (XYLOCAINE) 10 mg/mL (1 %) preservative free injection 100 mg, 10 mL, infiltration, Once PRN ??? loperamide (IMODIUM) capsule 2 mg, 2 mg, oral, Once PRN ??? methylergonovine (METHERGINE) injection 0.2 mg, 0.2 mg, intramuscular, Once PRN ??? miSOPROStoL (CYTOTEC) tablet 800 mcg, 800 mcg, rectal, Once PRN ??? ondansetron ODT (ZOFRAN-ODT) disintegrating tablet 4 mg, 4 mg, oral, Q6H PRN OR ondansetron(ZOFRAN) injection 4 mg, 4 mg, intravenous, Q6H PRN ??? oxytocin (PITOCIN) injection 10 Units, 10 Units, intramuscular, Once PRN ??? penicillin G potassium 5 million units/50 mL in sterile water (premix) 5 Million Units, 5 Million Units, intravenous, Once FOLLOWED BY penicillin G potassium 3 million units/50 mL in dextrose(premix) 3 Million Units, 3 Million Units, intravenous, Q4H ??? sodium chloride 0.9% flush 0.5-20 mL, 0.5-20 mL, intra-catheter, Q8H PAM ??? sodium chloride 0.9% flush 0.5-20 mL, 0.5-20 mL, intra-catheter, PRN ??? terbutaline (BRETHINE) injection 0.125 mg, 0.125 mg, intravenous, Once PRN OR terbutaline (BRETHINE) injection 0.25 mg, 0.25 mg, subcutaneous, Once PRN ??? tranexamic acid (CYKLOKAPRON) 1,000 mg/100 mL (10 mg/mL) in sodium chloride (premix) 1,000 mg, 1,000 mg, intravenous, Once PRN Social History Tobacco Use Smoking Status Never Smoker Smokeless Tobacco Never Used Substance and Sexual Activity Alcohol Use Yes Substance and Sexual Activity Drug Use No Family History Problem Relation Age of Onset ??? No Known Problems Father ??? No Known Problems Mother ??? Diabetes Other Great-Grandfather Vitals: 05/19/21 0831 BP: 127/74 Pulse: 96 Resp: 17 Temp: 37 ??C (98.6 ??F) PT: No results found for requested labs within last 720 hours. INR: No results found for requested labs within last 720 hours. APTT: No results found for requested labs within last 720 hours. Hgb A1C: No results found for requested labs within last 720 hours. CBC RBC: 05/19/2021: 4.49 M/cumm RDW: 05/02/2021: 12.3 % MCHC: 05/19/2021: 33.6 g/dL MCH: 05/19/2021: 29.0 pg MCV: 05/19/2021: 86.2 fL Hct: 05/19/2021: 38.7 % Hgb: 05/19/2021: 13.0 g/dL WBC: 05/19/2021: 9.8 K/cumm MPV: 05/19/2021: 12.8 fL (H) Platelets: 05/19/2021: 162 K/cumm RDW CV: 05/19/2021: 12.8 % RDW Sd: 05/19/2021: 39.9 fL BMP Glucose: No results found for requested labs within last 720 hours. Calcium: No results found for requested labs within last 720 hours. Sodium: No results found for requested labs within last 720 hours. Potassium: No results found for requested labs within last 720 hours. CO2: No results found for requested labs within last 720 hours. Chloride: No results found for requested labs within last 720 hours. BUN: No results found for requested labs within last 720 hours. Creatinine: No results found for requested labs within last 720 hours. DOS Physical Exam Medical history, medications, and allergies reviewed. Attestation: This PAT evaluation Airway Exam: Mallampati: II Cervical ROM: FROM Cardiovascular Exam: Rate: regular Rhythm: regular Pulmonary Exam: LCTA, bilat EENT Exam: trachea midline Skin Exam: Skin is warm. Anesthesia Plan ASA 2 My patient is approved for the Anesthesia Controlled Medication protocol when under care of a PROTOTYPE SEWER Planned anesthesia: Epidural Informed Consent: Discussed plan with resident. Anesthesia plan and risks discussed with patient. Plan and Consent Comments: Discussed risks, benefits, alternatives to neuraxial anesthesia, including but not limited to PDPH,risk of prolonged or permanent numbness/weakness/paralysis, nausea, aspiration, bleeding, infection, possible need to convert to GETA. Pt voiced understanding and acceptance of risks. Consent and Attending signature: I and/or my designee have discussed the anesthesia plan, benefits, possible alternatives, parental presence at time of induction (if indicated), and clinically relevant risks that may include dental injury, unintentional awareness, and/or other complications. The patient and/or parent/legal guardian understand, and agree to proceed. All questions answered. documented in this encounter Plan of Treatment Not on file documented as of this encounter Procedures Procedure Name Priority Date/Time Associated Diagnosis Comments ANESTHESIA EPIDURAL BLOCK Routine 05/19/2021 10:41 AM CDT documented in this encounter Results * Epidural Block (05/19/2021 10:41 AM CDT) Narrative Laverne Laguerre MD - 05/19/2021 10:41 AM CDT Laverne Laguerre MD ? 05/19/2021 10:41 AM Epidural Block Patient location: L&D Reason for block: labor analgesia Staff: Supervising provider: Chris Katz MD Placed by: Resident: Laverne Laguerre MD Procedure prep: Preprocedure checklist: patient identified, procedure contraindications assessed, procedure consent obtained, surgical consent, IV checked, risks, benefits and alternatives discussed, monitors and equipment checked and timeout performed Patient Position: sitting Procedure performed while patient: awake Monitoring: ECG, blood pressure and oximetry Prep solution: chlorhexadine/alcohol PPE: sterile gloves, sterile drape and provider hat/mask Skin infiltrated with lidocaine 1%: yes Epidural: Approach: midline Imaging guidance used: no Location: L4-5 Number of attempts:1 Epidural needle: Injection technique: CASSIUS saline Needle type: Tuohy Needle gauge: 17 G Needle length: 9 cm Loss of resistance: 5 cm Catheter: Catheter type: multi-orifice. Catheter at skin depth: 10 cm Negative aspiration of blood: no Negative aspiration of CSF: no Test dose: negative Assessment: Sensory level - left: full eval pending Sensory level - right: full eval pending Events: patient tolerated procedure well with no complications Chris Katz MD ANESTHESIA ORDERABLES Final Res ult documented in this encounter Visit Diagnoses Not on filedocumented in this encounter Administered Medications Inactive Administered Medications - up to 3 most recent administrations Medication Order MAR Action Action Date Dose Rate Site bupivacaine (MARCAINE) 10 mL in sodium chloride 0.9% 20 mL epidural epidural, Continuous PRN, Starting on Mayuri 05/19/21 at 2025, Anesthesia Intra-op New Bag 05/19/2021 8:25 PM CDT 10 mL fentaNYL-bupivacaine preservative free in 0.9% sodium chloride [...] 10:14 AM CDT 10 mL/hr 10 mL/hr lidocaine-EPINEPHrine (XYLOCAINE with EPI) 1.5 %-1:200,000 preservative free injection epidural, As needed, Starting on Mayuri 05/19/21 at 1012, Anesthesia Intra-op, Indications: Administration of Local AnesthesiaIndications:Administration of Local Anesthesia Given 05/19/2021 10:12 AM CDT 3 mL documented in this encounter Care Teams Staffing Assistant Relationship Specialty Start Date End Date No, Physician PCP - General 05/14/19 01/01/24 documented as of this encounter
--- OUTSIDE RECORDS SUMMARY | 2024-08-09 10:44 | XMS_ITS | Encounter Summary ---
Author Organization [facility] Address [address] [place] [address] Care Team Providers Care Recycling Collections Driver Name Role Phone No, Physician Primary Care Provider [phone] Encounter Details Date Type Department Care Team (Late st Contact Info) Description 05/14/2021 Orders Only [facility] Testing Site - [facility]. 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 Date of Px/chemo/treatment/placement/transfer 05/19/2021 ?? Testing site patient will be sent to: [place], [place] ?? Date testing requested: 05/15/2021 ?? Testing: COVID-19 RNA ?? Is this the first COVID-19 test for this patient? Unknown ?? Does the patient currently work in a healthcare facility with direct patient contact? Unknown ?? Is the patient a resident of a congregate care or living setting? No ?? Is the patient ? Yes ?? Please select the performing region: [facility] documented in this encounter Plan of Treatment Not on file documented as of this encounter Results * COVID-19 Coronavirus RNA Nasopharyngeal (05/16/2021 12:40 PM CDT) COVID-19 RNA Not Detected [facility] ([place]) Comment: Interpretive Data Synonyms for this test include: PCR and NAAT . ??Testing performed by the [facility] Molecular Infectious Disease Laboratory. The 2019-Novel Coronavirus Assay (COVID-19) Real Time RT-PCR assay is for in vitro diagnostic use under FDA emergency use authorization only. A negative RT-PCR result does not preclude infection with COVID-19 and should not be used as the sole basis for treatment or other patient management decisions. ??Additional sample types have been validated according to CLIA regulations. ?? Current Interpretive Data was last revised on September 09, 2020. Testing performed by: [facility], [address] [place]., [address] First COVID-19 test? Unknown [facility] ([place]) Comment:Testing performed by : [facility], [address] [place] [address], [place]., [address] Employeed in healthcare? Unknown [facility] ([place]) Comment:Testing performed by : [facility], [address] [place]., [address] status? Yes [facility] ([place]) Comment:Testing performed by : [facility], [address] [place]., [address] Group care resident? No [facility] ([place]) Comment:Testing performed by : [facility], [address] [facility], [address] Hospitalized? No [facility] ([place]) Comment:Testing performed by : [facility], [address] [facility], [address] Is patient in ICU? No [facility] ([place]) Comment:Testing performed by : [facility], [address] [facility], [address] Symptomatic as defined by CDC? No [facility] ([place]) Comment:Testing performed by : [facility], [address] [facility], [address] Nasopharyngeal 05/16/2021 12 :40 PM CDT 05/16/2021 7:16 PM CDT Narrative [facility] ([place]) - 05/17/2021 3:09 AM CDT What is the reason for testing?->Screening prior to scheduled procedure or surgery (batch) Katia Arce MD LAB MICROBIOLOGY - [facility] ORDERABLES Final Result [facility] ([place]) [address] [facility] Department [place] [address] documented in this encounter Visit Diagnoses Diagnosis Pre-procedure lab exam- Primary Pre-procedural laboratory examination Pre-procedure lab exam Pre-procedural laboratory examination documented in this encounter Care Teams Recycling Collections Driver Relationship Specialty Start Date End Date No, Physician PCP - General 05/14/19 01/01/24 documented as of this encounter
--- OUTSIDE RECORDS SUMMARY | 2024-08-09 10:44 | XMS_ITS | Encounter Summary ---
Author Organization [facility] Healthcare Address [address] [place] [address] Care Team Providers Care Tank Cleaner Name Role Phone Bonilla Byrd MD Primary Care Provider [phone] Encounter Details Date Type Department Care Team ([facility] st Contact Info) Description 06/06/2024 Telephone [facility] [place] [address] [place] [address] Zita Penaloza MA Social History Tobacco Use Types Packs/Day Years Used Date Smoking Tobacco: Never Smokeless Tobacco: Never Alcohol Use Standard Drinks/Week Comments Yes 0 (1 standard drink = 0.6 oz pur e alcohol) [facility] Utilities Answer Date Recorded In the past 12 months has [facility] [employer], gas, oil, or water [employer] threatened to shut off services in your [...] often do you attend chur ch or baptist services? Never 01/02/2024 Do you belong to any clubs o r organizations such as scientology groups, unions, fraternal or athletic groups, or [...] staff should administer the PHQ-9) 0 [facility]2024 [facility] Occupational Stress Questionnaire Answer Date [...] in the past 12 m [facility], were you homeless or living in a alf (including now)? No 01/02/2024 Personal Safety Answer Date Recorded Have you ever been in or are you currently in a harmful physical or emotional relationship or is someone making you feel afraid or unsafe? 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 She has no further questions at this time. * Telephone Encounter - Zita Penaloza MA - 06/06/2024 3:25 PM CDT ----- Message from Shavon Silva NP sent at 06/06/2024 2:12 PM CDT ----- Please call patient and let her know that throat culture was negative for infection documented in this encounter Plan of Treatment Not on file documented as of this encounter Visit Diagnoses Not on filedocumented in this encounter Care Teams Tank Cleaner Relationship Specialty Start Date End [place] [address] PCP - General Family Medicine 01/02/24 documented as of this encounter
--- OUTSIDE RECORDS SUMMARY | 2024-08-09 10:44 | XMS_ITS | Encounter Summary ---
Author Organization [facility] Healthcare Address [address] [place] [id number] Care Team Providers Care Belly Roller Name Role Phone Bonilla Byrd MD Primary Care Provider [phone] Encounter Details Date Type Department Care Team (Late st Contact Info) Description 01/02/2024 Documentation [facility] Warm Hand Off Program [address] [place], [place] [phone] Meeta Finney LCSW Social History Tobacco Use Types Packs/Day Years Used Date Smoking Tobacco: Never Smokeless Tobacco: Never Alcohol Use Standard Drinks/Week Comments Yes 0 (1 standard drink = 0.6 oz pur e alcohol) [facility] Utilities Answer Date Recorded In the past 12 months has [email or web address], gas, oil, or water [employer] threatened to shut off services in your [...] 01/02/2024 How often do you attend chur or advent services? Never 01/02/2024 Do you belong to any clubs o r organizations such as cheondoism groups, unions, fraternal or athletic groups, or [...] staff should administer the PHQ-9) 0 01/02/2024 [facility] ional [facility] - [...] any time in the past 12 m [facility], were you homeless or living in a care home (including now)? No 01/02/2024 Personal Safety Answer Date Recorded Have you ever been in or are you currently in a harmful physical or emotional relationship or is someone making you feel afraid or unsafe? 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 Byrd. SW explained the SBIRT program to Pt and asked if she would mind if I did an assessment/screening to determine any mental health concerns or substance use disorders. Screening What screening methods were used? Pt agreed to the screening and this SW proceeded to engage the PHQ-2/9, MH AUDIT, and DAST-10. What were the results of the screening methods? Pt scored a 0 on PHQ2/9. PHQ 9 Scoring Scale 0-4 = None-Minimal 5-9 = Mild (watchful waiting; repeat PHQ 9 at follow-up) 10-14 = Moderate (Treatment plan, consider counseling, follow-up and/or pharmacotherapy) 15-19 = Moderately Severe (Active treatment with pharmacotherapy and/or psychotherapy) 20-27 = Severe (Immediate initiation of pharmacotherapy and, if severe impairment or poor response to therapy, expedited referral to a mental health specialist for psychotherapy and/or collaborative management) *From Carissa Darling, Laura RL, Psychiatric Annals 2002; 32:509-521 Pt scored a 2 on the AUDIT AUDIT Scoring Scale A score of 8 or more is associated with harmful or hazardous drinking, a score of 13 or more in women, and 15 or more in men, is likely to indicate alcohol dependence. Pt score on DAST-10 was 1, indicating low level drug use. Pt reported she might occasionally use marijuana (vape) to be social. Pt was offered career technical counselor on the dangers of smoking anything, plus the effects marijuana can have on one's physical and emotional health. Pt denied any problems r/t her marijuana use. DAST Scoring Scale Scoring: Score 1 point for each question answered ???Yes,?? except for question 3 for which a ???No?? receives 1 point. Score Degree of Problems Related to Drug Abuse Suggested Action 0 No problems reported None at this time 1-2 Low level Monitor, re-assess at a later date 3-5 Moderate level Further investigation 6-8 Substantial level Intensive assessment 9-10 Severe level Intensive assessment Brief Intervention What was discussed with the patient? What stage of change are they in? What are some barriers to treatment? Pt presents to [facility] to establish care with Dr. Byrd. Pt was neat and clean, personable, and cooperative. Pt's affect and behavior were appropriate. Pt denied any hx. Of abuse, trauma, or neglect. Ptdenied any SI/HI/self-harm. Pt noted that she is and has children. 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 Pt continuedthat she enjoys hobbies such as exercise, gardening, shopping and activities w/ her family. Pt confirmed that she has a good support system and people that she feels comfortable talking with if she feels down. Pt appears to be managing her mental health well. Barriers to change include - none identified at this time. Referral to Treatment What are the next steps? What is the treatment plan? When is their appointment? What resources were given? Pt's alcohol use does not seem to be problematic, nor does Pt's marijuana use. SW reminded Pt that alcoholism/addiction is a progressive disease, as well as the impact alcohol and marijuana can have on one's physical and emotional health. Additionally, SW reminded Pt of high-risk behaviors, including but not limited to driving under the influence of alcohol or other drugs. Pt acknowledge understanding. Based on the scores of Pt's screenings, she is a candidate for the SBIRT program. SW engaged Pt in brief intervention as scoring dictated and Pt appeared responsive acknowledging the information offered. Pt was encouraged to reach out to this SW or another health care provider if she ever wanted orneeded to talk through any difficult feelings. Pt was given SW business card and she agreed to understand. SW completed the screening tools, BI and BI-DC GPRA. SW will scan to [facility] and [facility]. Social Determinants of Health Tobacco Use: Smoking Tobacco Use: NO Smokeless Tobacco Use: NO Passive Exposure: Not on file E-cig/vape: NO Alcohol Use: yes Drug Use: low level Financial Resource Strain: How hard is it for you to meet your basic needs: food, housing, medical,utilities Difficulty of Paying Living Expenses: Never Food Insecurity: In the last 12 months have you had worry that you would run out of food b/f you had enough money to buy more? Never In the last 12 months have you bought just enough food to last but ran out b/f you had the funds tobuy more? Never Transportation Needs: Unmet Transportation Needs in the last 12 months Lack of Transportation (Medical): NO Lack of Transportation (Non-Medical): NO Physical Activity: moderate Stress: moderate Social Connections: In a typical week how often to do you talk on the phone w/ family, friends, neighbors? daily How often do you get together w/ family, friends, neighbors? daily How often do you attend cheondoism services? never Do you belong to any groups, organization, fraternities, or clubs? NO How often do you attend meetings of these organizations/groups? never Are you , , , , never , or living w/a life partner? Intimate Partner Violence: No Depression: Not at risk PHQ-2 Score: 0 Housing Stability: in the last 12 months was there a time when you were not able to pay your rent or mortgage? Never In the past 12 months have you had to sleep outdoors in a care home or otherwise NOT had a safe pl[place]o sleep/care home? Never documented in this encounter Plan of Treatment Not on file documented as of this encounter Visit Diagnoses Not on filedocumented in this encounter Care Teams Belly Roller Relationship Specialty Start Date End [place] [id number] PCP - General Family Medicine 01/02/24 documented as of this encounter
--- OUTSIDE RECORDS SUMMARY | 2024-08-09 10:44 | XMS_ITS | Encounter Summary ---
Author Organization [facility] Healthcare Address [address] [place] [address] Care Team Providers Care Technical Editor Name Role Phone Bonilla Byrd MD Primary Care Provider [phone] Reason for Visit * Reason Comments New Patient Establish Care Encounter Details Date Type Department Care Team ([facility] st Contact Info) Description 01/02/2024 10:30 AM CDT Office Visit [facility] [address] [place] [address] Bonilla Byrd MD [address] [place] [address] Postnasal drip (Primary Dx); Need for hepatitis B screening test; Encounter for hepatitis C screening test for low risk patient; Lipid screening Social History Tobacco Use Types Packs/Day Years Used Date Smoking Tobacco: Never Smokeless Tobacco: Never Alcohol Use Standard Drinks/Week Comments Yes 0 (1 standard drink = 0.6 oz pur e alcohol) [facility] Utilities Answer Date Recorded In the past 12 months has [employer], gas, oil, or water [email or web address] threatened to shut off services in your [...] often do you attend chur ch or latter day services? Never 01/02/2024 Do you belong to any clubs o r organizations such as mandaeism groups, unions, fraternal or athletic groups, or [...] staff should administer the PHQ-9) 0 01/02/2024 [facility] Occupat ional Health - Occupational Stress [...] any time in the past 12 m [facility], were you homeless or living in a residential (including now)? No 01/02/2024 Personal Safety Answer Date Recorded Have you ever been in or are you currently in a harmful physical or emotional relationship or is someone making you feel afraid or unsafe? 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 Gender Identity Female 01/27/2021 1:35 PM CDT Sexual Orientation Straight 01/27/2021 1: 35 PM CDT documented as of this encounter Last Filed Vital Signs Vital Sign Reading Time Taken Comments Blood Pressure 112/70 01/02/2024 10:26 AM CDT Pulse 75 01/02/2024 10:26 AM CDT Temperature 36.8 ??C (98.2 ??F) 01/02/2024 10:26 AM C DT Respiratory Rate 18 01/02/2024 10:26 AM CDT Oxygen Saturation 98% 01/02/2024 10:26 AM CDT Inhaled Oxygen Concentration - - Weight 68.9 kg (152 lb) 01/02/2024 10:26 AM CDT Height 160 cm (5' 3 ) 01/02/2024 10:26 AM CDT Body Mass Index 26.93 01/02/2024 10:26 AM CDT documented in this encounter Ordered Prescriptions Prescription Sig Dispense Quantity Refills Last Filled Start Date End Date fluticasone propionate (FLONASE) 50 mcg/actuation nasal spray Administer 2 sprays into each nostril daily 3 each 4 01/02/2024 documented in this encounter Progress Notes * Bonilal Byrd MD - 01/02/2024 10:30 AM CDT Images from the original note were not included. Subjective/Objective Patient ID: Silvia Persaud is a 28 y.o. female. Chief Complaint Chief Complaint Patient presents with New Patient Establish Care Diagnoses and all orders for this visit: Postnasal drip (Primary) Assessment & Plan: Not well controlled; thick mucus in back of throat, symptoms worse at night, causing issues such aswaking up and coughing, pain in the back of the head and frontal sinuses No relief with OTC antihistamine Will start Flonase 2 sprays each nostril 1-2 times daily for symptom relief Need for hepatitis B screening test - Hepatitis B Surface Antigen Blood; Future - Hepatitis B core antibody, total Blood; Future - Hepatitis B surface antibody (immune status) Blood; Future Encounter for hepatitis C screening test for low risk patient - Hepatitis C antibody Blood; Future Lipid screening - Lipid panel; Future - CBC with auto differential; Future - Comprehensive metabolic panel; Future Other orders - fluticasone propionate (FLONASE) 50 mcg/actuation nasal spray; Administer 2 sprays into each nostril daily Return in about 2 months (around 03/03/2024). HPI HPI Patient is a 28 year old female, presenting for management of chronic medical conditions. Has been having new post-nasal drip,l thick mucous into back of throat -causing issues, worse at night -has been having sinus issues over the past 6 months -worse in back of head and frontal sinuses -has been taking zyrtec daily with no relief Enlarged Lymph Node -has resolved, since urgent care Diet: General diet; eats everything, meats, vegetables, fruits grain Exercis: -daily exercise BP 112/70 (BP Location: Left arm, Patient Position: Sitting) Pulse 75 Temp 36.8 ??C (98.2 ??F) (Oral) Resp 18 Ht 160 cm (5' 3 ) Wt 68.9 kg (152 lb) SpO2 98% BMI 26.93 kg/m?? Current Outpatient Medications Medication Sig Dispense Refill drospirenone-ethinyl estradioL (RONNA,GIANVI) 3-0.02 mg per tablet TAKE 1 TABLET BY MOUTH EVERY DAY FOR 90 DAYS fluticasone propionate (FLONASE) 50 mcg/actuation nasal spray Administer 2 sprays into each nostrildaily 3 each 4 No current facility-administered medications for this visit. Allergies as of 01/02/2024 (No Known Allergies) Review of Systems Constitutional: Negative for activity change, appetite change, chills, fatigue, fever and unexpected weight change. HENT: Positive for congestion, postnasal drip, sinus pressure and sinus pain. Negative for hearing loss, rhinorrhea and sore throat. Eyes: Negative for visual disturbance. Respiratory: Negative for cough, chest tightness, shortness of breath and wheezing. Cardiovascular: Negative for chest pain. Gastrointestinal: Negative for abdominal pain, constipation, diarrhea, nausea and vomiting. Endocrine: Negative for cold intolerance, heat intolerance, polydipsia and polyuria. Genitourinary: Negative for difficulty urinating, dysuria, frequency and menstrual problem. Musculoskeletal: Negative for myalgias. Allergic/Immunologic: Positive for environmental allergies. Neurological: Positive for headaches. Negative for dizziness, weakness and numbness. Psychiatric/Behavioral: Negative for agitation, dysphoric mood, sleep disturbance and suicidal ideas. The patient is nervous/anxious. Breast: Negative for tenderness and lump(s). Physical Exam Vitals reviewed. Constitutional: Appearance: Normal appearance. HENT: Head: Normocephalic and atraumatic. Cardiovascular: Rate and Rhythm: Normal rate and regular rhythm. Pulses: Normal pulses. Heart sounds: Normal heart sounds. Pulmonary: Effort: Pulmonary effort is normal. Breath sounds: No wheezing, rhonchi or rales. Abdominal: General: Abdomen is flat. Palpations: Abdomen is soft. Musculoskeletal: General: No swelling or signs of injury. Normal range of motion. Skin: General: Skin is warm and dry. Neurological: General: No focal deficit present. Mental Status: She is alert and oriented to person, place, and time. Psychiatric: Mood and Affect: Mood normal. Behavior: Behavior normal. Thought Content: Thought content normal. Procedures Bonilla Byrd MD documented in this encounter Miscellaneous Notes * Assessment & Plan Note - Bonilla Byrd MD - 01/08/2024 3:39 PM CDT Associated Problem(s): Postnasal drip (Resolved 07/08/2024) Not well controlled; thick mucus in back of throat, symptoms worse at night, causing issues such aswaking up and coughing, pain in the back of the head and frontal sinuses No relief with OTC antihistamine Will start Flonase 2 sprays each nostril 1-2 times daily for symptom relief documented in this encounter Plan of Treatment Scheduled Orders Name Type Priority Associated Diagnoses Orde r Schedule Hepatitis B core antibody, total Blood Microbiology Routine Need for hepatitis B screening test Expected: 01/02/2024, Expires: 12/31/2024 Hepatitis B surface antibody (immune status) Blood Microbiology Routine Need for hepatitis B screening test Expected: 01/02/2024, Expires: 12/31/2024 Lipid panel Lab Routine Lipid screening Expected: 01/02/2024, Expires: 12/31/2024 CBC with auto differential Lab Routine Lipid screening Expected: 01/02/2024, Expires: 12/31/2024 Comprehensive metabolic panel Lab Routine Lipid screening Expected: 01/02/2024, Expires: 12/31/2024 documented as of this encounter Visit Diagnoses Diagnosis Postnasal drip- Primary Need for hepatitis B screening test Encounter for hepatitis C screening test for low risk patient Lipid screening Screening for lipoid disorders documented in this encounter Discontinued Medications Medication Sig Discontinue Reason Start Date End Da te butalbital-acetaminophe n-caffeine (ESGIC) 50-325-40 mg per tabletIndications:Tensi on-Type Headache Take 1 tablet by mouth every 4 (four) hours as needed for headaches Collaborating physician Steven Treadwell MD 09/01/2023 01/02/2024 cyclobenzaprine (FLEXERIL) 10 mg tabletIndications:Tensi on headache Take 1 tablet (10 mg total) by mouth nightly Take 1 hour before bedtime each night to help relax muscles and help relieve tension headache. Collaborating physician Steven Treadwell MD 09/01/2023 01/02/2024 cyclobenzaprine (FLEXERIL) 5 mg tabletIndications:Jaw pain Take 1 tablet (5 mg total) by mouth 3 (three) times a day as needed for muscle spasms 10/29/2023 01/02/2024 ofloxacin (OCUFLOX) 0.3 % ophthalmic solutionIndications:Emily terial conjunctivitis of both eyes instill 1 or 2 drops in affected eye(s) every 2 to 4 hours for 2 days, then 1 to 2 drops 4 times daily on days 3 through 7 05/27/2023 01/02/2024 spironolactone (ALDACTONE) 25 mg tablet Take 4 tablets (100 mg total) by mouth daily 09/29/2023 01/02/2024 documented as of this encounter Care Teams Technical Editor Relationship Specialty Start Date End [place] [id number] PCP - General Family Medicine 01/02/24 documented as of this encounter
--- OUTSIDE RECORDS SUMMARY | 2024-08-09 10:44 | XMS_ITS | Encounter Summary ---
Author Organization [facility] Address [address] [place] [address] Phone Care Team Providers Care Material Flow Engineer Name Role Phone Bonilla Byrd MD Primary Care Provider [phone] Reason for Referral * Diagnostic Imaging (Routine) - Pending Review Specialty Diagnoses / Procedures Referred By Contac t Referred To Contact Diagnoses Supervision of other normal , antepartum Procedures US Ob Under 14 [place] [address] [place] [id number] Phone: tel: fax: [facility] (All Locations) Referral ID Status Reason Start Date Expiration Date V isits Requested Visits Authorized [id number] Pending Review 07/24/2024 08/23/2025 1 1 DEVELOPER * Diagnostic Imaging (Routine) - Pending Review Specialty Diagnoses / Procedures Referred By Contac t Referred To Contact Diagnoses Supervision of other normal , antepartum Procedures US Ob 14 Weeks Or Over Tank Babcock MD [address] [address] Phone: tel: fax: [facility] (All Locations) Referral ID Status Reason Start Date Expiration Date V isits Requested Visits Authorized [id number] Pending Review 07/24/2024 08/23/2025 1 1 DEVELOPER Reason for Visit * Reason Comments Initial Visit Encounter Details Date Type Department Care Team (Late st Contact Info) Description 07/24/2024 8:45 AM RISK DEVELOPER Office Visit [facility] Obstetrics and Gynecology [address] [facility] 7th [address] [place] [address] Supervision of other normal , antepartum (Primary Dx); 7 weeks gestation of Social History Tobacco Use Types Packs/Day Years Used Date Smoking Tobacco: Never Smokeless Tobacco: Never Tobacco Cessation:Counseling Given: Not Answered Alcohol Use Standard Drinks/Week Comments Yes 0 (1 standard drink = 0.6 oz pur e alcohol) [facility] Utilities Answer Date Recorded In the past 12 months has e [employer], gas, oil, or water [email or web address] threatened to shut off services in your [...] often do you attend chur ch or sabianist services? Never 01/02/2024 Do you belong to any clubs o r organizations such as shinto groups, unions, fraternal or athletic groups, or [...] staff should administer the PHQ-9) 0 01/02/2024 [facility] - Occupational [...] any time in the past 12 m [facility], were you homeless or living in a intermediate (including now)? 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 [employer] Not on file Not on file Not on file documented as of this encounter Last Filed Vital Signs Vital Sign Reading Time Taken Comments Blood Pressure 111/72 07/24/2024 8:54 AM RISK DEVELOPER Pulse - - Temperature - - Respiratory Rate - - Oxygen Saturation - - Inhaled Oxygen Concentration - - Weight 71.7 kg (158 lb) 07/24/2024 8:54 AM RISK DEVELOPER Height 160 cm (5' 3 ) 07/24/2024 8:54 AM RISK DEVELOPER Body Mass Index 27.99 07/24/2024 8:54 AM RISK DEVELOPER documented in this encounter Progress Notes * Tank Babcock MD - 07/24/2024 8:45 AM CST [employer] Initial Obstetrics Progress Note Subjective: Silvia Persaud is a 29 y.o. female at 7w3d weeks gestation (dated by 7w3d US, Estimated Dateof Delivery: 03/09/2024) who is an an established patient presenting for an initial obstetrics visit.She is accompanied by her , Franki. This is a planned and desired . This isuncomplicated. She offers no concerns today. I have reviewed and updated: OB history, Quality Control Director history, problem list, past medical history, past surgical history, family history, social history, current medications, allergies, review of systems. Please see appropriate sections for relevant information. Objective: Please see Vitals & Physical Exam in Episode Tab TVUS to confirm viability and dating performed. Please see imaging report for complete details. Exam & TVUS Chaperoned by: Randal James Assessment/Plan: Diagnoses and all orders for [...] gestation of Results will be communicated via [employer]. Return to clinic in 5 weeks. Advised to contact office with any questions or concerns or present toWAC with any emergent issues. DEVELOPER * Pérez Ventura RN - 07/24/2024 8:45 AM CST Met with Silvia Persaud today for initial/first trimester visit teaching. Discussed the practice reviewed that group is comprised of 1 male physician, 6 female physicians, and 3 female nurse practitioners. Reviewed safe medications, appropriate diet, exercise/activity, travel, animals and vaccinations. Pt had specific questions that were answered appropriately. Desires cfDNA DEVELOPER documented in this encounter Miscellaneous Notes * Assessment & Plan Note - Tank Babcock MD - 07/24/2024 9:34 AM RISK DEVELOPER Associated Problem(s): Supervision of other normal , antepartum - TVUS for dating and viability completed [...] US ordered - First visit education today DEVELOPER DEVELOPER * Addendum Note - Randal James CMA - 07/24/2024 8:45 AM CSTAddended by: RANDAL JAMES on: 07/24/2024 10:17 AM Modules accepted: Orders DEVELOPER documented in this encounter Plan of Treatment Scheduled Orders Name Type Priority Associated Diagnoses Order Schedule US Ob 14 Weeks Or Over Imaging Schedule Routine, Read Routine (OP Routine) Supervision of other normal , antepartum Expected: 10/16/2024 (Approximate), Expires: 07/24/2025 ABO/Rh Lab Routine Supervision of other normal , antepartum Expected: 07/27/2024, Expires: 07/24/2025 Antibody screen Lab Routine Supervision of other normal , antepartum Expected: 07/24/2024, Expires: 07/24/2025 CBC without differential Lab Routine Supervision of other normal , antepartum Expected: 07/24/2024 (Approximate), Expires: 07/24/2025 HIV 1/2 Antibody plus p24 Antigen Blood Microbiology Routine Supervision of other normal , antepartum Expected: 07/24/2024, Expires: 07/24/2025 RPR Blood Microbiology Routine Supervision of other normal , antepartum Expected: 07/24/2024, Expires: 07/24/2025 Hepatitis B Surface Antigen Blood Microbiology Routine Supervision of other normal , antepartum Expected: 07/24/2024 (Approximate), Expires: 07/24/2025 Hepatitis C antibody Blood Microbiology Routine Supervision of other normal , antepartum Expected: 07/24/2024, Expires: 07/24/2025 Rubella IgG antibody Blood Microbiology Routine Supervision of other normal , antepartum Expected: 07/24/2024 (Approximate), Expires: 07/24/2025 Varicella Zoster IgG antibody Blood Microbiology Routine Supervision of other normal , antepartum Expected: 07/24/2024 (Approximate), Expires: 07/24/2025 Pap with reflex to High Risk HPV and Genotyping (Cytology Component) Pathology and Cytology Routine Supervision of other normal , antepartum Expected: 07/24/2024, Expires: 07/24/2025 documented as of this encounter Procedures Procedure Name Priority Date/Time Associated Diagnosis Comments POCT URINALYSIS DIPSTICK Routine 07/24/2024 10:16 AM RISK DEVELOPER Supervision of other normal , antepartum SURESWAB(R), CT/NG, T VAGINALIS Routine 07/24/2024 10:04 AM RISK DEVELOPER Supervision of other normal , antepartum URINALYSIS AND REFLEX TO MICROSCOPIC Routine 07/24/2024 10:04 AM RISK DEVELOPER Supervision of other normal , antepartum URINE CULTURE Routine 07/24/2024 10:04 AM RISK DEVELOPER Supervision of other normal , antepartum US OB UNDER 14 WEEKS W ENDOVAGINAL Schedule Routine, Read Routine (OP Routine) 07/24/2024 9:38 AM RISK DEVELOPER Supervision of other normal , antepartum documented in this encounter Results * POCT urinalysis dipstick (07/24/2024 10:16 AM RISK DEVELOPER) Color, Urine, POC Yellow Clarity, ur, POC Clear Clear Glucose, ur, POC Negative Negative MG/DL Bilirubin, ur, POC Negative Negative, Small, Moderate, Large Ketones, ur, POC Negative Negative Specific [place], POC 1.010 1.003 - 1.030 Blood, ur, POC Negative Negative pH, ur, POC 5.0 5.0 - 8.0 Protein, ur, POC Negative Negative Urobilinogen, urine, POC 0.2 0.2 - 1.0 mg/dL Nitrite, ur, POC Negative Negative Leukocytes, ur, POC Negative Negative Lot Number [id number] Urine 07/24/2024 10:1 6 AM RISK DEVELOPER us Tank Babcock MD POINT OF CARE TEST ORDERA BLES Final Result * Urine culture Urine, clean voided (07/24/2024 10:04 AM RISK DEVELOPER) [facility]rine culture [facility] Comment: ??CULTURE, URINE, ROUTINE ?Micro Number: ?[id number] ??Test Status: ? Final ??Specimen Source: ?? Urine, clean catch ??Specimen Quality: ??Adequate ??Result: ?No Growth Urine, clean voided 07/24/2024 10:04 AM RISK DEVELOPER 07/25/2024 12:26 AM RISK DEVELOPER us Tank Babcock MD LAB MICROBIOLOGY - GENERA L ORDERABLES Final Result [facility] [address] [place] [address] * Urinalysis reflex to microscopic (07/24/2024 10:04 AM RISK DEVELOPER) Color, ur YELLOW YELLOW [facility] Appearance, ur CLEAR CLEAR [facility] Specific gravity 1.008 1.001 - 1.035 [facility] pH, ur 7.5 5.0 - 8.0 [facility] [...] t Michael Urine 07/24/2024 10:0 4 AM RISK DEVELOPER 07/25/2024 12:26 AM RISK DEVELOPER Tank Babcock MD LAB URINE ORDERABLES Luisa buchanan Result [facility] [address] [place] [address] * SURESWAB(R), CT/NG, T VAGINALIS (07/24/2024 10:04 AM RISK DEVELOPER) C. trachomatis RNA NOT DETECTED NOT DETECTED [facility] N. gonorrhoeae RNA NOT DETECTED NOT DETECTED [facility] Comment [facility] Comment: The analytical performance characteristics of this assay, when used to test SurePath(TM) specimens have been determined by [facility]. The modifications have not been cleared or approved by the FDA. This assay has been validated pursuant to the CLIA regulations and is used for clinical purposes. For additional information, please refer to https://education.[employer]/faq/JEH821 (This link is being provided for information/ educational purposes only.) Trichomonas vaginalis NOT DETECTED NOT DETECTED [facility] Comment: For additional information, please refer to http://education.[employer]/ faq/Trichomonastma (This link is being provided for informational/ educational purposes only.) Endocervical/vag inal 07/24/2024 10:04 AM RISK DEVELOPER 07/25/2024 12:26 AM RISK DEVELOPER us Tank Babcock MD LAB BLOOD ORDERABLES Luisa l Result [facility] [address] [address] * US Ob Under 14 Weeks W Endovaginal (07/24/2024 9:38 AM RISK DEVELOPER) Anatomical Region Laterality Modality Abdomen N/A Ultrasound Study GA Study Date Study SURYA Working SURYA (Source) Feta l Weight (Method) 7w3d 07/24/2024 03/09/2025 03/06/2025 (Las t Menstrual Period) Result Name Value Comments Heart Rate 153 bpm [place] Rump Length 1.22 cm Narrative 07/24/2024 9:40 AM RISK DEVELOPER TVUS to confirm viability and dating. Single [...] Diagnoses Diagnosis Supervision of other normal , antepartum- Primary 7 weeks gestation of documented in this encounter Historical Medications * This list may reflect changes made after this encounter. vit [id number] 27mg iron- 800 mcg-250 mg capsule Take by mouth added in this encounter Care Teams Material Flow Engineer Relationship Specialty Start Date End [place] [address] PCP - General Family Medicine 01/02/24 documented as of this encounter
--- OUTSIDE RECORDS SUMMARY | 2024-08-09 10:44 | XMS_ITS | Encounter Summary ---
Author Organization [facility] Address [address] [place] [address] Care Team Providers Care Sap Payroll Consultant Name Role Phone No, Physician Primary Care Provider [phone] Reason for Visit * Reason Comments [facility] Patient presents tod ay with eye drainage, itchy and painful eyes. Sx onset 05/25 Encounter Details Date Type Department Care Team (Late st Contact Info) Description 05/27/2023 2:30 PM CDT Office Visit [facility] [place] [address] [place] [id number] Minerva Rhoades, CLINICAL ASSOC [address] [facility] [address] [place] [address] Bacterial conjunctivitis of both eyes (Primary Dx) Social History Tobacco Use Types [...] on file Legal Sex Female 2:33 AM HOURLY ASSOCIATE Gender Identity Female 01/27/2021 1:35 PM CDT Sexual Orientation Straight 01/27/2021 1: 35 PM CDT documented as of this encounter Last Filed Vital Signs Vital Sign Reading Time Taken Comments Blood Pressure 106/66 05/27/2023 2:32 PM CDT Pulse 60 05/27/2023 2:32 PM CDT Temperature 36.6 ??C (97.8 ??F) 05/27/2023 2:32 PM CD T Respiratory Rate 16 05/27/2023 2:32 PM CDT Oxygen Saturation 98% 05/27/2023 2:32 PM CDT Inhaled Oxygen Concentration - - Weight 68.5 kg (151 lb) 05/27/2023 2:32 PM CDT Height 160 cm (5' 3 ) 05/27/2023 2:32 PM CDT Body Mass Index 26.75 05/27/2023 2:32 PM CDT documented in this encounter Patient Instructions * Patient Instructions* Minerva Rhoades, CLINICAL ASSOC - 05/27/2023 2:30 PM CDT If you have no improvement or worsening of your symptoms, please follow up with your Primary Care Provider, [facility] and or Emergency Room. I strive to provide you with EXCELLENT service. You may receive a survey after your visit today. If you cannot rate your experience as EXCELLENT, please let us know how we can improve and better meet your needs. Thank you for choosing [facility]! It was my pleasure to see you today, I hope you feel better soon! Minerva Rhoades CYTOLOGY LABORATORY MANAGER Conjunctivitis ([facility]) Conjunctivitis is inflammation (irritation) to the eye conjunctiva (clear membrane covering the white part of the eye). This causes the white of the eye to appear red or pink, which is why it is called ???pink eye.?? It can be caused by viruses, bacteria, allergies, injuries, chemicals or other eye diseases. Most ???pink eye?? (viral and bacterial) is contagious. It might affect the other eye and spread to other people. Everyone in the household should wash their hands often and not touch their eyes. After touching a ???pink eye,?? always wash your hands. Your provider will discuss isolation timeframe. Transmission of Conjunctivitis: They usually spread from an infected person to others through Close personal contact, such as touching or shaking hands The air by coughing and sneezing Touching an object or surface with germs on it, then touching your eyes before washing your hands Home Recommendations: 1. Gently clean any mucus from the eye with a soft, wet cloth. 2. Everyone in the house should frequently wash their hands often with soap and water or hand director online marketing and avoid sharing towels, blankets, etc. 3. Do not use contact lenses unless the eye doctor has approved this. Medication Recommendations: If antibiotics are prescribed (determine to be bacterial based on exam/symptoms), take as prescribed for 7 days If allergic, otc allergy eye drops may provide relief of symptoms Call your doctor or return to the emergency department if worse or: 1. Eye pain is not better or getting worse. 2. Vision is blurry. 3. Infection is not improved in 2 days. 4. Eyelid or face becomes red or swollen. 5. Fever occurs. * Attachments The following attachments cannot be sent through Care Everywhere. * Conjunctivitis (AfterCare(R) Instructions(ER/ED)) (Austrian) documented in this encounter Ordered Prescriptions Prescription Sig Dispense Quantity Refills Last Filled Start Date End Date ofloxacin (OCUFLOX) 0.3 % ophthalmic solutionIndications: Bacterial conjunctivitis of both eyes instill 1 or 2 drops in affected eye(s) every 2 to 4 hours for 2 days, then 1 to 2 drops 4 times daily on days 3 through 7 10 mL 05/27/2023 4 documented in this encounter Progress Notes * Minerva Rhoades NP - 05/27/2023 2:30 PM CDT Images from the original note were not included. Subjective/Objective Patient ID: Silvia Persaud is a 27 y.o. female. Chief Complaint [facility] (Patient presents today with eye drainage, itchy and painful eyes. Sx onset 05/25) 27 year old female patient presents today with complaints of bilateral eye pain/itchy sensation x 2days. Patient denies any falls or trauma. Denies any changes in her vision. Reports initially was left eye involved now has transferred to the right. Purulent discharge from both. Patient does wear co ntacts. Review of Systems All other systems reviewed and are negative. Physical Exam Vitals reviewed. Constitutional: Appearance: Normal appearance. She is normal weight. HENT: Head: Normocephalic. Right Ear: External ear normal. Left Ear: External ear normal. Nose: Nose normal. Mouth/Throat: Mouth: Mucous membranes are moist. Eyes: General: Lids are normal. Lids are everted, no foreign bodies appreciated. Vision grossly intact. Gaze aligned appropriately. Extraocular Movements: Extraocular movements intact. Conjunctiva/sclera: Right eye: Exudate present. No hemorrhage. Left eye: Left conjunctiva is injected. Exudate present. No hemorrhage. Cardiovascular: Rate and Rhythm: Normal rate. Pulses: Normal pulses. Pulmonary: Effort: Pulmonary effort is normal. Musculoskeletal: General: Normal range of motion. Cervical back: Normal range of motion. Skin: General: Skin is warm and dry. Capillary Refill: Capillary refill takes less than 2 seconds. Neurological: General: No focal deficit present. Mental Status: She is alert and oriented to person, place, and time. Mental status is at baseline. Psychiatric: Mood and Affect: Mood normal. Behavior: Behavior normal. Thought Content: Thought content normal. Judgment: Judgment normal. There were no vitals filed for this visit. No results found. No past medical history on file. Current Outpatient Medications: acetaminophen 500 mg capsule, Take 2 capsules (1,000 mg total) by mouth every 6 (six) hours (Patient not taking: Reported on 09/25/2022), Disp: 30 tablet, Rfl: 0 norethindrone (MICRONOR) 0.35 mg tablet, Take 1 tablet (0.35 mg total) by mouth daily, Disp: 28 tablet, Rfl: 12 polyethylene glycol (MIRALAX) 17 gram packet, Take 1 packet (17 g total) by mouth daily (Patient not taking: Reported on 09/25/2022), Disp: 30 packet, Rfl: 0 vit,ncji57-jydu-arezi (PRENATABS RX) 29 mg iron- 1 mg tablet, Take 1 tablet by mouth daily(Patient not taking: Reported on 09/25/2022), Disp: 90 tablet, Rfl: 3 No Known Allergies Social History Tobacco Use Smoking status: Never Smokeless tobacco: Never Substance and Sexual Activity Drug use: No Sexual activity: Yes Partners: Male control/protection: None Alcohol Use: Not At Risk (04/12/2021) AUDIT-C Frequency of Alcohol Consumption: Never Average Number of Drinks: Not on file Frequency of Binge Drinking: Never Past Surgical History: Procedure Laterality Date WISDOM TOOTH EXTRACTION Procedures Assessment/Plan No results found for this or any previous visit (from the past 4 hour(s)). There are no diagnoses linked to this encounter. Patient Education: Conjunctivitis ([facility]) Conjunctivitis is inflammation (irritation) to the eye conjunctiva (clear membrane covering the white part of the eye). This causes the white of the eye to appear red or pink, which is why it is called ???pink eye.?? It can be caused by viruses, bacteria, allergies, injuries, chemicals or other eye diseases. Most ???pink eye?? (viral and bacterial) is contagious. It might affect the other eye and spread to other people. Everyone in the household should wash their hands often and not touch their eyes. After touching a ???pink eye,?? always wash your hands. Your provider will discuss isolation timeframe. Transmission of Conjunctivitis: They usually spread from an infected person to others through Close personal contact, such as touching or shaking hands The air by coughing and sneezing Touching an object or surface with germs on it, then touching your eyes before washing your hands Home Recommendations: 1. Gently clean any mucus from the eye with a soft, wet cloth. 2. Everyone in the house should frequently wash their hands often with soap and water or hand director online marketing and avoid sharing towels, blankets, etc. 3. Do not use contact lenses unless the eye doctor has approved this. Medication Recommendations: If antibiotics are prescribed (determine to be bacterial based on exam/symptoms), take as prescribed for 7 days If allergic, otc allergy eye drops may provide relief of symptoms Call your doctor or return to the emergency department if worse or: 1. Eye pain is not better or getting worse. 2. Vision is blurry. 3. Infection is not improved in 2 days. 4. Eyelid or face becomes red or swollen. 5. Fever occurs. Disposition Treatment plan including expectations, follow up, and return precautions discussed with patient/parent, verbalizes understanding. Medication dosage, use, and potential adverse reactions discussed with patient/parent. Advised to follow up with PCP if symptoms do not resolve as expected or sooner if condition worsens. Signs/symptoms warranting ER evaluation reviewed. Patient and/or guardian was given an opportunity to ask questions, questions answered. Minerva Rhoades NP documented in this encounter Plan of Treatment Not on file documented as of this encounter Visit Diagnoses Diagnosis Bacterial conjunctivitis of both eyes- Primary documented in this encounter Discontinued Medications Medication Sig Discontinue Reason Start Date End Da te acetaminophen 500 mg capsuleIndications:Feve r,Pain Take 2 capsules (1,000 mg total) by mouth every 6 (six) hours 05/21/2021 05/27/2023 polyethylene glycol (MIRALAX) 17 gram packetIndications:const ipation Take 1 packet (17 g total) by mouth daily 05/21/2021 05/27/2023 vit,rgux79-kvbn-sgndx (PRENATABS RX) 29 mg iron- 1 mg tablet Take 1 tablet by mouth daily 02/10/2019 05/27/2023 documented as of this encounter Care Teams Sap Payroll Consultant Relationship Specialty Start Date End Date No, Physician PCP - General 05/14/19 01/01/24 documented as of this encounter
--- OUTSIDE RECORDS SUMMARY | 2024-08-09 10:44 | XMS_ITS | Encounter Summary ---
Author Organization [facility] Healthcare Address [address] [place] [address] Care Team Providers Care Customer Support Associate Name Role Phone Bonilla Byrd MD Primary Care Provider [phone] Reason for Visit * Reason Onset Date Comments Medical Question/Miscellaneous 01/29/2024 Encounter Details Date Type Department Care Team ([facility] st Contact Info) Description 01/29/2024 Telephone [facility] [address] [facility] [place] [address] Bonilla Byrd MD [address] [place] [address] Medical Question/Miscellaneous Social History Tobacco Use Types Packs/Day Years Used Date Smoking Tobacco: Never Smokeless Tobacco: Never Alcohol Use Standard Drinks/Week Comments Yes 0 (1 standard drink = 0.6 oz pur e alcohol) [facility] Utilities Answer Date Recorded In the past 12 months has [facility] gas, oil, or water [employer] threatened to shut off services in your [...] often do you attend chur ch or taoism services? 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 Patient stated has been using mucinex and sinus rinse for about two weeks and while on it would clear up then come back. Patient stated will try the nasal spray and see how that goes. Patient will keep us up to date. * Telephone Encounter - Janice Tejeda CMA - 01/29/2024 2:50 PM CDT Called patient and patient was seen about 4 weeks ago for new patient appointment and was having post nasal drip and was prescribed Flonase and been taking Zyrtec. Patient states that getting hard toswallow sometimes, and when try to clear throat nothing comes out and its seems very sticky of what's going down throat. Patient has increase water and staying away from dairy. Patient was wondering provider would have another ideas or would send something in it. Patient uses [facility] [place] [place]. Byrd please advise, Thank you * Telephone Encounter - Cyndee Ayers - 01/29/2024 10:02 AM CDT Medical Question/Miscellaneous Caller???s Concern: Patient is calling to notify PCP that she is still having post nasal drip and now she is having a hard time swallowing her saliva. Patient did not want to schedule an appointment and would rather speak with a nurse for next steps. Does message need to be routed? Yes-Action Needed documented in this encounter Plan of Treatment Not on file documented as of this encounter Visit Diagnoses Not on filedocumented in this encounter Care Teams Customer Support Associate Relationship Specialty Start Date End Date [place] [address] PCP - General Family Medicine 01/02/24 documented as of this encounter
--- OUTSIDE RECORDS SUMMARY | 2024-08-09 10:44 | XMS_ITS | Encounter Summary ---
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 Gender Identity Female 01/27/2021 1:35 PM CDT Sexual Orientation Straight 01/27/2021 1: 35 PM CDT documented as of this encounter Discharge Disposition Disposition Code Departure Means Destination Discharge to home or self care documented in this encounter Plan of Treatment Not on file documented as of this encounter Procedures Procedure Name Priority Date/Time Associated Diagnosis Comments COVID-19 CORONAVIRUS RNA Routine 05/16/2021 12:40 PM CDT Pre-procedure lab exam documented in this encounter Results * COVID-19 Coronavirus RNA Nasopharyngeal (05/16/2021 12:40 PM CDT) COVID-19 RNA Not Detected [facility] ([place]) Comment: Interpretive Data Synonyms for this test include: PCR and NAAT . ??Testing performed by the [facility] Molecular Infectious Disease Laboratory. The 2018-Novel Coronavirus Assay (COVID-19) Real Time RT-PCR assay [...] on September 09, 2020. Testing performed by: [address] [address] First COVID-19 test? Unknown [facility] ([place]) Comment:Testing performed by : [address], [address] Employeed in healthcare? Unknown [facility] ([place]) Comment:Testing performed by : [address], [address] status? Yes [facility] ([place]) Comment:Testing performed by : [address], [address] Group care resident? No [facility] ([place]) Comment:Testing performed by : [address] [address] Hospitalized? No [facility] ([place]) Comment:Testing performed by : [address], [address] Is patient in ICU? No [facility] ([place]) Comment:Testing performed by : [address], [address] Symptomatic as defined by CDC? No [facility] ([place]) Comment:Testing performed by : [facility], [address] [facility], [place]., [address] Nasopharyngeal 05/16/2021 12 :40 PM CDT 05/16/2021 7:16 PM CDT Narrative [facility] ([place]) - 05/17/2021 3:09 AM CDT What is the reason for testing?->Screening prior to scheduled procedure or surgery (batch) us Katia Arce MD LAB MICROBIOLOGY - [facility] ORDERABLES Final Result [facility] ([place]) [address] [facility] Department [place] [address] documented in this encounter Visit Diagnoses Diagnosis Pre-procedure lab exam Pre-procedural laboratory examination documented in this encounter Care Teams Dry Cans Back Tender Relationship Specialty Start Date End Date No, Physician PCP - General 05/14/19 01/01/24 documented as of this encounter
--- OUTSIDE RECORDS SUMMARY | 2024-08-09 10:45 | XMS_ITS | Encounter Summary ---
Author Organization [facility] Address [address] [place] [address] Phone Care Team Providers Care Secret Code Expert Name Role Phone No, Physician Primary Care Provider [phone] Reason for Visit * Reason Comments Routine Visit Encounter Details Date Type Department Care Team (Late st Contact Info) Description 03/23/2021 4:45 PM CDT Office Visit [facility] Obstetrics and Gynecology [address] [facility] Outpatient Health 7th Floor [address] [place] [address] Katia Arce MD [address] [facility] [phone] [place] [address] Supervision of other normal , antepartum (Primary Dx) Social History Tobacco Use Types Packs/Day Years Used Date Smoking Tobacco: Never Smokeless Tobacco: Never Alcohol Use Standard Drinks/Week Comments Yes 0 (1 standard drink = 0.6 oz pur e alcohol) AUDIT-C Answer Date Recorded Q1: How often do you have a drink containing alc ohol? Never 12/09/2020 Q2: How many drinks containi ng alcohol do you have on a typical day when you are drinking? 1 or 2 12/09/2020 Q3: How often do you have six or more drinks on one occasion? 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 Ok for daily Excedrin use since symptoms resolve with treatment. Will pay attention to hydration. Reviewed warning signs with headache. documented in this encounter Plan of Treatment Not on file documented as of this encounter Visit Diagnoses Diagnosis Supervision of other normal , antepartum- Primary documented in this encounter Care Teams Secret Code Expert Relationship Specialty Start Date End Date No, Physician PCP - General 05/14/19 01/01/24 documented as of this encounter
--- OUTSIDE RECORDS SUMMARY | 2024-08-09 10:45 | XMS_ITS | Encounter Summary ---
Author Organization [facility] Address [address] [place] [address] Phone Care Team Providers Care Frame Opener Name Role Phone No, Physician Primary Care Provider [phone] Reason for Visit * Reason Comments Routine Visit Encounter Details Date Type Department Care Team (Late st Contact Info) Description 04/06/2021 4:15 PM CDT Office Visit [facility] Obstetrics and Gynecology [address] [facility] Outpatient Health 7th Floor [address] [place] [address] Annita Orosco, ADIS [address] [facility] [address] [place] [address] Encounter for supervision of other [...] on file 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 Gender Identity Female 01/27/2021 1:35 PM CDT Sexual Orientation Straight 01/27/2021 1: 35 PM CDT documented as of this encounter Last Filed Vital Signs Vital Sign Reading Time Taken Comments Blood Pressure 107/68 04/06/2021 4:16 PM CDT Pulse - - Temperature - - Respiratory Rate - - Oxygen Saturation - - Inhaled Oxygen Concentration - - Weight 78.8 kg (173 lb 12.8 oz) 04/06/2021 4:16 PM CDT Height 160 cm (5' 3 ) 04/06/2021 4:16 PM CDT Body Mass Index 30.79 04/06/2021 4:16 PM CDT documented in this encounter Progress Notes * Annita Orosco NP - 04/06/2021 4:15 PM CDT DENNY - Denies lof/bleeding and or contractions - Reports +FM - feeling good - Having a girl [facility] RTC in 2 weeks for 36wk w/u, pt aware Giana Orosco APRN, WHNP-BC documented in this encounter Plan of Treatment Not on file documented as of this encounter Visit Diagnoses Diagnosis Encounter for supervision of other normal in third trimester- Primary documented in this encounter Care Teams Frame Opener Relationship Specialty Start Date End Date No, Physician PCP - General 05/14/19 01/01/24 documented as of this encounter
--- OUTSIDE RECORDS SUMMARY | 2024-08-09 10:45 | XMS_ITS | Encounter Summary ---
Author Organization [facility] Address [address] [place] [address] Phone Care Team Providers Care Grapple Crew Leader Name Role Phone No, Physician Primary Care Provider [phone] Reason for Visit * Reason Comments Routine Visit Encounter Details Date Type Department Care Team (Late st Contact Info) Description 05/03/2021 4:30 PM CDT Office Visit [facility] Obstetrics and Gynecology [address] [facility] Outpatient Health 7th Floor [address] [place] [address] Katia Arce MD [address] [facility] [phone] [place] [address] Supervision of other normal , [...] on file 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 documented in this encounter Plan of Treatment Not on file documented as of this encounter Visit Diagnoses Diagnosis Supervision of other normal , antepartum- Primary documented in this encounter Care Teams Grapple Crew Leader Relationship Specialty Start Date End Date No, Physician PCP - General 05/14/19 01/01/24 documented as of this encounter
--- OUTSIDE RECORDS SUMMARY | 2024-08-09 10:45 | XMS_ITS | Encounter Summary ---
Author Organization [facility] Address [address] [place] [address] Phone Care Team Providers Care Patient Account Liaison Name Role Phone No, Physician Primary Care Provider [phone] Reason for Visit * Reason Comments Routine Visit Encounter Details Date Type Department Care Team (Late st Contact Info) Description 04/25/2021 3:30 PM CDT Office Visit [facility] Obstetrics and Gynecology [address] [facility] Outpatient Health 7th Floor [address] [place] [address] Annita Orosco, ADIS [address] [facility] [address] [place] [address] Supervision of other normal , [...] on file 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 Gender Identity Female 01/27/2021 1:35 PM CDT Sexual Orientation Straight 01/27/2021 1: 35 PM CDT documented as of this encounter Last Filed Vital Signs Vital Sign Reading Time Taken Comments Blood Pressure 132/73 04/25/2021 3:48 PM CDT Pulse - - Temperature - - Respiratory Rate - - Oxygen Saturation - - Inhaled Oxygen Concentration - - Weight 80.7 kg (178 lb) 04/25/2021 3:48 PM CDT Height 157.5 cm (5' 2 ) 04/25/2021 3:48 PM CDT Body Mass Index 32.56 04/25/2021 3:48 PM CDT documented in this encounter Progress Notes * Annita Orosco NP - 04/25/2021 3:30 PM CDT DENNY - Denies any more lof, bleeding and or ctx's - notes +fm -3t labs ordered, gbs obtained and vtx by US RTC in one week Giana Orosco APRN, WHNP-BC Met with Silvia Persaud today for 36 week education. Discussed signs of labor and pp bc. Silvia Persaud is planning to breast, use a hazardous waste remover in [place], [place] for a hazardous waste remover and is considering POP's for pp bc. Also informed that behavioral health services will visit her in the hospital and baby will have a hearing and blood screening. Pt stated understanding. documented in this encounter Plan of Treatment Not on file documented as of this encounter Procedures Procedure Name Priority Date/Time Associated Diagnosis Comments HIV 1/2 ANTIBODY PLUS P24 ANTIGEN Routine 05/02/2021 2:17 PM CDT Supervision of other normal , antepartum CBC WITHOUT DIFFERENTIAL Routine 05/02/2021 2:17 PM CDT Supervision of other normal , antepartum GROUP B STREPTOCOCCUS CULTURE Routine 04/25/2021 4:08 PM CDT Supervision of other normal , antepartum documented in this encounter Results * HIV 1/2 Antibody plus p24 Antigen (05/02/2021 2:17 PM CDT) HIV Ag/Ab, 4th gen NON-REACT LEONARDO NON-REACT LEONARDO [facility] Comment: HIV-1 antigen and HIV-1/HIV-2 antibodies were not detected. There is no laboratory evidence of HIV infection. PLEASE NOTE: This information has been disclosed to you from records whose confidentiality may be protected by state law. ??If your state requires such protection, then the state law prohibits you from making any further disclosure of the information without the specific written consent of the person to whom it pertains, or as otherwise permitted by law. A general authorization for the release of medical or other information is NOT sufficient for this purpose. ?? For additional information please refer to http://education.[employer]/faq/FAO888 (This link is being provided for informational/ educational purposes only.) The performance of this assay has not been clinically validated in patients less than 2 years old. Blood specimen (specimen) 05/02/2021 2:17 PM CDT 05/02/2021 2:20 PM CDT Annita Orosco PRINT SHOP HELPER LAB [facility]OLOG[facility] ORDER[facility]LES Final Result MARLI [facility] [address] [place] [address] * (ABNORMAL) CBC without differential (05/02/2021 2:17 PM CDT) WBC 11.6(H) 3.8 - 10.8 Thousand/uL [facility] RBC, POC 4.49 3.80 - 5.10 Million/uL [facility] Hgb 13.2 11.7 - 15.5 g/dL [facility] Hct 38.9 35.0 - 45.0 % [facility] MCV 86.6 80.0 - 100.0 fL [facility] MCH 29.4 27.0 - 33.0 pg [facility] MCHC 33.9 32.0 - 36.0 g/dL [facility] Rdw 12.3 11.0 - 15.0 % [facility] Platelets 162 140 - 400 Thousand/uL [facility] MPV 13.0(H) 7.5 - 12.5 fL [facility] Blood specimen (specimen) 05/02/2021 2:17 PM CDT 05/02/2021 2:20 PM CDT Annita Orosco PRINT [employer] [facility] BLOOD ORDERABLES Final Result [facility] [address] [place] [address] * (ABNORMAL) Group B streptococcal culture Vaginal/Rectal (04/25/2021 4:08 PM CDT) Strep B culture, resp (A) [facility] Comment: ??STREPTOCOCCUS, GROUP B CULTURE ?Micro Number: ?[id number] ??Test Status: ? Final ??Specimen Source: ?? Not given ??Specimen Quality: ??Adequate ??Result: ?Group B Streptococcus isolated ? Beta-hemolytic streptococci are predictably ? susceptible to Penicillin and other beta-lactams. ? Susceptibility testing not routinely performed. ? Please contact the laboratory within 3 days if ? susceptibility testing is desired. ? Note per CDC guidelines optimal recovery is ? achieved by swabbing both the lower vagina and ? rectum (through the anal sphincter). Vaginal/Rectal 04/25/2021 4: 08 PM CDT 04/26/2021 4:09 AM CDT Annita Orosco NP LAB MICROBIOLOGY - [facility] ORDERABLES Final Result [facility] [address] [place] [address] documented in this encounter Visit Diagnoses Diagnosis Supervision of other normal , antepartum- Primary documented in this encounter Care Teams Patient Account Liaison Relationship Specialty Start Date End Date No, Physician PCP - General 05/14/19 01/01/24 documented as of this encounter
--- OUTSIDE RECORDS SUMMARY | 2024-08-09 10:45 | XMS_ITS | Encounter Summary ---
Author Organization [facility] Address [address] [place] [address] Phone Care Team Providers Care Director Of Creative Services Name Role Phone No, Physician Primary Care Provider [phone] Reason for Referral * Diagnostic Imaging (Routine) - Closed Specialty Diagnoses / Procedures Referred By Contac t Referred To Contact Diagnoses Choroid plexus cyst of fetus affecting care of mother, antepartum, single or unspecified fetus Procedures US Ob Follow Up Carmela Denson MD [address] [facility] [phone] [place] [address] Phone: tel: fax: [facility] (All Locations) Referral ID Status Reason Start Date Expiration Date Visits Re quested Visits Authorized [id number] Closed 12/30/2020 01/29/2022 1 1 Reason for Visit * Reason Comments Routine Visit Encounter Details Date Type Department Care Team (Late st Contact Info) Description 12/30/2020 3:15 PM CDT Office Visit [facility] Obstetrics and Gynecology [address] [place] [address] Outpatient Health 7th Floor [address] [place] [address] Carmela Denson MD [address] 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 Reviewed anatomy US findings- AGA. Bilateral Choroid plexus cysts are seen- no other structural abnormalities noted. Reassurance givento family. Will repeat scan around 28-30 wks. documented in this encounter Plan of Treatment Not on file documented as of this encounter Results * US Ob Follow Up (02/23/2021 3:07 PM CDT) Fetus# Fetus1 VIEWPOINT Placenta Details posterior, Previa-no VIEWPOINT Estimated Weight 1,243 g&grams VIEWPOINT Presentation Vertex VIEWPOINT Anatomical Region Laterality Modality Abdomen N/A Ultrasound 02/23/2021 3:13 PM CDT us Carmela Denson MD IMG OB US PROCEDURES Final Re sult documented in this encounter Visit Diagnoses Diagnosis Supervision of other normal , antepartum- Primary Choroid plexus cyst of fetus affecting care of mother, antepartum, single or unspecified fetus documented in this encounter Care Teams Director Of Creative Services Relationship Specialty Start Date End Date No, Physician PCP - General 05/14/19 01/01/24 documented as of this encounter
--- OUTSIDE RECORDS SUMMARY | 2024-08-09 10:45 | XMS_ITS | Encounter Summary ---
Author Organization [facility] Address [address] [place] [address] Phone Care Team Providers Care Boat Laborer Name Role Phone No, Physician Primary Care Provider [phone] Reason for Visit * Reason Comments Routine Visit Encounter Details Date Type Department Care Team (Late st Contact Info) Description 03/09/2021 4:15 PM CDT Office Visit [facility] Obstetrics and Gynecology [address] [facility] 7th Floor [address] [place] [address] Katia Arce MD [address] [facility] [phone] [place] [address] Supervision of other normal , [...] on file 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 Gender Identity Female 01/27/2021 1:35 PM CDT Sexual Orientation Straight 01/27/2021 1: 35 PM CDT documented as of this encounter Last Filed Vital Signs Vital Sign Reading Time Taken Comments Blood Pressure 113/68 03/09/2021 4:31 PM CDT Pulse 73 03/09/2021 4:31 PM CDT Temperature - - Respiratory Rate - - Oxygen Saturation - - Inhaled Oxygen Concentration - - Weight 76.1 kg (167 lb 12.8 oz) 03/09/2021 4:31 PM CDT Height 160 cm (5' 3 ) 03/09/2021 4:31 PM CDT Body Mass Index 29.72 03/09/2021 4:31 PM CDT documented in this encounter Progress Notes * Lynn Becker - 03/09/2021 4:15 PM CDT She is having headaches daily for the last week. She reports they are associated with sinus pressure and allergies and mildly improve with Claritin. Tylenol does not improve her headaches and she is wondering about taking something else to relieve them. She has not history of hypertension in her previous . She has to fly for a work trip in the next few weeks. Discussed no flying after 36 weeks. Walking around every two hours while traveling. Feeling baby move. No LOF, spotting, bleeding, chest pain, SOB, right upper quadrant pain, swelling, or vision changes. No regular contractions. Recommended zyrtec, nasal fluticasone, for allergy symptoms as directed 2 sprays once daily in eachnostril. Warned to not use for more than 3 days. Recommended Excedrin Migraine for headache. Cosigned by Katia Arce MD at 03/14/2021 7:42 AM CDT Associated attestation - Katia Arce MD - 03/14/2021 7:42 AM CDT I have seen and examined the patient. I agree with the findings and plan of care as documented in the student's note. * Katia Arce MD - 03/09/2021 4:15 PM CDT Sinus pressure today. Normally claritin resolves, but not currently. Will switch to Zyrtec and Excedrin migraine. Reviewed saline spray, Tami pott, and flonase - will off on these currently. No e/o URI or infection. documented in this encounter Plan of Treatment Not on file documented as of this encounter Visit Diagnoses Diagnosis Supervision of other normal , antepartum- Primary documented in this encounter Care Teams Boat Laborer Relationship Specialty Start Date End Date No, Physician PCP - General 05/14/19 01/01/24 documented as of this encounter
--- OUTSIDE RECORDS SUMMARY | 2024-08-09 10:45 | XMS_ITS | Encounter Summary ---
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 Gender Identity Female 01/27/2021 1:35 PM CDT Sexual Orientation Straight 01/27/2021 1: 35 PM CDT documented as of this encounter Last Filed Vital Signs Vital Sign Reading Time Taken Comments Blood Pressure 123/62 04/12/2021 3:01 PM CDT Pulse 76 04/12/2021 3:02 PM CDT Temperature 37.1 ??C (98.8 ??F) 04/12/2021 3:00 PM CD T Respiratory Rate 18 04/12/2021 3:00 PM CDT Oxygen Saturation 98% 04/12/2021 3:01 PM CDT Inhaled Oxygen Concentration - - Weight 79.4 kg (175 lb) 04/12/2021 3:00 PM CDT Height 157.5 cm (5' 2 ) 04/12/2021 3:00 PM CDT Body Mass Index 32.01 04/12/2021 3:00 PM CDT documented in this encounter Discharge Diagnoses Diagnosis Other specified related conditions, third trimester - OTHER SPECIFIED RELATED CONDITIONS, THIRD TRIMESTER Headache, unspecified - HEADACHE, UNSPECIFIED 34 weeks gestation of - 34 WEEKS GESTATION OF documented in this encounter Discharge Instructions * Attachments The following attachments cannot be sent through Care Everywhere. * AT 31 TO 34 WEEKS (DISCHARGE CARE) (PALAUAN) documented in this encounter Medications at Time [...] by mouth daily 30 packet 05/21/2021 3 vit,qssn22-gtrd-oae ic (PRENATABS RX) 29 mg iron- 1 mg tablet Take 1 tablet by mouth daily 90 tablet 3 02/10/2019 3 documented as of this encounter Discharge Disposition Disposition Code Departure Means Destination Discharge to home or self care documented in this encounter H&P Notes * Cyndee Mann MD - 04/12/2021 3:58 PM CDT Images from the original note were not included. Obstetrics H&P Chief Complaint: LOF Estimated Date of Delivery: 05/19/21 Provider: [facility] OBGYN HPI: Silvia Persaud is a 25 y.o. female at 34w5d gestation, dated by L=1 Her has been uncomplicated. She had leakage of fluid yesterday around 2pm while lifting her 2 year old child. It soaked throughher underwear and onto her shorts. As far as she could tell, it was clear thin fluid without odor. It has not occurred again since. No recent intercourse or trauma prior to fluid leakage. No urinary symptoms, abnormal vaginal discharge, vulvarvaginal irritation. 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 History of Abnormal Pap: None STD History: none History reviewed. No pertinent past medical history. Chronic hypertension: No Diabetes: No Asthma: No [...] Male control/protection: None Support System: Supported by Safe at home: Yes family history includes Diabetes in an other family member; No Known Problems in her father and mother. Family history of bleeding or clotting disorders: No Family history of defects, genetic disorders, or developmental delay: No No Known Allergies HOME MEDICATIONS : vit,kvaz58-nucl-orcjp (PRENATABS RX) 29 mg iron- 1 mg tablet Review of Sys: Negative except per HPI Vitals: Temp: [98.8 ??F] 98.8 ??F Pulse: [76-78] 76 Resp: [18] 18 BP: (123)/(62) 123/62 Physical Exam: General: NAD, mood appropriate Cardiovascular: Regular rate and rhythm Pulmonary: Clear to ausculation bilaterally Abdomen: Gravid, non-tender Extremities: Warm and well perfused Speculum Exam: no pooling of fluid seen, Nitrizine test is negative, Ferning test is negative, vaginal discharge scant thin white, wet prep results: resulted at bedside: no pathogens, pH 4.5 Cervix: visually closed on spec exam Monitoring:?Baseline: 125 bpm, Variability: Moderate, Accelerations: Present??and Decelerations: None Uterine Activity: Irregular contractions Interpretation: Reactive Ultrasound: Vertex presentation Posterior placenta Previa: No ARUN 13.28 Estimated Weight: 2500g by Saad Labs: Lab Results Component Value Date ABORH A Positive 03/15/2019 IDCOOMB Negative 03/15/2019 SCRINDANTIGL negative 10/23/2020 [id number] Nonreactive 02/19/2019 HAFEQOX9BTA NON-REACTIVE 10/23/2020 LSSAQPV57 Negative 10/23/2020 LABRPR NON-REACTIVE 02/02/2021 RUBELIGG 5.38 10/23/2020 HEPBSAG NON-REACTIVE 10/23/2020 VZVIGG Negative 08/07/2018 Assessment and Plan Silvia Persaud is a 25 y.o. female at 34w5d who presented for rule-out SROM # Rule-out SROM - No findings on physical exam or microscopic studies suggestive of SROM. - cervix closed, not feeling contractions - normal ARUN - return precautions reviewed # FWB - reactive NST # MWB - has had headaches throughout that do resolve with treatment. Today is not having headache. - scheduled for 36 week return visit 04/25/[address] Copeland. Cyndee Mann MD 04/12/21 Cosigned by Georgina Copeland MD at 04/12/2021 5:39 PM CDT Associated attestation - Georgina Copeland MD - 04/12/2021 5:39 PM CDT I have seen and examined the patient on 04/12/21. I agree with the findings and plan of care as documented in the resident's/fellow's note.. I also agree with the limited ultrasound images and interpretation. Date of NST: 04/12/21 FHT baseline: 120 bpm TOCO: no contractions Moderate variability + accels Decelerations: none Reactive documented in this encounter Procedure Notes * Cyndee Mann MD - 04/12/2021 4:36 PM CDT Procedures Based on 1533 - 1553 on FHT Monitoring: Baseline: 125 bpm, Variability: Moderate, Accelerations: Present and Decelerations: None Uterine Activity: Irregular contractions Interpretation: Reactive NST reviewed by Dr. Latricia Mann MD OBGYN PGY-1 ?? Cosigned by Georgina Copeland MD at 04/13/2021 7:58 AM CDT Associated attestation - Georgina Copeland MD - 04/13/2021 7:58 AM CDT I have reviewed NST and agree with the DUST HANDLER/resident interpretation. documented in this encounter Nursing Notes * Janeen Salvador RN - 04/12/2021 4:37 PM CDT Patient received to [facility] with reports of leaking clear fluid at 1430 on 04/11/2021. VS WNL. monitoring reassuring. Patient denies other complaints. MD evaluation and ultrasound. Patient dischargedto home with [facility] precautions and follow up instructions. documented in this encounter Plan of Treatment Not on file documented as of this encounter Procedures Procedure Name Priority Date/Time Associated Diagnosis Comments POCT URINALYSIS DIPSTICK Routine 04/12/2021 3:09 PM CDT documented in this encounter Results * POCT urinalysis dipstick (04/12/2021 3:09 PM CDT) Color, Urine, POC Yellow Clarity, ur, POC Clear Clear Glucose, ur, POC Negative Negative mg/dL Bilirubin, ur, POC Negative Negative, Small, Moderate, Large Ketones, ur, POC Negative Negative Specific [place], POC 1.010 1.005 - 1.030 Blood, ur, POC Negative Negative pH, ur, POC 6.0 5.0 - 8.0 Protein, ur, POC Negative Negative Urobilinogen, urine, POC 0.2 0.2 - 1.0 mg/dL Nitrite, ur, POC Negative Negative Leukocytes, ur, POC Negative Negative Lot Number [id number] Urine 04/12/2021 3:09 PM CDT Maye Schultz DUST HANDLER POINT OF CARE TEST ORDERA BLES Final Result documented in this encounter Visit Diagnoses Not on filedocumented in this encounter Active and Recently Administered Medications Orders Medications Ordered That Roland ht Not Have Been Administered Count Last Ordered Date First Ordered Date ibuprofen (ADVIL,MOTRIN) tablet 600 mg 1 documented in this encounter Care Teams Laundry Assistant Relationship Specialty Start Date End Date No, Physician PCP - General 05/14/19 01/01/24 documented as of this encounter
--- OUTSIDE RECORDS SUMMARY | 2024-08-09 10:45 | XMS_ITS | Encounter Summary ---
Author Organization [facility] Address [address] [place] [address] Phone Care Team Providers Care Physiognomist Name Role Phone No, Physician Primary Care Provider [phone] Encounter Details Date Type Department Care Team (Late st Contact Info) Description 05/12/2021 Orders Only [facility] Obstetrics and Gynecology [address] 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
--- OUTSIDE RECORDS SUMMARY | 2024-08-09 10:45 | XMS_ITS | Encounter Summary ---
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 She has not timed her contractions - explained that she should write down the time that each contraction begins and how long each one lasts. 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 Suggested that Patient take Tylenol Extra Strength two tablets, begin drinking more water (taking frequent swallows), and lie down and rest. She should call back if her contractions are every 5 minutes for 1-2 hours, if she has a large amount ofbright red bleeding, if her water breaks, if her baby is not moving as she is used to, or if she has any concerns. Patient indicated understanding of all information provided and states she will follow the suggestions above. 1842: Patient called back. Her contractions have been 5 minutes apart for the past hour and are becoming more painful. Requested that she continue to time her contractions and [facility]. Patient indicated understanding and will come in to be evaluated. Reason for Disposition ? ? [1] History of prior delivery (multipara) AND [2] contractions > 10 minutes, or for < 1 hour Answer Assessment - Initial Assessment Questions 1. ONSET: When did the symptoms begin? Gustavo all day 2. CONTRACTIONS: Describe the contractions that you are having. (e.g., duration, frequency, regularity, severity) Has not been timing contractions 3. SURYA: What date are you expecting to deliver? 05/19/2021 4. PARITY: Have you had a baby before? If yes, How long did the labor last? Yes - does not remember 5. MOVEMENT: Has the baby's movement decreased or changed significantly from normal? Baby is moving normally 6. OTHER SYMPTOMS: Do you have any other symptoms? (e.g., leaking fluid from vagina, vaginal bleeding, fever, hand/facial swelling) Low abdominal/prlvic pressure Protocols used: - [id number] documented in this encounter Plan of Treatment Not on file documented as of this encounter Visit Diagnoses Not on filedocumented in this encounter Care Teams Ice Cream Mixer Relationship Specialty Start Date End Date No, Physician PCP - General 05/14/19 01/01/24 documented as of this encounter
--- OUTSIDE RECORDS SUMMARY | 2024-08-09 10:45 | XMS_ITS | Encounter Summary ---
Author Organization [facility] Healthcare Address [address] [place] [address] Care Team Providers Care Community Relations Liaison Name Role Phone No, Physician Primary Care Provider [phone] Reason for Referral * Diagnostic Imaging (Routine) - Closed Specialty Diagnoses / Procedures Referred By [place] t Referred To Contact Diagnoses Supervision of other normal , antepartum Procedures US Ob 14 Weeks Or Over Carmela Denson MD [address] [facility] [phone] [place] [address] Phone: tel: fax: [facility] (All Locations) Referral ID Status Reason Start Date Expiration Date Visits Re quested Visits Authorized [id number] Closed 10/11/2020 11/10/2021 1 12 Reason for Visit * Diagnostic Imaging (Routine) - Closed Specialty Diagnoses / Procedures Referred By Contac t Referred To Contact Diagnoses Supervision of other normal , antepartum Procedures [place] 14 [place] [address] [place] [address] [phone] [place] [address] Phone: tel: fax: [facility] (All Locations) Referral ID Status Reason Start Date Expiration Date Visits Re quested Visits Authorized [id number] Closed 10/11/2020 11/10/2021 1 12 Encounter Details Date Type Department Care Team (Latest Contact Info) Description 12/30/2020 2:10 PM CDT - 12/30/2020 11:59 PM CDT Hospital Encounter [facility] for [facility] - Ultrasound [address] [facility], 7th Floor, [address] [place] [address] Carmela Denson MD [address] [facility] [phone] [place] [address] Supervision of other normal , antepartum Discharge [...] on file 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 Gender Identity Female 01/27/2021 1:35 PM CDT Sexual Orientation Straight 01/27/2021 1: 35 PM CDT documented as of this encounter Medications at Time of Discharge metoclopramide (REGLAN) 10 mg tablet Take 1 tablet (10 mg total) by mouth 3 (three) times a day as needed (nausea) 60 tablet 1 10/17/2020 02/23/2021 vit,orbm55-bzvl-j olic (PRENATABS RX) 29 mg iron- 1 mg tablet Take 1 tablet by mouth daily 90 tablet 3 02/10/2019 05/27/2023 documented as of this encounter Discharge Disposition Disposition Code Departure Means Destination Discharge to home or self care documented in this encounter Plan of Treatment Not on file documented as of this encounter Procedures Procedure Name Priority Date/Time Associated Diagnosis Comments US OB 14 WEEKS OR OVER Schedule Routine, Read Routine (OP Routine) 12/30/2020 2:10 PM CDT Supervision of other normal , antepartum documented in this encounter Results * US Ob 14 Weeks Or Over (12/30/2020 2:10 PM CDT) Fetus# Fetus1 VIEWPOINT Placenta Details posterior, Previa-no, no placental masses VIEWPOINT Estimated Weight 333 g&grams VIEWPOINT Presentation Vertex VIEWPOINT Anatomical Region Laterality Modality Abdomen N/A Ultrasound 12/30/2020 2:11 PM CDT us Carmela Denson MD IMG OB US PROCEDURES Final Re sult documented in this encounter Visit Diagnoses Diagnosis Supervision of other normal , antepartum documented in this encounter Care Teams Community Relations Liaison Relationship Specialty Start Date End Date No, Physician PCP - General 05/14/19 01/01/24 documented as of this encounter
--- OUTSIDE RECORDS SUMMARY | 2024-08-09 10:45 | XMS_ITS | Encounter Summary ---
Author Organization [facility] Address [address] [place] [address] Phone Care Team Providers Care Swimming Pool Attendant Name Role Phone No, Physician Primary Care Provider [phone] Reason for Visit * Reason Comments Routine Visit Encounter Details Date Type Department Care Team (Late st Contact Info) Description 05/10/2021 4:30 PM CDT Office Visit [facility] Obstetrics and Gynecology [address] [facility] Outpatient Health 7th Floor [address] [place] [address] Georgina Copeland MD [address] [facility] [phone] [place] [address] Supervision of other normal , [...] on file 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 Gender Identity Female 01/27/2021 1:35 PM CDT Sexual Orientation Straight 01/27/2021 1: 35 PM CDT documented as of this encounter Last Filed Vital Signs Vital Sign Reading Time Taken Comments Blood Pressure 101/67 05/10/2021 4:45 PM CDT Pulse - - Temperature - - Respiratory Rate - - Oxygen Saturation - - Inhaled Oxygen Concentration - - Weight 82.5 kg (181 lb 12.8 oz) 05/10/2021 4:45 PM CDT Height 157.5 cm (5' 2 ) 05/10/2021 4:45 PM CDT Body Mass Index 33.25 05/10/2021 4:45 PM CDT documented in this encounter Progress Notes * Georgina Copeland MD - 05/10/2021 4:30 PM CDT Episode of contractions this week and just stopped after 2 hours. No complaints, will consider 41wk IOL and send us a requested date. documented in this encounter Plan of Treatment Not on file documented as of this encounter Procedures Procedure Name Priority Date/Time Associated Diagnosis Comments HIV 1/2 ANTIBODY PLUS P24 ANTIGEN Routine 05/02/2021 CBC WITHOUT DIFFERENTIAL Routine 05/02/2021 documented in this encounter Results * CBC without differential (05/02/2021) SCRIBED Platelets 162 k/cumm Blood specimen (specimen) Annita Orosco NP LAB BLOOD ORDERABLES Final Result * HIV 1/2 Antibody plus p24 Antigen (05/02/2021) SCRIBED HIV P24 Negative Blood specimen (specimen) Annita Orosco NP LAB MICROBIOLOGY - G ENERAL ORDERABLES Final Result documented in this encounter Visit Diagnoses Diagnosis Supervision of other normal , antepartum- Primary documented in this encounter Care Teams Swimming Pool Attendant Relationship Specialty Start Date End Date No, Physician PCP - General 05/14/19 01/01/24 documented as of this encounter
--- OUTSIDE RECORDS SUMMARY | 2024-08-09 10:45 | XMS_ITS | Encounter Summary ---
Author Organization [facility] Address [address] [place] [address] Phone Care Team Providers Care Commodity Specialist Name Role Phone No, Physician Primary Care Provider [phone] Encounter Details Date Type Department Care Team (Late st Contact Info) Description 04/12/2021 Telephone [facility] Obstetrics and Gynecology [address] [facility] Outpatient Health 7th Floor [address] [place] [address] Georgina Copeland MD [address] [facility] [phone] [place] [address] Social History Tobacco Use Types [...] on file 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 Per patient this fluid covered a softball sized spot in her underwear and ursula shorts. No fluid/discharge since episode. Patient denies bleeding or contractions. (+) movement. No recent intercourse. Patient instructed to go to the [facility] for evaluation. documented in this encounter Plan of Treatment Not on file documented as of this encounter Visit Diagnoses Not on filedocumented in this encounter Care Teams Commodity Specialist Relationship Specialty Start Date End Date No, Physician PCP - General 05/14/19 01/01/24 documented as of this encounter
--- OUTSIDE RECORDS SUMMARY | 2024-08-09 10:45 | XMS_ITS | Encounter Summary ---
Author Organization [facility] Address [address] [place] [address] Phone Care Team Providers Care Factory Laborer Name Role Phone No, Physician Primary Care Provider Reason for Visit * Reason Comments Routine Visit Encounter Details Date Type Department Care Team (Late st Contact Info) Description 02/23/2021 4:00 PM CDT Office Visit [facility] Obstetrics and Gynecology [address] [facility] 7th Floor [address] [place] [address] Katia Arce MD [address] [facility] [phone] [place] [address] Supervision of other normal , [...] on file 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 Gender Identity Female 01/27/2021 1:35 PM CDT Sexual Orientation Straight 01/27/2021 1: 35 PM CDT documented as of this encounter Last Filed Vital Signs Vital Sign Reading Time Taken Comments Blood Pressure 110/66 02/23/2021 4:25 PM CDT Pulse - - Temperature - - Respiratory Rate - - Oxygen Saturation - - Inhaled Oxygen Concentration - - Weight 73.9 kg (163 lb) 02/23/2021 4:25 PM CDT Height 160 cm (5' 3 ) 02/23/2021 4:25 PM CDT Body Mass Index 28.87 02/23/2021 4:25 PM CDT documented in this encounter Progress Notes * Maye Chavez RN - 02/23/2021 4:00 PM CDT Met with Silvia Persaud today for 28-30 week education. Patient plans to breastfeed and discussed the benefits of . She is aware of the risks of formula feeding and when to appropriately introduce a pacifier. Discussed colostrum, hand expression, hunger cues, positioning, latch, how to o rder a breast pump, when the AAP recommends introducing solids, referred to the breast feeding guide and booklet provided. Discussed the baby friendly initiatives i.e. skin to skin, rooming in and delayed bath. Also discussed online resources and virtual tour currently being offered by [facility]. A power system operator list was offered and accepted by the patient. Having a girl!Plans to use power system operator in [place], [place]. * Katia Arce MD - 02/23/2021 4:00 PM CDT - Normal 2nd trim labs. - normal US today. No e/o choroid plexus cysts. documented in this encounter Plan of Treatment Not on file documented as of this encounter Procedures Procedure Name Priority Date/Time Associated Diagnosis Comments GTT 50GM 1HR GESTATIONAL SCREEN Routine 02/02/2021 CBC WITHOUT DIFFERENTIAL Routine 02/02/2021 documented in this encounter Results * Glucose tolerance testing 50 gram gestational screen (02/02/2021) SCRIBED GTT 50Gm 81 70 - 140 Blood specimen (specimen) Rosalinda Cunningham NP LAB BLOOD ORDERABLES Final Result * CBC without differential (02/02/2021) SCRIBED Platelets 181 k/cumm Blood specimen (specimen) Rosalinda Cunningham RADIOLOGIC TECHNOLOGY PROGRAM DIRECTOR LAB BLOOD ORDERABLES Final Result documented in this encounter Visit Diagnoses Diagnosis Supervision of other normal , antepartum- Primary documented in this encounter Discontinued Medications Medication Sig Discontinue Reason Start Date End Da te metoclopramide (REGLAN) 10 mg tablet Take 1 tablet (10 mg total) by mouth 3 (three) times a day as needed (nausea) Therapy completed 10/17/2020 02/23/2021 documented as of this encounter Orders Immunization/Injection Count Last Ordered Date First Ordered Date TDAP VACCINE GREATER THAN OR EQUAL TO 7YO IM 1 02/23/2021 documented in this encounter Care Teams Factory Laborer Relationship Specialty Start Date End Date No, Physician PCP - General 05/14/19 01/01/24 documented as of this encounter
--- OUTSIDE RECORDS SUMMARY | 2024-08-09 10:45 | XMS_ITS | Encounter Summary ---
Author Organization [facility] Address [address] [place] [address] Care Team Providers Care Cylinder Die Machine Operator Name Role Phone No, Physician Primary Care Provider [phone] Reason for Referral * Diagnostic Imaging (Routine) - Closed Specialty Diagnoses / Procedures Referred By Contac t Referred To Contact Diagnoses Choroid plexus cyst of fetus affecting care of mother, antepartum, single or unspecified fetus Procedures US Ob Follow Up Carmela Denson MD [address] [facility] [phone] [place] [address] Phone: tel: fax: [facility] (All Locations) Referral ID Status Reason Start Date Expiration Date Visits Re quested Visits Authorized [id number] Closed 12/30/2020 01/29/2022 1 1 Reason for Visit * Diagnostic Imaging (Routine) - Closed Specialty Diagnoses / Procedures Referred By Contac t Referred To Contact Diagnoses Choroid plexus cyst of fetus affecting care of mother, antepartum, single or unspecified fetus Procedures US Ob Follow Up Carmela Denson MD [address] [facility] [id number] [place] [address] Phone: tel: fax: [facility] (All Locations) Referral ID Status Reason Start Date Expiration Date Visits Re quested Visits Authorized [id number] Closed 12/30/2020 01/29/2022 1 1 Encounter Details Date Type Department Care Team (Latest Contact Info) Description 02/23/2021 3:07 PM CDT - 02/23/2021 11:59 PM CDT Hospital Encounter [facility] - Ultrasound [address] [facility], 7th Floor, [address] [facility] [place] [address] Carmela Denson MD [address] [phone] [place] [address] Choroid plexus cyst of fetus affecting care of mother, antepartum, single or unspecified fetus Discharge Disposition: Discharge to home or self [...] on file Legal Sex Female 2:33 AM TRANSMITTER CHIEF Gender Identity Female 01/27/2021 1:35 PM CDT Sexual Orientation Straight 01/27/2021 1: 35 PM CDT documented as of this encounter Medications at Time of Discharge vit,[id number]-[id number] olic (PRENATABS RX) 29 mg iron- 1 mg tablet Take 1 tablet by mouth daily 90 tablet 3 02/10/2019 05/27/2023 documented as of this encounter Discharge Disposition Disposition Code Departure Means Destination Discharge to home or self care documented in this encounter Plan of Treatment Not on file documented as of this encounter Procedures Procedure Name Priority Date/Time Associated Diagnosis Comments US OB FOLLOW UP Schedule Routine, Read Routine (OP Routine) 02/23/2021 3:07 PM CDT Choroid plexus cyst of fetus affecting care of mother, antepartum, single or unspecified fetus documented in this encounter Results * US Ob Follow Up (02/23/2021 3:07 PM CDT) Fetus# Fetus1 VIEWPOINT Placenta Details posterior, Previa-no VIEWPOINT Estimated Weight 1,243 g&grams VIEWPOINT Presentation Vertex VIEWPOINT Anatomical Region Laterality Modality Abdomen N/A Ultrasound 02/23/2021 3:13 PM CDT us Carmela Denson MD IMG OB US PROCEDURES Final Re sult documented in this encounter Visit Diagnoses Diagnosis Choroid plexus cyst of fetus affecting care of mother, antepartum, single or unspecified fetus documented in this encounter Care Teams Cylinder Die Machine Operator Relationship Specialty Start Date End Date No, Physician PCP - General 05/14/19 01/01/24 documented as of this encounter
--- OUTSIDE RECORDS SUMMARY | 2024-08-09 10:45 | XMS_ITS | Encounter Summary ---
Author Organization [facility] Address [address] [place] [address] Phone Care Team Providers Care Metal Engineering Process Worker Name Role Phone No, Physician Primary Care Provider [phone] Reason for Visit * Reason Comments Routine Visit Encounter Details Date Type Department Care Team (Late st Contact Info) Description 01/27/2021 2:00 PM CDT Office Visit 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 SCIENTIST Gender Identity Female 01/27/2021 1:35 PM CDT Sexual Orientation Straight 01/27/2021 1: 35 PM CDT documented as of this encounter Last Filed Vital Signs Vital Sign Reading Time Taken Comments Blood Pressure 111/70 01/27/2021 2:02 PM CDT Pulse - - Temperature - - Respiratory Rate - - Oxygen Saturation - - Inhaled Oxygen Concentration - - Weight 72.8 kg (160 lb 6.4 oz) 01/27/2021 2:02 P M CDT Height 160 cm (5' 3 ) 01/27/2021 2:02 PM CDT Body Mass Index 28.41 01/27/2021 2:02 PM CDT documented in this encounter Progress Notes * Rosalinda Cunningham NP - 01/27/2021 2:00 PM CDT DENNY visit: No complaints feeling great +FHTs/Good fm. 1 hour GCT/labs ordered Scheduled for Growth us and f/u of Choroid plexus cyst with next visit in 4 weeks Cosigned by Rios Santoro MD at 01/27/2021 8:08 PM CDT documented in this encounter Miscellaneous Notes * Result Encounter Note - Rosalinda Cunningham NP - 02/03/2021 12:54 PM CDT Normal 1 hour GTT and CBC is normal. Please update ACOG in chart. ThanksRosalinda NP documented in this encounter Plan of Treatment Not on file documented as of this encounter Procedures Procedure Name Priority Date/Time Associated Diagnosis Comments GTT 50GM 1HR GESTATIONAL SCREEN Routine 02/02/2021 12:06 PM CDT Supervision of other normal , antepartum CBC WITH AUTO DIFFERENTIAL Routine 02/02/2021 12:06 PM CDT Supervision of other normal , antepartum RPR Routine 02/02/2021 12:06 PM CDT Supervision of other normal , antepartum documented in this encounter Results * RPR (02/02/2021 12:06 PM CDT) RPR NON-REACTIV E NON-REACTI VE [facility] Blood specimen (specimen) 02/02/2021 12:06 PM CDT 02/02/2021 12:07 PM CDT Rosalinda Cunningham NP LAB MICROBIOLOGY - GENERAL ORDERABLES Final Result [facility] [address] [place] [address] * CBC with auto differential (02/02/2021 12:06 PM CDT) WBC 9.5 3.8 - 10.8 Thousand/u L [facility] RBC, POC 4.52 3.80 - 5.10 Million/uL [facility] Hgb 13.4 11.7 - 15.5 g/dL [facility] Hct 39.8 35.0 - 45.0 % [facility] MCV 88.1 80.0 - 100.0 fL [facility] MCH 29.6 27.0 - 33.0 pg [facility] MCHC 33.7 32.0 - 36.0 g/dL [facility] Rdw 12.9 11.0 - 15.0 % [facility] Platelets 181 140 - 400 Thousand/u L [facility] MPV 11.8 7.5 - 12.5 fL [facility] Neutrophils, abs 7,163 1,500 - 7,800 cells/uL [facility] Lymphocytes, abs 1,672 850 - 3,900 cells/uL [facility] Monocyte abs 551 200 - 950 cells/uL [facility] Eosinophils, abs 95 15 - 500 cells/uL [facility] Basophils, abs 19 0 - 200 cells/uL [facility] Neutrophils 75.4 % [facility] Lymphocyte pct 17.6 % [facility] Monocytes 5.8 % [facility] Eosinophils 1.0 % [facility] Basophils 0.2 % [facility] Blood specimen (specimen) 02/02/2021 12:06 PM CDT 02/02/2021 12:07 PM CDT Rosalinda Cunningham DIRECTOR OF [facility] LAB BLOOD ORDERABLES Final Result Performing Organization Address [facility] Co de Phone Number [facility] [address] [place] [address] * Glucose tolerance testing 50 gram gestational screen (02/02/2021 12:06 PM CDT) Glucose, gestational screen, pl 81 <140 mg/dL [facility] Blood specimen (specimen) 02/02/2021 12:06 PM CDT 02/02/2021 12:07 PM CDT Rosalinda Cunningham DIRECTOR OF [facility] LAB BLOOD ORDERABLES Final Result Performing Organization Address [facility] de Phone Number [facility] [address] [place] [address] documented in this encounter Visit Diagnoses Diagnosis Supervision of other normal , antepartum- Primary documented in this encounter Care Teams Metal Engineering Process Worker Relationship Specialty Start Date End Date No, Physician PCP - General 05/14/19 01/01/24 documented as of this encounter
--- OUTSIDE RECORDS SUMMARY | 2024-08-09 10:46 | XMS_ITS | Encounter Summary ---
Author Organization [facility] Address [address] [place] [address] Phone Care Team Providers Care Social Service Worker Name Role Phone Lucille Garcia Primary Care Provider Unavaila ble Reason for Visit * Reason Onset Date Comments Scheduling Appointments 03/12/2019 Encounter Details Date Type Department Care Team (Late st Contact Info) Description 03/12/2019 Telephone [facility] Obstetrics and Gynecology [facility] Outpatient Health 7th Floor [address] [place] [address] Marci Isidro, IRVIN Scheduling Appointments Social History Tobacco Use Types Packs/Day Years Used Date Smoking Tobacco: Never Smokeless Tobacco: Never Alcohol Use Standard Drinks/Week Comments Yes 0 (1 standard drink = 0.6 oz pur e alcohol) Comments Yes Sex and Gender Information Value Date Recorded Sex Assigned at Not on file Legal Sex Female 2:33 AM FICTION WRITER Gender Identity Female 01/27/2021 1:35 PM CDT Sexual Orientation Straight 01/27/2021 1: 35 PM CDT documented as of this encounter Miscellaneous Notes * Telephone Encounter - Marci Isidro RN - 03/12/2019 12:03 PM CDT IOL scheduled for 03/24 @ 1999 Needs EOB appt next week. 03/19 with SS. documented in this encounter Plan of Treatment Not on file documented as of this encounter Visit Diagnoses Not on filedocumented in this encounter Care Teams Social Service Worker Relationship Specialty Start Date End Date Lucille Garcia PCP - General 09/17/06 05/13/19 documented as of this encounter
--- OUTSIDE RECORDS SUMMARY | 2024-08-09 10:46 | XMS_ITS | Encounter Summary ---
Author Organization [facility] Address [address] [place] [address] Phone Care Team Providers Care Vp Of Marketing Name Role Phone Lucille Garcia Primary Care Provider Unavaila ble Reason for Referral * Diagnostic Lab (Routine) - Closed Specialty Diagnoses / Procedures Referred By Contac t Referred To Contact Lab Diagnoses Screening for cervical cancer Procedures Cytology Georgina Copeland MD Phone: tel: fax: Referral ID Status Reason Start Date Expiration Date Visits Re quested Visits Authorized [id number] Closed 04/28/2019 11/06/2020 1 1 Reason for Visit * Reason Comments Follow-up 6 weeks Encounter Details Date Type Department Care Team (Late st Contact Info) Description 04/28/2019 2:45 PM CDT Office Visit [facility] Obstetrics and Gyne[facility] 7th Floor [address] [place] [address] Georgina Copeland MD [facility] [phone] [place] [address] Vaginal Delivery (Primary Dx); Need for prophylactic vaccination and inoculation against influenza; Encounter for routine follow-up; Screening for cervical cancer Social History Tobacco Use Types Packs/Day Years Used Date Smoking Tobacco: Never Smokeless Tobacco: Never Alcohol Use Standard Drinks/Week Comments Yes 0 (1 standard drink = 0.6 oz pur e alcohol) Comments No Sex and Gender Information Value Date Recorded Sex Assigned at Not on file Legal Sex Female 2:33 AM FIT MODEL Gender Identity Female 01/27/2021 1:35 PM CDT Sexual Orientation Straight 01/27/2021 1: 35 PM CDT documented as of this encounter Last Filed Vital Signs Vital Sign Reading Time Taken Comments Blood Pressure 107/71 04/28/2019 2:44 PM CDT Pulse 70 04/28/2019 2:44 PM CDT Temperature - - Respiratory Rate - - Oxygen Saturation - - Inhaled Oxygen Concentration - - Weight 70.7 kg (155 lb 12.8 oz) 04/28/2019 2:44 PM CDT Height 160 cm (5' 3 ) 04/28/2019 2:44 PM CDT Body Mass Index 27.6 04/28/2019 2:44 PM CDT documented in this encounter Patient Instructions * Patient Instructions* Georgina Copeland MD - 04/28/2019 2:45 PM CDT Get the second of your varicella vaccinations. documented in this encounter Progress Notes * Rajwinder Larson MA - 04/28/2019 2:45 PM CDT Given Flu vaccine today IM right deltoid. Lot #[id number] Exp. Date: 02/03/2020 Cosigned by Georgina Copeland MD at 04/29/2019 10:55 AM CDT * María High - 04/28/2019 2:45 PM CDT Post Visit Note Chief Complaint: Chief Complaint Follow-up Subjective: Mikaela Persaud is a 23 y.o. year old female s/p on 03/16/19 at 39+5wga who presents for her six week visit. She is doing really well overall. Her vaginal bleeding has resolved. Denies any perineal pain. She is pumping, which is going well with adequate milk supply. She was supplementing with formula initially, but no longer needing to. Last week, she had a low grade fever of 100 degrees F and tender lumpin her R breast. Had some associated flu like symptoms as well but this resolved completely in lessthan 24 hours. Denies any abnormal nipple discharge, erythema or breast lesions/rashes. Mood is really good . Bowel movements are normal. No burning with urination. No other concerns today. Patient Active Problem List Diagnosis (none) - all problems resolved or deleted History reviewed. No pertinent past medical history. Past Surgical History: Procedure Laterality Date ??? WISDOM TOOTH EXTRACTION Social History Socioeconomic History ??? Marital status: Spouse name: None ??? Number of children: 1 ??? Years of education: None ??? Highest education level: None Occupational History ??? None Social Needs ??? Financial resource strain: None ??? Food insecurity: Worry: None Inability: None ??? Transportation needs: Medical: None Non-medical: None Tobacco Use ??? Smoking status: Never Smoker ??? Smokeless tobacco: Never Used Substance and Sexual Activity ??? Alcohol use: Yes ??? Drug use: No ??? Sexual activity: Yes Partners: Male control/protection: OCP Lifestyle ??? Physical activity: Days per week: None Minutes per session: None ??? Stress: None Relationships ??? Social connections: Talks on phone: None Gets together: None Attends advent service: None Active member of club or organization: None Attends meetings of clubs or organizations: None Relationship status: None ??? Intimate partner violence: Fear of current or ex partner: None Emotionally abused: None Physically abused: None Forced sexual activity: None Other Topics Concern ??? None Social History Narrative ??? None Allergies: No Known Allergies Medications: Current Outpatient Medications: ??? vit,[id number] (PRENATABS RX) 29 mg iron- 1 mg tablet, Take 1 tablet by mouth daily, Disp: 90 tablet, Rfl: 3 ??? norethindrone (MICRONOR) 0.35 mg tablet, Take 1 tablet (0.35 mg total) by mouth daily (Patient not taking: Reported on 04/28/2019), Disp: 90 tablet, Rfl: 2 Review of Systems: Review of Systems Constitutional: Negative for chills and fever. Gastrointestinal: Negative for constipation and diarrhea. Genitourinary: Negative for dysuria, menstrual problem, pelvic pain, vaginal bleeding, vaginal discharge and vaginal pain. Breast: Negative for tenderness, breast redness, breast discharge and lump(s). Objective: BP 107/71 Pulse 70 Ht 160 cm (5' 3 ) Wt 155 lb 12.8 oz (70.7 kg) LMP 06/11/2018 ? Yes BMI 27.60 kg/m?? Physical Exam Constitutional: She is oriented to person, place, and time. She appears well- developed and well-nourished. No distress. HENT: Head: Normocephalic and atraumatic. Genitourinary: Vagina normal and uterus normal. Pelvic exam was performed with patient supine. There is no rash, tenderness or lesion on the right labia. There is no rash, tenderness or lesion on theleft labia. Cervix exhibits discharge (physiologic). Cervix exhibits no friability. Right adnexum displays no mass, no tenderness and no fullness. Left adnexum displays no mass, no tenderness and no fullness. No erythema, tenderness or bleeding in the vagina. No signs of injury around the vagina. No vaginal discharge found. Neurological: She is alert and oriented to person, place, and time. Psychiatric: She has a normal mood and affect. Nursing note and vitals reviewed. Assessment and Plan: Mikaela Persaud is a 23 y.o. female s/p s/p on 03/16/19 at 39+5wga who is doing really well . Delivery type: vaginal delivery complications: none Menses since delivery? no Feeding: pumping and bottle feeding Mood: good, EDS score 0 (normal) Infant doing well. Contraception: progesterone only pills Last pap with result: She was unsure of last pap, performed today. Will follow- up with results. VZV non-immune: Varivax was ordered at time of discharge, unclear whether she received. Pt is unsure whether or not she got this vaccine prior to leaving hospital. Recommended pt go to PCP or [facility] to obtain two varivax vaccines, second at least 4 weeks after the first. María High 04/28/2019 Cosigned by Georgina Copeland MD at 04/28/2019 6:07 PM CDT Associated attestation - Georgina Copeland MD - 04/28/2019 6:07 PM CDT I have seen and examined the patient. I agree with the findings and plan of care per the medical student. documented in this encounter Plan of Treatment Not on file documented as of this encounter Results * Cytology (04/28/2019 5:24 PM CDT) Fluid 04/28/2019 5:24 PM CDT 04/28/2019 6:59 PM CDT Narrative PATHOLOGY [facility] - 04/30/2019 10:07 AM CDT EPIC results best viewed via link to PDF [facility] [place] [address] CYTOPATHOLOGY REPORT FINAL Patient Name: ??MIKAELA PERSAUDShea Gender: ??F : ??1995 (Age: 23) Address: ??[address] [place] [address] ??[address] Hospital #: ??[id number] Service: ??DRY CLEANING MACHINE OPERATOR HELPER Location: ??[facility] Patient Type: ??[facility] Ref Lab Taken: ??04/28/2019 Received: ??04/28/2019 Accessioned: ??04/29/2019 Reported: ??04/30/2019 Physician(s): ??Georgina Copeland M.D. ?? FINAL INTERPRETATION SOURCE OF SPECIMEN: ? Liquid based pap test, ThinPrep STATEMENT OF ADEQUACY: ?- Satisfactory for evaluation ?- Endocervical cells/transformation zone sample present GENERAL CATEGORY: ?- Negative for squamous intraepithelial lesion or malignancy ?? nnt/04/30/2019 10:07 DAVE Randall(ASCP) Report Electronically Reviewed and Signed Out By DAVE Randall(ASCP) 04/30/2019 10:07:01 Cervicovaginal Cytology (Pap Test) Disclaimer: The Pap test is a screening test used to detect cervical cancer and its precursors; it is not a diagnostic procedure. False negative and false positive results do occur. Pap test results should be interpreted in the context of pertinent clinical information and biopsy results as indicated. Gross Description A. ??Liquid based pap test, ThinPrep: ??Cervical/vaginal - Screening ThinPrep ?? Clinical Diagnosis and History Last Menstrual Period: The patient is a 23 year old woman with no abnl. Report Images and scanned documents, if included only viewable in PDF version The performance characteristics of some immunohistochemical stains, in-situ hybridization and fluorescence in-situ hybridization tests and immunophenotyping by flow cytometry cited in this report (if any) were determined by the Surgical Pathology Department at [facility] as part of an ongoing quality project manager program and in compliance with federally [...] determined by the Surgical Pathology Department of [facility]. ??It has not been cleared or approved by the U. S. Food and Drug Administration. us Georgina Copeland MD LAB CYTOLOGY O RDERABLES Final Result PATHOLOGY [facility] 3rd Floor [place], [place] [phone] documented in this encounter Visit Diagnoses Diagnosis Vaginal Delivery- Primary Supervision of other normal Need for prophylactic vaccination and inoculation against influenza Encounter for routine follow-up Screening for cervical cancer Screening for malignant neoplasm of the cervix Screening for cervical cancer Screening for malignant neoplasm of the cervix documented in this encounter Discontinued Medications Medication Sig Discontinue Reason Start Date End Da te acetaminophen 500 mg capsuleIndications:Fever ,Pain Take 1 capsule (500 mg total) by mouth every 6 (six) hours as needed for pain 03/18/2019 04/28/2019 ibuprofen (ADVIL,MOTRIN) 600 mg tabletIndications:Cramps ,Pain Take 1 tablet (600 mg total) by mouth every 6 (six) hours as needed for pain 03/18/2019 04/28/2019 documented as of this encounter Orders Immunization/Injection Count Last Ordered Date First Ordered Date FLU VACCINE MDCK QUAD 4Y+ IM - FLUCELVAX 1 04/28/2019 documented in this encounter Care Teams Vp Of Marketing Relationship Specialty Start Date End Date Lucille Garcia PCP - General 09/17/06 05/13/19 documented as of this encounter
--- OUTSIDE RECORDS SUMMARY | 2024-08-09 10:46 | XMS_ITS | Encounter Summary ---
Author Organization [facility] Address [address] [place] [address] Phone Care Team Providers Care Cutter Grinder Operator Name Role Phone Lucille Garcia Primary Care Provider Unavaila ble Reason for Visit * Reason Comments Routine Visit Encounter Details Date Type Department Care Team (Late st Contact Info) Description 03/11/2019 4:45 PM CDT Office Visit [facility] Obstetrics and Gynecology [address] [facility] Outpatient Health 7th Floor [address] [place] [address] Kenna Baxter MD [address] [facility] [phone] [place] [address] Supervision of other normal , antepartum (Primary Dx) Social History Tobacco Use Types Packs/Day Years Used Date Smoking Tobacco: Never Smokeless Tobacco: Never Alcohol Use Standard Drinks/Week Comments Yes 0 (1 standard drink = 0.6 oz pur e alcohol) Comments Yes Sex and Gender Information Value Date Recorded Sex Assigned at Not on file Legal Sex Female 2:33 AM BELT SANDER Gender Identity Female 01/27/2021 1:35 PM CDT Sexual Orientation Straight 01/27/2021 1: 35 PM CDT documented as of this encounter Last Filed Vital Signs Vital Sign Reading Time Taken Comments Blood Pressure 130/79 03/11/2019 4:46 PM CDT Pulse - - Temperature - - Respiratory Rate - - Oxygen Saturation - - Inhaled Oxygen Concentration - - Weight 82.1 kg (181 lb) 03/11/2019 4:46 PM CDT Height 160 cm (5' 3 ) 03/11/2019 4:46 PM CDT Body Mass Index 32.06 03/11/2019 4:46 PM CDT documented in this encounter Progress Notes * Kenna Baxter MD - 03/11/2019 4:45 PM CDT Doing well, occasional ctx SVE 1/long/high Planning on spontaneous labor, but will request 41w IOL in case labor doesn't happen documented in this encounter Plan of Treatment Not on file documented as of this encounter Visit Diagnoses Diagnosis Supervision of other normal , antepartum- Primary documented in this encounter Care Teams Cutter Grinder Operator Relationship Specialty Start Date End Date Lucille Garcia PCP - General 09/17/06 05/13/19 documented as of this encounter
--- OUTSIDE RECORDS SUMMARY | 2024-08-09 10:46 | XMS_ITS | Encounter Summary ---
Author Organization [facility] Healthcare Address [address] [place] [address] Care Team Providers [facility] Name Role Phone Lucille Garcia Primary Care Provider Unavaila ble Reason for Visit * Reason Comments Contractions Starting at 1550 Encounter Details Date Type Department Care Team (Latest Contact Info) Description 03/15/2019 6:52 PM CDT - 03/18/2019 9:23 PM CDT Hospital Encounter [address] [phone] Kenna Baxter MD [address] [facility] [phone] [place] [address] Georgina Copeland MD [address] [facility] [phone] [place] [address] Katia Arce MD [address] [facility] [phone] [place] [address] Discharge Disposition: Discharge to home or self care Social History Tobacco Use Types Packs/Day Years Used Date Smoking Tobacco: Never Smokeless Tobacco: Never Alcohol Use Standard Drinks/Week Comments Yes 0 (1 standard drink = 0.6 oz pur e alcohol) Comments No Sex and Gender Information Value Date Recorded Sex Assigned at Not on file Legal Sex Female 2:33 AM [employer] Gender Identity Female 01/27/2021 1:35 PM CDT Sexual Orientation Straight 01/27/2021 1: 35 PM CDT documented as of this encounter Last Filed Vital Signs Vital Sign Reading Time Taken Comments Blood Pressure 127/69 03/18/2019 3:37 PM CDT Pulse 75 03/18/2019 3:37 PM CDT Temperature 36.8 ??C (98.2 ??F) 03/18/2019 3:37 PM CD T Respiratory Rate 16 03/18/2019 3:37 PM CDT Oxygen Saturation 95% 03/18/2019 3:37 PM CDT Inhaled Oxygen Concentration - - Weight 82.1 kg (181 lb) 03/16/2019 12:00 AM CDT Height 160 cm (5' 2.99 ) 03/16/2019 12:00 AM CDT Body Mass Index 32.07 03/16/2019 12:00 AM CDT documented in this encounter Discharge Diagnoses Diagnosis 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 - STREPTOCOCCUS B CARRIER STATE COMPLICATING CHILDBIRTH Single live - SINGLE LIVE 39 weeks gestation of - 39 WEEKS GESTATION OF Family history of diabetes mellitus - FAMILY HISTORY OF DIABETES MELLITUS Second degree perineal laceration during delivery - SECOND DEGREE PERINEAL LACERATION DURING DELIVERY Second-degree perineal laceration, unspecified as to episode of care in Abnormality in heart rate and rhythm complicating labor and delivery - ABNORMALITY IN HEART RATE AND RHYTHM COMPLICATING LABOR AND DELIVERY documented in this encounter Discharge Summaries * Adela Ryan NP - 03/18/2019 10:30 AM CDT Inpatient Discharge Summary Admitting Provider: Katia Arce MD Discharge Provider: Georgina Lynch* Admission Date: 03/15/2019 Discharge Date: 03/18/2019 Delivery Date/Time: 03/16/2019 at 9:31 AM Delivery method: Vaginal, Spontaneous [250] Primary Discharge Diagnosis: Intrauterine at 39w5d, delivered Secondary Discharge Diagnosis: Medical Conditions Diagnosis ??? Vaginal Delivery ??? No leakage of amniotic fluid into vagina Procedures Performed: Vaginal delivery Other Treatments: Magnesium sulfate therapy: No Blood transfusion: No Hospital Course: Silvia Persaud is a 23 y.o. G1 who presented with an intrauterine at 39.5 weeks estimated gestational age in labor with uterine contractions. Her was notable for VZVni and GBS pyuria. Her labor did not require augmentation. An epidural was placed for anesthesia. The patient progressed to complete and she delivered a viable male with scores of 8 and 9 at one and five minutes of life respectively. Please see the delivery record for full details. The patient was transferred to . Her course was uncomplicated. Prior to discharge, her pain was well controlled, she was voiding, passing gas, ambulating, and meeting all post milestones. # ID: Afebrile. No signs/symptoms of infection. VZV non-imm, varivax ordered. Cord avulsion requiring manual extraction. # Heme:??EBL 200 mL. No symptoms acute blood loss anemia. # CV/Pulm:??Vital signs stable. # GI/:??Tolerating PO. Voiding spontaneously. # Pain:??Controlled with above regimen. # Post DVT prophylaxis: Patient has the following moderate risk factors: None. Her post prophylaxis plan is SCDs and early ambulation # MOC:??Progestin-only pills # MOF:??Plans to breastfeed # Disposition: Discharge home today with follow up in 6 weeks. Pelvic rest. Discharge Details Physical Exam at Discharge: Discharge Condition: Stable Pulse: 60 Resp: 18 BP: 116/63 Temp: 98.4 ??F Weight: 181 lb (82.1 kg) See full physical exam from progress note on day of discharge. Lab Results Component Value Date HCT 40.5 03/15/2019 ABORH A Positive 03/15/2019 RUBELIGG Positive (A) 08/07/2018 [] Iron prescribed on discharge [] Post Rhogam given [] Post MMR given Immunization History Administered Date(s) Administered ??? Tdap 12/31/2018 Discharge Medications: Your medication list START taking these medications acetaminophen 500 mg capsule Take 1 capsule (500 mg total) by mouth every 6 (six) hours as needed for pain ibuprofen 600 mg tablet Commonly known as: ADVIL,MOTRIN Take 1 tablet (600 mg total) by mouth every 6 (six) hours as needed for pain norethindrone 0.35 mg tablet Commonly known as: MICRONOR Take 1 tablet (0.35 mg total) by mouth daily polyethylene glycol 17 gram packet Commonly known as: MIRALAX Take 1 packet (17 g total) by mouth daily for 14 days CONTINUE taking these medications vit,[id number] 29 mg iron- 1 mg tablet Commonly known as: PRENATABS RX Take 1 tablet by mouth daily Future Appointments Date Time Provider Department Center 03/24/2019 8:00 PM [facility] INDUCTION [facility] L&D PROC [facility] Main Cosigned by Georgina Copeland MD at 03/19/2019 7:45 AM CDT documented in this encounter Discharge Instructions * Discharge Instructions* Adela Ryan NP - 03/18/2019 8:46 AM CDT Discharge Instructions - Vaginal Delivery Call Your Doctor If: * You have [...] have questions about other medications you aretaking. Feeding: : Follow unrestricted . Feed your baby based on baby's hunger cues (or atleast 8-12 feedings per 24 hours). Do NOT supplement unless instructed by Automotive Product Specialist. Call your Automotive Product Specialist if your baby has poor eating habits (examples: feedings decrease, no feedings in 6 hours, or infant spits up more than ?? of their feeding for 2 consecutive feedings). Once your baby is 5-6 days old, you should expect at least 5 wet diapers and 3 soiled diapers per day. Out[facility]: [facility]) - [facility] - [id number] [place], [place] [address]mm to schedule an appointment to be seen in 6 weeks. Discharge Medications: Take the following medications. Your medication list START taking these medications acetaminophen 500 mg capsule Take 1 capsule (500 mg total) by mouth every 6 (six) hours as needed for pain ibuprofen 600 mg tablet Commonly known as: ADVIL,MOTRIN Take 1 tablet (600 mg total) by mouth every 6 (six) hours as needed for pain polyethylene glycol 17 gram packet Commonly known as: MIRALAX Take 1 packet (17 g total) by mouth daily for 14 days CONTINUE taking these medications vit,[id number] 29 mg iron- 1 mg tablet Commonly known as: PRENATABS RX Take 1 tablet by mouth daily documented in this encounter Medications at Time of Discharge polyethylene glycol (MIRALAX) 17 gram packetIndications:c onstipation Take 1 packet (17 g total) by mouth daily for 14 days 14 packet 03/18/2019 9 acetaminophen 500 mg capsuleIndications: Fever,Pain Take 1 capsule (500 mg total) by mouth every 6 (six) hours as needed for pain 60 tablet 03/18/2019 9 ibuprofen (ADVIL,MOTRIN) 600 mg tabletIndications:C ramps,Pain Take 1 tablet (600 mg total) by mouth every 6 (six) hours as needed for pain 60 tablet 03/18/2019 9 norethindrone (MICRONOR) 0.35 mg tabletIndications:P regnancy Contraception Take 1 tablet (0.35 mg total) by mouth daily 60 tablet 03/18/2019 9 vit,[id number] ic (PRENATABS RX) 29 mg iron- 1 mg tablet Take 1 tablet by mouth daily 90 tablet 3 02/10/2019 3 documented as of this encounter Ordered Prescriptions Prescription Sig Dispense Quantity Refills Last Filled Start Date End Date norethindrone (MICRONOR) 0.35 mg tabletIndications:P regnancy Contraception Take 1 tablet (0.35 mg total) by mouth daily 60 tablet 03/18/2019 9 polyethylene glycol (MIRALAX) 17 gram packetIndications:c onstipation Take 1 packet (17 g total) by mouth daily for 14 days 14 packet 03/18/2019 9 ibuprofen (ADVIL,MOTRIN) 600 mg tabletIndications:C ramps,Pain Take 1 tablet (600 mg total) by mouth every 6 (six) hours as needed for pain 60 tablet 03/18/2019 9 acetaminophen 500 mg capsuleIndications: Fever,Pain Take 1 capsule (500 mg total) by mouth every 6 (six) hours as needed for pain 60 tablet 03/18/2019 9 documented in this encounter Discharge Disposition Disposition Code Departure Means Destination Discharge to home or self care documented in this encounter Progress Notes * Adela Ryan SU[employer] [address] - 03/18/2019 8:34 AM CDT Post Progress Note Delivery Date/Time: 03/16/2019 at 9:31 AM Delivery method: Vaginal, Spontaneous [250] Obstetrical/Medical Problems: Medical Conditions Diagnosis ??? Vaginal Delivery ??? No leakage of amniotic fluid into vagina Subjective Flatus: Yes Pain: tolerable with current regimen Diet: Tolerating regular diet. Ambulating independently Voiding spontaneously Lochia less than menses Scheduled Medications viatmin 1 tablet oral Daily polyethylene glycol 17 g oral Daily PRN Medications ??? acetaminophen ??? aluminum-magnesium hydroxide-simethicone ??? benzocaine-menthol ??? hydrocortisone ??? ibuprofen Vitals: Temp: [97.7 ??F-98.4 ??F] 98.4 ??F Pulse: [60-66] 60 Resp: [16-18] 18 BP: (116-120)/(63-66) 116/63 No intake or output data in the 24 hours ending 03/18/19 0840 Physical Exam General: No acute distress. Cardiovascular: Regular rate and rhythm. Lungs: Non-labored. Clear to auscultation bilaterally. Abdomen: Soft, non-distended, non-tender to palpation. Fundus below umbilicus. Extremities: Warm and well-perfused. Neuro: Globally intact Recent Labs Lab Units 03/16/19 0155 03/15/19 2300 WBC K/cumm -- 16.4* HEMOGLOBIN g/dL -- 13.0 HEMATOCRIT % -- 40.5 PLATELETS K/cumm -- 187 POC GLUCOSE MONITOR mg/dL 98 -- Labs: Lab Results Component Value Date ABORH A Positive 03/15/2019 IDCOOMB Negative 03/15/2019 [id number] Nonreactive 02/19/2019 LABRPR Nonreactive 01/14/2019 RUBELIGG Positive (A) 08/07/2018 HEPBSAG Nonreactive 08/07/2018 VZVIGG Negative 08/07/2018 Assessment and Plan 23 y.o. PPD#2 s/p . Vaginal Delivery ?? # ID: Afebrile. No signs/symptoms of infection. VZV non-imm, varivax ordered. Cord avulsion requiring manual extraction. # Heme: EBL 200 mL. No symptoms acute blood loss anemia. # CV/Pulm: Vital signs stable. # GI/: Tolerating PO. Voiding spontaneously. # Pain: Controlled with above regimen. # Post DVT prophylaxis: Patient has the following moderate risk factors: None. Her post prophylaxis plan is SCDs and early ambulation # MOC: Progestin-only pills # MOF: Plans to breastfeed # Disposition: Discharge home today with follow up in 6 weeks. Pelvic rest. Adela Ryan NP 03/18/2019 Cosigned by Georgina Copeland MD at 03/18/2019 1:43 PM CDT Associated attestation - Georgina Copeland MD - 03/18/2019 1:43 PM CDT I have seen and examined the patient on 03/18/19. I agree with the findings and plan of care as documented in the resident's/fellow's note. * Vamsi Kam MD - 03/17/2019 6:52 AM CDT Post Progress Note Delivery Date/Time: 03/16/2019 at 9:31 AM Delivery method: Vaginal, Spontaneous [250] Obstetrical/Medical Problems: Medical Conditions Diagnosis ??? Vaginal Delivery ??? No leakage of amniotic fluid into vagina Subjective Patient doing well this AM and getting ready to breastfeed baby on morning rounds. Flatus: Yes Pain: Well controlled Diet: Tolerating regular diet. Ambulating independently Voiding spontaneously Lochia less than menses that has improved significantly since delivery Scheduled Medications viatmin 1 tablet oral Daily polyethylene glycol 17 g oral Daily varicella zoster 0.5 mL subcutaneous Once PRN Medications ??? acetaminophen ??? aluminum-magnesium hydroxide-simethicone ??? benzocaine-menthol ??? hydrocortisone ??? ibuprofen Vitals: Temp: [36.7 ??C (98 ??F)-37.2 ??C (99 ??F)] 36.8 ??C (98.2 ??F) Pulse: [63-117] 75 Resp: [16-18] 16 BP: (116-136)/(56-96) 122/72 Intake/Output Summary (Last 24 hours) at 03/17/2019 0656 Last data filed at 03/16/2019 1040 Gross per 24 hour Intake -- Output 800 ml Net -800 ml Physical Exam General: No acute distress. Cardiovascular: Regular rate and rhythm. Lungs: Non-labored. Clear to auscultation bilaterally. Abdomen: Soft, non-distended, non-tender to palpation. Fundus below umbilicus. Extremities: Warm and well-perfused. Neuro: Globally intact Recent Labs Lab Units 03/16/19 0155 03/15/19 2300 WBC K/cumm -- 16.4* HEMOGLOBIN g/dL -- 13.0 HEMATOCRIT % -- 40.5 PLATELETS K/cumm -- 187 POC GLUCOSE MONITOR mg/dL 98 -- Labs: Lab Results Component Value Date ABORH A Positive 03/15/2019 IDCOOMB Negative 03/15/2019 [id number] Nonreactive 02/19/2019 LABRPR Nonreactive 01/14/2019 RUBELIGG Positive (A) 08/07/2018 HEPBSAG Nonreactive 08/07/2018 VZVIGG Negative 08/07/2018 Assessment and Plan 23 y.o. PPD#1 s/p . Problem Vaginal Delivery # ID: Afebrile. No signs/symptoms [...] # MOF: # Disposition: Continue routine care Vamsi Kam MD Department of Obstetrics and Gynecology, PGY-0 I have reviewed the above and agree with documentation. Rosi Bee MD 03/17/2019 Cosigned by Georgina Copeland MD at 03/17/2019 8:06 AM CDT Associated attestation - Georgina Copeland MD - 03/17/2019 8:06 AM CDT I have seen and examined the patient on 03/17/19. I agree with the findings and plan of care as documented in the resident's/fellow's note. * Vamsi Kam MD - 03/16/2019 8:26 AM CDT Labor Progress Note 23 y.o. at 39w5d by L=1 Feeling mild lower pelvic pressure. and s/p epidural. BP 116/72 Pulse 69 Temp 36.7 ??C (98 ??F) (Oral) Resp 17 Ht 160 cm (5' 2.99 ) Wt 82.1 kg (181 lb) LMP 06/11/2018 SpO2 99% BMI 32.07 kg/m?? Temp: [36.7 ??C (98 ??F)-36.9 ??C (98.4 ??F)] Pulse: [54-92] BP: (105-122)/(59-76) Monitoring: Baseline: 140 bpm, Variability: Moderate, Accelerations: Present and Decelerations: Yes, one late deceleration. Good return to base with no further decelerations. Moderate variability and accelerations present. Uterine Activity: Contractions present, q3-4 minutes Physical Exam General: NAD, mood appropriate Cardiovascular: Regular rate and rhythm Pulmonary: non-labored Abdomen: Gravid, non-tender Extremities: Warm and well perfused. Cervix: 9 /100 /0 Assessment and Plan 23 y.o. at 39w5d Problem Supervision of Other Normal 1. Labor: Presented with contractions to [facility] with cervical change. SROM@2245. Contractions irregular although SVE 9/100/0. If patient does not continue to make change will begin OT. 2. FWB: Continuous monitoring. tracing category II, reassured by accels, variability 3. ID: HIV negative. GBS positive, continue PCN. Membrane Status: SROM VZV: NI 4. Indications for UDS: none 5. MOF: Plans to breastfeed. 6. MOC: Undecided on contraception. 7. Pain management: s/p Epidural placement 8. Post DVT prophylaxis: Patient has the following moderate risk factors: None. Her post prophylaxis plan is SCDs and early ambulation Vamsi Kam MD Department of Obstetrics and Gynecology, PGY-4 * Angie Lugo MD - 03/16/2019 6:42 AM CDT Labor Progress Note 23 y.o. at 39w5d by L=1 Comfortable and s/p epidural. BP 105/65 Pulse 67 Temp 98.4 ??F (Oral) Resp 17 Ht 160 cm (5' 2.99 ) Wt 181 lb (82.1 kg) LMP 06/11/2018 SpO2 97% BMI 32.07 kg/m?? Temp: [98.4 ??F] Pulse: [54-92] BP: (105-118)/(55-72) Monitoring: Baseline: 120 bpm, Variability: Moderate, Accelerations: Present and Decelerations: Yes, intermittent variable decels and late appearing decels Uterine Activity: q2-5 min Physical Exam General: NAD, mood appropriate Cardiovascular: Regular rate and rhythm Pulmonary: non-labored Abdomen: Gravid, non-tender Extremities: Warm and well perfused. Cervix: 790/0 Assessment and Plan 23 y.o. at 39w5d Problem Supervision of Other Normal 1. Labor: Presented with contractions to [facility] with cervical change. SROM@2245. Contractions irregular although SVE 7/90/0. If patient does not continue to make change will begin OT. 2. FWB: Continuous monitoring. tracing category II, reassured by accels, variability 3. ID: HIV negative. GBS positive, continue PCN. Membrane Status: SROM VZV: NI 4. Indications for UDS: none 5. MOF: Plans to breastfeed. 6. MOC: Undecided on contraception. 7. Pain management: s/p Epidural placement 8. Post DVT prophylaxis: Patient has the following moderate risk factors: None. Her post prophylaxis plan is SCDs and early ambulation Angie Lugo MD 196:43 AM * Angie Lugo MD - 03/16/2019 4:36 AM CDT Labor Progress Note 23 y.o. at 39w5d by L=1 Comfortable and s/p epidural. BP 117/71 Pulse 70 Temp 98.2 ??F (Oral) Resp 17 Ht 160 cm (5' 2.99 ) Wt 181 lb (82.1 kg) LMP 06/11/2018 SpO2 96% BMI 32.07 kg/m?? Pulse: [55-106] BP: (97-140)/(49-85) Weight: [181 lb (82.1 kg)] Monitoring: Baseline: 125 bpm, Variability: Moderate, Accelerations: Present and Decelerations: Yes, intermittent variable decels Uterine Activity: Irregular Physical Exam General: NAD, mood appropriate Cardiovascular: Regular rate and rhythm Pulmonary: non-labored Abdomen: Gravid, non-tender Extremities: Warm and well perfused. Cervix: 4/-1 Assessment and Plan 23 y.o. at 39w5d Problem Supervision of Other Normal 1. Labor: Presented with contractions to [facility] with cervical change. SROM@2245. Contractions irregular although SVE /-1. If patient does not continue to make change will begin OT. 2. FWB: Continuous monitoring. tracing category II, reassured by accels, variability 3. ID: HIV negative. GBS positive, continue PCN. Membrane Status: intact. VZV: NI 4. Indications for UDS: none 5. MOF: Plans to breastfeed. 6. MOC: Undecided on contraception. 7. Pain management: s/p Epidural placement 8. Post DVT prophylaxis: Patient has the following moderate risk factors: None. Her post prophylaxis plan is SCDs and early ambulation Angie Lugo MD 194:43 AM * Ian Delacruz MD PhD - 03/16/2019 2:43 AM CDT Labor Progress Note 23 y.o. at 39w5d by L=1 Comfortable and s/p epidural. BP 132/79 Pulse 72 Temp 98.2 ??F (Oral) Resp 17 Ht 160 cm (5' 2.99 ) Wt 181 lb (82.1 kg) LMP 06/11/2018 SpO2 97% BMI 32.07 kg/m?? Temp: [98.2 ??F] Weight: [181 lb (82.1 kg)] Monitoring: Baseline: 135 bpm, Variability: Moderate, Accelerations: Present and Decelerations: Yes, intermittent variable decels Uterine Activity: Contractions present, q5-7 minutes Physical Exam General: NAD, mood appropriate Cardiovascular: Regular rate and rhythm Pulmonary: non-labored Abdomen: Gravid, non-tender Extremities: Warm and well perfused. Cervix: /-1 Assessment and Plan 23 y.o. at 39w5d Problem Supervision of Other Normal 1. Labor: Admit to L&D. Consents signed and placed in chart. Send CBC/T&S. Expectant management of labor. If no change at next check, start OT 2. FWB: Continuous monitoring. tracing category II, reassured by accels, variability 3. ID: HIV negative. GBS positive, will start PCN. Membrane Status: intact. VZV: NI 4. Indications for UDS: none 5. MOF: Plans to breastfeed. 6. MOC: Undecided on contraception. 7. Pain management: Desires epidural when appropriate. 8. Post DVT prophylaxis: Patient has the following moderate risk factors: None. Her post prophylaxis plan is SCDs and early ambulation aIn Delacruz MD PhD 192:47 AM * Milla Sloan MD - 03/16/2019 12:12 AM CDT R2 OB To room for decel. FHT to 80s. Initially repositioned laterally, intermittently with audible FHT in 120s; however, no tracing persistently. SVE: 280/-1, palpable forebag Repositioned to hands and knees. FHT returned to baseline in 120s. Overall, FHT not well tracing for ~7min, intermittently audible in 120s then periods of tracing maternal HR. With repositioning, FHT sustained in 120-130s. After reassuring period of FHT, repositioned to L lateral with continued return to baseline in 120s. Pt continues on expectant management. Per RN, SROM@ 4119 At next check, will consider repeat AROM of forebag pending application of head. If no, further change, will start OT. D/w Dr. Parish Sloan MD, MPH R2 [email or web address] documented in this encounter H&P Notes * Ian Delacruz MD PhD - 03/15/2019 10:57 PM CDT Obstetrics H&P Chief Complaint: Painful contractions Estimated Date of Delivery: 03/18/19 Provider: [facility] HPI: Silvia Persaud is a 23 y.o. female at 39w4d gestation, dated by L=1 Her is complicated by GBS pyuria in 1st trimester She presented to [facility] with painful contractions and was there found to have made cervical change. She was admitted for continued management of her labor. 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 History of Abnormal Pap: None STD History: none History reviewed. No pertinent past medical history. Chronic hypertension: No Diabetes: No Asthma: No Past Surgical History: Procedure Laterality Date ??? WISDOM TOOTH EXTRACTION Social History Socioeconomic History ??? Marital status: Spouse name: Not on file ??? Number of children: Not on file ??? Years of education: Not on file ??? Highest education level: Not on file Tobacco Use ??? Smoking status: Never Smoker ??? Smokeless tobacco: Never Used Substance and Sexual Activity ??? Alcohol use: Yes ??? Drug use: No ??? Sexual activity: Yes Partners: Male control/protection: OCP Support System: Supported by Safe at home: Yes family history includes Diabetes in an other family member; No Known Problems in her father and mother. Family history of bleeding or clotting disorders: No Family history of defects, genetic disorders, or developmental delay: No No Known Allergies HOME MEDICATIONS : vit,[id number]-bccxf (PRENATABS RX) 29 mg iron- 1 mg tablet Review of Systems: Negative except per HPI Vitals: Temp: [98.2 ??F] 98.2 ??F Pulse: [72-82] 72 Resp: [17] 17 BP: (132)/(79) 132/79 Physical Exam: General: NAD, mood appropriate Cardiovascular: Regular rate and rhythm Pulmonary: Clear to ausculation bilaterally Abdomen: Gravid, non-tender Extremities: Warm and well perfused Speculum Exam: deferred Cervix: 2 /80 /-2 Monitoring: Baseline: 140 bpm, Variability: Moderate, Accelerations: Present and Decelerations: None Uterine Activity: Contractions present, q2-3 minutes Interpretation: Category 1 Ultrasound: Vertex presentation Posterior placenta Previa: No Estimated Weight: 3400g by Saad Labs: Lab Results Component Value Date ABORH A Positive 08/07/2018 IDCOOMB Negative 08/07/2018 [id number] Nonreactive 02/19/2019 LABRPR Nonreactive 01/14/2019 RUBELIGG Positive (A) 08/07/2018 HEPBSAG Nonreactive 08/07/2018 VZVIGG Negative 08/07/2018 Rh pos /Ab neg /HIV neg /Rub imm /RPR NR /HepB NR /VZV NI /GC/CT neg GBS pyuria Assessment and Plan Silvia Persaud is a 23 y.o. female at 39w4d who is being admitted for labor Patient Active Problem List Diagnosis Date Noted ??? Supervision of other normal 07/23/2018 Priority: High Overview Note: 1. Labor: Admit to L&D. Consents signed and placed in chart. Send CBC/T&S. Expectant management of labor. 2. FWB: Continuous monitoring. tracing category I 3. ID: HIV negative. GBS positive, will start PCN. Membrane Status: intact. VZV: NI 4. Indications for UDS: none 5. MOF: Plans to breastfeed. 6. MOC: Undecided on contraception. 7. Pain management: Desires epidural when appropriate. 8. Post DVT prophylaxis: Patient has the following moderate risk factors: None. Her post prophylaxis plan is SCDs and early ambulation ??? No leakage of amniotic fluid into vagina 03/10/2019 Overview Note: 03/10/19 [facility] visit: No evidence of SROM. No pooling, negative valslava, negative fern, negative nitrazine, ARUN 17.0 DVP 6.28. Precautions given. Plan discussed with Dr. Arce. Ian Delacruz MD PhD 03/15/19 Cosigned by Katia Arce MD at 03/16/2019 6:50 AM CDT Associated attestation - Katia Arce MD - 03/16/2019 6:50 AM CDT The resident/fellow saw and examined the patient, we discussed their findings, and I am in agreement with the plan based on the discussion with the resident/fellow. I did not personally examine the patient. documented in this encounter Nursing Notes * Cyndee Redding RN - 03/18/2019 12:31 PM CDT 03/18/19 0830 Consultation Reason for Consult Follow-up assessment Breasts/Nipples Breasts/Nipples (WDL) X Left Nipple Tender Right Nipple Tender LATCH Documentation Latch 0 (infant just had circumcised. Very sleepy; assist mother with hand expression/spoon feeding. ) Type of Nipple 2 Comfort (Breast/Nipple) 1 Hold 1 LATCH Score 4 Feeding Information Position Football hold Quality of Breastfeed Attempted breastfeed Other OB Tools Tools Lanolin;Comfort gels Patient Follow-Up Consult Status Complete (discharge teaching done at this time. Praise, encouragement and support offered. ) * Mitzi Zimmerman RN - 03/17/2019 1:00 AM CDT Called to assist with . Infant showing early feeding cues of hand to mouth, no crying present. Mother placed in cross cradle position on left breast correctly independently. Mother did hand expression and only took a few sucks then fell asleep. No sustained latch achieved. Attempted to arouse and stimulate infant then changing positions to football hold on right breast.Again mother was able to correctly align and position however no cues present at this time. Mother has right nipple that is flat and left nipple is everted however shallow. Attempted to applya nipple shield to right nipple and attempted to use nipple everter also to assist with feeding, however unsuccessful. Mother educated that if unsuccessful feedings persist after 24 hours or if the use of a shield is necessary, then pumping will need to be initiated. Mother verbalized understandingand states that she has an electric breastpump already and she had also purchased 2 sizes of nippleshields in anticipation she might have trouble with her right breast. Will cont to assist and offersupport with feedings. * Kell Prado RN - 03/15/2019 10:20 PM CDT Patient [facility] to [facility] complaining of contractions. VS wnl.Urine dip WNL. SVE /-2. Reactive FHTtracing. SVE recheck unchanged. Patient ambulated x 1 hour. SVE recheck /-2. Patient desired tostay if possible due to painful contractions every 2-4 minutes and stated I just wouldn't know when to come back and [place] live [place] . Patient discussed with Dr. Arce. Patient to be admitted to labor and delivery and augmented if SVEs stall. Patient fine with plan of care. IV started. Patient transferred to labor and delivery. Kell Prado RN 03/15/2019 documented in this encounter Miscellaneous Notes * Plan of Care - Sita Santoyo RN - 03/18/2019 11:05 AM CDT Problem: Activity: Goal: Will verbalize [...] Outcome: Adequate for Discharge Problem: Nutritional: Goal: Mother's verbalization of comfort with process will improve Outcome: Adequate for Discharge Problem: Role Relationship: Goal: Ability to interact appropriately with will improve Outcome: Adequate for Discharge Problem: Sensory: Goal: General experience of comfort will improve Outcome: Adequate for Discharge Problem: Health Behavior: Goal: Understanding of discharge needs will improve Outcome: Adequate for Discharge Goals: Clinical Goals for the Shift: pain control and rest Summary: * Hospital Course - Audie Mckee - 03/18/2019 6:42 AM CDT Silvia Persaud is a 23 y.o. at 39w5d who presented with . Her was {Blank single:57167:: uncomplicated , complicated by }. {Blank single:10275:: Her labor was augmented with , Her induction was started with , Her labor was expectantly managed }. Delivery was {Blank sin gle:38839:: complicated by , uncomplicated }. See delivery record for full details. The patient was transferred to . Her course was {Blank single:33120:: complicated by , uncomplicated }. Prior to discharge, her pain was well controlled, she was voiding, passing gas, ambulating, and meeting all post milestones. # #Mother/Baby: The patient has chosen to {Blank single:70365:: breastfeed , formula feed , both breast and formula feed } her infant and has chosen {Blank single:73968:: IUD, , implant , injectable contraceptive , POPs , condoms } for contraception. * Plan of Care - Deisi Aviles RN - 03/18/2019 12:09 AM CDT Problem: Activity: Goal: Will verbalize [...] will decrease Outcome: Progressing Problem: Nutritional: Goal: Mother's verbalization of comfort with process will improve Outcome: Progressing Problem: Role Relationship: Goal: Ability to interact appropriately with will improve Outcome: Progressing Problem: Sensory: Goal: General experience of comfort will improve Outcome: Progressing Goals: Clinical Goals for the Shift: pain mgmt, increase activity, increase po hydration Summary: * Plan of Care - Marcia Way RN - 03/17/2019 5:53 PM CDT Goals: Problem: Activity: Goal: Will verbalize the importance [...] will decrease Outcome: Progressing Problem: Nutritional: Goal: Mother's verbalization of comfort with process will improve Outcome: Progressing Problem: Role Relationship: Goal: Ability to interact appropriately with will improve Outcome: Progressing Problem: Sensory: Goal: General experience of comfort will improve Outcome: Progressing Clinical Goals for the Shift: Adequate pain control Summary: Up ad linette, tolerating regular diet, and voiding without difficulty. Pain well controlled with a current pain regimen. Spouse and family supportive. * Plan of Care - Luzma Mena RN - 03/17/2019 10:30 AM CDT CM unable to complete interview at this time. CM will continue to follow patient for any anticipated discharge needs * Plan of Care - Mitzi Zimmerman RN - 03/17/2019 2:24 AM CDT Problem: Activity: Goal: Will verbalize [...] will decrease Outcome: Progressing Problem: Nutritional: Goal: Mother's verbalization of comfort with process will improve Outcome: Progressing Problem: Role Relationship: Goal: Ability to interact appropriately with will improve Outcome: Progressing Problem: Sensory: Goal: General experience of comfort will improve Outcome: Progressing Goals: Clinical Goals for the Shift: pain control, care for self and baby, establish good Summary: Pt is progressing towards goals. Pain is under control with use of prn meds. Pt is continuing to progress to establish good techniques with . Offered support, education and assistance with feedings thus far. Pt cares for self and well. Will cont to monitor and offer assistance as needed. * Note - Ann Marie Espinoza RN - 03/16/2019 4:30 PM CDT Discussed hunger cues, cluster feedings and normal behavior. placed skin to skin in football and cross cradle position. spitty and gaggy. No successful latch noted. Placed skin to skinwith mother. Shown hand expression with one drop colostrum noted at this time. Mother aware to callout as needed with feedings. Shown illustration of correct positioning and latch * Plan of Care - Jami Gomez RN - 03/16/2019 1:37 PM CDT Goals: Clinical Goals for the Shift: Rest, ambulation as tolerated, successful breastfeed, vitals WDL, wood with baby Problem: Activity: Goal: Will verbalize the importance of balancing activity with adequate rest periods 03/16/2019 1337 by Jami Gomez RN Outcome: Progressing 03/16/2019 1334 by Jami Gomez RN Outcome: Progressing Problem: Lack of Knowledge: Goal: Will have increased knowledge of Care 03/16/2019 1337 by Jami Gomez RN Outcome: Progressing 03/16/2019 1334 by Jami Gomez RN Outcome: Progressing Problem: Coping: Goal: Ability to cope will improve 03/16/2019 1337 by Jami Gomez RN Outcome: Progressing 03/16/2019 1334 by Jami Gomez RN Outcome: Progressing Goal: Ability to identify and utilize available resources and services will improve 03/16/2019 1337 by Jami Gomez RN Outcome: Progressing 03/16/2019 1334 by Jami Gomez RN Outcome: Progressing Problem: Life Cycle: Goal: Risk for hemorrhage will decrease 03/16/2019 1337 by Jami Gomez RN Outcome: Progressing 03/16/2019 1334 by Jami Gomez RN Outcome: Progressing Goal: Chance of risk for complications during the period will decrease 03/16/2019 1337 by Jami Gomez RN Outcome: Progressing 03/16/2019 1334 by Jami Gomez RN Outcome: Progressing Problem: Nutritional: Goal: Mother's verbalization of comfort with process will improve 03/16/2019 1337 by Jami Gomez RN Outcome: Progressing 03/16/2019 1334 by Jami Gomez RN Outcome: Progressing Problem: Role Relationship: Goal: Ability to interact appropriately with will improve 03/16/2019 1337 by Jami Gomez RN Outcome: Progressing 03/16/2019 1334 by Jami Gomez RN Outcome: Progressing Problem: Sensory: Goal: General experience of comfort will improve 03/16/2019 1337 by Jami Gomez RN Outcome: Progressing 03/16/2019 1334 by Jami Gomez RN Outcome: Progressing Summary: Patient progressing toward shift goals. * L&D Delivery Note - Vamsi Kam MD - 03/16/2019 10:23 AM CDT Images from the original note were not included. [facility] Vaginal Delivery Note Patient's Name: Silvia Persaud : 1995 Attending: Kenna Baxter Assisting: Vamsi Kam MD [facility] Primary Diagnosis: Intrauterine at 39w5d, delivered VZVni GBS pyuria Obstetrical Medical Risk Factors: Medical Conditions Diagnosis ??? Vaginal Delivery ??? No leakage of amniotic fluid into vagina Delivery method: Vaginal, Spontaneous [250] Anesthesia: Epidural [254] Membranes: Spontaneous rupture, clear fluid. Time ruptured prior to delivery: rupture date, rupture time, delivery date, or delivery time have not been documented Antibiotics: yes, PCN Infant Delivery Date: 03/16/2019 Delivery Time: 9:31 AM Placenta Delivery Date & Time: 03/16/2019 9:36 AM Cord: 3 vessels [3] Delayed cord clamping: Yes, 60 seconds. Episiotomy: No Laceration: second degree EBL: 200 mL : living No weight on file. APGARs: 8 / 9 Disposition: Nursery Labor Summary: Silvia Persaud is a 23 y.o. female at 39w5d weeks gestation, dated by L=1 with Estimated Date of Delivery: 03/18/19. Her was notable for VZVni and GBS pyuria. Vertex presentation and GBSpositive confirmed on admission. She presented with painful contractions. Her labor did not requireaugmentation. Epidural was placed for anesthesia. Patient progressed to complete and delivered a viable infant. The cord was clamped and cut and the baby was handed to mother for skin to skin. The third stage was actively managed with external uterine massage, gentle cord traction and pitocin. The umbilical cord avulsed; however, the placenta was manually delivered intact. A 2nd degree lacerationwas repaired in the usual fashion. Excellent hemostasis was noted. All counts were correct before and after the delivery. BSUS was performed with no retained POC noted. Additional Procedures Performed: None Description of Additional Procedure Performed: N/A Complications: None Description of Complications: N/A Dr. Kenna Baxter was present for the delivery. and repair of the 2nd degree laceration. Vamsi Kam MD Department of Obstetrics and Gynecology, PGY-7 Cosigned by Kenna Baxter MD at 03/16/2019 7:38 PM CDT Associated attestation - Kenna Baxter MD - 03/16/2019 7:38 PM CDT I was present for the entire delivery * Plan of Care - Kenna Pepper RN - 03/16/2019 7:21 AM CDT Goals: Problem: Lack of Knowledge: Goal: Verbalization of understanding the information provided will improve Outcome: Progressing Problem: Life Cycle: Goal: Ability to effectively push during vaginal delivery will improve Outcome: Progressing Problem: Life Cycle: Goal: Ability to make normal progression through stages of labor will improve Outcome: Progressing Problem: Safety: Goal: Chance of risk for complications during labor and delivery will decrease Outcome: Progressing Problem: Sensory: Goal: Relief or control of pain from uterine contractions will improve Outcome: Progressing Summary: Healthy and safe baby and delivery. Healthy mom emotional and physically. documented in this encounter Plan of Treatment Pending Results Name Type Priority Associated Diagnoses Date /Time Check Sample Lab STAT 03/16/2019 5 :54 AM CDT documented as of this encounter Procedures Procedure Name Priority Date/Time Associated Diagnosis Comments POCT GLUCOSE DEVICE Routine 03/16/2019 1 :55 AM CDT CBC WITHOUT DIFFERENTIAL STAT 03/15/2019 11:00 PM CDT TYPE AND SCREEN Timed 03/15/2019 11:00 PM CDT POCT URINALYSIS DIPSTICK Routine 03/15/2019 7:22 PM CDT documented in this encounter Results * POCT glucose (03/16/2019 1:55 AM CDT) [facility] Glucose, POC 98 70 - 199 mg/dL [facility] Blood specimen (specimen) 03/16/2019 1:55 AM CDT 03/16/2019 1:55 AM CDT Kenna Baxter MD LAB POCT ORDERABLES - DEVICE Final Result Performing Organization Address [facility] Co de Phone Number [facility] [place] [employer] [place] [address] * (ABNORMAL) CBC without differential (03/15/2019 11:00 PM CDT) Pathologist [facility] WBC 16.4(H) 3.8 - 9.9 K/cumm [facility] Hgb 13.0 11.9 - 15.5 g/dL [facility] Hct 40.5 35.6 - 45.5 % [facility] Plt 187 150 - 400 K/cumm [facility] MPV 13.2(H) 9.1 - 12.3 fL [facility] RBC 4.70 3.90 - 5.20 M/cumm [facility] MCV 86.2 81.3 - 96.4 fL [facility] MCH 27.7 27.1 - 33.3 pg [facility] MCHC 32.1(L) 32.3 - 35.7 g/dL [facility] RDW CV 13.2 11.1 - 14.9 % [facility] RDW SD 41.0 35.7 - 48.1 fL [facility] NRBC abs 0.00 0.00 - 0.01 K/cumm [facility] Blood specimen (specimen) 03/15/2019 11:00 PM CDT 03/15/2019 11:28 PM CDT Kenna Baxter MD LAB BLOOD ORDERABLES F inal Result [facility] [place] [place] [address] * Type and screen (03/15/2019 11:00 PM CDT) Elisa, indirect Negative [facility] ABO Rh A Positive [facility] Blood specimen (specimen) 03/15/2019 11:00 PM CDT 03/15/2019 11:17 PM CDT Narrative [facility] - 03/16/2019 12:42 AM CDT Has the patient had Daratumumab (Darzalex) in the past 6 months?->Unknown Kenna Baxter MD LAB BLOOD BANK TEST OR DERABLES Final Result [facility] [place] [address] * POCT urinalysis dipstick (03/15/2019 7:22 PM CDT) Color, Urine, POC Light Yellow Clarity, ur, POC Clear Clear Glucose, ur, POC Negative Negative mg/dL Bilirubin, ur, POC Negative Negative, Small, Moderate, Large Ketones, ur, POC Negative Negative Specific [place], POC 1.005 1.005 - 1.030 Blood, ur, POC Negative Negative pH, ur, POC 6.5 5.0 - 8.0 Protein, ur, POC Negative Negative Urobilinogen, urine, POC 0.2 0.2 - 1.0 mg/dL Nitrite, ur, POC Negative Negative Leukocytes, ur, POC Negative Negative Lot Number [id number] Urine 03/15/2019 7:22 PM CDT Lashawn Doty NP POINT OF CARE TEST ORDER FIDEL Final Result documented in this encounter Visit Diagnoses Not on filedocumented in this encounter Administered Medications Inactive Administered Medications - up to 3 most recent administrations Medication Order MAR Action Action Date Dose Rate Site acetaminophen (TYLENOL) tablet 1,000 mg 1,000 mg, oral, Every 6 hours PRN, 1st line for pain, Starting on 03/16/19 at 1056, Indications: Fever, PainIndications:Fever,Pain Given 03/18/2019 4:52 PM CDT 1,000 mg Given 03/18/2019 9:08 AM CDT 1,000 mg Given 03/18/2019 2:13 AM CDT 1,000 mg benzocaine-menthol (DERMOPLAST) 20-0.5 % topical spray 1 spray 1 spray, topical, As needed, other, perianal area for pain, Starting on 03/16/19 at 1218, Up to 6 times a day., Apply to affected area: perineum, Indications: Minor Skin Wound PainIndications:Minor Skin Wound Pain Given 03/16/2019 1:20 PM CDT 1 spray dextrose 5% and Lactated Ringer's infusion 125 mL/hr, intravenous, Continuous, Starting on 03/15/19 at 2315, L&D Pre-Delivery New Bag 03/16/2019 7:11 AM CDT 125 mL/hr 125 mL/hr New Bag 03/15/2019 11:03 PM CDT 125 mL/hr 125 mL/hr ibuprofen (ADVIL,MOTRIN) tablet 600 mg 600 mg, oral, Every 6 hours PRN, other, cramping, Starting on 03/16/19 at 1056, Indications: CrampsIndications:Cramps Given 03/18/2019 4:52 PM CDT 600 mg Given 03/18/2019 9:08 AM CDT 600 mg Given 03/18/2019 2:13 AM CDT 600 mg Lactated Ringer's (LR) bolus 1,000 mL 1,000 mL, intravenous, Once, On 03/16/19 at 0015, For 1 dose, 15 to 30 minutes before epidural placement. New Bag 03/15/2019 11:20 PM CDT 1,000 mL lidocaine PF (XYLOCAINE) 10 mg/mL (1 %) preservative free injection - ADS Override Pull Starting on 03/16/19 at 0944, For 1 dose, LEMUEL HAUSER: cabinet override lidocaine PF (XYLOCAINE) 10 mg/mL (1 %) preservative free injection 100 mg 100 mg (10 mL), other, Once, On 03/16/19 at 1145, For 1 dose Given 03/16/2019 10:00 AM CDT 100 mg oxytocin 30 unit/500 mL (0.06 unit/mL) in sodium chloride 0.9% (premix) solution - ADS Override Pull Starting on 03/16/19 at 0846, For 1 dose, XU STAHL: cabinet override oxytocin 30 unit/500 mL (0.06 unit/mL) in sodium chloride 0.9% (premix) solution 95-334 milliunits/min (95-334 mL/hr), 0.06 units/mL, intravenous, Continuous, Starting on 03/16/19 at 0915, Until 03/16/19 at 1056, Indications: Hemorrhage Prevention, 334 shelly-units/minutes for 30 minutes then decrease infusion to 95 shelly-units/min for 3.5 hours., RoutineIndications:Postpa rtum Hemorrhage Prevention Rate/Dose Change 03/16/2019 10:08 AM CDT 95 milliunits/min 95 mL/hr New Bag 03/16/2019 9:38 AM CDT 334 milliunits/min 334 m L/hr penicillin G potassium 2.5 million unit/25 mL in sterile water (premix) 2.5 Million Units 2.5 Million Units, intravenous, Administer over 30 Minutes, Every 4 hours, First dose on 03/16/19 at 0315, L&D Pre-Delivery, Until delivery., Indications: Prevention of Group B Streptococcal InfectionIndications:Prevention of Group B Streptococcal Infection New Bag 03/16/2019 7:09 AM CDT 2.5 Million Units New Bag 03/16/2019 3:09 AM CDT 2.5 Million Units penicillin G potassium 5 million units/50 mL in sterile water (premix) 5 Million Units 5 Million Units, intravenous, Administer over 30 Minutes, Once, On 03/15/19 at 2315, For 1 dose, L&D Pre-Delivery, Indications: Prevention of Group B Streptococcal InfectionIndications:Prevention of Group B Streptococcal Infection New Bag 03/15/2019 11:05 PM CDT 5 Million Units PNV with [id number] tablet 1 tablet 1 tablet, oral, Daily, First dose on 03/16/19 at 1300, Begin when normal bowel activity resumes., Indications: Vitamin Deficiency PreventionIndications:Vitamin Deficiency Prevention Given 03/18/2019 9:08 AM CDT 1 tablet Given 03/17/2019 8:27 AM CDT 1 tablet polyethylene glycol (MIRALAX) packet 17 g 17 g, oral, Daily, First dose on 03/16/19 at 1300, Hold if diarrhea., Indications: constipationIndications:dinah avina Given 03/18/2019 9:08 AM CDT 17 g SUFentanil (PF) and bupivacaine (PF) in 0.9% sodium chloride 0.5 mcg/ml - 0.1% casette (premix) solution Continuous Rate: 10 mL/hr, Patient Bolus Dose: other (comment) / 6, Lockout Interval: 15 Minutes, epidural, Continuous, Starting on 03/16/19 at 0015, Until 03/16/19 at 0552, 100 mL, Indications: Pain, Stop epidural infusion after placental delivery and any indicted repair is complete., RoutineIndications:Pain New Syringe/Cartridge 03/15/2019 11:40 PM CDT 0.05 mg SUFentanil (PF) and bupivacaine (PF) in 0.9% sodium chloride 0.5 mcg/ml - 0.1% casette (premix) solution Continuous Rate: 10 mL/hr, Patient Bolus Dose: other (comment) / 6 mL, Lockout Interval: 15 Minutes, epidural, Continuous, Starting on 03/16/19 at 0030, Until 03/16/19 at 1056, 100 mL, Indications: Pain, Stop epidural infusion after placental delivery and any indicted repair is complete., RoutineIndications:Pain New Syringe/Cartridge 03/16/2019 7:49 AM CDT 0.05 mg documented in this encounter Active and Recently Administered Medications Times are shown in CDT. Scheduled Medication Order 03/16/2019 03/17/2019 03/18/2019 lidocaine PF (XYLOCAINE) 10 mg/mL (1 %) preservative free injection 100 mg (COMPLETED) 100 mg (10 mL), other, Once, On 03/16/19 at 1145, For 1 dose 1000 (Given - Provider: Kenna Pepper RN) penicillin G potassium 2.5 million unit/25 mL in sterile water (premix) 2.5 Million Units (CANCELED) 2.5 Million Units, intravenous, Administer over 30 Minutes, Every 4 hours, First dose on 03/16/19 at 0315, L&D Pre-Delivery, Until delivery., Indications: Prevention of Group B Streptococcal Infection 0309 (New Bag - Provider: Kenna Merrill RN)0709 (New Bag - Provider: Kenna Pepper, RN) PNV with iyssmrs-iczc-[id number] tablet 1 tablet 1 tablet, oral, Daily, First dose on 03/16/19 at 1300, Begin when normal bowel activity resumes., Indications: Vitamin Deficiency Prevention 1300 (Not Given - Provider: Jami Gomez RN - Reason: Patient/family refused) 0827 (Given - Provider: Marcia Way RN) 0908 (Given - Provider: Sita Santoyo, RN) polyethylene glycol (MIRALAX) packet 17 g 17 g, oral, Daily, First dose on 03/16/19 at 1300, Hold if diarrhea., Indications: constipation 1300 (Not Given - Provider: Jami Gomez RN - Reason: Patient/family refused) 0900 (Not Given - Provider: Marcia Way RN - Reason: Patient/family refused) 0908 (Given - Provider: Sita Santoyo, RN) Continuous Medication Order 03/16/2019 03/17/2019 03/18/2019 dextrose 5% and Lactated Ringer's infusion (CANCELED) 125 mL/hr, intravenous, Continuous, Starting on 03/15/19 at 2315, L&D Pre-Delivery 0711 (New Bag - Provider: Kenna Pepper, IRVIN)1137 (Stopped - Provider: Kenna Pepper, RN) oxytocin 30 unit/500 mL (0.06 unit/mL) in sodium chloride 0.9% (premix) solution (CANCELED) 95-334 milliunits/min (95-334 mL/hr), 0.06 units/mL, intravenous, Continuous, Starting on 03/16/19 at 0915, Until 03/16/19 at 1056, Indications: Hemorrhage Prevention, 334 shelly-units/minutes for 30 minutes then decrease infusion to 95 shelly-units/min for 3.5 hours., Routine 0938 (New Bag - Provider: Kenna Pepper, RN)1008 (Rate/Dose Change - Provider: Kenna Pepper, RN) oxytocin 30 unit/500 mL (0.06 unit/mL) in sodium chloride 0.9% (premix) solution 95-334 milliunits/min (95-334 mL/hr), 0.06 units/mL, intravenous, Continuous, Starting on 03/16/19 at 1300, Until Sun03/19/19 at 0124, Indications: Hemorrhage, Administer 334 shelly-units/min for 30 minutes and then reduce to 95 shelly-units/min for 3.5 hours. , Routine 1320 (Stopped - Provider: Jami Gomez, IRVIN - Comment: Pt is and no longer needs oxytocin. Policy is to leave going for 3 hours then to turn it off.) SUFentanil (PF) and bupivacaine (PF) in 0.9% sodium chloride 0.5 mcg/ml - 0.1% casette (premix) solution (CANCELED) Continuous Rate: 10 mL/hr, Patient Bolus Dose: other (comment) / 6 mL, Lockout Interval: 15 Minutes, epidural, Continuous, Starting on 03/16/19 at 0030, Until Sun03/16/19 at 1056, 100 mL, Indications: Pain, Stop epidural infusion after placental delivery and any indicted repair is complete., Routine 0030 (Due)0749 (New Syringe/Cartridge - Provider: Kenna Pepper RN)1000 (Stopped (Dual Sign) - Provider: Kenna Pepper RN) PRN Medication Order 03/16/2019 03/17/2019 03/18/2019 acetaminophen (TYLENOL) tablet 1,000 mg 1,000 mg, oral, Every 6 hours PRN, 1st line for pain, Starting on 03/16/19 at 1056, Indications: Fever, Pain 1105 (Given - Provider: Kenna Pepper RN)1810 (Given - Provider: Jami Gomez, IRVIN) 0049 (Given - Provider: Mitzi Zimmerman, IRVIN)0727 (Given - Provider: Mitzi Zimmerman, RN)1407 (Given - Provider: Marcia Way RN)2115 (Given - Provider: Deisi Aviles, RN) 0213 (Given - Provider: Deisi Aviles, RN)0908 (Given - Provider: Sita Santoyo, RN)1652 (Given - Provider: Sita Santoyo, RN) aluminum-magnesium hydroxide-simethicone (MAALOX) 40-40-4 mg/mL oral suspension 30 mL 30 mL, oral, Every 6 hours PRN, indigestion, heartburn, Starting on 03/16/19 at 1218, Indications: Dyspepsia benzocaine-menthol (DERMOPLAST) 20-0.5 % topical spray 1 spray 1 spray, topical, As needed, other, perianal area for pain, Starting on 03/16/19 at 1218, Up to 6 times a day., Apply to affected area: perineum, Indications: Minor Skin Wound Pain 1320 (Given - Provider: Jami Gomez, IRVIN) hydrocortisone (ANUSOL-HC) 2.5 % rectal cream rectal, 3 times daily PRN, hemorrhoids, Starting on 03/16/19 at 1218, Indications: Hemorrhoids ibuprofen (ADVIL,MOTRIN) tablet 600 mg 600 mg, oral, Every 6 hours PRN, other, cramping, Starting on 03/16/19 at 1056, Indications: Cramps 1857 (Given - Provider: Marcia Way RN) 0213 (Given - Provider: Deisi Aviles RN)0908 (Given - Provider: Sita Santoyo RN)1652 (Given - Provider: Sita Santoyo RN) documented in this encounter Orders Medications Ordered That Roland ht Not Have Been Administered Count Last Ordered Date First Ordered Date aluminum-magnesium hydroxide -simethicone (MAALOX) 40-40-4 mg/mL oral suspension 30 mL 1 03/16/2019 hydrocortisone (ANUSOL-HC) 2 .5 % rectal cream 1 03/16/2019 lidocaine-EPINEPHrine (XYLOC JEANETTE with EPI) 1 %-1:100,000 injection 10 mL 1 03/16/2019 xlthpeq-wlrid-bhrjqsk (MMR) 1,000-12,500 TCID50/0.5 mL vaccine 0.5 mL 03/16/2019 oxytocin 30 unit/500 mL (0.0 6 unit/mL) in sodium chloride 0.9% (premix) solution 2 03/16/2019 Lactated Ringer's (LR) bolus 1,000 mL 05/2019 naloxone (NARCAN) 0.4 mg/mL injection 0.04-0.4 mg 2 03/15/2019 ondansetron (ZOFRAN) injection 4 mg 1 03/15 sodium chloride 0.9% flush 0.5-20 mL 6 03/06 Transfer Count Last Ordered Date First Orde red Date TRANSFER PATIENT 1 03/16/2019 CORE MEASURES Count Last Ordered Date First Ord ered Date REASON FOR NO VTE PROPHYLAXI S - HOSPITAL ADMISSION - MEDICATIONS 1 03/16/2019 REASON FOR NO VTE PROPHYLAXIS AT ADMISSION 1 03/15/2019 documented in this encounter Care Teams [facility] Relationship Specialty Start Date End Date Lucille Garcia PCP - General 09/17/06 05/13/19 documented as of this encounter
--- OUTSIDE RECORDS SUMMARY | 2024-08-09 10:46 | XMS_ITS | Encounter Summary ---
Author Organization [facility] Address [address] [place] [address] Phone Care Team Providers Care Wood Form Builder Name Role Phone No, Physician Primary Care Provider [phone] Reason for Visit * Reason Comments Routine Visit Encounter Details Date Type Department Care Team (Late st Contact Info) Description 11/11/2020 4:00 PM CDT Office Visit [facility] Obstetrics and Gynecology [address] [facility] 7th [address] [place] [address] Rios Santoro MD [address] [place] [address] Supervision of other normal , antepartum (Primary Dx) Social History Tobacco Use Types Packs/Day Years Used Date Smoking Tobacco: Never Smokeless Tobacco: Never Alcohol Use Standard Drinks/Week Comments Yes 0 (1 standard drink = 0.6 oz pur e alcohol) AUDIT-C Answer Date Recorded Q1: How often do you have a drink containing alc ohol? Monthly or less 10/11/2020 Q2: How many drinks containi ng alcohol do you have on a typical day when you are drinking? 1 or 2 10/11/2020 Q3: How often do you have si x or more drinks on one occasion? 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 Gender Identity Female 01/27/2021 1:35 PM CDT Sexual Orientation Straight 01/27/2021 1: 35 PM CDT documented as of this encounter Last Filed Vital Signs Vital Sign Reading Time Taken Comments Blood Pressure 122/80 11/11/2020 4:06 PM CDT Pulse - - Temperature - - Respiratory Rate - - Oxygen Saturation - - Inhaled Oxygen Concentration - - Weight 66.2 kg (146 lb) 11/11/2020 4:06 PM CDT Height 160 cm (5' 3 ) 11/11/2020 4:06 PM CDT Body Mass Index 25.86 11/11/2020 4:06 PM CDT documented in this encounter Progress Notes * Rios Santoro MD - 11/11/2020 4:00 PM CDT Feeling much better after [facility] visit. documented in this encounter Plan of Treatment Not on file documented as of this encounter Procedures Procedure Name Priority Date/Time Associated Diagnosis Comments HIV 1/2 ANTIBODY PLUS P24 ANTIGEN Routine 10/23/2020 CBC WITHOUT DIFFERENTIAL Routine 10/23/2020 ANTIBODY SCREEN Routine 10/23/2020 documented in this encounter Results * CBC without differential (10/23/2020) SCRIBED Platelets 206 k/cumm Blood specimen (specimen) us Carmela Denson MD LAB BLOOD ORDERABLES Final Re sult * Antibody screen (10/23/2020) SCRIBED Indirect Antiglobulin negative Blood specimen (specimen) Result Janes Denson MD LAB BLOOD BANK TEST ORDERABLE S Final Result * HIV 1/2 Antibody plus p24 Antigen (10/23/2020) SCRIBED HIV P24 Negative Blood specimen (specimen) us Carmela Denson MD LAB MICROBIOLOGY - GENERAL OR DERABLES Final Result documented in this encounter Visit Diagnoses Diagnosis Supervision of other normal , antepartum- Primary documented in this encounter Care Teams Wood Form Builder Relationship Specialty Start Date End Date No, Physician PCP - General 05/14/19 01/01/24 documented as of this encounter
--- OUTSIDE RECORDS SUMMARY | 2024-08-09 10:46 | XMS_ITS | Encounter Summary ---
Author Organization [facility] Healthcare Address [address] [place] [address] Care Team Providers Care Junior Linux Administrator Name Role Phone Lucille Garcia Primary Care Provider Unavaila ble Reason for Visit * Diagnostic Lab (Routine) - Closed Specialty Diagnoses / Procedures Referred By Contkat t Referred To Contact Lab Diagnoses Screening for cervical cancer Procedures Cytology Georgina Copeland MD Phone: tel: fax: Referral ID Status Reason Start Date Expiration Date Visits Re quested Visits Authorized [id number] Closed 04/28/2019 11/06/2020 1 1 Encounter Details Date Type Department Care Team (Late st Contact Info) Description 04/29/2019 1:30 AM CDT Lab [facility] [address] [place] [id number] Screening for cervical cancer Social History Tobacco Use Types Packs/Day Years Used Date Smoking Tobacco: Never Smokeless Tobacco: Never Alcohol Use Standard Drinks/Week Comments Yes 0 (1 standard drink = 0.6 oz pur e alcohol) Comments No Sex and Gender Information Value Date Recorded Sex Assigned at Not on file 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 Gender Identity Female 01/27/2021 1:35 PM CDT Sexual Orientation Straight 01/27/2021 1: 35 PM CDT documented as of this encounter Plan of Treatment Not on file documented as of this encounter Procedures Procedure Name Priority Date/Time Associated Diagnosis Comments CYTOLOGY Routine 04/28/2019 5:24 PM CDT Screening for cervical cancer documented in this encounter Results * Cytology (04/28/2019 5:24 PM CDT) Fluid 04/28/2019 5:24 PM CDT 04/28/2019 6:59 PM CDT Narrative PATHOLOGY [facility] - 04/30/2019 10:07 AM CDT EPIC results best viewed via link to PDF [facility] [place] [address] CYTOPATHOLOGY REPORT FINAL Patient Name: ??MIKAELA PERSAUD Gender: ??F : ??1995 (Age: 23) Address: ??[address] [place] [phone] Hospital #: ??[id number] 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 ??It has not been cleared or approved by the [place]. [place]. Food and Drug Administration. us Georgina Copeland MD LAB CYTOLOGY O RDERABLES Final Result PATHOLOGY [facility] 3rd Floor [place], [place] [phone] documented in this encounter Visit Diagnoses Diagnosis Screening for cervical cancer Screening for malignant neoplasm of the cervix documented in this encounter Care Teams Junior Linux Administrator Relationship Specialty Start Date End Date Lucille Garcia PCP - General 09/17/06 05/13/19 documented as of this encounter
--- OUTSIDE RECORDS SUMMARY | 2024-08-09 10:46 | XMS_ITS | Encounter Summary ---
Author Organization [facility] Healthcare Address [address] [place] [address] Care Team Providers Care House Worker General Name Role Phone No, Physician Primary Care Provider [phone] Reason for Visit * Reason Comments Nausea c/o N/V since this A M/states think I have stomach flu /vomited x 10 today/unable to keep anything down; denies contrs, LOF or VB Encounter Details Date Type Department Care Team (Latest Contact Info) Description 10/17/2020 7:33 PM CDT - 10/17/2020 11:10 PM CDT Hospital Encounter [address] [phone] April Mccord MD [address] [facility] [id number] [place] [address] Rios Santoro MD [address] [facility] [address] [place], [place] [id number] Supervision of other normal , antepartum (Primary Dx) Discharge Disposition: Discharge to home [...] on file 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 Gender Identity Female 01/27/2021 1:35 PM CDT Sexual Orientation Straight 01/27/2021 1: 35 PM CDT documented as of this encounter Last Filed Vital Signs Vital Sign Reading Time Taken Comments Blood Pressure 119/70 10/17/2020 7:36 PM CDT Pulse 83 10/17/2020 7:36 PM CDT Temperature 36.7 ??C (98.1 ??F) 10/17/2020 7:36 PM CD T Respiratory Rate 18 10/17/2020 7:36 PM CDT Oxygen Saturation 99% 10/17/2020 7:36 PM CDT Inhaled Oxygen Concentration - - Weight 65 kg (143 lb 3.2 oz) 10/17/2020 7:36 PM CDT Height 160 cm (5' 3 ) 10/17/2020 7:36 PM CDT Body Mass Index 25.37 10/17/2020 7:36 PM CDT documented in this encounter Discharge Diagnoses Diagnosis Vomiting of , unspecified - VOMITING OF , UNSPECIFIED Diseases of the digestive system complicating , first trimester - DISEASES OF THE DIGESTIVE SYSTEM COMPLICATING , FIRST TRIMESTER Diarrhea, unspecified - DIARRHEA, UNSPECIFIED 9 weeks gestation of - 9 WEEKS GESTATION OF Personal history of COVID-19 - PERSONAL HISTORY OF COVID-19 documented in this encounter Discharge Instructions * Discharge Instr - Activity* Ana Rodríguez RN - 10/17/2020 11:05 PM CDT No restrictions * Discharge Instr - Diet* Ana Rodríguez RN - 10/17/2020 11:06 PM CDT Regular. Drink at least 8-10 glasses of water per day * Attachments The following attachments cannot be sent through Care Everywhere. * Nausea and Vomiting in (AfterCare(R) Instructions(ER/ED)) (Welsh) documented in this encounter Medications at Time of Discharge metoclopramide (REGLAN) 10 mg tablet Take 1 tablet (10 mg total) by mouth 3 (three) times a day as needed (nausea) 60 tablet 1 10/17/2020 02/23/2021 vit,[id number] olic (PRENATABS RX) 29 mg iron- 1 mg tablet Take 1 tablet by mouth daily 90 tablet 3 02/10/2019 05/27/2023 documented as of this encounter Ordered Prescriptions Prescription Sig Dispense Quantity Refills Last Filled Start Date End Date metoclopramide (REGLAN) 10 mg tablet Take 1 tablet (10 mg total) by mouth 3 (three) times a day as needed (nausea) 60 tablet 1 10/17/2020 02/23/2021 documented in this encounter Discharge Disposition Disposition Code Departure Means Destination Discharge to home or self care documented in this encounter Progress Notes * Ana Rodríguez RN - 10/17/2020 11:33 PM CDT Pt arrived to [facility] at 9.3 weeks complaining Nausea, vomiting (X10) and diarrhea (loose x4) since early AM. FHT's 173 per US. IV/SL started to LFA. CBC and CMP to lab. Zofran 4mg IVP given with relief obtained. D5LR given at 250ml/hr and LR bolus given x2 liters. Immodium 2mg po given. VSS OPERATIONS ASSOCIATE assessment. Urine dip done x3. Ketones cleared from large to negative. PO challenge successful. Pt signed out with Dr. Santoro per Latonia ARMSTRONG. IV dc'd Discharged in stable condition. documented in this encounter H&P Notes * Heena Miranda, ADIS - 10/17/2020 8:24 PM CDT Obstetrics H&P Chief Complaint: N/V/D Estimated Date of Delivery: 05/19/21 Provider: [facility] HPI: Silvia Persaud is a 25 y.o. female at 9w3d gestation, dated by 1st trimester ultrasoundpresents for N/V/D for the past day. She reports her family members have all had the same symptoms and their symptoms lasted approximately 24 hours. She reports having covid in September and has also received the covid vaccine. She denies fever and or chills. She denies VB, LOF and or dysuria. She reports being unable to keep anything down today and reports vomiting at least 10 times today. Her has been uncomplicated. 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 History of Abnormal Pap: NILM (04/28/19) STD History: none History reviewed. No pertinent [...] Yes Partners: Male control/protection: None Support System: Not addressed Safe at home: Yes family history includes Diabetes in an other family member; No Known Problems in her father and mother. Family history of bleeding or clotting disorders: No Family history of defects, genetic disorders, or developmental delay: No No Known Allergies HOME MEDICATIONS : [id number] (PRENATABS RX) 29 mg iron- 1 mg tablet Review of Sys: Negative except per HPI Vitals: Temp: [98.1 ??F] 98.1 ??F Pulse: [83] 83 Resp: [18] 18 BP: (119)/(70) 119/70 Physical Exam: General: NAD, mood appropriate Cardiovascular: Regular rate and rhythm Pulmonary: Clear to ausculation bilaterally Abdomen: Gravid, non-tender Extremities: Warm and well perfused Speculum Exam: deferred Cervix: Deferred Monitoring: FHTs 173bpm via ultrasound Labs: Lab Results Component Value Date ABORH A Positive 03/15/2019 IDCOOMB Negative 03/15/2019 [id number] Nonreactive 02/19/2019 LABRPR Nonreactive 01/14/2019 RUBELIGG Positive (A) 08/07/2018 HEPBSAG Nonreactive 08/07/2018 VZVIGG Negative 08/07/2018 GBS Not yet done Diagnostic Lab Results Component Value Date WBC 15.2 (H) 10/17/2020 HGB 15.0 10/17/2020 HCT 45.2 10/17/2020 MCV 84.3 10/17/2020 LABPLAT 189 10/17/2020 Chemistry Lab Results Component Value Date SODIUM 136 10/17/2020 POTASSIUM 4.4 10/17/2020 CHLORIDE 101 10/17/2020 CO2 25 10/17/2020 ANIONGAP 10 10/17/2020 BUNSER 11 10/17/2020 CREATININE 0.72 10/17/2020 GLUCOSE 97 10/17/2020 CALCIUM 9.6 10/17/2020 BILITOT 0.5 10/17/2020 ALBUMIN 4.3 10/17/2020 ALKPHOS 68 10/17/2020 AST 26 10/17/2020 ALT 19 10/17/2020 PHOS 3.6 10/17/2020 MAGNESIUM 1.9 10/17/2020 Assessment and Plan Silvia Persaud is a 25 y.o. female at 9w3d who presented with N/V/D #N/V/D -VSS -IVFs (LR bolus x2 and D5LR) -Urine dip improved from large ketones to small ketones -Sent labs: CBC and CMP-WNL (see lab results above) -Given Zofran IVP for N/V-reports feeling better -Tolerated PO challenge -Imodium ordered and given -Abdomen benign, non tender to palpation -Will send Rx for 10mg Reglan PO #FWB +FHTs via ultrasound Plan discussed with Dr. Santoro. Okay to D/c home with strict return precautions. Patient reports feeling better and discharged home in stable condition. OB appt scheduled for 11/11/20. Heena Miranda NP 10/17/20 Cosigned by Rios Santoro MD at 10/18/2020 2:06 PM CDT Associated attestation - Rios Santoro MD - 10/18/2020 2:06 PM CDT The resident/fellow saw and examined the patient, we discussed their findings, and I am in agreement with the plan based on the discussion with the resident/fellow. I did not personally examine the patient. documented in this encounter Plan of Treatment Not on file documented as of this encounter Procedures Procedure Name Priority Date/Time Associated Diagnosis Comments POCT URINALYSIS DIPSTICK Routine 10/17/2020 10:45 PM CDT POCT URINALYSIS DIPSTICK Routine 10/17/2020 10:15 PM CDT US OB LIMITED IP Routine 10/17/2020 9:16 PM CDT Supervision of other normal , antepartum POCT URINALYSIS DIPSTICK Routine 10/17/2020 8:42 PM CDT DIFFERENTIAL AUTO STAT 10/17/2020 8:2 9 PM CDT CBC WITH AUTO DIFFERENTIAL STAT 10/17/2020 8:29 PM CDT PHOSPHORUS STAT 10/17/2020 8:29 PM CDT MAGNESIUM STAT 10/17/2020 8:29 PM CDT COMPREHENSIVE METABOLIC PANEL STAT 10/17/2020 8:29 PM CDT POCT URINALYSIS DIPSTICK Routine 10/17/2020 7:52 PM CDT documented in this encounter Results * POCT urinalysis dipstick (10/17/2020 10:45 PM CDT) Color, Urine, POC Light Yellow Clarity, ur, POC Clear Clear Glucose, ur, POC Negative Negative mg/dL Bilirubin, ur, POC Negative Negative, Small, Moderate, Large Ketones, ur, POC Negative Negative Specific [place], POC 1.010 1.005 - 1.030 Blood, ur, POC Negative Negative pH, ur, POC 6.0 5.0 - 8.0 Protein, ur, POC Negative Negative Urobilinogen, urine, POC 0.2 0.2 - 1.0 mg/dL Nitrite, ur, POC Negative Negative Leukocytes, ur, POC Negative Negative Lot Number [id number] Urine 10/17/2020 10:4 5 PM CDT Heena Miranda NP POINT OF CARE TEST ORDERABLES Final Result * (ABNORMAL) POCT urinalysis dipstick (10/17/2020 10:15 PM CDT) Color, Urine, POC Light Yellow Clarity, ur, POC Clear Clear Glucose, ur, POC Negative Negative mg/dL Bilirubin, ur, POC Negative Negative, Small, Moderate, Large Ketones, ur, POC Small(A) Negative Specific [place], POC 1.020 1.005 - 1.030 Blood, ur, POC Negative Negative pH, ur, POC 6.0 5.0 - 8.0 Protein, ur, POC Negative Negative Urobilinogen, urine, POC 0.2 0.2 - 1.0 mg/dL Nitrite, ur, POC Negative Negative Leukocytes, ur, POC Negative Negative Lot Number [id number] Urine 10/17/2020 10:1 5 PM CDT Heena Miranda NP POINT OF CARE TEST ORDERABLES Final Result * US Ob Limited (10/17/2020 9:16 PM CDT) Anatomical Region Laterality Modality Abdomen N/A Ultrasound Narrative 10/17/2020 9:16 PM CDT [facility] BSUS: FHTs 173 bpm Heena Miranda OPERATIONS ASSOCIATE IMG OB US PROCEDURES Final Re sult * (ABNORMAL) POCT urinalysis dipstick (10/17/2020 8:42 PM CDT) Color, Urine, POC Yellow Clarity, ur, POC Clear Clear Glucose, ur, POC Negative Negative mg/dL Bilirubin, ur, POC Negative Negative, Small, Moderate, Large Ketones, ur, POC Large(A) Negative Specific [place], POC 1.020 1.005 - 1.030 Blood, ur, POC Negative Negative pH, ur, POC 6.0 5.0 - 8.0 Protein, ur, POC Trace(A) Negative Urobilinogen, urine, POC 0.2 0.2 - 1.0 mg/dL Nitrite, ur, POC Negative Negative Leukocytes, ur, POC Negative Negative Lot Number [id number] Urine 10/17/2020 8:42 PM CDT Krystyna Edwards [facility] POINT OF CARE TEST O RDERABLES Final Result * (ABNORMAL) Differential, auto (10/17/2020 8:29 PM CDT) Neutrophil abs 13.5(H) 1.7 - 6.5 K/cumm [facility] Imm gran abs 0.1 0.0 - 0.1 K/cumm [facility] Lymphocyte abs 1.2 0.8 - 3.3 K/cumm [facility] Monocyte abs 0.4 0.2 - 0.8 K/cumm [facility] Eosinophil abs 0.0 0.0 - 0.5 K/cumm [facility] Basophil abs 0.1 0.0 - 0.1 K/cumm [facility] Neutrophil pct 88.6 % [facility] Comment: Interpretive Data Percent cell count reference ranges are not reported, since discordance with absolute values may lead to misinterpretation of CBC data. Current Interpretive Data was last revised on 2017. Imm gran pct 0.5 % [facility] Comment: Interpretive Data Percent cell count reference ranges are not reported, since discordance with absolute values may lead to misinterpretation of CBC data. Current Interpretive Data was last revised on 2017. Lymphocyte pct 8.0 % [facility] Comment: Interpretive Data Percent cell count reference ranges are not reported, since discordance with absolute values may lead to misinterpretation of CBC data. Current Interpretive Data was last revised on 2017. Monocyte pct 2.4 % [facility] Comment: Interpretive Data Percent cell count reference ranges are not reported, since discordance with absolute values may lead to misinterpretation of CBC data. Current Interpretive Data was last revised on 2017. Eosinophil pct 0.2 % [facility] Comment: Interpretive Data Percent cell count reference ranges are not reported, since discordance with absolute values may lead to misinterpretation of CBC data. Current Interpretive Data was last revised on 2017. Basophil pct 0.3 % [facility] Comment: Interpretive Data Percent cell count reference ranges are not reported, since discordance with absolute values may lead to misinterpretation of CBC data. Current Interpretive Data was last revised on 2017. Blood specimen (specimen) 10/17/2020 8:29 PM CDT 10/17/2020 8:42 PM CDT us Heena Miranda NP LAB BLOOD ORDERABLES Final Re sult [facility] Department [place] [address] * Phosphorus (10/17/2020 8:29 PM CDT) Phosphorus, pl 3.6 2.3 - 4.5 mg/dL [facility] Blood specimen (specimen) 10/17/2020 8:29 PM CDT 10/17/2020 8:42 PM CDT Heena Miranda OPERATIONS ASSOCIATE LAB BLOOD ORDERABLES Final Re sult Performing Organization Address [facility] Co de Phone Number [facility] [place] [address] * Magnesium (10/17/2020 8:29 PM CDT) Pathologist [facility] Magnesium 1.9 1.4 - 2.5 mg/dL [facility] Blood specimen (specimen) 10/17/2020 8:29 PM CDT 10/17/2020 8:42 PM CDT Heena Miranda NP LAB BLOOD ORDERABLES Final Re sult Performing Organization Address [facility] de Phone Number [facility] [place] [address] * Comprehensive metabolic panel (10/17/2020 8:29 PM CDT) Pathologist [facility] Sodium 136 135 - 145 mmol/L [facility] Potassium, pl 4.4 3.3 - 4.9 mmol/L [facility] Chloride 101 97 - 110 mmol/L [facility] CO2 25 22 - 32 mmol/L [facility] Anion gap 10 2 - 15 mmol/L [facility] BUN 11 8 - 25 mg/dL [facility] Creatinine 0.72 0.60 - 1.10 mg/dL [facility] Glucose 97 70 - 199 mg/dL [facility] Comment: Interpretive Data Fasting glucose >/= 126 mg/dl is diagnostic for diabetes. ?? Fasting is defined as no caloric intake for at least 8 hours. Fasting glucose between 100 mg/dl to 125 mg/dl is diagnostic of prediabetes. In a patient with classic symptoms of hyperglycemia or hyperglycemic crisis, a random glucose >/= 200 mg/dl is diagnostic for diabetes. In the absence of unequivocal hyperglycemia, results should be confirmed by repeat testing. The classification and Diagnosis of Diabetes Diabetes Care 2017;40 (Suppl. 1):S11. Current interpretive data was last revised 2017. Calcium 9.6 8.5 - 10.3 mg/dL [facility] Bilirubin, total 0.5 0.1 - 1.2 mg/dL [facility] Protein, pl 8.0 6.5 - 8.5 g/dL [facility] Albumin 4.3 3.5 - 5.0 g/dL [facility] Alk phos 68 40 - 130 Units/L [facility] ALT 19 7 - 45 Units/L [facility] AST 26 10 - 45 Units/L [facility] Blood specimen (specimen) 10/17/2020 8:29 PM CDT 10/17/2020 8:42 PM CDT Heena Miranda OPERATIONS ASSOCIATE LAB BLOOD ORDERABLES Final Re sult [facility] Department [place] [address] * (ABNORMAL) CBC with auto differential (10/17/2020 8:29 PM CDT) WBC 15.2(H) 3.8 - 9.9 K/cumm [facility] Hgb 15.0 11.9 - 15.5 g/dL [facility] Hct 45.2 35.6 - 45.5 % [facility] Plt 189 150 - 400 K/cumm [facility] MPV 11.4 9.1 - 12.3 fL [facility] RBC 5.36(H) 3.90 - 5.20 M/cumm [facility] MCV 84.3 81.3 - 96.4 fL [facility] MCH 28.0 27.1 - 33.3 pg [facility] MCHC 33.2 32.3 - 35.7 g/dL [facility] RDW CV 12.3 11.1 - 14.9 % [facility] RDW SD 38.1 35.7 - 48.1 fL [facility] NRBC abs 0.00 0.00 - 0.01 K/cumm [facility] Blood specimen (specimen) 10/17/2020 8:29 PM CDT 10/17/2020 8:42 PM CDT Heena Miranda OPERATIONS ASSOCIATE LAB BLOOD ORDERABLES Final Re sult [facility] Department [place] [address] * (ABNORMAL) POCT urinalysis dipstick (10/17/2020 7:52 PM CDT) Color, Urine, POC Dark Yellow Clarity, ur, POC Clear Clear Glucose, ur, POC Negative Negative mg/dL Bilirubin, ur, POC Negative Negative, Small, Moderate, Large Ketones, ur, POC Large(A) Negative Specific [place], POC 1.020 1.005 - 1.030 Blood, ur, POC Negative Negative pH, ur, POC 6.0 5.0 - 8.0 Protein, ur, POC Trace(A) Negative Urobilinogen, urine, POC 0.2 0.2 - 1.0 mg/dL Nitrite, ur, POC Negative Negative Leukocytes, ur, POC Negative Negative Lot Number [id number] Urine 10/17/2020 7:52 PM CDT Krystyna Edwards CNM POINT OF CARE TEST O RDERABLES Final Result documented in this encounter Visit Diagnoses Diagnosis Supervision of other normal , antepartum- Primary documented in this encounter Administered Medications Inactive Administered Medications - up to 3 most recent administrations Medication Order MAR Action Action Date Dose Rate Site dextrose 5% and Lactated Ringer's infusion 250 mL/hr, intravenous, Once, On 10/17/20 at 2030, For 1 dose, L&D Pre-Delivery Rate/Dose Verify 10/17/2020 9:45 PM CDT 250 mL/hr 250 mL/hr New Bag 10/17/2020 8:20 PM CDT 250 mL/hr 250 mL/hr Lactated Ringer's (LR) bolus 1,000 mL 1,000 mL, intravenous, Once, On 10/17/20 at 2030, For 1 dose, L&D Pre-Delivery New Bag 10/17/2020 8:20 PM CDT 1,000 mL Lactated Ringer's (LR) bolus 1,000 mL 1,000 mL, intravenous, Once, On 10/17/20 at 2215, For 1 dose New Bag 10/17/2020 9:49 PM CDT 1,000 mL loperamide (IMODIUM) capsule 2 mg 2 mg, oral, Once, On 10/17/20 at 2030, For 1 dose, Maximum recommended dose 16 mg/day Given 10/17/2020 8:55 PM CDT 2 mg ondansetron (ZOFRAN) injection 4 mg 4 mg, intravenous, Administer over 2 Minutes, Once, On 10/17/20 at 2030, For 1 dose Given 10/17/2020 8:25 PM CDT 4 mg documented in this encounter Active and Recently Administered Medications Due to Daylight Saving Time, this section may contain times in both ROD POINTER and CDT. Scheduled Medication Order 10/15/2020 10/16/2020 10/17/2020 dextrose 5% and Lactated Ringer's infusion (COMPLETED) 250 mL/hr, intravenous, Once, On 10/17/20 at 2030, For 1 dose, L&D Pre-Delivery 2019 (New Bag - Prov ider: Ana Rodríguez RN)2144 (Rate/Dose Verify - Provider: Ana Rodríguez RN)230 (Stopped - Provider: Ana Rodríguez RN) Lactated Ringer's (LR) bolus 1,000 mL (COMPLETED) 1,000 mL, intravenous, Once, On 10/17/20 at 2030, For 1 dose, L&D Pre-Delivery 2019 (New Bag - Prov ider: Ana Rodríguez RN)2144 (Stopped - Provider: Ana Rodríguez, RN) Lactated Ringer's (LR) bolus 1,000 mL (COMPLETED) 1,000 mL, intravenous, Once, On 10/17/20 at 2215, For 1 dose 2148 (New Bag - Prov ider: Ana Rodríguez RN)2300 (Stopped - Provider: Ana Rodríguez RN) loperamide (IMODIUM) capsule 2 mg (COMPLETED) 2 mg, oral, Once, On 10/17/20 at 2029, For 1 dose, Maximum recommended dose 16 mg/day 2054 (Given - Provid er: Ana Rodríguez, RN) ondansetron (ZOFRAN) injection 4 mg (COMPLETED) 4 mg, intravenous, Administer over 2 Minutes, Once, On 10/17/20 at 2029, For 1 dose 2024 (Given - Provid er: Ana Rodríguez, RN - Comment: pushed over 2 minutes) documented in this encounter Care Teams House Worker General Relationship Specialty Start Date End Date No, Physician PCP - General 05/14/19 01/01/24 documented as of this encounter
--- OUTSIDE RECORDS SUMMARY | 2024-08-09 10:46 | XMS_ITS | Encounter Summary ---
Author Organization [facility] Healthcare Address [address] [place] [address] Care Team Providers Care Supervisor Cytogenetic Laboratory Name Role Phone Lucille Garcia Primary Care Provider Unavaila ble Reason for Visit * Reason Onset Date Comments Outgoing Call 03/23/2019 Pre-proce dure call for scheduled induction of labor Encounter Details Date Type Department Care Team (Late st Contact Info) Description 03/23/[address] [phone] Theodora Scanlon RN Outgoing Call (Pre-procedure call for scheduled induction of labor) Social History Tobacco Use Types Packs/Day Years Used Date Smoking Tobacco: Never Smokeless Tobacco: Never Alcohol Use Standard Drinks/Week Comments Yes 0 (1 standard drink = 0.6 oz pur e alcohol) Comments No Sex and Gender Information Value Date Recorded Sex Assigned at Not on file 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 Patient stated that she delivered on 03/16/19. Appointment for induction of labor on 03/24/19 at 1999 removed from the schedule. documented in this encounter Plan of Treatment Not on file documented as of this encounter Visit Diagnoses Not on filedocumented in this encounter Care Teams Supervisor Cytogenetic Laboratory Relationship Specialty Start Date End Date Lucille Garcia PCP - General 09/17/06 05/13/19 documented as of this encounter
--- OUTSIDE RECORDS SUMMARY | 2024-08-09 10:46 | XMS_ITS | Encounter Summary ---
Author Organization [facility] Address [address] [facility] [address] [place] [id number] Care Team Providers Care Duty Manager Name Role Phone No, Physician Primary Care Provider Reason for Visit * Reason Comments Rash arm pits, noticed la st night around 0900, has gotten worse, little itchy ; last month changed deodarants; currently breasfeeding 2 mo. old Encounter Details Date Type Department Care Team ([facility] st Contact Info) Description 05/14/2019 1:15 PM CDT Office Visit [facility] [address] [place] [address] Kiara Taylor, ADIS [address] [place] [address] Allergic contact dermatitis, unspecified trigger (Primary Dx) Social History Tobacco Use Types Packs/Day Years Used Date Smoking Tobacco: Never Smokeless Tobacco: Never Alcohol Use Standard Drinks/Week Comments Yes 0 (1 standard drink = 0.6 oz pur e alcohol) Comments No Sex and Gender Information Value Date Recorded Sex Assigned at Not on file 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 Gender Identity Female 01/27/2021 1:35 PM CDT Sexual Orientation Straight 01/27/2021 1: 35 PM CDT documented as of this encounter Last Filed Vital Signs Vital Sign Reading Time Taken Comments Blood Pressure 104/64 05/14/2019 1:19 PM CDT Pulse 63 05/14/2019 1:19 PM CDT Temperature 37.2 ??C (98.9 ??F) 05/14/2019 1:19 PM CD T Respiratory Rate 14 05/14/2019 1:19 PM CDT Oxygen Saturation 97% 05/14/2019 1:19 PM CDT Inhaled Oxygen Concentration - - Weight 70.3 kg (155 lb) 05/14/2019 1:19 PM CDT Height - - Body Mass Index 27.46 04/28/2019 2:44 PM CDT documented in this encounter Patient Instructions * Patient Instructions* Kiara Taylor NP - 05/14/2019 1:15 PM CDT As we discussed today, I suspect the rash is a result of an allergic reaction to an environmental allergen. Please pay close attention and avoid the trigger, as future reactions may become more severe and possibly life threatening. Go to the ER or call 911 if you develop lip/tongue swelling or difficulty breathing; this is an emergency! If you have any future allergic reactions with symptoms of shortness of breath, throat swelling or full body hives, go to the ER immediately. Take medications as prescribed - Prednisone oral as directed - Start this medication today. Wait 4 hours after taking prednisone to breast feed. (Benadryl 50 adult) PO every 4-6 hours for the next 24hours then every 6 hours as needed until hives resolve. Pepcid 20mg twice daily for five days. Recommend a non- sedating anti-histamine such as Zyrtec or Claritin to reduce itch. ?? Oatmeal baths and cool compresses can help alleviate itch ?? Avoid scratching and keep rash clean to prevent secondary skin infection. Wash skin twice a day with a gentle soap and warm soapy water. ?? Observe for symptoms of infection caused by scratching. Follow up with your PCP if symptoms do not improve as anticipated or for new or worsening concerns or if you still have hives after seven days. documented in this encounter Ordered Prescriptions Prescription Sig Dispense Quantity Refills Last Filled Start Date End Date predniSONE (DELTASONE) 10 mg tabletIndications:A llergic contact dermatitis, unspecified trigger Take 3 tabs days 1 & 2, 2 tabs days 3 & 4, 1 tab days 5-7. 13 tablet 05/14/2019 10/11/2020 documented in this encounter Progress Notes * Kiara Taylor, ASSEMBLER RUBBER FOOTWEAR - 05/14/2019 1:15 PM CDT Images from the original note were not included. Subjective/Objective Patient ID: Silvia Persaud is a 23 y.o. female. Chief Complaint Rash (arm pits, noticed last night around 0900, has gotten worse, little itchy ; last month changed deodarants; currently breasfeeding 2 mo. old) Presents to [facility] with c/o rash to underarms, onset yesterday morning. She reports that she changed deodorants one month ago but has not changed any other soaps or detergents. Rash has progressively worsened over past 24 hours. She has not taken anything OTC. Denies fever/chills, sore throat, N\V\D. Review of Systems Constitutional: Negative for chills, fatigue and fever. HENT: Negative for congestion, ear pain, sinus pressure and sore throat. Respiratory: Negative for cough, chest tightness and shortness of breath. Cardiovascular: Negative for chest pain. Gastrointestinal: Negative for abdominal pain. Musculoskeletal: Negative for back pain. Skin: Positive for rash (underarms, bilat). Neurological: Negative for dizziness and headaches. Physical Exam Constitutional: She is oriented to person, place, and time. She appears well- developed and well-nourished. HENT: Right Ear: Tympanic membrane is not injected, not erythematous and not bulging. Left Ear: Tympanic membrane is not injected, not erythematous and not bulging. Nose: Right sinus exhibits no maxillary sinus tenderness and no frontal sinus tenderness. Left sinus exhibits no maxillary sinus tenderness and no frontal sinus tenderness. Mouth/Throat: Mucous membranes are normal. No posterior oropharyngeal edema or posterior oropharyngeal erythema. No tonsillar exudate. Eyes: Conjunctivae are normal. Cardiovascular: Normal rate and regular rhythm. Pulmonary/Chest: Effort normal and breath sounds normal. She has no wheezes. She has no rhonchi. Musculoskeletal: Normal range of motion. Neurological: She is alert and oriented to person, place, and time. Skin: Skin is warm and dry. Erythematous maculopapular rash noted to bilateral axilla. Lesions celia, no warmth or drainage noted. Vitals reviewed. Vitals: 05/14/19 1319 BP: 104/64 BP Location: Right arm Patient Position: Sitting Pulse: 63 Resp: 14 Temp: 37.2 ??C (98.9 ??F) TempSrc: Oral SpO2: 97% Weight: 70.3 kg (155 lb) Assessment/Plan Discussed contact dermatitis vs fungal rash. Explained that rash does not look fungal at this time,and thus this may be contributed to the change in deodorant, although it is Diagnoses and all orders for this visit: Allergic contact dermatitis, unspecified trigger (Primary) - predniSONE (DELTASONE) 10 mg tablet; Take 3 tabs days 1 & 2, 2 tabs days 3 & 4, 1 tab days 5-7. Patient Education: As we discussed today, I suspect the rash is a result of an allergic reaction to an environmental allergen. Please pay close attention and avoid the trigger, as future reactions may become more severe and possibly life threatening. Go to the ER or call 911 if you develop lip/tongue swelling or difficulty breathing; this is an emergency! If you have any future allergic reactions with symptoms of shortness of breath, throat swelling or full body hives, go to the ER immediately. Take medications as prescribed - Prednisone oral as directed - Start this medication today. Wait 4 hours after taking prednisone to breast feed. (Benadryl 50 adult) PO every 4-6 hours for the next 24hours then every 6 hours as needed until hives resolve. Pepcid 20mg twice daily for five days. Recommend a non- sedating anti-histamine such as Zyrtec or Claritin to reduce itch. ?? Oatmeal baths and cool compresses can help alleviate itch ?? Avoid scratching and keep rash clean to prevent secondary skin infection. Wash skin twice a day with a gentle soap and warm soapy water. ?? Observe for symptoms of infection caused by scratching. Follow up with your PCP if symptoms do not improve as anticipated or for new or worsening concerns or if you still have hives after seven days. Disposition ??? Treatment plan including expectations, follow up, and return precautions discussed with patient/parent, verbalizes understanding. ??? Medication dosage, use, and potential adverse reactions discussed with patient/parent. ??? Advised to follow up with PCP if symptoms do not resolve as expected or sooner if condition worsens. ??? Signs/symptoms warranting ER evaluation reviewed. Kiara Taylor NP documented in this encounter Plan of Treatment Not on file documented as of this encounter Visit Diagnoses Diagnosis Allergic contact dermatitis, unspecified trigger- Primary documented in this encounter Care Teams Duty Manager Relationship Specialty Start Date End Date No, Physician PCP - General 05/14/19 01/01/24 documented as of this encounter
--- OUTSIDE RECORDS SUMMARY | 2024-08-09 10:46 | XMS_ITS | Encounter Summary ---
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
--- OUTSIDE RECORDS SUMMARY | 2024-08-09 10:46 | XMS_ITS | Encounter Summary ---
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
--- OUTSIDE RECORDS SUMMARY | 2024-08-09 10:46 | XMS_ITS | Encounter Summary ---
Author Organization [facility] Address [address] [place] [address] Care Team Providers Care Analysis Mgr Name Role Phone Lucille Garcia Primary Care Provider Unavaila ble Encounter Details Date Type Department Care Team (Late st Contact Info) Description 03/15/2019 11:15 PM CDT Anesthesia Event [address] [address] Tin Aguillon MD [address] [facility] [address] [place] [address] Anesthesia Record Procedure Summary Procedure Name Responsible Anesthesiologist Anesthesia Start Time Anesthesia Stop Time Labor Analgesia Tin Aguillon MD 03/15/19 231 5 03/16/19 0945 Events Date Time Event Comment 03/15/2019 2315 An Start 2315 Face Time 2318 2320 Time out - Regional 2332 Epidural Placed 2333 Quick Note Test dose 03/16/2019 0945 An Stop Meds Name Total epinePHRINE 1:200,000- lidocaine 2 % 3 m L SUFentanil (SUFENTA) 5 mcg, bupivacaine (MARCAINE) 2 mL in sodium chloride 0.9% 10 mL epidural 10 mL SUFentanil (SUFENTA) 5 mcg, bupivacaine (MARCAINE) 2 mL in sodium chloride 0.9% 10 mL epidural 100.83 mL * Agents No agents on file. * Blood No blood administrations on file. Lines, Drains, and Airways Type Details Placement Removal Peripheral IV Placement Date: 03/15/19; Placement Time: 220; Catheter Size: 20 G; Orientation: Left, Posterior; Location: Hand; Site Prep: Alcohol; Inserted by: Alan Jaeger RN; Insertion Attempts: 3; Patient Tolerance: Tolerated well; Removal Date: 03/16/19; Removal Time: 2020; Removal Reason: Per protocol 03/15/192208 by Kell Prado RN 03/16/192019 by Mitzi Zimmerman RN Epidural Placement Date: 03/15/19; Placement Time: 233 (created via procedure documentation); 03/16/19; 132 (Removed before pt came to unit ) 03/15/19 233 by Pedro Chan CRNA 03/16/19 132 by Jami Gomez RN Urethral Catheter Placement Date: 03/16/19; Placement Time: 0030; Inserted by: IRVIN Merrill; Type: Non-latex; Size: 16 Fr.; Balloon Size: 10 mL; Urine Returned: Yes; Removal Date: 03/16/19; Removal Time: 0402; Removal Reason: Drain/catheter damaged 03/16/19 0030 by Kenna Merrill RN 03/16/19 0402 by Kenna Merrill RN Urethral Catheter Placement Date: 03/16/19; Placement Time: 0407; Inserted by: IRVIN Merrill; Type: Non-latex; Size: 16 Fr.; Balloon Size: 10 mL; Urine Returned: Yes; Removal Date: 03/16/19; Removal Time: 0900 03/16/19 0407 by Kenna Merrill RN 03/16/19 0900 by Kenna Pepper RN documented in this encounter Social History Tobacco Use Types Packs/Day Years Used Date Smoking Tobacco: Never Smokeless Tobacco: Never Alcohol Use Standard Drinks/Week Comments Yes 0 (1 standard drink = 0.6 oz pur e alcohol) Comments Yes Sex and Gender Information Value Date Recorded Sex Assigned at Not on file Legal 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 Female 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 Gender Identity Female 01/27/2021 1:35 PM CDT Sexual Orientation Straight 01/27/2021 1: 35 PM CDT documented as of this encounter OR Notes * Anesthesia Postprocedure Evaluation - Ryan Mascorro MD - 03/17/2019 8:32 AM CDT Patient: Silvia Persaud Procedure Summary Date: 03/15/19 Room / Location: Anesthesia Start: 2315 Anesthesia Stop: 03/16/19944 Procedure: Labor Analgesia Diagnosis: Scheduled Providers: Responsible Provider: Tin Aguillon MD Anesthesia Type: epidural ASA Status: 2 Anesthesia Type: epidural Last vitals BP 132/76 Pulse 84 Temp 36.4 ??C (97.5 ??F) (Oral) Resp 18 SpO2 98% Anesthesia Post Evaluation Patient location during evaluation: floor Patient participation: complete - patient participated Level of consciousness: fully awake Pain score: 1 Pain management: satisfactory to patient Airway patency: adequate and patent Cardiovascular status: acceptable and hemodynamically stable Respiratory status: acceptable and room air Nausea/Vomiting status: none Comments: Patient denies headache, [...] appreciate any of these. Patient voices understanding. Cosigned by Tin Aguillon MD at 03/17/2019 8:48 AM CDT * Anesthesia Procedure Notes - Tin Aguillon MD - 03/15/2019 11:31 PM CDTAssociated Order(s): Epidural Block Epidural Block Patient location: L&D Reason for block: labor analgesia Staff: Supervising Anesthesiologist: Tin Aguillon MD Placed by: TELECOMMUNICATIONS CABLE JOINTER: Pedro Chan CRNA Procedure prep: Preprocedure checklist: patient identified, procedure contraindications assessed, procedure consentobtained, surgical consent, IV checked, risks, benefits and alternatives discussed, monitors and equipment checked and timeout performed Patient Position: sitting Procedure performed while patient: awake Monitoring: oximetry and blood pressure Prep solution: chlorhexadine/alcohol PPE: sterile gloves, sterile drape and provider hat/mask Skin infiltrated with lidocaine 1%: yes Epidural: Approach: midline Imaging guidance used: no Location: L3-4 Number of attempts:1 Epidural needle: Injection technique: CASSIUS saline Needle type: Tuohy Needle gauge: 17 G Needle length: 9 cm Loss of resistance: 5 cm Catheter: Catheter type: multi-orifice and wire-bound. Catheter at skin depth: 11 cm Negative aspiration of blood: no Negative aspiration of CSF: no Test dose: negative. Assessment: Sensory level - left: full eval pending Sensory level - right: full eval pending Events: patient tolerated procedure well with no complications * Anesthesia Preprocedure Evaluation - Tin Aguillon MD - 03/15/2019 11:18 PM CDT Anesthesia Evaluation Silvia Persaud is a 23 y.o. female * No procedures listed * * No Diagnosis Codes entered * HISTORY Past Medical History Information obtained from: patient and chart. Patient Active Problem List Diagnosis ??? Supervision of other normal ??? No leakage of amniotic fluid into vagina History reviewed. No pertinent past medical history. Past Surgical History: Procedure Laterality Date ??? WISDOM TOOTH EXTRACTION OB History 1 Para Term AB Living SAB TAB Ectopic Multiple Live Births No Known Allergies HOME MEDICATIONS : [id number] (PRENATABS RX) 29 mg iron- 1 mg tablet Current Facility-Administered Medications: ??? dextrose 5% and Lactated Ringer's infusion, 125 mL/hr, intravenous, Continuous, Last Rate: 125 mL/hr at 03/15/19 2303, 125 mL/hr at 03/15/19 2303 ??? [START ON 03/16/2019] penicillin G potassium 2.5 million unit/25 mL in sterile water (premix) 2.5 Million Units, 2.5 Million Units, intravenous, Q4H ??? penicillin G potassium 5 million units/50 mL in sterile water (premix) 5 Million Units, 5 Million Units, intravenous, Once, 5 Million Units at 03/15/19 2305 ??? sodium chloride 0.9% flush 0.5-20 mL, 0.5-20 mL, intra-catheter, Q8H PAM ??? sodium chloride 0.9% flush 0.5-20 mL, 0.5-20 mL, intra-catheter, PRN Social History Tobacco Use Smoking Status Never Smoker Smokeless Tobacco Never Used Substance and Sexual Activity Alcohol Use Yes Substance and Sexual Activity Drug Use No Family History Problem Relation Age of Onset ??? No Known Problems Father ??? No Known Problems Mother ??? Diabetes Other Great-Grandfather PAT Physical Exam Airway Exam: Mallampati: II Cardiovascular Exam: Rate: regular Rhythm: regular Pulmonary Exam: LCTA, bilat Vitals: 03/15/19 1915 03/15/19 1920 03/15/19 2229 BP: Pulse: 82 72 Resp: Temp: 36.8 ??C (98.2 ??F) SpO2: 98% 97% PT: No results found for requested labs within last 720 hours. INR: No results found for requested labs within last 720 hours. APTT: No results found for requested labs within last 720 hours. Hgb A1C: No results found for requested labs within last 720 hours. CBC RBC: 02/19/2019: 4.65 M/cumm RDW: No results found for requested labs within last 720 hours. MCHC: 02/19/2019: 32.2 g/dL* MCH: 02/19/2019: 27.7 pg MCV: 02/19/2019: 86.2 fL Hct: 02/19/2019: 40.1 % Hgb: 02/19/2019: 12.9 g/dL WBC: 02/19/2019: 11.6 K/cumm* MPV: 02/19/2019: 12.8 fL* Platelets: 02/19/2019: 177 K/cumm RDW CV: 02/19/2019: 12.9 % RDW Sd: 02/19/2019: 40.0 fL BMP Glucose: No results found for [...] and allergies reviewed. Attestation: This PAT evaluation 03/15/2019. Airway Exam: Mallampati: II Cervical ROM: FROM TM distance: 3 Jaw ROM: full Cardiovascular Exam: Rate: regular Rhythm: regular Pulmonary Exam: LCTA, bilat EENT Exam: trachea midline Dental Exam: Appears intact Skin Exam: Skin is warm. Turgor is normal. Current state: Patient's current state is cooperative. Anesthesia Plan ASA 2 My patient is approved for the Anesthesia Controlled Medication protocol when under care of a TELECOMMUNICATIONS CABLE JOINTER Planned anesthesia: Epidural Postoperative Plan: Patient's planned disposition post procedure is Obs. unit. Informed Consent: Discussed plan with TELECOMMUNICATIONS CABLE JOINTER. Anesthesia plan and risks discussed with patient. Plan and Consent Comments: Discussed risks, benefits, alternatives to neuraxial anesthesia, including but not limited to PDPH,risk of prolonged or permanent numbness/weakness/paralysis, nausea, aspiration, bleeding, infection. Pt voiced understanding and acceptance of risks and a desire to proceed with labor neuraxial analgesia. Consent and Attending signature: I and/or my [...] Procedure Name Priority Date/Time Associated Diagnosis Comments [place] AN PROCEDURE PLACEHOLDER Routine 03/15/2019 11:31 PM CDT Procedure Note - Tin Aguillon MD - 03/15/2019 11:31 PM CDTThis note is in progress. Epidural Block Patient location: L&D Reason for block: labor analgesia Staff: Supervising Anesthesiologist: Tin Aguillon MD Placed by: TELECOMMUNICATIONS CABLE JOINTER: Pedro Chan CRNA Procedure prep: Preprocedure checklist: patient identified, procedure contraindicationsassessed, procedure consent obtained, surgical consent, IV checked, risks,benefits and alternatives discussed, monitors and equipment checked andtimeout performed Patient Position: sitting Procedure performed while patient: awake Monitoring: oximetry and blood pressure Prep solution: chlorhexadine/alcohol PPE: sterile gloves, sterile drape and provider hat/mask Skin infiltrated with lidocaine 1%: yes Epidural: Approach: midline Imaging guidance used: no Location: L3-4 Number of attempts:1 Epidural needle: Injection technique: CASSIUS saline Needle type: Tuohy Needle gauge: 17 G Needle length: 9 cm Loss of resistance: 5 cm Catheter: Catheter type: multi-orifice and wire-bound. Catheter at skin depth: 11 cm Negative aspiration of blood: no Negative aspiration of CSF: no Test dose: negative. Assessment: Sensory level - left: full eval pending Sensory level - right: full eval pending Events: patient tolerated procedure well with no complications documented in this encounter Visit Diagnoses Not on filedocumented in this encounter Administered Medications Inactive Administered Medications - up to 3 most recent administrations Medication Order MAR Action Action Date Dose Rate Site lidocaine-EPINEPHrine (XYLOCAINE with EPI) 2 %-1:200,000 preservative free injection epidural, As needed, Starting on 03/15/19 at 2333, Anesthesia Intra-op Given 03/15/2019 11:33 PM CDT 3 mL SUFentanil (SUFENTA) 5 mcg, bupivacaine (MARCAINE) 2 mL in sodium chloride 0.9% 10 mL epidural epidural, Continuous PRN, Starting on 03/15/19 at 2337, Anesthesia Intra-op New Bag 03/15/2019 11:37 PM CDT 10 mL SUFentanil (SUFENTA) 5 mcg, bupivacaine (MARCAINE) 2 mL in sodium chloride 0.9% 10 mL epidural epidural, Continuous PRN, Starting on 03/15/19 at 2340, Anesthesia Intra-op New Bag 03/15/2019 11:40 PM CDT 10 mL/hr 10 mL/hr documented in this encounter Orders Procedures Count Last Ordered Date First Orde red Date Epidural Block 1 03/15/2019 documented in this encounter Care Teams Analysis Mgr Relationship Specialty Start Date End Date Lucille Garcia PCP - General 09/17/06 05/13/19 documented as of this encounter
--- OUTSIDE RECORDS SUMMARY | 2024-08-09 10:46 | XMS_ITS | Encounter Summary ---
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
--- OUTSIDE RECORDS SUMMARY | 2024-08-09 10:46 | XMS_ITS | Encounter Summary ---
Author Organization [facility] Healthcare Address [address] [place] [address] Care Team Providers Care Personal Care Assistant Name Role Phone Lucille Garcia Primary Care Provider Unavaila ble Reason for Visit * Reason Comments Rupture of Membranes Encounter Details Date Type Department Care Team (Latest Contact Info) Description 03/10/2019 8:39 AM CDT - 03/10/2019 10:27 AM CDT Hospital Encounter [address] [phone] Carmela Denson MD [address] [facility] [phone] [place] [address] No leakage of amniotic fluid into vagina (Primary Dx) Discharge Disposition: Discharge to home or self care Social History Tobacco Use Types Packs/Day Years Used Date Smoking Tobacco: Never Smokeless Tobacco: Never Alcohol Use Standard Drinks/Week Comments Yes 0 (1 standard drink = 0.6 oz pur e alcohol) Comments Yes Sex and Gender Information Value Date Recorded Sex Assigned at Not on file Legal Sex Female 2:33 AM BODY STYLIST Gender Identity Female 01/27/2021 1:35 PM CDT Sexual Orientation Straight 01/27/2021 1: 35 PM CDT documented as of this encounter Last Filed Vital Signs Vital Sign Reading Time Taken Comments Blood Pressure 118/70 03/10/2019 9:15 AM CDT Pulse 84 03/10/2019 9:33 AM CDT Temperature 37 ??C (98.6 ??F) 03/10/2019 9:15 AM CDT Respiratory Rate 20 03/10/2019 9:15 AM CDT Oxygen Saturation 97% 03/10/2019 9:33 AM CDT Inhaled Oxygen Concentration - - Weight 77.1 kg (170 lb) 03/10/2019 9:15 AM CDT Height 160 cm (5' 3 ) 03/10/2019 9:15 AM CDT Body Mass Index 30.11 03/10/2019 9:15 AM CDT documented in this encounter Discharge Diagnoses Diagnosis Encounter for supervision of normal first in third trimester - ENCOUNTER FOR SUPERVISION OF NORMAL FIRST , THIRD TRIMESTER 38 weeks gestation of - 38 WEEKS GESTATION OF documented in this encounter Discharge Instructions * Attachments The following attachments cannot be sent through Care Everywhere. * Having Your Baby: The Labor Process (Flight/Transport Nurse) (Syriac) * Early Labor Signs (AfterCare(R) Instructions(ER/ED)) (Syriac) documented in this encounter Medications at Time [...] by mouth daily 60 tablet 03/18/2019 9 vit,[id number]-agp ic (PRENATABS RX) 29 mg iron- 1 mg tablet Take 1 tablet by mouth daily 90 tablet 3 02/10/2019 3 documented as of this encounter Discharge Disposition Disposition Code Departure Means Destination Discharge to home or self care documented in this encounter Progress Notes * Betty Rod NP - 03/10/2019 10:10 AM CDT MAULIK Silvia Persaud is a 23 y.o. female with IUP @ 38w6d by Estimated Date of Delivery: 03/18/19 S: Reports leakage of fluid- unsure if it was bag of water leaking. Since 0745 has felt a constant trickling of a small amount of fluid, unsure what it looks like. Denies contractions, vaginal bleeding. Reports + movement O: Vital signs: BP 118/70 Pulse 84 Temp 98.6 ??F Resp 20 Ht 160 cm (5' 3 ) Wt 170 lb (77.1 kg) LMP 06/11/2018 SpO2 97% BMI 30.11 kg/m?? Urine dip: Lab Results Component Value Date COLORU Yellow 03/05/2019 CLARITYU Clear 03/05/2019 SPECGRAVU 1.005 03/05/2019 AMI 7.0 03/05/2019 GLUCOSEUR Negative 03/05/2019 KETONESU Negative 03/05/2019 PROTUR Negative 03/05/2019 POCURNITRITE Negative 03/05/2019 LEUKOCYTESUR Negative 03/05/2019 SSE: physiologic discharge, no pooling, negative valsalva Neg fern, neg nitrazine Bedside ultrasound: ARUN: 17.0 cm DVP: 6.28 cm EFM: Baseline: 135 bpm, Variability: Moderate (Between 6 and 25 BPM), Accelerations: Acceleration 15x15, Decelerations: none [place]: irregular contractions not felt by patient A/P: Silvia Persaud is a 23 y.o. female with IUP @ 38w6d by Estimated Date of Delivery: 03/18/19 R/o SROM Problem No Leakage of Amniotic Fluid into Vagina 03/10/19 [facility] visit: No evidence of SROM. No pooling, negative valslava, negative fern, negative nitrazine, ARUN 17.0 DVP 6.28. Precautions given. Well Being: Overall Reassuring, Baseline: 135 bpm, Variability: Moderate (Between 6 and 25 BPM), Accelerations: Acceleration 15x15, Decelerations: none RN Discussed with Dr. Denson Disposition- Discharge to home with follow up as scheduled Betty Rod NP Cosigned by Carmela Denson MD at 03/10/2019 11:46 AM CDT Associated attestation - Carmela Denson MD - 03/10/2019 11:46 AM CDT I agree with the findings and plan of care as documented in the resident's/fellow's note. documented in this encounter Procedure Notes * Betty Rod NP - 03/10/2019 10:15 AM CDT Procedures Electronic Monitoring/Non-Stress [facility] Date: 03/10/19 Time: 5900-6994 FHR Baseline: 135 Variability: moderate Accelerations: present Decelerations: absent Contractions: irregular not felt by patient Reactive: Yes Comments: none I have reviewed NST and instructed RN to take off monitor NATHANIEL Figueroa Cosigned by Carmela Denson MD at 03/10/2019 11:45 AM CDT documented in this encounter Nursing Notes * Rico Santizo RN - 03/10/2019 10:24 AM CDT 0908-10:[address] [facility] with complaints of SROM. SSE negative for SROM, per Aurea, U/S done ARUN 17. Reactive tracing, moderate variabilty, 15x[address] Denson, patient discharged to home per order of Dr. Denson. review of discharge instructions for early labor and the labor process. Patient verbalized understanding of all discharge information. documented in this encounter Plan of Treatment Pending Results Name Type Priority Associated Diagnoses Date /Time US Ob Limited Imaging IP Routine No leakage of amniotic fluid into vagina 03/10/2019 10:07 AM CDT documented as of this encounter Procedures Procedure Name Priority Date/Time Associated Diagnosis Comments US OB LIMITED IP Routine 03/10/2019 10:07 AM CDT No leakage of amniotic fluid into vagina Procedure Note - Carmela Denson MD - 03/10/2019 10:07 AM CDTThis note is in progress. Vertex presentation ARUN 17.0cm DVP 6.28cm Betty Rod NP documented in this encounter Visit Diagnoses Diagnosis No leakage of amniotic fluid into vagina- Primary No leakage of amniotic fluid into vagina documented in this encounter Care Teams Personal Care Assistant Relationship Specialty Start Date End Date Lucille Garcia PCP - General 09/17/06 05/13/19 documented as of this encounter
--- OUTSIDE RECORDS SUMMARY | 2024-08-09 10:46 | XMS_ITS | Encounter Summary ---
Author Organization [facility] Address [address] [place] [address] Phone Care Team Providers Care Woodyard Crane Operator Name Role Phone No, Physician Primary Care Provider [phone] Reason for Referral * Diagnostic Imaging (Routine) - Closed Specialty Diagnoses / Procedures Referred By Contac t Referred To Contact Diagnoses Supervision of other normal , antepartum Procedures US Ob 14 Weeks Or Over Carmela Denson MD [address] [facility] [phone] [place] [address] Phone: tel: fax: [facility] (All Locations) Referral ID Status Reason Start Date Expiration Date Visits Re quested Visits Authorized [id number] Closed 10/11/2020 11/10/2021 1 12 GEMENT COORDINATOR * Diagnostic Imaging (Routine) - Closed Specialty Diagnoses / Procedures Referred By Contac t Referred To Contact Diagnoses Supervision of other normal , antepartum Procedures US Ob Under 14 Weeks Carmela Denson MD [address] [facility] [phone] [place] [address] Phone: tel: fax: [facility] (All Locations) Referral ID Status Reason Start Date Expiration Date Visits Re quested Visits Authorized [id number] Closed 10/11/2020 11/10/2021 2 2 GEMENT COORDINATOR Reason for Visit * Reason Comments Initial Visit Encounter Details Date Type Department Care Team (Late st Contact Info) Description 10/11/2020 12:45 PM MANAGEMENT COORDINATOR Office Visit [facility] Obstetrics and Gynecology [address] [facility] 7[address] [place] [address] Carmela Denson MD [address] [phone] [place] [address] Supervision of other normal , [...] on file Legal Sex Female 2:33 AM MANAGEMENT COORDINATOR Gender Identity Female 01/27/2021 1:35 PM CDT Sexual Orientation Straight 01/27/2021 1: 35 PM CDT documented as of this encounter Last Filed Vital Signs Vital Sign Reading Time Taken Comments Blood Pressure 116/74 10/11/2020 12:50 PM MANAGEMENT COORDINATOR Pulse 71 10/11/2020 12:50 PM MANAGEMENT COORDINATOR Temperature - - Respiratory Rate - - Oxygen Saturation - - Inhaled Oxygen Concentration - - Weight 65.8 kg (145 lb) 10/11/2020 12:50 PM MANAGEMENT COORDINATOR Height 160 cm (5' 3 ) 10/11/2020 12:50 PM MANAGEMENT COORDINATOR Body Mass Index 25.69 10/11/2020 12:50 PM MANAGEMENT COORDINATOR documented in this encounter Progress Notes * Carmela Denson MD - 10/11/2020 12:45 PM CST NOB visit Doing well. No concerns- just mild nausea present but no need for meds. Declines genetic screening. Last pap- 2019 cytology only- neg. GEMENT COORDINATOR * Maye Chavez, RN - 10/11/2020 12:45 PM CST Met with Silvia Persaud today for initial/first trimester visit teaching. Discussed the practice, safe medications, appropriate diet, exercise/activity, travel, animals and vaccinations. Pt had specific questions that were answered appropriately. Declines genetic screening GEMENT COORDINATOR documented in this encounter Miscellaneous Notes * Addendum Note - Luzma Jimenez RMA - 10/11/2020 12:45 PM CSTAddended by: LUZMA JIMENEZ on: 10/11/2020 01:32 PM Modules accepted: Orders GEMENT COORDINATOR documented in this encounter Plan of Treatment Not on file documented as of this encounter Procedures Procedure Name Priority Date/Time Associated Diagnosis Comments HIV 1/2 ANTIBODY PLUS P24 ANTIGEN Routine 10/23/2020 10:47 AM CDT Supervision of other normal , antepartum URINALYSIS AND REFLEX TO MICROSCOPIC Routine 10/23/2020 10:47 AM CDT Supervision of other normal , antepartum ABO/RH Routine 10/23/2020 10:47 AM CDT Supervision of other normal , antepartum RUBELLA IGG Routine 10/23/2020 10:47 AM CDT Supervision of other normal , antepartum RPR Routine 10/23/2020 10:47 AM CDT Supervision of other normal , antepartum HEPATITIS B SURFACE ANTIGEN Routine 10/23/2020 10:47 AM CDT Supervision of other normal , antepartum CBC WITHOUT DIFFERENTIAL Routine 10/23/2020 10:47 AM CDT Supervision of other normal , antepartum ANTIBODY SCREEN Routine 10/23/2020 10:47 AM CDT Supervision of other normal , antepartum URINE CULTURE Routine 10/23/2020 10:47 AM CDT Supervision of other normal , antepartum N. GONORRHOEAE/C. TRACHOMATIS AMPLIFICATION Routine 10/11/2020 1:32 PM MANAGEMENT COORDINATOR Supervision of other normal , antepartum US OB UNDER 14 WEEKS Schedule Routine, Read Routine (OP Routine) 10/11/2020 1:16 PM MANAGEMENT COORDINATOR Supervision of other normal , antepartum POCT OB URINE SHORT DIP (GLUCOSE, PROTEIN, KETONES) Routine 10/11/2020 1:05 PM MANAGEMENT COORDINATOR Supervision of other normal , antepartum POCT HCG, URINE Routine 10/11/2020 1:05 PM MANAGEMENT COORDINATOR Supervision of other normal , antepartum documented in this encounter Results * US Ob 14 Weeks Or Over (12/30/2020 2:10 PM CDT) Fetus# Fetus1 VIEWPOINT Placenta Details posterior, Previa-no, no placental masses VIEWPOINT Estimated Weight 333 g&grams VIEWPOINT Presentation Vertex VIEWPOINT Anatomical Region Laterality Modality Abdomen N/A Ultrasound 12/30/2020 2:11 PM CDT Carmela Denson MD IMG OB US PROCEDURES Final Re sult * Urine culture Urine, clean voided (10/23/2020 10:47 AM CDT) [facility] Comment: ??CULTURE, URINE, ROUTINE ?Micro Number: ?[id number] ??Test Status: ? Final ??Specimen Source: ?? URINE, CLEAN CATCH ??Specimen Quality: ??Adequate ??Result: ?No Growth Urine, clean voided 10/23/2020 10:47 AM CDT 10/23/2020 10:48 AM CDT Narrative [facility] - 10/25/2020 1:22 PM CDT FASTING:NO FASTING: NO us Carmela Denson MD LAB MICROBIOLOGY - GENERAL OR DERABLES Final Result Performing Organization Address City/[facility]/ZIP Co de Phone Number [facility] [address] [place] [address] * Urinalysis reflex to microscopic (10/23/2020 10:47 AM CDT) Color, ur YELLOW YELLOW [facility] Appearance, ur CLEAR CLEAR [facility] Specific gravity 1.009 1.001 - 1.035 [facility] pH, ur 7.5 5.0 - 8.0 [facility] Glucose, ur NEGATIVE NEGATIVE [facility] Bilirubin, ur NEGATIVE NEGATIVE [facility] Ketones, ur NEGATIVE NEGATIVE [facility] Blood, ur NEGATIVE NEGATIVE [facility] Protein, ur, quant NEGATIVE NEGATIVE [facility] Nitrites, ur NEGATIVE NEGATIVE [facility] Leukocyte esterase, ur NEGATIVE NEGATIVE [facility] Urine 10/23/2020 10:4 7 AM CDT 10/23/2020 10:48 AM CDT Narrative [facility] - 10/25/2020 1:22 PM CDT FASTING:NO FASTING: NO us Carmela Denson MD LAB URINE ORDERABLES Final Re sult Performing Organization Address City/[facility]/ZIP Co de Phone Number [facility] [address] [address] * Rubella IgG (10/23/2020 10:47 AM CDT) Rubella IgG 5.38 Index [facility] Comment: ?Index ?Interpretation ?----- ?<0.90 ?Not consistent with immunity ?0.90-0.99 ?Equivocal ?> or = 1.00 ?Consistent with immunity The presence of rubella IgG antibody suggests immunization or past or current infection with rubella virus. Blood specimen (specimen) 10/23/2020 10:47 AM CDT 10/23/2020 10:48 AM CDT Narrative [facility] - 10/25/2020 1:22 PM CDT FASTING:NO FASTING: NO Carmela Denson MD LAB MICROBIOLOGY - GENERAL OR DERABLES Final Result Performing Organization Address [facility] de Phone Number [facility] [address] [place] [address] * RPR (10/23/2020 10:47 AM CDT) Pathologist [facility] RPR NON-REACTIV E NON-REACTI VE [facility] Blood specimen (specimen) 10/23/2020 10:47 AM CDT 10/23/2020 10:48 AM CDT Narrative [facility] - 10/25/2020 1:22 PM CDT FASTING:NO FASTING: NO Carmela Denson MD LAB MICROBIOLOGY - GENERAL OR DERABLES Final Result Performing Organization Address [facility] de Phone Number [facility] [address] [place] [address] * HIV 1/2 Antibody plus p24 Antigen (10/23/2020 10:47 AM CDT) Pathologist [facility] HIV Ag/Ab, 4th gen NON-REACT LEONARDO NON-REACT LEONARDO [facility] [place] Comment: HIV-1 antigen and HIV-1/HIV-2 antibodies were [...] ?? For additional information please refer to http://education.Veosearch/faq/MXL562 (This link is being provided for informational/ educational purposes only.) The performance of this assay has not been clinically validated in patients less than 2 years old. Blood specimen (specimen) 10/23/2020 10:47 AM CDT 10/23/2020 10:48 AM CDT Narrative [facility] - 10/25/2020 1:22 PM CDT FASTING:NO FASTING: NO Carmela Denson MD LAB MICROBIOLOGY - GENERAL OR DERABLES Final Result Performing Organization Address City/[facility]/ZIP Co de Phone Number [facility] [address] [place] [address] * Hepatitis B Surface Antigen (10/23/2020 10:47 AM CDT) Pathologist [facility] HepBsAg NON-REACTIV E NON-REACTI VE [facility] Blood specimen (specimen) 10/23/2020 10:47 AM CDT 10/23/2020 10:48 AM CDT Narrative [facility] - 10/25/2020 1:22 PM CDT FASTING:NO FASTING: NO Carmela Denson MD LAB MICROBIOLOGY - GENERAL OR DERABLES Final Result Performing Organization Address [facility] Co de Phone Number [facility] [address] [place] [address] * CBC without differential (10/23/2020 10:47 AM CDT) WBC 9.3 3.8 - 10.8 Thousand/uL [facility] RBC, POC 4.92 3.80 - 5.10 Million/uL [facility] Hgb 13.9 11.7 - 15.5 g/dL [facility] Hct 42.7 35.0 - 45.0 % [facility] MCV 86.8 80.0 - 100.0 fL [facility] MCH 28.3 27.0 - 33.0 pg [facility] MCHC 32.6 32.0 - 36.0 g/dL [facility] Rdw 12.2 11.0 - 15.0 % [facility] Platelets 206 140 - 400 Thousand/uL [facility] MPV 12.1 7.5 - 12.5 fL [facility] Blood specimen (specimen) 10/23/2020 10:47 AM CDT 10/23/2020 10:48 AM CDT Narrative [facility] - 10/25/2020 1:22 PM CDT FASTING:NO FASTING: NO Carmela Denson MD LAB BLOOD ORDERABLES Final Re sult Performing Organization Address [facility] de Phone Number [facility] [address] [place] [address] * Antibody screen (10/23/2020 10:47 AM CDT) [facility] Antibody screen NO ANTIBODIES DETECTED [facility] [place] Comment: ?Reference range ?No antibodies detected This assay is a screening test for the detection of red blood cell antibodies. The test is not to be used for pretransfusion screening or for the medical management of an alloimmunized . ? Blood specimen (specimen) 10/23/2020 10:47 AM CDT 10/23/2020 10:48 AM CDT Narrative [facility] - 10/25/2020 1:22 PM CDT FASTING:NO FASTING: NO Carmela Denson MD LAB BLOOD BANK TEST ORDERABLE S Final Result Performing Organization Address [facility]/State/ZIP Co de Phone Number [facility] [address] [facility] [place] [address] * ABO/Rh (10/23/2020 10:47 AM CDT) ABO typing A [facility] Rho(D) typing RH(D) POSITIVE [facility] Comment: For additional information, please refer to http://[employer]/faq/UHI939 (This link is being provided for informational/ educational purposes only.) Blood specimen (specimen) 10/23/2020 10:47 AM CDT 10/23/2020 10:48 AM CDT Narrative [facility] - 10/25/2020 1:22 PM CDT FASTING:NO FASTING: NO us Carmela Denson MD LAB BLOOD BANK TEST ORDERABLE S Final Result Performing Organization Address [facility] Phone Number [facility] [address] [facility] [place] [address] * N. gonorrhoeae/C. trachomatis Amplification Urine (10/11/2020 1:32 PM MANAGEMENT COORDINATOR) Pathologist [facility] C. trachomatis RNA NOT DETECTED NOT DETECTED [facility] [place] N. gonorrhoeae RNA NOT DETECTED NOT DETECTED [facility] [place] Comment [facility] [place] Comment: The analytical performance characteristics of this assay, when used to test SurePath(TM) specimens have been determined by [facility]. The modifications have not been cleared or approved by the FDA. This assay has been validated pursuant to the CLIA regulations and is used for clinical purposes. For additional information, please refer to https://[employer].Veosearch/faq/YKZ271 (This link is being provided for information/ educational purposes only.) Urine (None) 10/11/2020 1:32 PM MANAGEMENT COORDINATOR 10/12/2020 3:26 AM MANAGEMENT COORDINATOR Carmela Denson MD LAB MICROBIOLOGY - GENERAL OR DERABLES Final Result Performing Organization Address [facility]/State/ZIP Co de Phone Number [facility] [address] [address] * US Ob Under 14 Weeks (10/11/2020 1:16 PM MANAGEMENT COORDINATOR) Anatomical Region Laterality Modality Abdomen N/A Ultrasound Study GA Study Date Study SURYA Working SURYA (Source) Feta l Weight (Method) 10/11/2020 05/19/2021 ([place] t Menstrual Period) Result Name Value Comments CRL cm Sac Diameter cm Heart Rate bpm Narrative 10/11/2020 1:17 PM MANAGEMENT COORDINATOR SIUP +FHM CRL c/w 8w6d Carmela Denson MD IMG OB US PROCEDURES Final Re sult * POCT hCG, urine (10/11/2020 1:05 PM MANAGEMENT COORDINATOR) HCG, ur, POC Positive Lot Number [id number] QC Backgroud Clear Acceptable QC Control Line Acceptable Urine 10/11/2020 1:05 PM MANAGEMENT COORDINATOR Result [facility] Carmela Denson MD POINT OF CARE TEST ORDERABLES Final Result * POCT OB urine short dip (glucose, protein, ketones) (10/11/2020 1:05 PM MANAGEMENT COORDINATOR) Glucose, ur, POC Negative Negative mg/dL Protein, ur, POC Negative Negative Ketones, ur, POC Negative Negative Lot Number [id number] Urine 10/11/2020 1:05 PM MANAGEMENT COORDINATOR Carmela Denson MD POINT OF CARE TEST ORDERABLES Final Result documented in this encounter Visit Diagnoses Diagnosis Supervision of other normal , antepartum- Primary documented in this encounter Discontinued Medications Medication Sig Discontinue Reason Start Date End Da te Kiki 0.35 mg tablet TAKE 1 TABLET DAILY Therapy completed 12/31/201910/11 predniSONE (DELTASONE) 10 mg tabletIndications:Allergi c contact dermatitis, unspecified trigger Take 3 tabs days 1 & 2, 2 tabs days 3 & 4, 1 tab days 5-7. Therapy completed 05/14/2019 10/11/2020 documented as of this encounter Care Teams Woodyard Crane Operator Relationship Specialty Start Date End Date No, Physician PCP - General 05/14/19 01/01/24 documented as of this encounter
--- OUTSIDE RECORDS SUMMARY | 2024-08-09 10:46 | XMS_ITS | Encounter Summary ---
Author Organization [facility] Address [address] [place] [address] Phone Care Team Providers Care Civil Cad Tech Name Role Phone Lucille Garcia Primary Care Provider Unavaila ble Reason for Visit * Reason Onset Date Comments mastitis 05/01/2019 Encounter Details Date Type Department Care Team (Late st Contact Info) Description 05/01/2019 Telephone [facility] Obstetrics and Gynecology [facility] 7th Floor [address] [place] [address] Marci Isidro RN mastitis Social History Tobacco Use Types Packs/Day Years Used Date Smoking Tobacco: Never Smokeless Tobacco: Never Alcohol Use Standard Drinks/Week Comments Yes 0 (1 standard drink = 0.6 oz pur e alcohol) Comments No Sex and Gender Information Value Date Recorded Sex Assigned at Not on file Legal Sex Female 2:33 AM ODD JOB WORKER Gender Identity Female 01/27/2021 1:35 PM CDT Sexual Orientation Straight 01/27/2021 1: 35 PM CDT documented as of this encounter Ordered Prescriptions Prescription Sig Dispense Quantity Refills Last Filled Start Date End Date dicloxacillin (DYNAPEN) 500 mg capsule Take 1 capsule (500 mg total) by mouth 4 (four) times a day for 10 days 40 capsule 05/01/2019 9 documented in this encounter Miscellaneous Notes * Telephone Encounter - Marci Isidro RN - 05/01/2019 8:17 AM CDT ?? The patient reports that she has questions regarding: Breast infection/mastitis, suspected/diagnosed ?? When did this start for you? Overnight ?? Have you been treated for mastitis in the past? Yes ?? Which breast is affected? Right ?? Patient reports: Pumping ?? How frequently is the baby nursing? Every 3 hours ?? What is your current pain level (0-10 scale)? 2/10 ?? .Patient reports the following symptoms: ?? Fever > 100.4 ?? Body aches/flu-like symptoms ?? Breast is warm to touch ?? Breast pain/tenderness ?? documented in this encounter Plan of Treatment Not on file documented as of this encounter Visit Diagnoses Not on filedocumented in this encounter Care Teams Civil Cad Tech Relationship Specialty Start Date End Date Lucille Garcia PCP - General 09/17/06 05/13/19 documented as of this encounter
--- OUTSIDE RECORDS SUMMARY | 2024-08-09 10:46 | XMS_ITS | Encounter Summary ---
Author Organization [facility] Address [address] [place] [address] Phone Care Team Providers Care Svp Research & Ebusiness Operations Name Role Phone No, Physician Primary Care Provider [phone] Reason for Visit * Diagnostic Imaging (Routine) - Closed Specialty Diagnoses / Procedures Referred By Contac t Referred To Contact Diagnoses Supervision of other normal , antepartum Procedures US Ob Under 14 Weeks Carmela Denson MD [address] [facility] [phone] [place] [address] Phone: tel: fax: [facility] (All Locations) Referral ID Status Reason Start Date Expiration Date Visits Re quested Visits Authorized [id number] Closed 10/11/2020 11/10/2021 2 2 Encounter Details Date Type Department Care Team (Late st Contact Info) Description 10/11/2020 1:20 PM SPRING SALVAGE WORKER Ancillary Procedure [facility] Obstetrics and Gynecology [address] [facility] Outpatient Health 7th Floor [address] [place] [address] Social History Tobacco Use Types [...] on file Legal Sex Female 2:33 AM SPRING SALVAGE WORKER Gender Identity Female 01/27/2021 1:35 PM CDT Sexual Orientation Straight 01/27/2021 1: 35 PM CDT documented as of this encounter Plan of Treatment Not on file documented as of this encounter Procedures Procedure Name Priority Date/Time Associated Diagnosis Comments US OB UNDER 14 WEEKS Schedule Routine, Read Routine (OP Routine) 10/11/2020 1:16 PM SPRING SALVAGE WORKER Supervision of other normal , antepartum documented in this encounter Results * US Ob Under 14 Weeks (10/11/2020 1:16 PM SPRING SALVAGE WORKER) Anatomical Region Laterality Modality Abdomen N/A Ultrasound Study GA Study Date Study SURYA Working SURYA (Source) Feta l Weight (Method) 10/11/2020 05/19/2021 (Las t Menstrual Period) Result Name Value Comments CRL cm Sac Diameter cm Heart Rate bpm Narrative 10/11/2020 1:17 PM SPRING SALVAGE WORKER SIUP +FHM CRL c/w 8w6d us Carmela Denson MD IMG OB US PROCEDURES Final Re sult documented in this encounter Visit Diagnoses Not on filedocumented in this encounter Care Teams Svp Research & Ebusiness Operations Relationship Specialty Start Date End Date No, Physician PCP - General 05/14/19 01/01/24 documented as of this encounter
--- OUTSIDE RECORDS SUMMARY | 2024-08-09 10:46 | XMS_ITS | Encounter Summary ---
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 Patient states that she is 9 weeks and experiencing a stomach bug that she caught from her son. Patient has been unable to keep anything down. States that she feels okay and is not dizzy. Patient [facility] if the patientis unable to PO hydrate for IV fluids and told that if she is able to keep water down she can stay home. Patient verbalizes understanding and denies questions at this time. Brandi Restrepo RN 10/17/2020 documented in this encounter Plan of Treatment Not on file documented as of this encounter Visit Diagnoses Not on filedocumented in this encounter Care Teams Supervisor Tree Trimming Relationship Specialty Start Date End Date No, Physician PCP - General 05/14/19 01/01/24 documented as of this encounter
--- OUTSIDE RECORDS SUMMARY | 2024-08-09 10:46 | XMS_ITS | Encounter Summary ---
Author Organization [facility] Address [address] [place] [address] Phone Care Team Providers Care Farmworker Grain Name Role Phone No, Physician Primary Care Provider [phone] Reason for Visit * Reason Comments Routine Visit [id number] Encounter Details Date Type Department Care Team (Late st Contact Info) Description 12/09/2020 4:00 PM CDT Office Visit [facility] Obstetrics and Gynecology [address] [facility] Outpatient Health 7th Floor [address] [place] [address] Rosalinda Cunningham, MANUFACTURING ENGINEERING DIRECTOR [address] 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 Gender Identity Female 01/27/2021 1:35 PM CDT Sexual Orientation Straight 01/27/2021 1: 35 PM CDT documented as of this encounter Last Filed Vital Signs Vital Sign Reading Time Taken Comments Blood Pressure 104/60 12/09/2020 4:27 PM CDT Pulse 67 12/09/2020 4:27 PM CDT Temperature - - Respiratory Rate - - Oxygen Saturation - - Inhaled Oxygen Concentration - - Weight 68.5 kg (151 lb) 12/09/2020 4:27 PM CDT Height 160 cm (5' 3 ) 12/09/2020 4:27 PM CDT Body Mass Index 26.75 12/09/2020 4:27 PM CDT documented in this encounter Progress Notes * Rosalinda Cunningham NP - 12/09/2020 4:00 PM CDT DENNY visit: +FM now No complaints Scheduled for anatomy Us in 3 weeks documented in this encounter Plan of Treatment Not on file documented as of this encounter Visit Diagnoses Diagnosis Supervision of other normal , antepartum- Primary documented in this encounter Care Teams Farmworker Grain Relationship Specialty Start Date End Date No, Physician PCP - General 05/14/19 01/01/24 documented as of this encounter
--- OUTSIDE RECORDS SUMMARY | 2024-08-09 10:46 | XMS_ITS | Encounter Summary ---
Author Organization [facility] Healthcare Address [address] [place] [address] Care Team Providers Care Vascular Ultrasound Technologist Name Role Phone Lucille Garcia Primary Care Provider Unavaila ble Reason for Visit * Reason Onset Date Comments Outgoing Call 03/11/2019 Encounter Details Date Type Department Care Team (Late st Contact Info) Description 03/11/[address] [phone] Juno Robles RN Outgoing Call Social History Tobacco Use Types Packs/Day Years Used Date Smoking Tobacco: Never Smokeless Tobacco: Never Alcohol Use Standard Drinks/Week Comments Yes 0 (1 standard drink = 0.6 oz pur e alcohol) Comments Yes Sex and Gender Information Value Date Recorded Sex Assigned at Not on file 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 Pt states she is doing good. Denies any present leaking today.Also denies any uterine contractions. Feels baby moving around good. Offers no complaints at present time. documented in this encounter Plan of Treatment Not on file documented as of this encounter Visit Diagnoses Not on filedocumented in this encounter Care Teams Vascular Ultrasound Technologist Relationship Specialty Start Date End Date Lucille Garcia PCP - General 09/17/06 05/13/19 documented as of this encounter
--- OUTSIDE RECORDS SUMMARY | 2024-08-09 10:46 | XMS_ITS | Encounter Summary ---
Author Organization [facility] Address [address] [place] [address] Phone Care Team Providers Care Song Plugger Name Role Phone Lucille Garcia Primary Care Provider Unavaila ble Reason for Visit * Reason Onset Date Comments r/o SROM 03/10/2019 Encounter Details Date Type Department Care Team (Late st Contact Info) Description 03/10/2019 Telephone [facility] Obstetrics and Gynecology [facility] Outpatient Health 7th Floor [address] [place] [address] Tasneem Xie, RN r/o SROM Social History Tobacco Use Types Packs/Day Years Used Date Smoking Tobacco: Never Smokeless Tobacco: Never Alcohol Use Standard Drinks/Week Comments Yes 0 (1 standard drink = 0.6 oz pur e alcohol) Comments Yes Sex and Gender Information Value Date Recorded Sex Assigned at Not on file 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 Instructed to present to [facility] for eval. documented in this encounter Plan of Treatment Not on file documented as of this encounter Visit Diagnoses Not on filedocumented in this encounter Care Teams Song Plugger Relationship Specialty Start Date End Date Lucille Garcia PCP - General 09/17/06 05/13/19 documented as of this encounter
--- OUTSIDE RECORDS SUMMARY | 2024-08-09 10:47 | XMS_ITS | Encounter Summary ---
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
--- OUTSIDE RECORDS SUMMARY | 2024-08-09 10:47 | XMS_ITS | Encounter Summary ---
Author Organization [facility] Healthcare Address [address] [place] [address] Care Team Providers Care Team Facilitator Name Role Phone Lucille Garcia Primary Care Provider Unavaila ble Reason for Visit * Reason Comments Back Pain Encounter Details Date Type Department Care Team (Latest Contact Info) Description 03/05/2019 10:00 PM CDT - 03/06/2019 12:28 AM CDT Hospital Encounter [address] [phone] Carmela Denson MD [address] 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 Gender Identity Female 01/27/2021 1:35 PM CDT Sexual Orientation Straight 01/27/2021 1: 35 PM CDT documented as of this encounter Last Filed Vital Signs Vital Sign Reading Time Taken Comments Blood Pressure 117/65 03/05/2019 10:17 PM CDT Pulse 93 03/05/2019 10:17 PM CDT Temperature 36.9 ??C (98.4 ??F) 03/05/2019 10:17 PM C DT Respiratory Rate 18 03/05/2019 10:17 PM CDT Oxygen Saturation - - Inhaled Oxygen Concentration - - Weight - - Height - - Body Mass Index - - documented in this encounter Discharge Diagnoses Diagnosis Other specified related conditions, unspecified trimester - OTHER SPECIFIED RELATED CONDITIONS, UNSPECIFIED TRIMESTER Low back pain - LOW BACK PAIN Lumbago Weeks of gestation of not specified - WEEKS OF GESTATION OF NOT SPECIFIED documented in this encounter Discharge Instructions * Discharge Instr - Activity* Nannette Roe RN - 03/05/2019 11:51 PM CDT Activity as tolerated. Warm baths and showers as needed. * Discharge Instr - Diet* Nannette Roe RN - 03/05/2019 11:51 PM CDT Regular diet as tolerated. Drink at least 8-10 glasses of water or juice per day. Decrease caffeine intake. documented in this encounter Medications at Time of Discharge vit,[id number] olic (PRENATABS RX) 29 mg iron- 1 mg tablet Take 1 tablet by mouth daily 90 tablet 3 02/10/2019 05/27/2023 documented as of this encounter Discharge Disposition Disposition Code Departure Means Destination Discharge to home or self care documented in this encounter Progress Notes * Nannette Roe RN - 03/05/2019 10:31 PM CDT Pt rates pain at rest at this time a 0 on 0-10 scale but stated that when back pain hits it is an8 out of 10. documented in this encounter Procedure Notes * Nannette Roe RN - 03/06/2019 12:23 AM CDTProcedure(s): NONSTRESS TEST FHR Baseline: 120 Variability: moderate Accelerations: present Decelerations: absent Contractions: 3.5-4 minutes Reactive: Yes I have reviewed the NST with Dr. Denson and was instructed to take the patient off the monitor. Nannette Roe RN Pt evaluated by Krystyna RODRIGUEZ following sign out with Dr. Denson. Cosigned by Carmela Denson MD at 03/10/2019 7:31 AM CDT documented in this encounter Nursing Notes * Nannette Roe RN - 03/06/2019 12:03 AM CDT Pt presented to [facility] with complaints of severe back pain at home that resolved upon arrival to [facility]. SVE closed/soft, heart tones reactive. Urine dip WNR. VS WNR. Contractions resumed during [facility] assessment and back pain determined to be related to contractions. Pt declined 2nd cervical exam. Discussed with Dr. Denson and upon discharge, pt back pain increased with no increase in contraction frequency or intensity but still corresponding to latent labor. Evaluated by nurse data entry, Krystyna Mclaughlin. 5 mg Flexeril given and pt discharged home with labor precautions. documented in this encounter Plan of Treatment Not on file documented as of this encounter Procedures Procedure Name Priority Date/Time Associated Diagnosis Comments POCT URINALYSIS DIPSTICK Routine 03/05/2019 10:30 PM CDT documented in this encounter Results * POCT urinalysis dipstick (03/05/2019 10:30 PM CDT) Color, Urine, POC Yellow Clarity, ur, POC Clear Clear Glucose, ur, POC Negative Negative mg/dL Bilirubin, ur, POC Negative Negative, Small, Moderate, Large Ketones, ur, POC Negative Negative Specific [place], POC 1.005 1.005 - 1.030 Blood, ur, POC Negative Negative pH, ur, POC 7.0 5.0 - 8.0 Protein, ur, POC Negative Negative Urobilinogen, urine, POC 0.2 0.2 - 1.0 mg/dL Nitrite, ur, POC Negative Negative Leukocytes, ur, POC Negative Negative Lot Number [id number] Urine 03/05/2019 10:3 0 PM CDT Carmela Denson MD POINT OF CARE TEST ORDERABLES Final Result documented in this encounter Visit Diagnoses Not on filedocumented in this encounter Administered Medications Inactive Administered Medications - up to 3 most recent administrations Medication Order MAR Action Action Date Dose Rate Site cyclobenzaprine (FLEXERIL) tablet 5 mg 5 mg, oral, Once, On Mayuri 03/06/19 at 0030, For 1 dose Given 03/05/2019 11:54 PM CDT 5 mg documented in this encounter Active and Recently Administered Medications Times are shown in CDT. Scheduled Medication Order 03/04/2019 03/05/2019 03/06/2019 cyclobenzaprine (FLEXERIL) tablet 5 mg (COMPLETED) 5 mg, oral, Once, On Mayuri 03/06/19 at 0030, For 1 dose 2354 (Given - Provider: Nannette Roe RN) documented in this encounter Orders Medications Ordered That Roland ht Not Have Been Administered Count Last Ordered Date First Ordered Date cyclobenzaprine (FLEXERIL) tablet 5 mg 1 documented in this encounter Care Teams Team Facilitator Relationship Specialty Start Date End Date Lucille Garcia PCP - General 09/17/06 05/13/19 documented as of this encounter
--- OUTSIDE RECORDS SUMMARY | 2024-08-09 10:47 | XMS_ITS | Encounter Summary ---
Author Organization [facility] Address [address] [place] [address] Phone Care Team Providers Care Outside Barrel Lathe Operator Name Role Phone Lucille Garcia Primary Care Provider Unavaila ble Reason for Visit * Reason Comments Routine Visit Encounter Details Date Type Department Care Team (Late st Contact Info) Description 02/25/2019 4:30 PM CDT Office Visit [facility] Obstetrics and Gynecology [address] [facility] Outpatient Health 7th Floor [address] [place] [address] Rios Santoro MD [address] [facility] [address] [place] [address] Supervision of other normal , antepartum (Primary Dx) Social History Tobacco Use Types Packs/Day Years Used Date Smoking Tobacco: Never Smokeless Tobacco: Never Alcohol Use Standard Drinks/Week Comments Yes 0 (1 standard drink = 0.6 oz pur e alcohol) Comments Yes Sex and Gender Information Value Date Recorded Sex Assigned at Not on file 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 Gender Identity Female 01/27/2021 1:35 PM CDT Sexual Orientation Straight 01/27/2021 1: 35 PM CDT documented as of this encounter Last Filed Vital Signs Vital Sign Reading Time Taken Comments Blood Pressure 112/71 02/25/2019 4:32 PM CDT Pulse 76 02/25/2019 4:32 PM CDT Temperature - - Respiratory Rate - - Oxygen Saturation - - Inhaled Oxygen Concentration - - Weight 80.7 kg (178 lb) 02/25/2019 4:32 PM CDT Height 160 cm (5' 3 ) 02/25/2019 4:32 PM CDT Body Mass Index 31.53 02/25/2019 4:32 PM CDT documented in this encounter Progress Notes * Annita Orosco RN - 02/25/2019 4:30 PM CDT Met with Silvia Juan Persaud today for 36 week education. Discussed signs of labor and pp bc. Silvia Persaud is planning to breast, use ? for a fisher eel spear and is considering ? for pp bc. Also informed that behavioral health services will visit her in the hospital and baby will have a hearing and blood screening. Pt stated understanding. * Rios Santoro MD - 02/25/2019 4:30 PM CDT Would like to await spontaneous labor; IOL only after 40 weeks. documented in this encounter Plan of Treatment Not on file documented as of this encounter Visit Diagnoses Diagnosis Supervision of other normal , antepartum- Primary documented in this encounter Care Teams Outside Barrel Lathe Operator Relationship Specialty Start Date End Date Lucille Garcia PCP - General 09/17/06 05/13/19 documented as of this encounter
--- OUTSIDE RECORDS SUMMARY | 2024-08-09 10:47 | XMS_ITS | Encounter Summary ---
Author Organization [facility] Address [address] [place] [address] Phone Care Team Providers Care Back Maker Name Role Phone Lucille Garcia Primary Care Provider Unavaila ble Reason for Visit * Reason Onset Date Comments Back Pain 03/04/2019 Encounter Details Date Type Department Care Team (Late st Contact Info) Description 03/04/2019 Telephone [facility] Obstetrics and Gynecology [address] [facility] Outpatient Health 7th Floor [address] [place] [address] Rios Santoro MD [address] [facility] [address] [place] [address] Back Pain Social History Tobacco Use Types Packs/Day Years Used Date Smoking Tobacco: Never Smokeless Tobacco: Never Alcohol Use Standard Drinks/Week Comments Yes 0 (1 standard drink = 0.6 oz pur e alcohol) Comments Yes Sex and Gender Information Value Date Recorded Sex Assigned at Not on file 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 Pain did not seem severe, and was pretty infrequent. Active movement. No VB/LOF. I told her it was OK to hang tight and see if this turned intosomething more documented in this encounter Plan of Treatment Not on file documented as of this encounter Visit Diagnoses Not on filedocumented in this encounter Care Teams Back Maker Relationship Specialty Start Date End Date Lucille Garcia PCP - General 09/17/06 05/13/19 documented as of this encounter
--- OUTSIDE RECORDS SUMMARY | 2024-08-09 10:47 | XMS_ITS | Encounter Summary ---
Author Organization [facility] Healthcare Address [address] [place] [address] Care Team Providers Care Director Council On Aging Name Role Phone Lucille Garcia Primary Care Provider Unavaila ble Reason for Visit * Reason Onset Date Comments Outgoing Call 03/06/2019 Follow-up telephone call to [facility] admit Encounter Details Date Type Department Care Team (Late st Contact Info) Description 03/06/[address] [phone] Theodora Scanlon RN Outgoing Call (Follow-up telephone call to [facility] admit) Social History Tobacco Use Types Packs/Day Years Used Date Smoking Tobacco: Never Smokeless Tobacco: Never Alcohol Use Standard Drinks/Week Comments Yes 0 (1 standard drink = 0.6 oz pur e alcohol) Comments Yes Sex and Gender Information Value Date Recorded Sex Assigned at Not on file 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 States her back pain is much better today. She is using a heating pad to her back which is helping. Advised that she can take regular Tylenol 2 tablets every 4 hours as needed for discomfort. States she ishaving irregular contractions today - reviewed signs and symptoms of labor. States her baby is moving normally. Denies any vaginal bleeding or gush/leaking of fluid. She received her discharge instructions and did not have any questions. She did not receive a prescription. Her next OB appointment is 03/11/19 and she plans on keeping the appointment. Rates her care as excellent. documented in this encounter Plan of Treatment Not on file documented as of this encounter Visit Diagnoses Not on filedocumented in this encounter Care Teams Director Council On Aging Relationship Specialty Start Date End Date Lucille Garcia PCP - General 09/17/06 05/13/19 documented as of this encounter
--- OUTSIDE RECORDS SUMMARY | 2024-08-09 10:47 | XMS_ITS | Encounter Summary ---
Author Organization [facility] Address [address] [place] [address] Phone Care Team Providers Care Proctologist Name Role Phone Lucille Garcia Primary Care Provider Unavaila ble Reason for Visit * Reason Comments Routine Visit Encounter Details Date Type Department Care Team (Late st Contact Info) Description 03/04/2019 4:15 PM CDT Office Visit [facility] Obstetrics and Gynecology [facility] Outpatient Health 7th Floor [address] [place] [address] Avril Chavez MD [address] [place] [id number] Supervision of other normal , antepartum (Primary Dx) Social History Tobacco Use Types Packs/Day Years Used Date Smoking Tobacco: Never Smokeless Tobacco: Never Alcohol Use Standard Drinks/Week Comments Yes 0 (1 standard drink = 0.6 oz pur e alcohol) Comments Yes Sex and Gender Information Value Date Recorded Sex Assigned at Not on file 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 Female 2:33 AM CLIENT DIRECTOR Gender Identity Female 01/27/2021 1:35 PM CDT Sexual Orientation Straight 01/27/2021 1: 35 PM CDT documented as of this encounter Last Filed Vital Signs Vital Sign Reading Time Taken Comments Blood Pressure 130/75 03/04/2019 4:10 PM CDT Pulse - - Temperature - - Respiratory Rate - - Oxygen Saturation - - Inhaled Oxygen Concentration - - Weight 81.7 kg (180 lb 2 oz) 03/04/2019 4:10 PM CDT Height 160 cm (5' 3 ) 03/04/2019 4:10 PM CDT Body Mass Index 31.91 03/04/2019 4:10 PM CDT documented in this encounter Progress Notes * Avril Chavez MD - 03/04/2019 4:15 PM CDT Getting tired. Had irregular contractions last evening. Nothing much today. Cervix closed/soft. She noted new rash in the last few days, noted on stomach and within stretch brunson as well as on arms legs. Likely PUPPPs, will use lotion, HC cream, Benadryl for now. documented in this encounter Plan of Treatment Not on file documented as of this encounter Visit Diagnoses Diagnosis Supervision of other normal , antepartum- Primary documented in this encounter Care Teams Proctologist Relationship Specialty Start Date End Date Lucille Garcia PCP - General 09/17/06 05/13/19 documented as of this encounter
--- OUTSIDE RECORDS SUMMARY | 2024-08-09 10:48 | XMS_ITS | Encounter Summary ---
Author Organization [facility] Address [address] [place] [address] Phone Care Team Providers Care Vineyardist Name Role Phone Lucille Garcia Primary Care Provider Unavaila ble Reason for Visit * Reason Comments Routine Visit Encounter Details Date Type Department Care Team (Late st Contact Info) Description 02/11/2019 4:30 PM CDT Office Visit [facility] Obstetrics and Gynecology [address] [facility] Outpatient Health 7th Floor [address] [place] [address] Rosalinda Cunningham, CERTIFIED TOWER CLIMBER [address] [facility] [phone] [place] [address] Encounter for supervision of normal first in third trimester (Primary Dx) Social History Tobacco Use Types Packs/Day Years Used Date Smoking Tobacco: Never Smokeless Tobacco: Never Alcohol Use Standard Drinks/Week Comments Yes 0 (1 standard drink = 0.6 oz pur e alcohol) Comments Yes Sex and Gender Information Value Date Recorded Sex Assigned at Not on file 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 Gender Identity Female 01/27/2021 1:35 PM CDT Sexual Orientation Straight 01/27/2021 1: 35 PM CDT documented as of this encounter Last Filed Vital Signs Vital Sign Reading Time Taken Comments Blood Pressure 108/60 02/11/2019 4:37 PM CDT Pulse - - Temperature - - Respiratory Rate - - Oxygen Saturation - - Inhaled Oxygen Concentration - - Weight 79.9 kg (176 lb 3.2 oz) 02/11/2019 4:37 P M CDT Height 160 cm (5' 3 ) 02/11/2019 4:37 PM CDT Body Mass Index 31.21 02/11/2019 4:37 PM CDT documented in this encounter Progress Notes * Rosalinda Cunningham NP - 02/11/2019 4:30 PM CDT DENNY visit: Doing well. No complaints RTO 1 week documented in this encounter Plan of Treatment Not on file documented as of this encounter Visit Diagnoses Diagnosis Encounter for supervision of normal first in third trimester- Primary documented in this encounter Care Teams Vineyardist Relationship Specialty Start Date End Date Lucille Garcia PCP - General 09/17/06 05/13/19 documented as of this encounter
--- OUTSIDE RECORDS SUMMARY | 2024-08-09 10:48 | XMS_ITS | Encounter Summary ---
Author Organization [facility] Address [address] [place] [address] Care Team Providers Care Coagulating Operator Name Role Phone Lucille Garcia Primary Care Provider Sophie barnett Encounter Details Date Type Department Care Team (Late st Contact Info) Description 12/31/2018 3:30 PM CDT Lab [facility] Outpatient Health [address] [place] [address] Health [place], [place] [id number] Carmela Denson MD [address] [place] [address] [phone] [place] [address] Encounter for supervision of normal first in second trimester Discharge Disposition: Discharge to home or self care Social History Tobacco Use Types Packs/Day Years Used Date Smoking Tobacco: Never Smokeless Tobacco: Never Alcohol Use Standard Drinks/Week Comments Yes 0 (1 standard drink = 0.6 oz pur e alcohol) Comments Yes Sex and Gender Information Value Date Recorded Sex Assigned at Not on file 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 Gender Identity Female 01/27/2021 1:35 PM CDT Sexual Orientation Straight 01/27/2021 1: 35 PM CDT documented as of this encounter Discharge Disposition Disposition Code Departure Means Destination Discharge to home or self care documented in this encounter Plan of Treatment Not on file documented as of this encounter Procedures Procedure Name Priority Date/Time Associated Diagnosis Comments GTT 50GM 1HR GESTATIONAL SCREEN Routine 12/31/2018 4:13 PM CDT Encounter for supervision of normal first in second trimester documented in this encounter Results * GTT, gestational diabetes 50gm 1hr screen (12/31/2018 4:13 PM CDT) GTT 50g gest screen 100 70 - 140 mg/dL [facility] Comment: Interpretive Data Used for suspected gestational diabetes. ??The screening test uses 50 grams of glucose with sample obtained 1 hr later. Normal range: < 140 mg/dL. ??A glucose value of >140 mg/dL generally indicates the need for a full diagnostic tolerance test. Reference Interval Info: ??Diabetes Care 2005, Vol 28. ??Supplement 1, S37-S42. ??Report of the Expert Committee on the Diagnosis and Classification of Diabetes Mellitus. ??Diabetes Care 2000; 23 Suppl 1:S4-19. Current interpretive data was last revised on 2007. Blood specimen (specimen) 12/31/2018 4:13 PM CDT 12/31/2018 5:49 PM CDT Narrative [facility] - 12/31/2018 6:31 PM CDT us Carmela Denson MD LAB BLOOD ORDERABLES Final Re sult [facility] One [facility] Department [place] [address] documented in this encounter Visit Diagnoses Diagnosis Encounter for supervision of normal first in second trimester documented in this encounter Care Teams Coagulating Operator Relationship Specialty Start Date End Date Lucille Garcia PCP - General 09/17/06 05/13/19 documented as of this encounter
--- OUTSIDE RECORDS SUMMARY | 2024-08-09 10:48 | XMS_ITS | Encounter Summary ---
Author Organization [facility] Address [address] [place] [address] Phone Care Team Providers Care Developing Machine Operator Name Role Phone Lucille Garcia Primary Care Provider Unavaila ble Reason for Visit * Reason Comments Routine Visit Feet swelling and cramping Encounter Details Date Type Department Care Team (Late st Contact Info) Description 02/19/2019 9:00 AM CDT Office Visit [facility] Obstetrics and Gynecology [address] 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 VTX by U/S. GBS bacteruria. CBC/HIV ordered. documented in this encounter Plan of Treatment Not on file documented as of this encounter Results * (ABNORMAL) CBC without differential (02/19/2019 9:50 AM CDT) WBC 11.6(H) 3.8 - 9.9 K/cumm [facility] Hgb 12.9 11.9 - 15.5 g/dL [facility] Hct 40.1 35.6 - 45.5 % [facility] Plt 177 150 - 400 K/cumm [facility] MPV 12.8(H) 9.1 - 12.3 fL [facility] RBC 4.65 3.90 - 5.20 M/cumm [facility] MCV 86.2 81.3 - 96.4 fL [facility] MCH 27.7 27.1 - 33.3 pg [facility] MCHC 32.2(L) 32.3 - 35.7 g/dL [facility] RDW CV 12.9 11.1 - 14.9 % [facility] RDW SD 40.0 35.7 - 48.1 fL [facility] NRBC abs 0.00 0.00 - 0.01 K/cumm [facility] Blood specimen (specimen) 02/19/2019 9:50 AM CDT 02/19/2019 10:55 AM CDT us Avril Chavez MD LAB BLOOD ORDERABLES Luisa buchanan Result [facility] One [facility] [place] [address] * HIV 1/2 Antibody plus p24 Antigen (02/19/2019 9:50 AM CDT) HIV 1/2 ab + p24 ag Nonreactive Nonreactive [facility] Comment: Nonreactive for HIV-1 antigen and HIV-1/HIV-2 antibodies. No laboratory evidence of HIV infection. If acute HIV infection is suspected, consider testing for HIV-1 RNA. Blood specimen (specimen) 02/19/2019 9:50 AM CDT 02/19/2019 10:55 AM CDT us Avril Chavez MD LAB MICROBIOLOGY - GENERA L ORDERABLES Final Result [facility] One [facility] [place] [address] documented in this encounter Visit Diagnoses Diagnosis Supervision of other normal , antepartum- Primary documented in this encounter Care Teams Developing Machine Operator Relationship Specialty Start Date End Date Lucille Garcia PCP - General 09/17/06 05/13/19 documented as of this encounter
--- OUTSIDE RECORDS SUMMARY | 2024-08-09 10:48 | XMS_ITS | Encounter Summary ---
Author Organization [facility] Address [address] [place] [address] Phone Care Team Providers Care Foundry Tender Name Role Phone Lucille Garcia Primary Care Provider Unavaila ble Encounter Details Date Type Department Care Team (Latest Contact Info) Description 12/16/2018 Orders Only [facility] Scanning, Provider Social History Tobacco Use Types Packs/Day Years Used Date Smoking Tobacco: Never Smokeless Tobacco: Never Alcohol Use Standard Drinks/Week Comments Yes 0 (1 standard drink = 0.6 oz pur e alcohol) Comments Yes Sex and Gender Information Value Date Recorded Sex Assigned at Not on file 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 Gender Identity Female 01/27/2021 1:35 PM CDT Sexual Orientation Straight 01/27/2021 1: 35 PM CDT documented as of this encounter Plan of Treatment Not on file documented as of this encounter Procedures Procedure Name Priority Date/Time Associated Diagnosis Comments SCAN - OTHER ORDERS 12/16/2018 1:27 PM CDT documented in this encounter Results * SCAN - OTHER ORDERS (12/16/2018 1:27 PM CDT) us Provider Scanning Final Result documented in this encounter Visit Diagnoses Not on filedocumented in this encounter Care Teams Foundry Tender Relationship Specialty Start Date End Date Lucille Garcia PCP - General 09/17/06 05/13/19 documented as of this encounter
--- OUTSIDE RECORDS SUMMARY | 2024-08-09 10:48 | XMS_ITS | Encounter Summary ---
Author Organization [facility] Address [address] [place] [address] Phone Care Team Providers Care Veneer Matcher Name Role Phone Lucille Garcia Primary Care Provider Unavaila ble Reason for Visit * Reason Comments Routine Visit Encounter Details Date Type Department Care Team (Late st Contact Info) Description 09/04/2018 4:45 PM OPTION TRADER Office Visit [facility] Obstetrics and Gynecology [address] [facility] Outpatient Health 7th Floor [address] [place] [address] Carmela Denson MD [address] [facility] [phone] [place] [address] Supervision of other normal , antepartum (Primary Dx) Social History Tobacco Use Types Packs/Day Years Used Date Smoking Tobacco: Never Smokeless Tobacco: Never Alcohol Use Standard Drinks/Week Comments Yes 0 (1 standard drink = 0.6 oz pur e alcohol) Comments Yes Sex and Gender Information Value Date Recorded Sex Assigned at Not on file Legal Sex Female 2:33 AM OPTION TRADER Gender Identity Female 01/27/2021 1:35 PM CDT Sexual Orientation Straight 01/27/2021 1: 35 PM CDT documented as of this encounter Last Filed Vital Signs Vital Sign Reading Time Taken Comments Blood Pressure 123/78 09/04/2018 4:45 PM OPTION TRADER Pulse - - Temperature - - Respiratory Rate - - Oxygen Saturation - - Inhaled Oxygen Concentration - - Weight 67.1 kg (148 lb) 09/04/2018 4:44 PM OPTION TRADER Height 160 cm (5' 3 ) 09/04/2018 4:44 PM OPTION TRADER Body Mass Index 26.22 09/04/2018 4:44 PM OPTION TRADER documented in this encounter Progress Notes * Carmela Denson MD - 09/04/2018 4:45 PM CST [place] visit Doing well! No concerns. Declines genetic screening. ON TRADER documented in this encounter Plan of Treatment Not on file documented as of this encounter Visit Diagnoses Diagnosis Supervision of other normal , antepartum- Primary documented in this encounter Care Teams Veneer Matcher Relationship Specialty Start Date End Date Lucille Garcia PCP - General 09/17/06 05/13/19 documented as of this encounter
--- OUTSIDE RECORDS SUMMARY | 2024-08-09 10:48 | XMS_ITS | Encounter Summary ---
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 Gender Identity Female 01/27/2021 1:35 PM CDT Sexual Orientation Straight 01/27/2021 1: 35 PM CDT documented as of this encounter Discharge Disposition Disposition Code Departure Means Destination Discharge to home or self care documented in this encounter Plan of Treatment Not on file documented as of this encounter Procedures Procedure Name Priority Date/Time Associated Diagnosis Comments RPR Routine 01/14/2019 4:37 PM CDT Encounter for supervision of normal first in second trimester CBC WITHOUT DIFFERENTIAL Routine 01/14/2019 4:37 PM CDT Encounter for supervision of normal first in second trimester documented in this encounter Results * (ABNORMAL) CBC without differential (01/14/2019 4:37 PM CDT) WBC 13.5(H) 3.8 - 9.9 K/cumm [facility] Hgb 12.7 11.9 - 15.5 g/dL [facility] Hct 39.3 35.6 - 45.5 % [facility] Plt 188 150 - 400 K/cumm [facility] MPV 12.0 9.1 - 12.3 fL [facility] RBC 4.50 3.90 - 5.20 M/cumm [facility] MCV 87.3 81.3 - 96.4 fL [facility] MCH 28.2 27.1 - 33.3 pg [facility] MCHC 32.3 32.3 - 35.7 g/dL [facility] RDW CV 12.7 11.1 - 14.9 % [facility] RDW SD 40.6 35.7 - 48.1 fL [facility] NRBC abs 0.00 0.00 - 0.01 K/cumm [facility] Blood specimen (specimen) 01/14/2019 4:37 PM CDT 01/14/2019 5:31 PM CDT Narrative [facility] - 01/14/2019 5:37 PM CDT Carmela Denson MD LAB BLOOD ORDERABLES Final Re sult [facility] One [facility] Department [place] [address] * RPR (01/14/2019 4:37 PM CDT) RPR Nonreactive Nonreactive [facility] Blood specimen (specimen) 01/14/2019 4:37 PM CDT 01/14/2019 5:31 PM CDT Narrative [facility] - 01/14/2019 8:05 PM CDT us Carmela Denson MD LAB MICROBIOLOGY - GENERAL OR DERABLES Final Result [facility] One [facility] Department [place] [address] documented in this encounter Visit Diagnoses Diagnosis Encounter for supervision of normal first in second trimester documented in this encounter Care Teams Final Canoe Inspector Relationship Specialty Start Date End Date Lucille Garcia PCP - General 09/17/06 05/13/19 documented as of this encounter
--- OUTSIDE RECORDS SUMMARY | 2024-08-09 10:48 | XMS_ITS | Encounter Summary ---
Author Organization [facility] Healthcare Address [address] [place] [address] Care Team Providers Care Sap Bw Bi Developer Name Role Phone Lucille Garcia Primary Care Provider Sophie barnett Encounter Details Date Type Department Care Team (Late st Contact Info) Description 08/07/2018 5:05 PM REAM CUTTER Lab [address] [address] Social History Tobacco Use Types Packs/Day Years Used Date Smoking Tobacco: Never Smokeless Tobacco: Never Alcohol Use Standard Drinks/Week Comments Yes 0 (1 standard drink = 0.6 oz pur e alcohol) Comments Yes Sex and Gender Information Value Date Recorded Sex Assigned at Not on file Legal Sex Female 2:33 AM REAM CUTTER Gender Identity Female 01/27/2021 1:35 PM CDT Sexual Orientation Straight 01/27/2021 1: 35 PM CDT documented as of this encounter Plan of Treatment Not on file documented as of this encounter Procedures Procedure Name Priority Date/Time Associated Diagnosis Comments N. GONORRHOEAE/C. TRACHOMATIS AMPLIFICATION TEST Routine Gen Lab 08/07/2018 1:29 PM REAM CUTTER documented in this encounter Results * N. gonorrhoeae/C. trachomatis amplification test (08/07/2018 1:29 PM REAM CUTTER) Report Final Report: Negative for: ??Chlamydia trachomatis rRNA Negative for: ??Neisseria gonorrhoeae rRNA [facility] Urine 08/07/2018 1:29 PM REAM CUTTER 08/07/2018 6:17 PM REAM CUTTER Narrative [facility] - 08/07/2018 6:18 PM REAM CUTTER Specimen received in a sterile container. Testing performed by the Gen-Probe [employer] APTIMA Combo 2 Assay. This nucleic acid amplification test (NAAT) detects ribosomal RNA (rRNA) from Chlamydia trachomatis and Neisseria gonorrhoeae using target capture,and Recyclable Materials Sorter-Mediated Amplification (TMA). This test is approved by the [place] Food and Drug Administration for endocervical, vaginal, and male urethral swab specimens, in addition to male and female urine specimens. The performance characteristics for these specimen types have been verified by the [facility].The performance characteristics of this assay for pharyngeal and rectal specimens collected from cervical swab collection devices have been validated and verified by the [facility]. Verification studies support a lack of cross reactivity with other Neisseria species considered normal oropharyngeal bacterial cayla. Rectal swab specimens containing excess stool may be inhibitory and result in false negatives for Chlamydia trachomatis or Neisseria gonorrhoeae. The performance characteristics of this test have not been evaluated in women or individuals less than 16 years of age. us Georgina Veronica Copeland MD LAB MICROBIOLO GY - GENERAL ORDERABLES Final Result [facility] One [facility] [place] [address] documented in this encounter Visit Diagnoses Not on filedocumented in this encounter Care Teams Sap Bw Bi Developer Relationship Specialty Start Date End Date Lucille Garcia PCP - General 09/17/06 05/13/19 documented as of this encounter
--- OUTSIDE RECORDS SUMMARY | 2024-08-09 10:48 | XMS_ITS | Encounter Summary ---
Author Organization [facility] Address [address] [place] [address] Phone Care Team Providers Care Evp Chief Exploration Officer Name Role Phone Lucille Garcia Primary Care Provider Unavaila ble Reason for Visit * Reason Comments Routine Visit Encounter Details Date Type Department Care Team (Late st Contact Info) Description 10/30/2018 3:15 PM CDT Office Visit [facility] Obstetrics and Gynecology [address] [facility] Outpatient Health 7th Floor [address] [place] [address] Kenna Baxter MD [address] [facility] [phone] [place] [address] Supervision of other normal , antepartum (Primary Dx) Social History Tobacco Use Types Packs/Day Years Used Date Smoking Tobacco: Never Smokeless Tobacco: Never Alcohol Use Standard Drinks/Week Comments Yes 0 (1 standard drink = 0.6 oz pur e alcohol) Comments Yes Sex and Gender Information Value Date Recorded Sex Assigned at Not on file 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 Gender Identity Female 01/27/2021 1:35 PM CDT Sexual Orientation Straight 01/27/2021 1: 35 PM CDT documented as of this encounter Last Filed Vital Signs Vital Sign Reading Time Taken Comments Blood Pressure 125/74 10/30/2018 3:15 PM CDT Pulse 73 10/30/2018 3:15 PM CDT Temperature - - Respiratory Rate - - Oxygen Saturation - - Inhaled Oxygen Concentration - - Weight 69.8 kg (153 lb 12.8 oz) 10/30/2018 3:15 PM CDT Height 160 cm (5' 3 ) 10/30/2018 3:15 PM CDT Body Mass Index 27.24 10/30/2018 3:15 PM CDT documented in this encounter Progress Notes * Kenna Baxter MD - 10/30/2018 3:15 PM CDT Anatomy US today - which was normal , reviewed this with them. Having a baby boy. No complaints today documented in this encounter Plan of Treatment Not on file documented as of this encounter Visit Diagnoses Diagnosis Supervision of other normal , antepartum- Primary documented in this encounter Discontinued Medications Medication Sig Discontinue Reason Start Date End Da te PNV no.95/ferrous fum/folic ac ( ORAL) Take by mouth. 10/30/2018 documented as of this encounter Care Teams Evp Chief Exploration Officer Relationship Specialty Start Date End Date Lucille Garcia PCP - General 09/17/06 05/13/19 documented as of this encounter
--- OUTSIDE RECORDS SUMMARY | 2024-08-09 10:48 | XMS_ITS | Encounter Summary ---
Author Organization [facility] Address [address] [place] [address] Phone Care Team Providers Care Cotton Baler Name Role Phone Lucille Garcia Primary Care Provider Unavaila ble Reason for Visit * Reason Comments Follow-up Encounter Details Date Type Department Care Team (Late st Contact Info) Description 01/14/2019 4:00 PM CDT Office Visit [facility] Obstetrics and Gynecology [address] [facility] 7th Floor [address] [place] [address] Kenna Baxter MD [address] [facility] [phone] [place] [address] Supervision of other normal , antepartum (Primary Dx) Social History Tobacco Use Types Packs/Day Years Used Date Smoking Tobacco: Never Smokeless Tobacco: Never Alcohol Use Standard Drinks/Week Comments Yes 0 (1 standard drink = 0.6 oz pur e alcohol) Comments Yes Sex and Gender Information Value Date Recorded Sex Assigned at Not on file 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 No complaints today. Planning to complete her 2nd tri labs today. Normal GCT reviewed today documented in this encounter Plan of Treatment Not on file documented as of this encounter Visit Diagnoses Diagnosis Supervision of other normal , antepartum- Primary documented in this encounter Historical Medications * This list may reflect changes made after this encounter. PRENATABS RX 29 mg iron- 1 mg tablet TK 1 T PO D 9 01/10/2019 02/10/2019 added in this encounter Care Teams Cotton Baler Relationship Specialty Start Date End Date Lucille Garcia PCP - General 09/17/06 05/13/19 documented as of this encounter
--- OUTSIDE RECORDS SUMMARY | 2024-08-09 10:48 | XMS_ITS | Encounter Summary ---
Author Organization [facility] Address [address] [place] [address] Phone Care Team Providers Care Vp Foundation Name Role Phone Lucille Garcia Primary Care Provider Unavaila ble Reason for Referral * Diagnostic Imaging (Routine) - Closed Specialty Diagnoses / Procedures Referred By Contac t Referred To Contact Diagnoses Supervision of other normal , antepartum Procedures US Ob Detail Anatomy Single Or First Gestation Georgina Copeland MD Phone: tel: fax: [facility] (All Locations) Referral ID Status Reason Start Date Expiration Date Visits Re quested Visits Authorized [id number] Closed 08/07/2018 02/16/2020 1 1 NICAL SPECIALIST CYTOGENETICS * Diagnostic Imaging (Routine) - Closed Specialty Diagnoses / Procedures Referred By Contac t Referred To Contact Diagnoses Supervision of other normal , antepartum Procedures US Ob Under 14 Weeks Georgina Copeland MD Phone: tel: fax: [facility] (All Locations) Referral ID Status Reason Start Date Expiration Date Visits Re quested Visits Authorized [id number] Closed 08/07/2018 02/16/2020 1 1 NICAL SPECIALIST CYTOGENETICS Reason for Visit * Reason Comments Initial Visit Encounter Details Date Type Department Care Team (Late st Contact Info) Description 08/07/2018 12:45 PM TECHNICAL SPECIALIST CYTOGENETICS Office Visit [facility] Obstetrics and Gynecology [address] [facility] Health 7th Floor [address] [place] [address] Georgina Copeland MD [address] [phone] [place] [address] Supervision of other normal , antepartum (Primary Dx) Social History Tobacco Use Types Packs/Day Years Used Date Smoking Tobacco: Never Smokeless Tobacco: Never Alcohol Use Standard Drinks/Week Comments Yes 0 (1 standard drink = 0.6 oz pur e alcohol) Comments Yes Sex and Gender Information Value Date Recorded Sex Assigned at Not on file Legal Sex Female 2:33 AM TECHNICAL SPECIALIST CYTOGENETICS Gender Identity Female 01/27/2021 1:35 PM CDT Sexual Orientation Straight 01/27/2021 1: 35 PM CDT documented as of this encounter Last Filed Vital Signs Vital Sign Reading Time Taken Comments Blood Pressure 117/71 08/07/2018 12:50 PM TECHNICAL SPECIALIST CYTOGENETICS Pulse - - Temperature - - Respiratory Rate - - Oxygen Saturation - - Inhaled Oxygen Concentration - - Weight 66.3 kg (146 lb 4 oz) 08/07/2018 12:50 PM TECHNICAL SPECIALIST CYTOGENETICS Height 160 cm (5' 3 ) 08/07/2018 12:50 PM TECHNICAL SPECIALIST CYTOGENETICS Body Mass Index 25.91 08/07/2018 12:50 PM TECHNICAL SPECIALIST CYTOGENETICS documented in this encounter Progress Notes * Georgina Copeland MD - 08/07/2018 12:45 PM CST Feels well, sure LMP, Unsure about First Look. NICAL SPECIALIST CYTOGENETICS * Marci Isidro RN - 08/07/2018 12:45 PM CST Met with Silvia Persaud and today for initial/first trimester visit teaching. Discussed the practice, safe medications, appropriate diet, exercise/activity, travel, animals and vaccinations. Pt had specific questions that were answered appropriately. Information provided on [employer]. Pt to decide on testing and call. Planning trip to [place] in January. Precautions given. NICAL SPECIALIST CYTOGENETICS documented in this encounter Plan of Treatment Not on file documented as of this encounter Procedures Procedure Name Priority Date/Time Associated Diagnosis Comments US OB UNDER 14 WEEKS Schedule Routine, Read Routine (OP Routine) 08/07/2018 1:20 PM TECHNICAL SPECIALIST CYTOGENETICS Supervision of other normal , antepartum documented in this encounter Results * US Ob Detail Anatomy Single Or First Gestation (10/30/2018 2:12 PM CDT) Placenta Details posterior, Previa-no, no placental masses VIEWPOINT Estimated Weight 329 g&grams VIEWPOINT Presentation Variable VIEWPOINT Fetus# Fetus1 VIEWPOINT Anatomical Region Laterality Modality Body N/A Ultrasound 10/30/2018 2:12 PM CDT us Georgina Veronica Copeland MD [facility] OB US PROC EDURES Final Result * Varicella zoster antibody, IgG (08/07/2018 2:04 PM TECHNICAL SPECIALIST CYTOGENETICS) VZV IgG Negative Negative [facility] Comment: Interpretive Data Negative: ??No detectable antibody to Varicella-zoster ? virus. ??Such individuals ? are presumed to be uninfected with VZV and to ? be susceptible to primary infection. Equivocal: Presence or absence of detectable antibodies ? to VZV IgG cannot be determined and the test ? should be repeated. Positive: ??Indicated presence of detectable antibody to ? VZV. ??Indicative of current ? or previous infection or vaccination. Current interpretive data was last revised on 2016. Blood specimen (specimen) 08/07/2018 2:04 PM TECHNICAL SPECIALIST CYTOGENETICS 08/07/2018 2:26 PM TECHNICAL SPECIALIST CYTOGENETICS Narrative [facility] - 08/08/2018 10:21 AM TECHNICAL SPECIALIST CYTOGENETICS us Georgina Veronica Copeland MD LAB MICROBIOLO GY - GENERAL ORDERABLES Final Result Performing Organization Address [facility] Co de Phone Number [place] [address] * (ABNORMAL) Rubella antibody, IgG (08/07/2018 2:04 PM TECHNICAL SPECIALIST CYTOGENETICS) Rubella IgG Positive(A ) Negative [facility] Blood specimen (specimen) 08/07/2018 2:04 PM TECHNICAL SPECIALIST CYTOGENETICS 08/07/2018 2:26 PM TECHNICAL SPECIALIST CYTOGENETICS Narrative [facility] - 08/08/2018 10:21 AM TECHNICAL SPECIALIST CYTOGENETICS us Georgina Veronica Copeland MD LAB MICROBIOLO GY - GENERAL ORDERABLES Final Result Performing Organization Address [facility] Co de Phone Number [facility] [place] [address] * RPR, serum (08/07/2018 2:04 PM TECHNICAL SPECIALIST CYTOGENETICS) RPR Nonreactive Nonreactive [facility] Blood specimen (specimen) 08/07/2018 2:04 PM TECHNICAL SPECIALIST CYTOGENETICS 08/07/2018 2:26 PM TECHNICAL SPECIALIST CYTOGENETICS Narrative [facility] - 08/07/2018 4:25 PM TECHNICAL SPECIALIST CYTOGENETICS us Georgina Veronica Copeland MD LAB MICROBIOLO GY - GENERAL ORDERABLES Final Result Performing Organization Address [facility] Co de Phone Number [place] [address] * Type and screen (08/07/2018 1:57 PM TECHNICAL SPECIALIST CYTOGENETICS) Elisa, indirect Negative [facility] ABO Rh A Positive [facility] Blood specimen (specimen) 08/07/2018 1:57 PM TECHNICAL SPECIALIST CYTOGENETICS 08/07/2018 2:33 PM TECHNICAL SPECIALIST CYTOGENETICS Narrative [facility] - 08/07/2018 4:31 PM TECHNICAL SPECIALIST CYTOGENETICS Has the patient had Daratumumab (Darzalex) in the past 6 months?->No us Georgina Copeland MD LAB BLOOD BANK TEST ORDERABLES Final Result [facility] [place] [address] * (ABNORMAL) Urine culture Urine, clean voided (08/07/2018 1:53 PM TECHNICAL SPECIALIST CYTOGENETICS) Report Final Report: Less than 100,000 colonies/mL (clinically insignificant growth based on current clinical standards) Includes the following: Less than 100,000 colonies/mL Streptococcus agalactiae (Group B Streptococci) * ??* ??* ??* ??* ??* ??* ??* ??* ??* ??* ??* ??* ??* ??* ??* ??* ??* ??* ??* Resistance to penicillin in Group B Streptococcus has not been reported. ??Group B Streptococci are universally susceptible to beta-lactam antibiotics and vancomycin. Routine susceptibility testing is not performed. In penicillin allergic patients, please contact the laboratory at [phone] to request susceptibility testing * ??* ??* ??* ??* ??* ??* ??* ??* ??* ??* ??* ??* ??* ??* ??* ??* ??* ??* ??* This laboratory routinely screens urine cultures for any amount of Group B Streptococcus in reproductive age women. ??Recovery of this isolate may be significant in women, however, the recovery of this organism in small quantities in non- women represents contamination with periurethral cayla. (.) [facility] Organism (CLINIC[facility] INSIGNIFICANT [facility] Organism STREPTOCOCCUS AGALACTIAE (GROUP B STREPTOCOCCI) [facility] Urine, clean voided 08/07/2018 1:53 PM TECHNICAL SPECIALIST CYTOGENETICS 08/07/2018 5:12 PM TECHNICAL SPECIALIST CYTOGENETICS Narrative [facility] - 08/10/2018 3:13 PM TECHNICAL SPECIALIST CYTOGENETICS Testing performed by [facility] ([phone]) us Georginamalorie Copeland MD LAB MICROBIOLO GY - GENERAL ORDERABLES Final Result Performing Organization Address [facility] Co de Phone Number [facility] [place] [address] * HIV-1 and HIV-2 antibody with P24 antigen immunoassay (08/07/2018 1:53 PM TECHNICAL SPECIALIST CYTOGENETICS) Pathologist [facility] HIV 1/2 ab + p24 ag Nonreactive Nonreactive [facility] Comment:Negative for HIV-1 a ntigen and HIV-1/ HIV-2 antibodies. No laboratory evidence of HIV infection. If acute HIV infection is suspected, consider testing for HIV-1 RNA. Blood specimen (specimen) 08/07/2018 1:53 PM TECHNICAL SPECIALIST CYTOGENETICS 08/07/2018 2:31 PM TECHNICAL SPECIALIST CYTOGENETICS Narrative [facility] - 08/07/2018 3:42 PM TECHNICAL SPECIALIST CYTOGENETICS us Georginamaolrie Copeland MD LAB MICROBIOLO GY - GENERAL ORDERABLES Final Result Performing Organization Address [facility] de Phone Number [facility] [place] [address] * Hepatitis B surface antigen (08/07/2018 1:53 PM TECHNICAL SPECIALIST CYTOGENETICS) Pathologist [facility] HepBsAg Nonreactive Nonreactive [facility] Blood specimen (specimen) 08/07/2018 1:53 PM TECHNICAL SPECIALIST CYTOGENETICS 08/07/2018 2:31 PM TECHNICAL SPECIALIST CYTOGENETICS Narrative [facility] - 08/08/2018 10:36 AM TECHNICAL SPECIALIST CYTOGENETICS us Georginamalorie castillo MD LAB MICROBIOLOGY - GENERAL ORDERABLES Edited Result - Final Performing Organization Address [facility] Co de Phone Number [facility] [place] [address] * (ABNORMAL) CBC without differential (08/07/2018 1:53 PM TECHNICAL SPECIALIST CYTOGENETICS) [facility] Signature WBC 10.5(H) 3.8 - 9.9 K/cumm [facility] Hgb 14.3 11.9 - 15.5 g/dL [facility] Hct 42.3 35.6 - 45.5 % [facility] Plt 217 150 - 400 K/cumm [facility] MPV 11.2 9.1 - 12.3 fL [facility] RBC 4.99 3.90 - 5.20 M/cumm [facility] MCV 84.8 81.3 - 96.4 fL [facility] MCH 28.7 27.1 - 33.3 pg [facility] MCHC 33.8 32.3 - 35.7 g/dL [facility] RDW CV 12.3 11.1 - 14.9 % [facility] RDW SD 37.4 35.7 - 48.1 fL [facility] NRBC abs 0.00 0.00 - 0.01 K/cumm [facility] Blood specimen (specimen) 08/07/2018 1:53 PM TECHNICAL SPECIALIST CYTOGENETICS 08/07/2018 2:31 PM TECHNICAL SPECIALIST CYTOGENETICS Narrative [facility] - 08/07/2018 2:41 PM TECHNICAL SPECIALIST CYTOGENETICS us Georgina Veronica Copeland MD LAB BLOOD ANNAMARIE JANE Final Result [facility] [place] [address] * US Ob Under 14 Weeks (08/07/2018 1:20 PM TECHNICAL SPECIALIST CYTOGENETICS) Anatomical Region Laterality Modality Abdomen N/A Ultrasound Study GA Study Date Study SURYA Working SURYA (Source) Feta l Weight (Method) 8w1d 08/07/2018 03/18/2019 Result Name Value Comments CRL 1.74 cm 57 Sac Diameter cm Heart Rate 182 bpm Narrative 08/07/2018 1:22 PM TECHNICAL SPECIALIST CYTOGENETICS Transvaginal ultrasound Indication: Assess viability Uterus: normal Single IUP noted with CRL 1.74cm, consistent with 8w1d FHM- 182bpm Right ovary: not visualized Left ovary: 2.6x1.6cm Impression: Viable IUP us Georgina Veronica Copeland MD IMG OB US PROC EDURES Final Result documented in this encounter Visit Diagnoses Diagnosis Supervision of other normal , antepartum- Primary Supervision of other normal , antepartum documented in this encounter Historical Medications * This list may reflect changes made after this encounter. PNV no.95/ferrous fum/folic ac ( ORAL) Take by mouth. 10/30/2018 added in this encounter Orders Lab Orders Without Results Count Last Ordered D ate First Ordered Date N. GONORRHOEAE/C. TRACHOMATI S AMPLIFICATION TEST 1 08/07/2018 documented in this encounter Care Teams Vp Foundation Relationship Specialty Start Date End Date Lucille Garcia PCP - General 09/17/06 05/13/19 documented as of this encounter
--- OUTSIDE RECORDS SUMMARY | 2024-08-09 10:48 | XMS_ITS | Encounter Summary ---
Author Organization [facility] Address [address] [place] [address] Phone Care Team Providers Care Slab Tripper Name Role Phone Lucille Garcia Primary Care Provider Unavaila ble Reason for Visit * Reason Comments Routine Visit Encounter Details Date Type Department Care Team (Late st Contact Info) Description 12/31/2018 3:00 PM CDT Office Visit [facility] Obstetrics and Gynecology [address] [facility] 7th Floor [address] [place] [address] Katia Arce MD [address] [facility] [phone] [place] [address] Supervision of other normal , antepartum Social History Tobacco Use Types Packs/Day Years Used Date Smoking Tobacco: Never Smokeless Tobacco: Never Alcohol Use Standard Drinks/Week Comments Yes 0 (1 standard drink = 0.6 oz pur e alcohol) Comments Yes Sex and Gender Information Value Date Recorded Sex Assigned at Not on file 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 Gender Identity Female 01/27/2021 1:35 PM CDT Sexual Orientation Straight 01/27/2021 1: 35 PM CDT documented as of this encounter Last Filed Vital Signs Vital Sign Reading Time Taken Comments Blood Pressure 112/73 12/31/2018 3:21 PM CDT Pulse - - Temperature - - Respiratory Rate - - Oxygen Saturation - - Inhaled Oxygen Concentration - - Weight 76.7 kg (169 lb) 12/31/2018 3:21 PM CDT Height 160 cm (5' 3 ) 12/31/2018 3:21 PM CDT Body Mass Index 29.94 12/31/2018 3:21 PM CDT documented in this encounter Progress Notes * Katia Arce MD - 12/31/2018 3:00 PM CDT - 2nd trim labs today - TDap today * Annita Orosco RN - 12/31/2018 3:00 PM CDT Met with Silvia Persaud today [...] rooming in and delayed bath. Also discussed [facility] class offerings, reviewed how to register and the classes offered. A design coordinator list was offered and accepted. Having a boy! documented in this encounter Plan of Treatment Not on file documented as of this encounter Visit Diagnoses Diagnosis Supervision of other normal , antepartum documented in this encounter Discontinued Medications Medication Sig Discontinue Reason Start Date End Da te PNV #[id number] acid-dha 35 mg iron-5 mg iron-1 mg capsule Take 1 capsule by mouth daily. 10/09/2018 12/31/2018 PRENATABS RX 29 mg iron- 1 mg tablet TK 1 T PO D Duplicate order 12/12/2018 12/31/2018 documented as of this encounter Historical Medications * This list may reflect changes made after this encounter. PRENATABS RX 29 mg iron- 1 mg tablet TK 1 T PO D 9 12/12/2018 12/31/2018 added in this encounter Orders Immunization/Injection Count Last Ordered Date First Ordered Date TDAP VACCINE GREATER THAN OR EQUAL TO 7YO IM 1 12/31/2018 documented in this encounter Care Teams Slab Tripper Relationship Specialty Start Date End Date Lucille Garcia PCP - General 09/17/06 05/13/19 documented as of this encounter
--- OUTSIDE RECORDS SUMMARY | 2024-08-09 10:48 | XMS_ITS | Encounter Summary ---
Author Organization [facility] Address [address] [place] [address] Phone Care Team Providers Care Pier Master Name Role Phone Lucille Garcia Primary Care Provider Chloea ble Encounter Details Date Type Department Care Team (Late st Contact Info) Description 08/13/2018 Orders Only [facility] Obstetrics and Gynecology [address] [facility] Health 7th Floor [address] [place] [address] Georgina Copeland MD [address] [facility] [phone] [place] [address] Social History Tobacco Use Types Packs/Day Years Used Date Smoking Tobacco: Never Smokeless Tobacco: Never Alcohol Use Standard Drinks/Week Comments Yes 0 (1 standard drink = 0.6 oz pur e alcohol) Comments Yes Sex and Gender Information Value Date Recorded Sex Assigned at Not on file 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 14 tablet/capsule 08/13/2018 08/20/2018 documented in this encounter Plan of Treatment Not on file documented as of this encounter Visit Diagnoses Not on filedocumented in this encounter Care Teams Pier Master Relationship Specialty Start Date End Date Lucille Garcia PCP - General 09/17/06 05/13/19 documented as of this encounter
--- OUTSIDE RECORDS SUMMARY | 2024-08-09 10:48 | XMS_ITS | Encounter Summary ---
Author Organization [facility] Address [address] [place] [address] Phone Care Team Providers Care Security Investigator Name Role Phone Lucille Garcia Primary Care Provider Unavaila ble Reason for Visit * Diagnostic Imaging (Routine) - Closed Specialty Diagnoses / Procedures Referred By Contac t Referred To Contact Diagnoses Supervision of other normal , antepartum Procedures US Ob Under 14 Weeks Georgina Copeland MD Phone: tel: fax: [facility] (All Locations) Referral ID Status Reason Start Date Expiration Date Visits Re quested Visits Authorized [id number] Closed 08/07/2018 02/16/2020 1 1 Encounter Details Date Type Department Care Team (Late st Contact Info) Description 08/07/2018 1:25 PM HEALTH SCIENCE INSTRUCTOR Ancillary Procedure [facility] Obstetrics and Gynecology [address] [facility] Outpatient Health 7th Floor [address] [place] [address] Social History Tobacco Use Types Packs/Day Years Used Date Smoking Tobacco: Never Smokeless Tobacco: Never Alcohol Use Standard Drinks/Week Comments Yes 0 (1 standard drink = 0.6 oz pur e alcohol) Comments Yes Sex and Gender Information Value Date Recorded Sex Assigned at Not on file Legal Sex Female 2:33 AM HEALTH SCIENCE INSTRUCTOR Gender Identity Female 01/27/2021 1:35 PM CDT Sexual Orientation Straight 01/27/2021 1: 35 PM CDT documented as of this encounter Plan of Treatment Not on file documented as of this encounter Procedures Procedure Name Priority Date/Time Associated Diagnosis Comments US OB UNDER 14 WEEKS Schedule Routine, Read Routine (OP Routine) 08/07/2018 1:20 PM HEALTH SCIENCE INSTRUCTOR Supervision of other normal , antepartum documented in this encounter Results * US Ob Under 14 Weeks (08/07/2018 1:20 PM HEALTH SCIENCE INSTRUCTOR) Anatomical Region Laterality Modality Abdomen N/A Ultrasound Study GA Study Date Study SURYA Working SURYA (Source) Feta l Weight (Method) 8w1d 08/07/2018 03/18/2019 Result Name Value Comments CRL 1.74 cm 57 Sac Diameter cm Heart Rate 182 bpm Narrative 08/07/2018 1:22 PM HEALTH SCIENCE INSTRUCTOR Transvaginal ultrasound Indication: Assess viability Uterus: normal Single IUP noted with CRL 1.74cm, consistent with 8w1d FHM- 182bpm Right ovary: not visualized Left ovary: 2.6x1.6cm Impression: Viable IUP us Georgina Veronica Copeland MD IMG OB US PROC EDURES Final Result documented in this encounter Visit Diagnoses Not on filedocumented in this encounter Care Teams Security Investigator Relationship Specialty Start Date End Date Lucille Garcia PCP - General 09/17/06 05/13/19 documented as of this encounter
--- OUTSIDE RECORDS SUMMARY | 2024-08-09 10:48 | XMS_ITS | Encounter Summary ---
Author Organization [facility] Facility Care Team Providers Care Quill Winder Name Role Phone Lucille Garcia Primary Care Provider Sophie barnett Encounter Details Date Type Department Care Team (Latest Contact Info) Description 03/01/2009 - 03/01/2009 11:59 PM CDT Hospital Encounter [facility] Ian Guevara Other specified conditions of the tongue; Disorder of skin and subcutaneous tissue Social History Tobacco Use Types Packs/Day Years Used Date Smoking Tobacco: Never Assessed Comments Unknown Sex and Gender Information Value Date Recorded Sex Assigned at Not on file 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
--- OUTSIDE RECORDS SUMMARY | 2024-08-09 10:48 | XMS_ITS | Encounter Summary ---
Author Organization [facility] Healthcare Address [address] [place] [address] Care Team Providers Care Mortician Investigator Name Role Phone Lucille Garcia Primary Care Provider Unavaila ble Reason for Visit * Diagnostic Imaging (Routine) - Closed Specialty Diagnoses / Procedures Referred By Contac t Referred To Contact Diagnoses Supervision of other normal , antepartum Procedures US Ob Detail Anatomy Single Or First Gestation Georgina Copeland MD Phone: tel: fax: [facility] (All Locations) Referral ID Status Reason Start Date Expiration Date Visits Re quested Visits Authorized [id number] Closed 08/07/2018 02/16/2020 1 1 Encounter Details Date Type Department Care Team (Latest Contact Info) Description 10/30/2018 2:15 PM CDT Ancillary Procedure [facility] - Ultrasound [address] 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 Gender Identity Female 01/27/2021 1:35 PM CDT Sexual Orientation Straight 01/27/2021 1: 35 PM CDT documented as of this encounter Plan of Treatment Not on file documented as of this encounter Procedures Procedure Name Priority Date/Time Associated Diagnosis Comments US OB DETAIL ANATOMY SINGLE OR FIRST GESTATION Schedule Routine, Read Routine (OP Routine) 10/30/2018 2:12 PM CDT Supervision of other normal , antepartum documented in this encounter Results * US Ob Detail Anatomy Single Or First Gestation (10/30/2018 2:12 PM CDT) Placenta Details posterior, Previa-no, no placental masses VIEWPOINT Estimated Weight 329 g&grams VIEWPOINT Presentation Variable VIEWPOINT Fetus# Fetus1 VIEWPOINT Anatomical Region Laterality Modality Body N/A Ultrasound 10/30/2018 2:12 PM CDT us Georgina Veronica Copeland MD IMG OB US PROC EDURES Final Result documented in this encounter Visit Diagnoses Diagnosis Supervision of other normal , antepartum documented in this encounter Care Teams Mortician Investigator Relationship Specialty Start Date End Date Lucille Garcia PCP - General 09/17/06 05/13/19 documented as of this encounter
--- OUTSIDE RECORDS SUMMARY | 2024-08-09 10:48 | XMS_ITS | Encounter Summary ---
Author Organization [facility] Address [address] [place] [address] Phone Care Team Providers Care Toy Mechanic Name Role Phone Lucille Garcia Primary Care Provider Unavaila ble Reason for Visit * Reason Comments Routine Visit Encounter Details Date Type Department Care Team (Late st Contact Info) Description 01/28/2019 4:30 PM CDT Office Visit [facility] Obstetrics and Gynecology [address] [facility] 7th Floor [address] [place] [address] Kenna Baxter MD [address] [facility] [phone] [place] [address] Supervision of other normal , antepartum (Primary Dx) Social History Tobacco Use Types Packs/Day Years Used Date Smoking Tobacco: Never Smokeless Tobacco: Never Alcohol Use Standard Drinks/Week Comments Yes 0 (1 standard drink = 0.6 oz pur e alcohol) Comments Yes Sex and Gender Information Value Date Recorded Sex Assigned at Not on file Legal Sex Female 2:33 AM 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 WELDER Gender Identity Female 01/27/2021 1:35 PM CDT Sexual Orientation Straight 01/27/2021 1: 35 PM CDT documented as of this encounter Last Filed Vital Signs Vital Sign Reading Time Taken Comments Blood Pressure 112/72 01/28/2019 4:30 PM CDT Pulse 76 01/28/2019 4:30 PM CDT Temperature - - Respiratory Rate - - Oxygen Saturation - - Inhaled Oxygen Concentration - - Weight 77.6 kg (171 lb) 01/28/2019 4:30 PM CDT Height 160 cm (5' 3 ) 01/28/2019 4:30 PM CDT Body Mass Index 30.29 01/28/2019 4:30 PM CDT documented in this encounter Progress Notes * Kenna Baxter MD - 01/28/2019 4:30 PM CDT Doing well. General questions answered about due dates. Good movement. documented in this encounter Plan of Treatment Not on file documented as of this encounter Visit Diagnoses Diagnosis Supervision of other normal , antepartum- Primary documented in this encounter Care Teams Toy Mechanic Relationship Specialty Start Date End Date Lucille Garcia PCP - General 09/17/06 05/13/19 documented as of this encounter
--- OUTSIDE RECORDS SUMMARY | 2024-08-09 10:48 | XMS_ITS | Encounter Summary ---
Author Organization [facility] Healthcare Address [address] [place] [address] Care Team Providers Care Naturopathic Oncology Provider Name Role Phone Lucille Garcia Primary Care Provider Chloea ericka Encounter Details Date Type Department Care Team (Late st Contact Info) Description 08/07/2018 5:00 PM MANAGEMENT TECH Lab [address] [address] Social History Tobacco Use Types Packs/Day Years Used Date Smoking Tobacco: Never Smokeless Tobacco: Never Alcohol Use Standard Drinks/Week Comments Yes 0 (1 standard drink = 0.6 oz pur e alcohol) Comments Yes Sex and Gender Information Value Date Recorded Sex Assigned at Not on file Legal Sex Female 2:33 AM MANAGEMENT TECH Gender Identity Female 01/27/2021 1:35 PM CDT Sexual Orientation Straight 01/27/2021 1: 35 PM CDT documented as of this encounter Plan of Treatment Not on file documented as of this encounter Visit Diagnoses Not on filedocumented in this encounter Care Teams Naturopathic Oncology Provider Relationship Specialty Start Date End Date Lucille Garcia PCP - General 09/17/06 05/13/19 documented as of this encounter
--- OUTSIDE RECORDS SUMMARY | 2024-08-09 10:48 | XMS_ITS | Encounter Summary ---
Author Organization [facility] Address [address] [place] [address] Phone Care Team Providers Care Duck Farmer Name Role Phone Lucille Garcia Primary Care Provider Unavaila ble Reason for Visit * Reason Comments Routine Visit Encounter Details Date Type Department Care Team (Late st Contact Info) Description 10/01/2018 4:45 PM HYDROPULPER OPERATOR Office Visit [facility] Obstetrics and Gynecology [address] [facility] 7th Floor [address] [place] [address] Avril Chavez MD [address] [place] [address] Supervision of other normal , antepartum (Primary Dx) Social History Tobacco Use Types Packs/Day Years Used Date Smoking Tobacco: Never Smokeless Tobacco: Never Alcohol Use Standard Drinks/Week Comments Yes 0 (1 standard drink = 0.6 oz pur e alcohol) Comments Yes Sex and Gender Information Value Date Recorded Sex Assigned at Not on file Legal Sex Female 2:33 AM HYDROPULPER OPERATOR Gender Identity Female 01/27/2021 1:35 PM CDT Sexual Orientation Straight 01/27/2021 1: 35 PM CDT documented as of this encounter Last Filed Vital Signs Vital Sign Reading Time Taken Comments Blood Pressure 129/72 10/01/2018 4:41 PM HYDROPULPER OPERATOR Pulse 81 10/01/2018 4:41 PM HYDROPULPER OPERATOR Temperature - - Respiratory Rate - - Oxygen Saturation - - Inhaled Oxygen Concentration - - Weight 68.5 kg (151 lb) 10/01/2018 4:41 PM HYDROPULPER OPERATOR Height 160 cm (5' 3 ) 10/01/2018 4:41 PM HYDROPULPER OPERATOR Body Mass Index 26.75 10/01/2018 4:41 PM HYDROPULPER OPERATOR documented in this encounter Progress Notes * Avril Chavez MD - 10/01/2018 4:45 PM CST Doing well. No issues. Having a boy! OPULPER OPERATOR documented in this encounter Plan of Treatment Not on file documented as of this encounter Visit Diagnoses Diagnosis Supervision of other normal , antepartum- Primary documented in this encounter Care Teams Duck Farmer Relationship Specialty Start Date End Date Lucille Garcia PCP - General 09/17/06 05/13/19 documented as of this encounter
--- OUTSIDE RECORDS SUMMARY | 2024-08-09 10:48 | XMS_ITS | Encounter Summary ---
Author Organization [facility] Address [address] [place] [address] Phone Care Team Providers Care Millwright Name Role Phone Lucille Garcia Primary Care Provider Unavaila ble Reason for Visit * Reason Comments Routine Visit Encounter Details Date Type Department Care Team (Late st Contact Info) Description 11/27/2018 4:45 PM CDT Office Visit 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 Gender Identity Female 01/27/2021 1:35 PM CDT Sexual Orientation Straight 01/27/2021 1: 35 PM CDT documented as of this encounter Last Filed Vital Signs Vital Sign Reading Time Taken Comments Blood Pressure 115/71 11/27/2018 4:51 PM CDT Pulse 77 11/27/2018 4:51 PM CDT Temperature - - Respiratory Rate - - Oxygen Saturation - - Inhaled Oxygen Concentration - - Weight 72.9 kg (160 lb 12.8 oz) 11/27/2018 4:51 PM CDT Height 160 cm (5' 3 ) 11/27/2018 4:51 PM CDT Body Mass Index 28.48 11/27/2018 4:51 PM CDT documented in this encounter Progress Notes * Carmela Denson MD - 11/27/2018 4:45 PM CDT DENNY visit GCT/CBC/RPR ordered for next visit draw. Doing well- no concerns. documented in this encounter Plan of Treatment Not on file documented as of this encounter Results * RPR (01/14/2019 4:37 PM CDT) [facility] RPR Nonreactive Nonreactive [facility] Blood specimen (specimen) 01/14/2019 4:37 PM CDT 01/14/2019 5:31 PM CDT Narrative [facility] - 01/14/2019 8:05 PM CDT Carmela Denson MD LAB MICROBIOLOGY - GENERAL OR DERABLES Final Result [facility] One [facility] Department [place] [address] * (ABNORMAL) CBC without differential (01/14/2019 4:37 PM CDT) [facility] WBC 13.5(H) 3.8 - 9.9 K/cumm [facility] Hgb 12.7 11.9 - 15.5 g/dL [facility] Hct 39.3 35.6 - 45.5 % [facility] Plt 188 150 - 400 K/cumm [facility] MPV 12.0 9.1 - 12.3 fL [facility] RBC 4.50 3.90 - 5.20 M/cumm [facility] MCV 87.3 81.3 - 96.4 fL [facility] MCH 28.2 27.1 - 33.3 pg [facility] MCHC 32.3 32.3 - 35.7 g/dL [facility] RDW CV 12.7 11.1 - 14.9 % [facility] RDW SD 40.6 35.7 - 48.1 fL [facility] NRBC abs 0.00 0.00 - 0.01 K/cumm [facility] Blood specimen (specimen) 01/14/2019 4:37 PM CDT 01/14/2019 5:31 PM CDT Narrative [facility] - 01/14/2019 5:37 PM CDT us Carmela Denson MD LAB BLOOD ORDERABLES Final Re sult Performing Organization Address [facility] de Phone Number [facility] [place] [address] * GTT, gestational diabetes 50gm 1hr screen (12/31/2018 4:13 PM CDT) [facility] Signature GTT 50g gest screen 100 70 - 140 mg/dL [facility] Comment: Interpretive Data Used for suspected gestational [...] PM CDT 12/31/2018 5:49 PM CDT Narrative [facility] - 12/31/2018 6:31 PM CDT Carmela Denson MD LAB BLOOD ORDERABLES Final Re sult Performing Organization Address [facility]/ZIP Co de Phone Number [facility] [place] [address] documented in this encounter Visit Diagnoses Diagnosis Encounter for supervision of normal first in second trimester- Primary Encounter for supervision of normal first in second trimester Encounter for supervision of normal first in second trimester documented in this encounter Discontinued Medications Medication Sig Discontinue Reason Start Date End Da te PNV 29-1 29 mg iron- 1 mg tablet TK 1 T PO D 11/11/2018 11/27/2018 documented as of this encounter Historical Medications * This list may reflect changes made after this encounter. PNV 29-1 29 mg iron- 1 mg tablet TK 1 T PO D 11 11/11/2018 11/27/2018 added in this encounter Care Teams Millwright Relationship Specialty Start Date End Date Lucille Garcia PCP - General 09/17/06 05/13/19 documented as of this encounter
--- OUTSIDE RECORDS SUMMARY | 2024-08-09 10:48 | XMS_ITS | Encounter Summary ---
Author Organization [facility] Healthcare Address [address] [place] [address] Care Team Providers Care Airplane Gas Tank Liner Assembler Name Role Phone Lucille Garcia Primary Care Provider Sophie ble Encounter Details Date Type Department Care Team (Late st Contact Info) Description 08/07/2018 1:55 PM EDGE PLUGGER Lab [facility] Outpatient Health [address] [place] [id number] Supervision of other normal , antepartum Social History Tobacco Use Types Packs/Day Years Used Date Smoking Tobacco: Never Smokeless Tobacco: Never Alcohol Use Standard Drinks/Week Comments Yes 0 (1 standard drink = 0.6 oz pur e alcohol) Comments Yes Sex and Gender Information Value Date Recorded Sex Assigned at Not on file Legal Sex Female 2:33 AM EDGE PLUGGER Gender Identity Female 01/27/2021 1:35 PM CDT Sexual Orientation Straight 01/27/2021 1: 35 PM CDT documented as of this encounter Plan of Treatment Not on file documented as of this encounter Procedures Procedure Name Priority Date/Time Associated Diagnosis Comments RUBELLA IGG Routine 08/07/2018 2:04 PM EDGE PLUGGER Supervision of other normal , antepartum RPR Routine 08/07/2018 2:04 PM EDGE PLUGGER Supervision of other normal , antepartum VARICELLA ZOSTER ANTIBODY, IGG Routine 08/07/2018 2:04 PM EDGE PLUGGER Supervision of other normal , antepartum TYPE AND SCREEN Routine 08/07/2018 1:57 PM EDGE PLUGGER Supervision of other normal , antepartum HIV 1/2 ANTIBODY PLUS P24 ANTIGEN Routine 08/07/2018 1:53 PM EDGE PLUGGER Supervision of other normal , antepartum HEPATITIS B SURFACE ANTIGEN Routine 08/07/2018 1:53 PM EDGE PLUGGER Supervision of other normal , antepartum CBC WITHOUT DIFFERENTIAL Routine 08/07/2018 1:53 PM EDGE PLUGGER Supervision of other normal , antepartum URINE CULTURE Routine 08/07/2018 1:53 PM EDGE PLUGGER Supervision of other normal , antepartum documented in this encounter Results * Varicella zoster antibody, IgG (08/07/2018 2:04 PM EDGE PLUGGER) VZV IgG Negative Negative [facility] Comment: Interpretive Data Negative: ??No detectable antibody [...] 2016. Blood specimen (specimen) 08/07/2018 2:04 PM EDGE PLUGGER 08/07/2018 2:26 PM EDGE PLUGGER Narrative [facility] - 08/08/2018 10:21 AM EDGE PLUGGER us Georgina Copeland MD LAB MICROBIOLO GY - GENERAL ORDERABLES Final Result [facility] One [facility] Department [place] [address] * (ABNORMAL) Rubella antibody, IgG (08/07/2018 2:04 PM EDGE PLUGGER) Rubella IgG Positive(A ) Negative [facility] Blood specimen (specimen) 08/07/2018 2:04 PM EDGE PLUGGER 08/07/2018 2:26 PM EDGE PLUGGER Narrative [facility] - 08/08/2018 10:21 AM EDGE PLUGGER us Georgina Veronica Copeland MD LAB MICROBIOLO GY - GENERAL ORDERABLES Final Result Performing Organization Address [facility] Co de Phone Number [facility] Department [place] [address] * RPR, serum (08/07/2018 2:04 PM EDGE PLUGGER) Pathologist [facility] RPR Nonreactive Nonreactive [facility] Blood specimen (specimen) 08/07/2018 2:04 PM EDGE PLUGGER 08/07/2018 2:26 PM EDGE PLUGGER Narrative [facility] - 08/07/2018 4:25 PM EDGE PLUGGER us Georginamalorie Copeland MD LAB MICROBIOLO GY - GENERAL ORDERABLES Final Result Performing Organization Address [facility] Co de Phone Number [facility] Department [place] [address] * Type and screen (08/07/2018 1:57 PM EDGE PLUGGER) Elisa, indirect Negative [facility] ABO Rh A Positive [facility] Blood specimen (specimen) 08/07/2018 1:57 PM EDGE PLUGGER 08/07/2018 2:33 PM EDGE PLUGGER Narrative [facility] - 08/07/2018 4:31 PM EDGE PLUGGER Has the patient had Daratumumab (Darzalex) in the past 6 months?->No us Georginamalorie Copeland MD LAB BLOOD BANK TEST ORDERABLES Final Result Performing Organization Address City/[facility]/ZIP Co de Phone Number [facility] Department [place] [address] * (ABNORMAL) Urine culture Urine, clean voided (08/07/2018 1:53 PM EDGE PLUGGER) Report Final Report: Less than 100,000 colonies/mL [...] allergic patients, please contact the laboratory at [phone] to request susceptibility testing * ??* ??* [...] women represents contamination with periurethral cayla. (.) [facility] Organism (CLINICALLY INSIGNIFICANT GROWTH [facility] Organism STREPTOCOCCUS AGALACTIAE (GROUP B STREPTOCOCCI) [facility] Urine, clean voided 08/07/2018 1:53 PM EDGE PLUGGER 08/07/2018 5:12 PM EDGE PLUGGER Narrative [facility] - 08/10/2018 3:13 PM EDGE PLUGGER Testing performed by [facility] Microbiology Laboratory ([phone]) us Georgina Copeland MD LAB MICROBIOLO GY - GENERAL ORDERABLES Final Result [facility] [place] [address] * HIV-1 and HIV-2 antibody with P24 antigen immunoassay (08/07/2018 1:53 PM EDGE PLUGGER) [facility] HIV 1/2 ab + p24 ag Nonreactive Nonreactive [facility] Comment:Negative for HIV-1 a ntigen and HIV-1/ HIV-2 antibodies. No laboratory evidence of HIV infection. If acute HIV infection is suspected, consider testing for HIV-1 RNA. Blood specimen (specimen) 08/07/2018 1:53 PM EDGE PLUGGER 08/07/2018 2:31 PM EDGE PLUGGER Narrative [facility] - 08/07/2018 3:42 PM EDGE PLUGGER us Georginamalorie Copeland MD LAB MICROBIOLO GY - GENERAL ORDERABLES Final Result Performing Organization Address [facility] [place] [address] * Hepatitis B surface antigen (08/07/2018 1:53 PM EDGE PLUGGER) [facility] HepBsAg Nonreactive Nonreactive [facility] Blood specimen (specimen) 08/07/2018 1:53 PM EDGE PLUGGER 08/07/2018 2:31 PM EDGE PLUGGER Narrative [facility] - 08/08/2018 10:36 AM EDGE PLUGGER us Georginamalorie castillo MD LAB MICROBIOLOGY - GENERAL ORDERABLES Edited Result - Final Performing Organization Address [facility]/[place] [address] * (ABNORMAL) CBC without differential (08/07/2018 1:53 PM EDGE PLUGGER) [facility] WBC 10.5(H) 3.8 - 9.9 K/cumm [facility] Hgb 14.3 11.9 - 15.5 g/dL [facility] Hct 42.3 35.6 - 45.5 % [facility] Plt 217 150 - 400 K/cumm [facility] MPV 11.2 9.1 - 12.3 fL [facility] RBC 4.99 3.90 - 5.20 M/cumm [facility] MCV 84.8 81.3 - 96.4 fL [facility] MCH 28.7 27.1 - 33.3 pg [facility] MCHC 33.8 32.3 - 35.7 g/dL [facility] RDW CV 12.3 11.1 - 14.9 % [facility] RDW SD 37.4 35.7 - 48.1 fL [facility] NRBC abs 0.00 0.00 - 0.01 K/cumm [facility] Blood specimen (specimen) 08/07/2018 1:53 PM EDGE PLUGGER 08/07/2018 2:31 PM EDGE PLUGGER Narrative [facility] - 08/07/2018 2:41 PM EDGE PLUGGER us Georgina Veronica Copeland MD LAB BLOOD ANNAMARIE JANE Final Result [facility] One [facility] [place] [address] documented in this encounter Visit Diagnoses Diagnosis Supervision of other normal , antepartum documented in this encounter Care Teams Airplane Gas Tank Liner Assembler Relationship Specialty Start Date End Date Lucille Garcia PCP - General 09/17/06 05/13/19 documented as of this encounter
--- OUTSIDE RECORDS SUMMARY | 2024-08-09 10:54 | XMS_ITS | Clinical Summary ---
Author Organization [facility] [[email or web address] Address [address] [place] [address] Phone Care Team Providers Care Voice Over Announcer Name Role Phone MELODY FAIR MD Unavailable [phone] Reason for Visit and Chief [...] On 2 9:27AM By NAHUM MOMIN ; [facility] Medications Administered Includes: Administered Medications [...] Time Diagnosis * PHONE CALL NAHUM MOMIN [facility] 3 2:55PM 11:59PM Insurance Includes: Active Insurance Policies Plan Name Member ID Group # Subscriber Relationship Effect el Dates 1 - [facility] [id number] MIKAELA LEONARD Self Clinical Notes Includes: Clinical Notes from this encounter No Clinical Notes Recorded
--- OUTSIDE RECORDS SUMMARY | 2024-08-09 10:54 | XMS_ITS ---
Care Plan - [facility] Created on: August 09, 2024 MIKAELA LEONARD : 1995 Sex: Female Author Organization [facility] Address [address] [place] [address] Phone Care Team Providers Care Student Assistant Name Role Phone MANJULA LYLES, MELODY C Unavailable [phone]
--- OUTSIDE RECORDS SUMMARY | 2024-08-09 10:54 | XMS_ITS ---
Author Organization [facility] Address [address] [place] [address] Phone Care Team Providers Care Merit System Director Name Role Phone MANJULA LYLES, MELODY Banks Unavailable [phone] Problems Includes: Active, inactive, and resolved Problems No Active Problems Plan of Treatment Findings Encounter Date Ordered Clinical summary pro vided to patient WELL WOMAN - ESTABLISHED PT with NAHUM JAIMES WHNP-BC 05/18/2022 Last Documented On 2 9:18AM ; [facility] Ordered Clinical summary pro vided to patient WELL WOMAN EXAM with NAHUM JAIMES WHNP-BC 04/09/2020 Last Documented On 0 8:24AM ; [facility] Ordered Clinical summary pro vided to patient DECK MOLDER EXAM with NAHUM JAIMES WHNP-BC 10/04/2017 Last Documented On 8 4:01PM ; [facility] Ordered Clinical summary pro vided to patient DECK MOLDER EXAM with NAHUMANITA JAIMES WHNP-BC 09/28/2016 Last Documented On 7 8:27AM ; [facility] Ordered Clinical summary pro vided to patient DECK MOLDER EXAM with NAHUMANITA JAIMES WHNP-BC 09/27/2015 Last Documented On 6 10:46AM ; [facility] Ordered Clinical summary pro vided to patient DECK MOLDER EXAM with NAHUMANITA JAIMES WHNP-BC 09/02/2014 Last Documented On 5 3:27PM ; [facility] Ordered Clinical summary pro vided to patient DECK MOLDER EXAM with NAHUMANITA JAIMES WHNP-BC 07/21/2013 Last Documented On 3 11:22AM ; [facility] Ordered follow-up visit 1 ye ar or as needed NEW DECK MOLDER EXAM with NAHUM JAIMES [facility] 02/14/2011 Last Documented On 1 2:27PM ; [facility] Instructions to patient Instructions for patient : B reast Self Exam discussed Last Documented On 2 8:56AM ; [facility] Gardasil information given a nd series encouraged Series completed! Last Documented On 2 8:57AM ; [facility] Safe sex counseling Last Documented On 2 8:57AM ; [facility] Instructions for patient : K eep the area around the vulva dry. Allow the area to have exposure to air. Avoid irritants such as fabric softeners and perfumed soaps.~ Last Documented On 0 8:11AM ; [facility] Instructions for patient : B reast Self Exam discussed Last Documented On 0 8:06AM ; [facility] Advised d/c scented bath pro ducts Last Documented On 0 8:11AM ; [facility] Gardasil information given a nd series encouraged Series completed! Last Documented On 0 8:11AM ; [facility] Safe sex counseling Last Documented On 0 8:07AM ; [facility] Instructions for patient : B reast Self Exam discussed Last Documented On 8 3:48PM ; [facility] Gardasil information given a nd series encouraged Series completed! Last Documented On 8 3:48PM ; [facility] Safe sex counseling Last Documented On 8 3:48PM ; [facility] Instructions for patient : B reast Self Exam discussed Last Documented On 7 8:11AM ; [facility] Gardasil information given a nd series encouraged Series completed!! Last Documented On 7 8:11AM ; [facility] Safe sex counseling Last Documented On 7 8:11AM ; [facility] Instructions for patient : B reast Self Exam discussed Last Documented On 6 10:32AM ; [facility] Gardasil information given a nd series encouraged Series completed! Last Documented On 6 10:33AM ; [facility] Safe sex counseling Last Documented On 6 10:33AM ; [facility] Instructions for patient : B reast Self Exam discussed Last Documented On 5 3:03PM ; [facility] Gardasil information given a nd series encouraged Only needs one more dose - had first two doses per Dr. Jimena Sage Last Documented On 5 3:27PM ; [facility] Safe sex counseling Last Documented On 5 3:03PM ; [facility] Instructions for patient : B reast Self Exam discussed Last Documented On 3 11:04AM ; [facility] Gardasil information given a nd series encouraged Last Documented On 3 11:05AM ; [facility] Safe sex counseling Last Documented On 3 11:05AM ; [facility] Instructions for patient : B reast Self Exam discussed Last Documented On 1 1:37PM ; [facility] Gardasil information given a nd series encouraged Last Documented On 1 1:38PM ; [facility] Safe sex counseling Last Documented On 1 1:38PM ; [facility] Education and Decision Aids were provided during visit for: Patient Education: Daily fiordaliza cium and vitamin D Last Documented On 2 8:56AM ; [facility] Patient Education: weight be aring exercise Last Documented On 2 8:56AM ; [facility] Patient Education: Daily fiordaliza cium and vitamin D Last Documented On 0 8:06AM ; [facility] Patient Education: weight be aring exercise Last Documented On 0 8:06AM ; [facility] Candidiasis Vulvovaginitis I nformation Sheet Given Last Documented On 0 8:11AM ; [facility] Patient Education: Daily fiordaliza cium and vitamin D Last Documented On 8 3:48PM ; [facility] Patient Education: weight be aring exercise Last Documented On 8 3:48PM ; [facility] Patient Education: Daily fiordaliza cium and vitamin D Last Documented On 7 8:11AM ; [facility] Patient Education: weight be aring exercise Last Documented On 7 8:11AM ; [facility] Patient Education: Daily fiordaliza cium and vitamin D Last Documented On 6 10:32AM ; [facility] Patient Education: weight be aring exercise Last Documented On 6 10:32AM ; [facility] Patient Education: Daily fiordaliza cium and vitamin D Last Documented On 5 3:03PM ; [facility] Patient Education: weight be aring exercise Last Documented On 5 3:03PM ; [facility] control consent review ed and signed Last Documented On 4 4:09PM ; [facility] Patient Education: Daily fiordaliza cium and vitamin D Last Documented On 3 11:04AM ; [facility] Patient Education: weight be aring exercise Last Documented On 3 11:04AM ; [facility] Patient Education: Daily fiordaliza cium and vitamin D Last Documented On 1 1:38PM ; [facility] Patient Education: weight be aring exercise Last Documented On 1 1:38PM ; [facility] Assessments Includes: Assessments for all patient encounters Findings Encounter Date NORMAL FEMALE EXAM WELL WOMAN - ESTABLISHED PT w ith NAHUM JAIMES [facility]- 05/18/2022 Last Documented On 2 9:18AM ; [facility] NORMAL FEMALE EXAM WELL WOMAN EXAM with NAHUM JAIMES [facility] 04/09/2020 Last Documented On 0 8:24AM ; [facility] NORMAL FEMALE EXAM DECK MOLDER EXAM with NAHUM Lynch P-BC 10/04/2017 Last Documented On 8 4:01PM ; [facility] NORMAL FEMALE EXAM DECK MOLDER EXAM with NAHUM Lynch HNP-BC 09/28/2016 Last Documented On 7 8:27AM ; [facility] NORMAL FEMALE EXAM DECK MOLDER EXAM with NAHUM Lynch HNP-BC 09/27/2015 Last Documented On 6 10:46AM ; [facility] NORMAL FEMALE EXAM DECK MOLDER EXAM with NAHUM Lynch HNP-BC 09/02/2014 Last Documented On 5 3:27PM ; [facility] Contraceptive management PROCEDURE OFFICE with Darren JAIMES [facility] 04/16/2014 Last Documented On 4 4:10PM ; [facility] NORMAL FEMALE EXAM DECK MOLDER EXAM with NAHUM JAIMES [facility] 07/21/2013 Last Documented On 3 11:22AM ; [facility] Contraceptive surveillance IMPLANON with NAHUM JAIMES [facility] 04/17/2011 Last Documented On 1 4:18PM ; [facility] Normal routine history and physical NEW DECK MOLDER EXAM with NAHUM JAIMES [facility] 02/14/2011 Last Documented On 1 2:27PM ; [facility] Routine pelvic exam NEW DECK MOLDER EXAM with NAHUM TEJEDA [facility] 02/14/2011 Last Documented On 1 2:27PM ; [facility] Instructions Includes: Instructions for all patient encounters Instructions to patient Instructions for patient : B reast Self Exam discussed Last Documented On 2 8:56AM ; [facility] Gardasil information given a nd series encouraged Series completed! Last Documented On 2 8:57AM ; [facility] Safe sex counseling Last Documented On 2 8:57AM ; [facility] Instructions for patient : K eep the area around the vulva dry. Allow the area to have exposure to air. Avoid irritants such as fabric softeners and perfumed soaps.~ Last Documented On 0 8:11AM ; [facility] Instructions for patient : B reast Self Exam discussed Last Documented On 0 8:06AM ; [facility] Advised d/c scented bath pro ducts Last Documented On 0 8:11AM ; [facility] Gardasil information given a nd series encouraged Series completed! Last Documented On 0 8:11AM ; [facility] Safe sex counseling Last Documented On 0 8:07AM ; [facility] Instructions for patient : B reast Self Exam discussed Last Documented On 8 3:48PM ; [facility] Gardasil information given a nd series encouraged Series completed! Last Documented On 8 3:48PM ; [facility] Safe sex counseling Last Documented On 8 3:48PM ; [facility] Instructions for patient : B reast Self Exam discussed Last Documented On 7 8:11AM ; [facility] Gardasil information given a nd series encouraged Series completed!! Last Documented On 7 8:11AM ; [facility] Safe sex counseling Last Documented On 7 8:11AM ; [facility] Instructions for patient : B reast Self Exam discussed Last Documented On 6 10:32AM ; [facility] Gardasil information given a nd series encouraged Series completed! Last Documented On 6 10:33AM ; [facility] Safe sex counseling Last Documented On 6 10:33AM ; [facility] Instructions for patient : B reast Self Exam discussed Last Documented On 5 3:03PM ; [facility] Gardasil information given a nd series encouraged Only needs one more dose - had first two doses per Dr. Jimena Sage Last Documented On 5 3:27PM ; [facility] Safe sex counseling Last Documented On 5 3:03PM ; [facility] Instructions for patient : B reast Self Exam discussed Last Documented On 3 11:04AM ; [facility] Gardasil information given a nd series encouraged Last Documented On 3 11:05AM ; [facility] Safe sex counseling Last Documented On 3 11:05AM ; [facility] Instructions for patient : B reast Self Exam discussed Last Documented On 1 1:37PM ; [facility] Gardasil information given a nd series encouraged Last Documented On 1 1:38PM ; [facility] Safe sex counseling Last Documented On 1 1:38PM ; [facility] Education and Decision Aids were provided during visit for: Patient Education: Daily fiordaliza cium and vitamin D Last Documented On 2 8:56AM ; [facility] Patient Education: weight be aring exercise Last Documented On 2 8:56AM ; [facility] Patient Education: Daily fiordaliza cium and vitamin D Last Documented On 0 8:06AM ; [facility] Patient Education: weight be aring exercise Last Documented On 0 8:06AM ; [facility] Candidiasis Vulvovaginitis I nformation Sheet Given Last Documented On 0 8:11AM ; [facility] Patient Education: Daily fiordaliza cium and vitamin D Last Documented On 8 3:48PM ; [facility] Patient Education: weight be aring exercise Last Documented On 8 3:48PM ; [facility] Patient Education: Daily fiordaliza cium and vitamin D Last Documented On 7 8:11AM ; [facility] Patient Education: weight be aring exercise Last Documented On 7 8:11AM ; [facility] Patient Education: Daily fiordaliza cium and vitamin D Last Documented On 6 10:32AM ; [facility] Patient Education: weight be aring exercise Last Documented On 6 10:32AM ; [facility] Patient Education: Daily fiordaliza cium and vitamin D Last Documented On 5 3:03PM ; [facility] Patient Education: weight be aring exercise Last Documented On 5 3:03PM ; [facility] control consent review ed and signed Last Documented On 4 4:09PM ; [facility] Patient Education: Daily fiordaliza cium and vitamin D Last Documented On 3 11:04AM ; [facility] Patient Education: weight be aring exercise Last Documented On 3 11:04AM ; [facility] Patient Education: Daily fiordaliza cium and vitamin D Last Documented On 1 1:38PM ; [facility] Patient Education: weight be aring exercise Last Documented On 1 1:38PM ; [facility] Medical Equipment - Implanted Devices Includes: Current and historical Devices No Medical Equipment Recorded Medications Includes: Current and historical Medications Current Medications (continue as prescribed) Azurette 0.15-0.02/0.01 MG ( /) Oral Tablet 05/18/2022 Provider: NAHUM A JAIMES WHNP-B C Diagnosis: One tablet daily Last Documented On 2 9:27AM By NAHUM JAIMES WILBC ; [facility] Past Medications on file Diflucan 150 MG Oral Tablet 04/09/2020 - 05/18/2022 Pr ovider: NAHUM Barriga THEODORE WHNP-BC Diagnosis: as directed - one po x 1 dos e - december rpt. in 3 days if needed Last Documented On 05/18/2022 8:59AM By Ada Zuluaga MA ; [facility] Azurette 0.15-0.02/0.01 MG (21/5) Oral Tablet 04/09/2020 - 05/18/2022 Provider: NAHUM ARMSTRONG-BC Diagnosis: Encounter for contraceptive management, unspecified One tablet daily Last Documented On 05/18/2022 8:58AM By Ada Zuluaga MA ; [facility] Azurette 0.15-0.02/0.01 MG (21/5) Oral Tablet 04/09/2020 - 04/09/2020 Provider: NAHUM ARMSTRONG-BC Diagnosis: Encounter for contraceptive management, unspecified One tablet daily Last Documented On 0 8:16AM By NAHUM ARMSTRONG-MOISES ; [facility] Azurette 0.15-0.02/0.01MG (21/5) Oral Tablet 10/04/2017 - 04/09/2020 Provider: NAHUM ARMSTRONG-BC Diagnosis: Encounter for contraceptive management, unspecified One tablet daily Last Documented On 0 8:14AM By NAHUM MOMIN ; [facility] Azurette 0.15-0.02/0.01MG (21/5) Oral Tablet 09/28/2016 - 10/04/2017 Provider: NAHUM JAIMES WHNP-BC Diagnosis: Encounter for contraceptive management, unspecified One tablet daily Last Documented On 8 3:50PM By NAHUM MOMIN ; [facility] Azurette 0.15-0.02/0.01 MG (21/5) Tablet 09/27/2015 - 09/28/2016 Provider: NAHUM ARMSTRONG-BC Diagnosis: Encounter for contraceptive management, unspecified One tablet daily Last Documented On 7 8:27AM By NAHUM MOMIN ; [facility] Azurette 0.15-0.02/0.01 MG (24/12) Tablet 08/09/2015 - 09/27/2015 Provider: NAHUM MOMIN Diagnosis: Encounter for contraceptive management, unspecified One tablet daily Last Documented On 6 10:42AM By NAHUM MOMIN ; [facility] Azurette 0.15-0.02/0.01 MG (24/12) OR TABS 09/02/2014 - 08/09/2015 Provider: NAHUM MOMIN Diagnosis: Contraceptive Ma ngmt NOS Last Documented On 6 8:41AM By NAHUM MOMIN ; [facility] Azurette 0.15-0.02/0.01 MG (24/12) OR TABS 04/16/2014 - 09/02/2014 Provider: NAHUM MOMIN Diagnosis: Contraceptive Ma ngmt NOS Last Documented On 5 3:25PM By NAHUM MOMIN ; [facility] Azurette 0.15-0.02/0.01 MG (24/12) OR TABS 04/16/2014 - 04/16/2014 Provider: NAHUM MOMIN Diagnosis: Contraceptive Ma ngmt NOS Last Documented On 4 4:09PM By NAHUM MOMIN ; [facility] Implanon 68 MG SC IMPL 04/17/2011 - 04/16/2014 Provide r: Diagnosis: Last Documented On 4 3:44PM By NAHUM JAIMES ERNESTO ; [facility] Medications Administered Includes: Administered Medications in patient's chart Medications Administered Diagnosis Date Pro vider Gardasil IM SUSP 09/14/2014 NAHUM DONG WIL Administered without difficulty. Last Documented On 5 2:42PM By OSMAR CASH LPN ; [facility] Results Includes: Results from 08/09/2023 through 08/09/2024 No Results Recorded For Specified Dates History of Present Illness History of Present Illness not supported for this document type No History of Present Illness Recorded Social History Description Last Updated Tobacco non-user 05/18/2022 Last Documented On 2 9:18AM ; [facility] Alcohol use rarely 04/09/2020 Last Documented On 0 8:24AM ; [facility] Non-smoker 04/09/2020 Last Documented On 0 8:24AM ; [facility] Not using drugs 04/09/2020 Last Documented On 0 8:24AM ; [facility] Sexually active with 1 partners in the l ast year 04/09/2020 Last Documented On 0 8:24AM ; [facility] Social history unchanged 04/09/2020 Last Documented On 0 8:24AM ; [facility] Smoking status : Never smoker 04/09/2020 Last Documented On 0 8:24AM ; [facility] Procedures and Surgical History Surgical History Last Updated Surgical / procedural history wisdom too th removed 10/04/2017 Last Documented On 8 4:01PM ; [facility] Medical History Includes: Medical History in patient's chart Description Last Updated 2 05/18/2022 Last Documented On 2 9:18AM ; [facility] Last pap smear date 201905/18/2022 Last Documented On 2 9:18AM ; [facility] Not using contraception 05/18/2022 Last Documented On 2 9:18AM ; [facility] Para 2 05/18/2022 Last Documented On 2 9:18AM ; [facility] LMP: 05/11/2022 05/18/2022 Last Documented On 2 9:18AM ; [facility] Vaginal delivery 04/09/2020 Last Documented On 0 8:24AM ; [facility] No recent change in medical history 11/2019 Last Documented On 0 8:24AM ; [facility] Sexually active 04/09/2020 Last Documented On 0 8:24AM ; [facility] History of Pap smear done 09/28/201611/2019 Last Documented On 0 8:24AM ; [facility] Result: normal 04/09/2020 Last Documented On 0 8:24AM ; [facility] History of Gardasil 09/27/2015 Last Documented On 6 10:46AM ; [facility] Family History Includes: Family History in patient's chart Description Last Updated Family history unchanged 04/09/2020 Last Documented On 0 8:24AM ; [facility] Family history of diabetes mellitus moth ers side-mggf 09/27/2015 Last Documented On 6 10:46AM ; [facility] Family history of Diabetes 04/17/2011 Last Documented On 1 4:18PM ; [facility] Family medical history of high blood pre ssure 04/17/2011 Last Documented On 1 4:18PM ; [facility] Review of Systems Review of Systems not [...] Relationship Effect el Dates 1 - [facility] [id number] MIKAELA LEONARD Self Clinical Notes Includes: Signed Clinical Notes starting from 08/25/2022 No Clinical Notes Recorded
--- OUTSIDE RECORDS SUMMARY | 2024-08-09 10:54 | XMS_ITS | Clinical Summary ---
Author Organization [facility] Address [address] [place] [address] Phone Care Team Providers Care Passenger Coach Driver Name Role Phone MANJULA LYLES, MELODY Banks Unavailable [phone] Reason for Visit and Chief Complaint The Chief Complaint is: WWE, she has not been taking any medication, but she states since she has had her last child, her cycles have been normal, but the cramps are awful and headaches, lasting for a couple of days. No new partners. [facility] at [facility] 05-20-21 - female - no complications. Chose [facility] because it was closer to her employer. Did not have post visit d/t + covid at the time itwas due Problems Includes: Problems addressed during this encounter and other active Problems No Active Problems Plan of Treatment - Clinical summary provided to patient - Last Documented On 05/18/2022 9:18AM ; [facility] Start ocp's day 1 of menses and take q day at same time - DO NOT SKIP A DAY! BUM x 1 month. Reviewed risks/benefits/ methods for use/ and possible side effects/ warning signs. - Last Documented On 05/18/2022 9:18AM ; [facility] Instructions to patient Instructions for patient : B reast Self Exam discussed Last Documented On 2 8:56AM ; [facility] Gardasil information given a nd series encouraged Series completed! Last Documented On 2 8:57AM ; [facility] Safe sex counseling Last Documented On 2 8:57AM ; [facility] Education and Decision Aids were provided during visit for: Patient Education: Daily fiordaliza cium and vitamin D Last Documented On 2 8:56AM ; [facility] Patient Education: weight be aring exercise Last Documented On 2 8:56AM ; [facility] Assessments Includes: Assessments from this encounter Findings - NORMAL FEMALE EXAM - Last Documented On 05/18/2022 9:18AM ; [facility] Instructions Includes: Instructions from this encounter Instructions to patient Instructions for patient : B reast Self Exam discussed Last Documented On 2 8:56AM ; [facility] Gardasil information given a nd series encouraged Series completed! Last Documented On 2 8:57AM ; [facility] Safe sex counseling Last Documented On 2 8:57AM ; [facility] Education and Decision Aids were provided during visit for: Patient Education: Daily fiordaliza cium and vitamin D Last Documented On 2 8:56AM ; [facility] Patient Education: weight be aring exercise Last Documented On 2 8:56AM ; [facility] Medical Equipment - Implanted Devices Includes: Current Devices No Medical Equipment Recorded Medications Includes: Medications discussed during this encounter and other current Medications Discontinued / Stopped on this date NAHUM JAIMES WHNP-BC on 04/09/2020 Diflucan 150 MG Oral Tablet Provider: NAHUM LANDANP-BC Diagnosis: Last Documented On 05/18/2022 8:59AM By Ada Zuluaga MA ; [facility] Azurette 0.15-0.02/0.01 MG (24/12) Oral Tablet Provider: NAHUM JAIMES WHNP-BC Diagnosis: Encounter for contraceptive management, unspecified Last Documented On 05/18/2022 8:58AM By Ada Zuluaga MA ; [facility] New / Renewed during this visit NAHUM JAIMES WHNP-BC on 05/18/2022 Azurette 0.15-0.02/0.01 MG (24/12) Oral Tablet Provider: NAHUM Bnaks 30 day supply: 30 tablet, 11 refills Diagnosis: One tablet daily Pharmacy: [facility] ([facility] - [address] [facility], [id number] - Last Documented On 2 9:27AM [facility] ; [facility] Medications Administered Includes: Administered Medications from this encounter No Administered Medications Recorded Vital Signs Includes: Vital Signs from this encounter Vital Name 05/18/2022 08:57A Blood Pressure Sitting L 110/70 BP Cuff Size Regular Temp-Oral (F) 97.7 Height (in) 63 Weight (lb) 149 Body Mass Index (kg/m2) 26.4 Body Surface Area (m2) 1.7 Last Documented: On 05/18/2022 9:01AM ; [facility] Results Includes: Results discussed during this encounter No Results Recorded For Specified Dates History of Present Illness Includes: History of Present Illness from this encounter ASHIA LEONARD is a 26 year old female. - Allergy list reviewed - Medication list reviewed - Primary Care Provider: None Social History Description Last Updated Tobacco non-user 05/18/2022 Last Documented On 2 9:18AM ; [facility] Alcohol use rarely 04/09/2020 Last Documented On 2 8:56AM ; [facility] Non-smoker 04/09/2020 Last Documented On 2 8:56AM ; [facility] Not using drugs 04/09/2020 Last Documented On 2 8:56AM ; [facility] Sexually active with 1 partners in the l ast year 04/09/2020 Last Documented On 2 8:56AM ; [facility] Social history unchanged 04/09/2020 Last Documented On 2 8:56AM ; [facility] Smoking status : Never smoker 04/09/2020 Last Documented On 2 8:56AM ; [facility] Procedures and Surgical History Includes: Procedures from this encounter Procedures Code Diagnosis Performing Provider Service L ocation Service Date low fat diet Last Documented On 2 8:57AM ; [facility] use of tobacco assessment performed 1000F Last Documented On 2 9:02AM ; [facility] review of medications documented 1160F Last Documented On 2 9:02AM ; [facility] history of cervical Pap smear 2019 79301 Last Documented On 2 9:02AM ; [facility] Chlamydia trachomatis culture was perfor med Last Documented On 2 8:57AM ; [facility] Neisseria gonorrhea culture was performe d Last Documented On 2 8:57AM ; [facility] Cervical Pap Smear performed Q0091 Last Documented On 2 8:57AM ; [facility] Surgical History Last Updated Surgical / procedural history randy too th removed 10/04/2017 Last Documented On 2 8:56AM ; [facility] Medical History Includes: Medical History addressed during this encounter Description Last Updated 2 05/18/2022 Last Documented On 2 9:18AM ; [facility] Last pap smear date 201905/18/2022 Last Documented On 2 9:18AM ; [facility] Not using contraception 05/18/2022 Last Documented On 2 9:18AM ; [facility] Para 2 05/18/2022 Last Documented On 2 9:18AM ; [facility] LMP: 05/11/2022 05/18/2022 Last Documented On 2 9:18AM ; [facility] Contraception: 05/18/2022 Last Documented On 2 9:18AM ; [facility] Vaginal delivery 04/09/2020 Last Documented On 2 8:56AM ; [facility] No recent change in medical history 11/2019 Last Documented On 2 8:56AM ; [facility] Sexually active 04/09/2020 Last Documented On 2 8:56AM ; [facility] History of Pap smear done 09/28/201611/2019 Last Documented On 2 8:56AM ; [facility] Result: normal 04/09/2020 Last Documented On 2 8:56AM ; [facility] History of Gardasil 09/27/2015 Last Documented On 2 8:56AM ; [facility] Family History Includes: Family History addressed during this encounter Description Last Updated Family history unchanged 04/09/2020 Last Documented On 2 8:56AM ; [facility] Family history of diabetes mellitus moth ers side-mggf 09/27/2015 Last Documented On 2 8:56AM ; [facility] Family history of Diabetes 04/17/2011 Last Documented On 2 8:56AM ; [facility] Family medical history of high blood pre ssure 04/17/2011 Last Documented On 2 8:56AM ; [facility] Review of Systems Includes: Review of Systems [...] WELL WOMAN - ESTABLISHED PT NAHUM JAIMES [facility] 05/18/20 22 8:53AM 9:17AM Normal Female Exam Insurance Includes: Active Insurance Policies Plan Name Member ID Group # Subscriber Relationship Effect el Dates 1 - [facility] [id number] MIKAELA LEONARD Self Clinical Notes Includes: Clinical Notes from this encounter No Clinical Notes Recorded
--- OUTSIDE RECORDS SUMMARY | 2024-08-09 10:55 | XMS_ITS | Clinical Summary ---
Author Organization [facility] [[email or web address]] Address [address] [place] [address] Phone Care Team Providers Care Sound Engineering Technician Name Role Phone MANJULA LYLES, MELODY Banks Unavailable [phone] Reason for Visit and Chief Complaint gynecologic annual exam - The Chief Complaint is: Annual-pt thinks she has a yeast infection she started a pill otc and say it seems to be helping. Pt last year had a baby at [facility]. Pt is no longer breast feeding and would like to go back on the pill that you prescribed her Problems Includes: Problems addressed during this encounter and other active Problems No Active Problems Plan of Treatment - Clinical summary provided to patient - Last Documented On 04/09/2020 8:24AM ; [facility] Start ocp's day 1 of menses and take q day at same time - DO NOT SKIP A DAY! BUM x 1 month. Reviewed risks/benefits/ methods for use/ and possible side effects/ warning signs. Has been using pop from [facility] but would like to go back to [facility]. - Last Documented On 04/09/2020 8:24AM ; [facility] Instructions to patient Instructions for patient : K eep the area around the vulva dry. Allow the area to have exposure to air. Avoid irritants such as fabric softeners and perfumed soaps.~ Last Documented On 0 8:11AM ; [facility] Instructions for patient : B reast Self Exam discussed Last Documented On 0 8:06AM ; [facility] Advised d/c scented bath pro ducts Last Documented On 0 8:11AM ; [facility] Gardasil information given a nd series encouraged Series completed! Last Documented On 0 8:11AM ; [facility] Safe sex counseling Last Documented On 0 8:07AM ; [facility] Education and Decision Aids were provided during visit for: Patient Education: Daily fiordaliza cium and vitamin D Last Documented On 0 8:06AM ; [facility] Patient Education: weight be aring exercise Last Documented On 0 8:06AM ; [facility] Candidiasis Vulvovaginitis I nformation Sheet Given Last Documented On 0 8:11AM ; [facility] Assessments Includes: Assessments from this encounter Findings - NORMAL FEMALE EXAM [Z01.419 - Encounter for gynecological examination (general) (routine) without abnormal findings] - Last Documented On 04/09/2020 8:24AM ; [facility] Instructions Includes: Instructions from this encounter Instructions to patient Instructions for patient : K eep the area around the vulva dry. Allow the area to have exposure to air. Avoid irritants such as fabric softeners and perfumed soaps.~ Last Documented On 0 8:11AM ; [facility] Instructions for patient : B reast Self Exam discussed Last Documented On 0 8:06AM ; [facility] Advised d/c scented bath pro ducts Last Documented On 0 8:11AM ; [facility] Gardasil information given a nd series encouraged Series completed! Last Documented On 0 8:11AM ; [facility] Safe sex counseling Last Documented On 0 8:07AM ; [facility] Education and Decision Aids were provided during visit for: Patient Education: Daily fiordaliza cium and vitamin D Last Documented On 0 8:06AM ; [facility] Patient Education: weight be aring exercise Last Documented On 0 8:06AM ; [facility] Candidiasis Vulvovaginitis I nformation Sheet Given Last Documented On 0 8:11AM ; [facility] Medical Equipment - Implanted Devices Includes: [...] if needed Pharmacy: [facility] [address] ([facility], [id number] - Last Documented On 05/18/2022 8:59AM By Ada Zuluaga MA ; [facility] Azurette 0.15-0.02/0.01 MG (215) Oral Tablet Provider: NAHUM MOMIN 90 day supply: 90 tablet, 3 refills Diagnosis: Encounter for contraceptive management, unspecified One tablet daily Pharmacy: [facility] [address] ([facility], [id number] - Last Documented On 05/18/2022 8:58AM By Ada Zuluaga MA ; [facility] Current Medications (continue as prescribed) Azurette 0.15-0.02/0.01 MG ( 24/12) Oral Tablet 05/18/2022 Provider: NAHUM Banks Diagnosis: One tablet daily Last Documented On 9:27AM By NAHUM MOMIN ; [facility] Medications Administered Includes: Administered Medications from this encounter No Administered Medications Recorded Vital Signs Includes: Vital Signs from this encounter Vital Name 04/09/2020 08:06A Blood Pressure Sitting L 100/62 BP Cuff Size Regular Temp-Oral (F) 97.2 Height (in) 63 Weight (lb) 144 Body Mass Index (kg/m2) 25.5 Body Surface Area (m2) 1.7 Last Documented: On 04/09/2020 8:09AM ; [facility] [[email or web address]] Results Includes: Results discussed during this encounter No Results Recorded For Specified Dates History of Present Illness Includes: History of Present Illness from this encounter HPI MIKAELA BRANCH is a 24 year old female. - Medication list reviewed. Social History Description Last Updated Alcohol use rarely 04/09/2020 Last Documented On 0 8:24AM ; [facility] Non-smoker 04/09/2020 Last Documented On 0 8:24AM ; [facility] Not using drugs 04/09/2020 Last Documented On 0 8:24AM ; [facility] Sexually active with 1 partners in the l ast year 04/09/2020 Last Documented On 0 8:24AM ; [facility] Social history unchanged 04/09/2020 Last Documented On 0 8:24AM ; [facility] Smoking status : Never smoker 04/09/2020 Last Documented On 0 8:24AM ; [facility] Procedures and Surgical History Includes: Procedures from this encounter Procedures Code Diagnosis Performing Provider Service L ocation Service Date low fat diet Last Documented On 0 8:07AM ; [facility] Chlamydia trachomatis culture was perfor med Last Documented On 0 8:07AM ; [facility] Neisseria gonorrhea culture was performe d Last Documented On 0 8:07AM ; [facility] Cervical Pap Smear performed Q0091 Last Documented On 0 8:07AM ; [facility] Surgical History Last Updated Surgical / procedural history wisdom too th removed 10/04/2017 Last Documented On 0 8:05AM ; [facility] Medical History Includes: Medical History addressed during this encounter Description Last Updated Vaginal delivery 04/09/2020 Last Documented On 0 8:24AM ; [facility] No recent change in medical history 11/2019 Last Documented On 0 8:24AM ; [facility] Contraception: azzurette 04/09/2020 Last Documented On 0 8:24AM ; [facility] 1 04/09/2020 Last Documented On 0 8:24AM ; [facility] LMP: 04/08/2020 04/09/2020 Last Documented On 0 8:24AM ; [facility] Para 1 04/09/2020 Last Documented On 0 8:24AM ; [facility] Sexually active 04/09/2020 Last Documented On 0 8:24AM ; [facility] [[email or web address]] History of Pap smear done 09/28/201611/2019 Last Documented On 0 8:24AM ; [facility] Result: normal 04/09/2020 Last Documented On 0 8:24AM ; [facility] History of Gardasil 09/27/2015 Last Documented On 0 8:05AM ; [facility] Family History Includes: Family History addressed during this encounter Description Last Updated Family history unchanged 04/09/2020 Last Documented On 0 8:24AM ; [facility] Family history of diabetes mellitus moth ers side-mggf 09/27/2015 Last Documented On 0 8:05AM ; [facility] Family history of Diabetes 04/17/2011 Last Documented On 0 8:05AM ; [facility] Family medical history of high blood pre ssure 04/17/2011 Last Documented On 0 8:05AM ; [facility] Review of Systems Includes: Review of Systems [...] Check-Out Time Diagnosis WELL WOMAN EXAM [facility] 04/09/20 20 8:00AM 8:24AM Normal Female Exam Insurance Includes: Active Insurance Policies Plan Name Member ID Group # Subscriber Relationship Effect el Dates 1 - [facility] [id number] MIKAELA LEONARD Self Clinical Notes Includes: Clinical Notes from this encounter No Clinical Notes Recorded
--- OUTSIDE RECORDS SUMMARY | 2024-08-09 10:55 | XMS_ITS | Clinical Summary ---
Author Organization [facility] Address [address] [place] [address] Phone Care Team Providers Care Airport Manager Name Role Phone MELODY FAIR MD Unavailable [phone] Reason for Visit and Chief [...] Documented On 9:27AM By NAHUM MOMIN ; [facility] Medications Administered Includes: Administered Medications from this [...] Check-Out Time Diagnosis NO SHOW NAHUM MOMIN [facility] 04/15/2021 9:47AM 11:59PM Insurance Includes: Active Insurance Policies Plan Name Member ID Group # Subscriber Relationship Effect el Dates 1 - [facility] [id number] MIKAELA LEONARD Self Clinical Notes Includes: Clinical Notes from this encounter No Clinical Notes Recorded
--- OUTSIDE RECORDS SUMMARY | 2024-08-09 10:55 | XMS_ITS | Clinical Summary ---
Author Organization [facility] Address [address] [place] [address] Phone Care Team Providers Care Magnetic Resonance Imaging Director Name Role Phone MELODY FAIR MD Unavailable [phone] Reason for Visit and Chief Complaint FICTION AND NONFICTION AUTHOR EXAM Problems Includes: Problems addressed during this [...] Documented On 9:27AM By NAHUM MOMIN ; [facility] Medications Administered Includes: Administered Medications from this [...] Subscriber Relationship Effect el Dates 1 - [facility] [id number] MIKAELA LEONARD Self Clinical Notes Includes: Clinical Notes from this encounter No Clinical Notes Recorded
--- OUTSIDE RECORDS SUMMARY | 2024-08-09 11:00 | XMS_ITS | Encounter Summary ---
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 No laboratory evidence of HIV infection. If acute HIV infection is suspected, consider testing for HIV-1 RNA. Blood specimen (specimen) 02/19/2019 9:50 AM CDT 02/19/2019 10:55 AM CDT us Avril Chavez MD LAB MICROBIOLOGY - GENERA L ORDERABLES Final Result [facility] Department [place] [address] * (ABNORMAL) CBC without differential (02/19/2019 9:50 AM CDT) [facility] WBC 11.6(H) 3.8 - 9.9 K/cumm [facility] Hgb 12.9 11.9 - 15.5 g/dL [facility] Hct 40.1 35.6 - 45.5 % [facility] Plt 177 150 - 400 K/cumm [facility] MPV 12.8(H) 9.1 - 12.3 fL [facility] RBC 4.65 3.90 - 5.20 M/cumm [facility] MCV 86.2 81.3 - 96.4 fL [facility] MCH 27.7 27.1 - 33.3 pg [facility] MCHC 32.2(L) 32.3 - 35.7 g/dL [facility] RDW CV 12.9 11.1 - 14.9 % [facility] RDW SD 40.0 35.7 - 48.1 fL [facility] NRBC abs 0.00 0.00 - 0.01 K/cumm [facility] Blood specimen (specimen) 02/19/2019 9:50 AM CDT 02/19/2019 10:55 AM CDT Avril Chavez MD LAB BLOOD ORDERABLES Luisa buchanan Result [facility] Department [place] [address] documented in this encounter Visit Diagnoses Diagnosis Supervision of other normal , antepartum documented in this encounter Care Teams Environmental Emergencies Assistant Relationship Specialty Start Date End Date Lucille Garcia PCP - General 09/17/06 05/13/19 documented as of this encounter
== END 2024-08-02 10:19 | disposition home or self-care (01) ==
PROVIDERS: Emergency Provider Nurse Practitioner Family
DX: O99.511 Diseases of the respiratory system complicating pregnancy, first trimester (principal); Z3A.08 8 weeks gestation of pregnancy; J02.0 Streptococcal pharyngitis
CPT/HCPCS: 87880; 99213; G0463